=== PATIENT | male | born 1965 | race Caucasian/White ===

== ENCOUNTER 2018-09-07 16:11 | Inpatient (IN) ==
[2018-09-07 17:23] LABS: Basophils # 0.1 K/mm3 (0-0.2); Basophils % 0.7 % (0.1-2.0); Eosinophils # 0.1 K/mm3 (0.0-0.4); Lymphocytes # 2.1 K/mm3 (0.7-4.5); Mean Corpuscular HGB Conc 30.6 g/dL (31.8-35.4); Mean Corpuscular Hemoglobin 27.5 pg (27.0-31.2); Mean Corpuscular Volume 89.9 fl (80-94); Mean Platelet Volume 9.6 fl (7.4-10.4); Monocytes # 0.4 K/mm3 (0.1-1.0); Neutrophils # 4.8 K/mm3 (1.8-7.8); Neutrophils % 65.3 % (37.0-80.0); Platelet Count 380 K/mm3 (142-424); Red Blood Count 2.18 M/mm3 (4.60-6.20); Red Cell Distribution Width 15.3 % (11.5-17.5); White Blood Count 7.4 K/mm3 (4.8-10.8)
--- NOTE | 2018-09-07 17:24 | History & Physical Report ---
*Admission Date: 09/07/18 *Chief complaint: weakness, chest pain, melena, anemia *History of present illness: Mr. Solano is a 52-year-old male with a history of aortic valve replacement who presented to the office of [facility] today to have his INR checked. It was supratherapeutic at 4.5. He states he has been feeling poorly for the past week. He has noticed dark stools for at least a week and has had chest pain, weakness, dizziness, and shortness of breath. A CBC was checked in the office and his hemoglobin was 6.1 and his hematocrit was 17.8. He states he has had dark stools one other time but he cannot remember how long ago it was. He says it seemed to resolve on its own. Of note his father and grandfather both did have a history of colon cancer. His last colonoscopy was done in [address] Begum and the patient states this was normal. He was directly admitted from the office for blood transfusion and a surgical consult. We will also check an EKG, cardiac enzymes, and a chest x-ray. [facility] History Medical History: Reports:: Hyperlipidemia, Hypertension Denies:: Cancer, Diabetes Mellitus Type 1, Diabetes Mellitus Type 2, MRSA *Have you ever received a pneumonia vaccine?: No *Have you received a flu vaccine this season?: No Other Medical History: Reports: Anemia, Arthritis (back) Comment:: Aortic mechanical valve replacement, spinal stenosis of lumbar spine Laterality Cases: Left: Carpal Tunnel Release Other Surgeries: Yes: CABG, Colonoscopy, Other Valve Replacement (aortic valve replacement) - *Social History Educational Level: Attended High School Smoking Status: Current every day smoker # Packs/Day (cigarettes): 0 Alcohol Intake: current Alcohol Intake Frequency:: holidays/special occasions only *Occupational Status:: disabled Housing: house Household Members: spouse *Travel in the last 8 weeks: None - Psychiatric History Expresses thoughts of harming self/others: None Suicide Plan Description: No Plan Family Hx:: Cancer (colon), Diabetes Review of Systems - Constitutional Reports body ache(s), Reports chills, Reports fatigue, Reports weakness - Eyes Denies blurry vision, Denies double vision - ENT Denies nasal congestion, Denies sore throat - *Cardiovascular Reports chest pain, Reports shortness of breath with activity, Reports rapid, pounding, or irregular heartbeat, Denies leg swelling, Denies radiating jaw, neck or arm pain - *Respiratory Reports shortness of breath with activity, Denies cough - *Gastrointestinal Reports black, tarry stools, Denies abdominal pain, Denies nausea, Denies vomiting - *Genitourinary Denies difficulty urinating, Denies painful urination - *Musculoskeletal Reports body aches, Denies joint pain - *Neurologic Reports headache(s), Reports dizziness, Reports weakness Meds Home Medications Medication Instructions Recorded Confirmed Type Duloxetine HCl 60 mg PO BID 09/08/18 09/08/18 History Lisinopril [Lisinopril 10mg Tab] 10 mg PO DAILY 09/08/18 09/08/18 History Simvastatin 20 mg PO HS 09/08/18 09/08/18 History Warfarin Sodium 7.5 mg PO MOWE 09/08/18 09/08/18 History Warfarin Sodium 10 mg PO SUTUTHFRSA 09/08/18 09/08/18 History hydroCHLOROthiazide 12.5 mg PO DAILY 09/08/18 09/08/18 History [Hydrochlorothiazide 12.5mg Tab] Allergies Allergy/AdvReac Type Severity Reaction Status Date / Time No Known Allergies Allergy Unverified 06/08/17 14:45 Exam Vital signs and Labs for Last 24 Hours: Temp Pulse Resp BP Pulse Ox 97.5 F L 115 H 18 129/52 L 99 09/07/18 16:36 09/07/18 16:36 09/07/18 16:36 09/07/18 16:36 09/07/18 16:36 I & O for Last 24 hours: Intake & Output 09/05/18 09/06/18 09/07/18 09/08/18 11:59 11:59 11:59 11:59 Weight 296 lb 6 oz - Constitutional Comments: Does not appear to feel well - *Routine HEENT Exam Head: Present: normocephalic Eye: Present: EOMI, PERRL ENT: Present: mucous membranes dry - *Routine Neck Exam Present: supple. Absent: lymphadenopathy - *Routine Respiratory Exam Present: CTA bilaterally - *Routine Cardiovascular Exam Present: RRR (aortic valve click present) - *Routine Abdominal Exam Present: soft, normoactive bowel sounds. Absent: tenderness - *Routine Extremities Exam Absent: cyanosis, clubbing, edema - *Routine Skin Exam Present: pallor - *Routine Neurological Exam Present: alert, oriented X3 Assessment and Plan (1) Melena Current visit: Yes Status: Acute Category: Medical Code(s): K92.1 - Melena (2) Anemia Current visit: Yes Status: Acute Category: Medical Code(s): D64.9 - Anemia, unspecified (3) Hypertension Current visit: Yes Status: Chronic Category: Medical Code(s): I10 - Essential (primary) hypertension (4) History of aortic valve replacement Current visit: Yes Status: Chronic Category: Surgical Code(s): Z95.2 - Presence of prosthetic heart valve (5) Supratherapeutic INR Current visit: Yes Status: Acute Category: Medical Code(s): R79.1 - Abnormal coagulation profile - Assessment and plan all Dx Assessment and Plan for all problems:: Will transfuse with 2 units of PRBC's and will consult surgery for possible GI bleed.
[2018-09-07 17:25] LABS: Hematocrit 19.6 % (42.0-52.0)
[2018-09-07 17:46] LABS: INR 3.91 (0.9-1.1); Prothrombin Time 38.7 seconds (9.4-11.8)
[2018-09-07 17:51] LABS: Anion Gap 13.9 mEq/L (5-15); Bilirubin,Total 0.2 mg/dL (0.2-1.0); Calcium 8.3 mg/dL (8.5-10.1); Globulin 2.9 gm/dl (1.3-3.2); Potassium 3.9 mmoL/L (3.5-5.1); Total Protein,Serum 5.9 gm/dL (6.4-8.2)
[2018-09-08 04:25] LABS: Basophils # 0.1 K/mm3 (0-0.2); Basophils % 0.6 % (0.1-2.0); Eosinophils # 0.1 K/mm3 (0.0-0.4); Eosinophils % 1.7 % (0.1-12.0); Hematocrit 26.7 % (42.0-52.0); Lymphocytes # 3.4 K/mm3 (0.7-4.5); Lymphocytes % 42.4 % (10-50); Mean Corpuscular Hemoglobin 28.8 pg (27.0-31.2); Mean Corpuscular Volume 89.9 fl (80-94); Mean Platelet Volume 7.3 fl (7.4-10.4); Monocytes # 0.4 K/mm3 (0.1-1.0); Monocytes % 4.6 % (1.7-9.3); Neutrophils # 4.1 K/mm3 (1.8-7.8); Neutrophils % 50.6 % (37.0-80.0); Platelet Count 381 K/mm3 (142-424); Red Blood Count 2.97 M/mm3 (4.60-6.20); Red Cell Distribution Width 15.1 % (11.5-17.5); White Blood Count 8.1 K/mm3 (4.8-10.8)
[2018-09-08 04:29] LABS: INR 3.67 (0.9-1.1); Prothrombin Time 36.4 seconds (9.4-11.8)
[2018-09-08 04:31] LABS: Anion Gap 11.8 mEq/L (5-15); Potassium 3.8 mmoL/L (3.5-5.1)
[2018-09-08 05:08] LABS: Hemoglobin 8.6 g/dL (14.1-18.0)
--- NOTE | 2018-09-08 06:23 | Consult Report ---
*Admission Date: 09/07/18 *Chief complaint: GI bleed *History of present illness: This is a 52-year-old gentleman seen in consultation from his primary service for evaluation regarding possible upper gastrointestinal bleed. He has received 3 units of packed red blood cells since admission. Please see HPI from admission H&P forwarded below: Mr. Solano is a 52-year-old male with a history of aortic valve replacement who presented to the office of [facility] today to have his INR checked. It was supratherapeutic at 4.5. He states he has been feeling poorly for the past week. He has noticed dark stools for at least a week and has had chest pain, weakness, dizziness, and shortness of breath. A CBC was checked in the office and his hemoglobin was 6.1 and his hematocrit was 17.8. He states he has had dark stools one other time but he cannot remember how long ago it was. He says it seemed to resolve on its own. Of note his father and grandfather both did have a history of colon cancer. His last colonoscopy was done in [address] Begum and the patient states this was normal. He was directly admitted from the office for blood transfusion and a surgical consult. We will also check an EKG, cardiac enzymes, and a chest x-ray. Review of Systems - Constitutional Denies chills - Eyes Denies change in vision - ENT Denies change in voice - *Cardiovascular Reports chest pain - *Respiratory Denies cough - *Gastrointestinal Comments: dark stool - *Neurologic Reports headache(s), Reports dizziness, Reports weakness [facility] History Medical History: Reports:: Hyperlipidemia, Hypertension Denies:: Cancer, Diabetes Mellitus Type 1, Diabetes Mellitus Type 2, MRSA *Have you ever received a pneumonia vaccine?: No *Have you received a flu vaccine this season?: No Other Medical History: Reports: Anemia, Arthritis (back) Laterality Cases: Left: Carpal Tunnel Release Other Surgeries: Yes: CABG, Colonoscopy, Other Valve Replacement (aortic valve replacement) - *Social History Educational Level: Attended High School Smoking Status: Current every day smoker # Packs/Day (cigarettes): 0 Alcohol Intake: current Alcohol Intake Frequency:: holidays/special occasions only *Occupational Status:: disabled Housing: house Household Members: spouse *Travel in the last 8 weeks: None - Psychiatric History Expresses thoughts of harming self/others: None Suicide Plan Description: No Plan Family Hx:: Cancer (colon), Diabetes Meds Home Medications Medication Instructions Recorded Confirmed Type Unobtainable 09/08/18 09/08/18 History Allergies Allergy/AdvReac Type Severity Reaction Status Date / Time No Known Allergies Allergy Unverified 06/08/17 14:45 Exam Vital signs and Labs for Last 24 Hours: Temp Pulse Resp BP Pulse Ox 97.8 F 69 18 108/57 L 97 09/08/18 04:00 09/08/18 04:00 09/08/18 04:00 09/08/18 04:00 09/08/18 04:00 Laboratory Results - last 24 hr 09/07/18 17:00: WBC 7.4, RBC 2.18 L, Hgb 6.0 L*, Hct 19.6 L*, MCV 89.9, MCH 27.5, MCHC 30.6 L, RDW 15.3, Plt Count 380, MPV 9.6, Neut % (Auto) 65.3, Lymph % (Auto) 28.0, [place] % (Auto) 5.0, Eos % (Auto) 1.0, Baso % (Auto) 0.7, Neut # (Auto) 4.8, Lymph # (Auto) 2.1, [place] # (Auto) 0.4, Eos # (Auto) 0.1, Baso # (Auto) 0.1 09/07/18 17:00: PT 38.7 H, INR 3.91 H 09/07/18 17:00: Sodium 141, Potassium 3.9, Chloride 107, Carbon Dioxide 24, Anion Gap 13.9, BUN 17, Creatinine 0.99, Estimated Creat Clear 83, Estimated GFR 79, Est GFR ( Amer) 95, Glucose 115 H, Calcium 8.3 L, Total Bilirubin 0.2, AST 22, ALT 40, Alkaline Phosphatase 55, Total Protein 5.9 L, Albumin 3.0 L , Globulin 2.9, Albumin/Globulin Ratio 1.0 L 09/07/18 17:00: Troponin I < 0.02 09/07/18 17:00: Blood Type O Positive, Antibody Screen Negative, Crossmatch ( AHG) See Detail 09/07/18 17:00: Retic Count (auto) 5.7 H 09/07/18 17:00: Ferritin 7 L 09/07/18 17:10: Blood Type Confirm O Positive 09/08/18 04:12: WBC 8.1, RBC 2.97 L D, Hgb 8.6 L D, Hct 26.7 L, MCV 89.9, MCH 28.8, MCHC 32.0, RDW 15.1, Plt Count 381, MPV 7.3 L, Neut % (Auto) 50.6, Lymph % (Auto) 42.4, [place] % (Auto) 4.6, Eos % (Auto) 1.7, Baso % (Auto) 0.6, Neut # (Auto) 4.1, Lymph # (Auto) 3.4, [place] # (Auto) 0.4, Eos # (Auto) 0.1, Baso # (Auto) 0.1 09/08/18 04:12: PT 36.4 H, INR 3.67 H 09/08/18 04:12: Sodium 139, Potassium 3.8, Chloride 107, Carbon Dioxide 24, Anion Gap 11.8, BUN 13, Creatinine 0.94, Estimated Creat Clear 87, Estimated GFR 84, Est GFR ( Amer) 101, Glucose 93, Calcium 8.0 L I & O for Last 24 hours: Intake & Output 09/05/18 09/06/18 09/07/18 09/08/18 11:59 11:59 11:59 11:59 Intake Total 250 / 250 Balance 250 / 250 Weight 296 lb 6 oz Narrative: The patient has received 3 units of packed red blood cells. - Constitutional no acute distress - *Routine Respiratory Exam Absent: respiratory distress - *Routine Abdominal Exam Present: soft Results - Labs 09/08/18 04:12 09/08/18 04:12 Laboratory Results - last 24 hr 09/07/18 17:00: WBC 7.4, RBC 2.18 L, Hgb 6.0 L*, Hct 19.6 L*, MCV 89.9, MCH 27.5, MCHC 30.6 L, RDW 15.3, Plt Count 380, MPV 9.6, Neut % (Auto) 65.3, Lymph % (Auto) 28.0, [place] % (Auto) 5.0, Eos % (Auto) 1.0, Baso % (Auto) 0.7, Neut # (Auto) 4.8, Lymph # (Auto) 2.1, [place] # (Auto) 0.4, Eos # (Auto) 0.1, Baso # (Auto) 0.1 09/07/18 17:00: PT 38.7 H, INR 3.91 H 09/07/18 17:00: Sodium 141, Potassium 3.9, Chloride 107, Carbon Dioxide 24, Anion Gap 13.9, BUN 17, Creatinine 0.99, Estimated Creat Clear 83, Estimated GFR 79, Est GFR ( Amer) 95, Glucose 115 H, Calcium 8.3 L, Total Bilirubin 0.2, AST 22, ALT 40, Alkaline Phosphatase 55, Total Protein 5.9 L, Albumin 3.0 L , Globulin 2.9, Albumin/Globulin Ratio 1.0 L 09/07/18 17:00: Troponin I < 0.02 09/07/18 17:00: Blood Type O Positive, Antibody Screen Negative, Crossmatch (AHG) See Detail 09/07/18 17:00: Retic Count (auto) 5.7 H 09/07/18 17:00: Ferritin 7 L 09/07/18 17:10: Blood Type Confirm O Positive 09/08/18 04:12: WBC 8.1, RBC 2.97 L D, Hgb 8.6 L D, Hct 26.7 L, MCV 89.9, MCH 28.8, MCHC 32.0, RDW 15.1, Plt Count 381, MPV 7.3 L, Neut % (Auto) 50.6, Lymph % (Auto) 42.4, [place] % (Auto) 4.6, Eos % (Auto) 1.7, Baso % (Auto) 0.6, Neut # (Auto) 4.1, Lymph # (Auto) 3.4, [place] # (Auto) 0.4, Eos # (Auto) 0.1, Baso # (Auto) 0.1 09/08/18 04:12: PT 36.4 H, INR 3.67 H 09/08/18 04:12: Sodium 139, Potassium 3.8, Chloride 107, Carbon Dioxide 24, Anion Gap 11.8, BUN 13, Creatinine 0.94, Estimated Creat Clear 87, Estimated GFR 84, Est GFR ( Amer) 101, Glucose 93, Calcium 8.0 L Assessment and Plan (1) Melena Current visit: Yes Status: Acute Category: Medical Code(s): K92.1 - Melena (2) Anemia Current visit: Yes Status: Acute Category: Medical Code(s): D64.9 - Anemia, unspecified Most likely secondary to upper gastrointestinal hemorrhage. Follow-up a.m. labs Continue PPI He is tentatively scheduled for esophagogastroduodenoscopy today (may be postponed if his INR is exceedingly high AND if his vital signs remain stable AND if he has a stable H/H) (3) Hypertension Current visit: Yes Status: Chronic Category: Medical Code(s): I10 - Essential (primary) hypertension (4) History of aortic valve replacement Current visit: Yes Status: Chronic Category: Surgical Code(s): Z95.2 - Pre sence of prosthetic heart valve (5) Supratherapeutic INR Current visit: Yes Status: Acute Category: Medical Code(s): R79.1 - Abnormal coagulation profile
--- NOTE | 2018-09-08 07:46 | Pharmacy Consult Notes ---
[facility] Pharmacy VTE Monitoring - Patient Demographics Admission date: 09/07/18 Report Date: 09/08/18 Time: 07:46 Allergies/Adverse Reactions: Patient Allergies No Known Allergies Allergy (Unverified 06/08/17 14:45) Height: 1.73 m Weight: 134.433 kg Patient Problems: Current Active Problems Melena (Acute) Anemia (Acute) Hypertension (Chronic) History of aortic valve replacement (Chronic) Supratherapeutic INR (Acute) - VTE Risk Labs: VTE Related Lab Results Hgb 8.6 g/dL (14.1-18.0) L D 09/08/18 04:12 Hct 26.7 % (42.0-52.0) L 09/08/18 04:12 Plt Count 381 K/mm3 (142-424) 09/08/18 04:12 PT 36.4 seconds (9.4-11.8) H 09/08/18 04:12 INR 3.67 (0.9-1.1) H 09/08/18 04:12 BUN 13 mg/dL (7-18) 09/08/18 04:12 Creatinine 0.94 mg/dL (0.70-1.30) 09/08/18 04:12 Estimated Creat Clear 87 mL/min (50-200) 09/08/18 04:12 Was VTE Risk Assessment Performed: Yes VTE Score: 5 VTE Risk Level: Low Risk - Prophylaxis VTE Prophylaxis Ordered?: Yes Types of VTE Prophylaxis: TEDS Knee High Location of Applied Device: Bilateral Lower Extremeties - VTE Diagnosis Confirmed Treatment or plan recommended: Continue Current Treatment
--- NOTE | 2018-09-08 08:17 | Progress Note ---
<Lauryn Faulkner - Last Filed: 09/08/18 08:14> Internal Medicine - PN: Subj *Date: 09/08/18 *Time: 08:14 Interval history: Patient states he is feeling a little bit better today. He had less shortness of breath and chest pain when he got up and walked to the bathroom this morning. His HGB has improved from 6-8.6. He states he has had no further stools. He denies any abdominal pain. Exam Vital signs and Labs for Last 24 Hours: Temp Pulse Resp BP Pulse Ox 98.1 F 64 16 123/59 L 97 09/08/18 08:00 09/08/18 08:00 09/08/18 08:00 09/08/18 08:00 09/08/18 08:00 Laboratory Results - last 24 hr 09/07/18 17:00: WBC 7.4, RBC 2.18 L, Hgb 6.0 L*, Hct 19.6 L*, MCV 89.9, MCH 27.5, MCHC 30.6 L, RDW 15.3, Plt Count 380, MPV 9.6, Neut % (Auto) 65.3, Lymph % (Auto) 28.0, [place] % (Auto) 5.0, Eos % (Auto) 1.0, Baso % (Auto) 0.7, Neut # (Auto) 4.8, Lymph # (Auto) 2.1, [place] # (Auto) 0.4, Eos # (Auto) 0.1, Baso # (Auto) 0.1 09/07/18 17:00: PT 38.7 H, INR 3.91 H 09/07/18 17:00: Sodium 141, Potassium 3.9, Chloride 107, Carbon Dioxide 24, Anion Gap 13.9, BUN 17, Creatinine 0.99, Estimated Creat Clear 83, Estimated GFR 79, Est GFR ( Amer) 95, Glucose 115 H, Calcium 8.3 L, Total Bilirubin 0.2, AST 22, ALT 40, Alkaline Phosphatase 55, Total Protein 5.9 L, Albumin 3.0 L , Globulin 2.9, Albumin/Globulin Ratio 1.0 L 09/07/18 17:00: Troponin I < 0.02 09/07/18 17:00: Blood Type O Positive, Antibody Screen Negative, Crossmatch (AHG) See Detail 09/07/18 17:00: Retic Count (auto) 5.7 H 09/07/18 17:00: Ferritin 7 L 09/07/18 17:10: Blood Type Confirm O Positive 09/08/18 04:12: WBC 8.1, RBC 2.97 L D, Hgb 8.6 L D, Hct 26.7 L, MCV 89.9, MCH 28.8, MCHC 32.0, RDW 15.1, Plt Count 381, MPV 7.3 L, Neut % (Auto) 50.6, Lymph % (Auto) 42.4, [place] % (Auto) 4.6, Eos % (Auto) 1.7, Baso % (Auto) 0.6, Neut # (Auto) 4.1, Lymph # (Auto) 3.4, [place] # (Auto) 0.4, Eos # (Auto) 0.1, Baso # (Auto) 0.1 09/08/18 04:12: PT 36.4 H, INR 3.67 H 09/08/18 04:12: Sodium 139, Potassium 3.8, Chloride 107, Carbon Dioxide 24, Anion Gap 11.8, BUN 13, Creatinine 0.94, Estimated Creat Clear 87, Estimated GFR 84, Est GFR ( Amer) 101, Glucose 93, Calcium 8.0 L I & O for Last 24 hours: Intake & Output 09/05/18 09/06/18 09/07/18 09/08/18 11:59 11:59 11:59 11:59 Intake Total 634 / 634 Balance 634 / 634 Weight 296 lb 6 oz - Constitutional no acute distress - *Routine Respiratory Exam Present: CTA bilaterally - *Routine Cardiovascular Exam Present: RRR - *Routine Abdominal Exam Present: soft, normoactive bowel sounds. Absent: tenderness - *Routine Extremities Exam Absent: cyanosis, clubbing, edema - *Routine Skin Exam Present: pallor (but better color today) Assessment and Plan (1) Melena Current visit: Yes Status: Acute Category: Medical Code(s): K92.1 - Melena (2) Anemia Current visit: Yes Status: Acute Category: Medical Code(s): D64.9 - Anemia, unspecified (3) Hypertension Current visit: Yes Status: Chronic Category: Medical Code(s): I10 - Essential (primary) hypertension (4) History of aortic valve replacement Current visit: Yes Status: Chronic Category: Surgical Code(s): Z95.2 - Presence of prosthetic heart valve (5) Supratherapeutic INR Current visit: Yes Status: Acute Category: Medical Code(s): R79.1 - Abnormal coagulation profile - Assessment and plan all Dx Assessment and Plan for all problems:: Surgery note reviewed. Dr. Mckeon has ordered a repeat H&H for this am. If his H&H continues to drop, he will do an EGD today despite his elevated INR. If his H&H is stable, he may delay the EGD until tomorrow. <Modesto Bynum - Last Filed: 09/08/18 08:26> Exam Vital signs and Labs for Last 24 Hours: Temp Pulse Resp BP Pulse Ox 98.1 F 64 16 123/59 L 97 09/08/18 08:00 09/08/18 08:00 09/08/18 08:00 09/08/18 08:00 09/08/18 08:00 Laboratory Results - last 24 hr 09/07/18 17:00: WBC 7.4, RBC 2.18 L, Hgb 6.0 L*, Hct 19.6 L*, MCV 89.9, MCH 27.5, MCHC 30.6 L, RDW 15.3, Plt Count 380, MPV 9.6, Neut % (Auto) 65.3, Lymph % (Auto) 28.0, [place] % (Auto) 5.0, Eos % (Auto) 1.0, Baso % (Auto) 0.7, Neut # (Auto) 4.8, Lymph # (Auto) 2.1, [place] # (Auto) 0.4, Eos # (Auto) 0.1, Baso # (Auto) 0.1 09/07/18 17:00: PT 38.7 H, INR 3.91 H 09/07/18 17:00: Sodium 141, Potassium 3.9, Chloride 107, Carbon Dioxide 24, Anion Gap 13.9, BUN 17, Creatinine 0.99, Estimated Creat Clear 83, Estimated GFR 79, Est GFR ( Amer) 95, Glucose 115 H, Calcium 8.3 L, Total Bilirubin 0.2, AST 22, ALT 40, Alkaline Phosphatase 55, Total Protein 5.9 L, Albumin 3.0 L , Globulin 2.9, Albumin/Globulin Ratio 1.0 L 09/07/18 17:00: Troponin I < 0.02 09/07/18 17:00: Blood Type O Positive, Antibody Screen Negative, Crossmatch (AHG) See Detail 09/07/18 17:00: Retic Count (auto) 5.7 H 09/07/18 17:00: Ferritin 7 L 09/07/18 17:10: Blood Type Confirm O Positive 09/08/18 04:12: WBC 8.1, RBC 2.97 L D, Hgb 8.6 L D, Hct 26.7 L, MCV 89.9, MCH 2 8.8, MCHC 32.0, RDW 15.1, Plt Count 381, MPV 7.3 L, Neut % (Auto) 50.6, Lymph % (Auto) 42.4, [place] % (Auto) 4.6, Eos % (Auto) 1.7, Baso % (Auto) 0.6, Neut # (Auto) 4.1, Lymph # (Auto) 3.4, [place] # (Auto) 0.4, Eos # (Auto) 0.1, Baso # (Auto) 0.1 09/08/18 04:12: PT 36.4 H, INR 3.67 H 09/08/18 04:12: Sodium 139, Potassium 3.8, Chloride 107, Carbon Dioxide 24, Anion Gap 11.8, BUN 13, Creatinine 0.94, Estimated Creat Clear 87, Estimated GFR 84, Est GFR ( Amer) 101, Glucose 93, Calcium 8.0 L I & O for Last 24 hours: Intake & Output 09/05/18 09/06/18 09/07/18 09/08/18 11:59 11:59 11:59 11:59 Intake Total 634 / 634 Balance 634 / 634 Weight 296 lb 6 oz Assessment and Plan (1) Melena Current visit: Yes Status: Acute Category: Medical Code(s): K92.1 - Melena (2) Anemia Current visit: Yes Status: Acute Category: Medical Code(s): D64.9 - Anemia, unspecified (3) Hypertension Current visit: Yes Status: Chronic Category: Medical Code(s): I10 - Essential (primary) hypertension (4) History of aortic valve replacement Current visit: Yes Status: Chronic Category: Surgical Code(s): Z95.2 - Presence of prosthetic heart valve (5) Supratherapeutic INR Current visit: Yes Status: Acute Category: Medical Code(s): R79.1 - Abnormal coagulation profile - Assessment and plan all Dx Assessment and Plan for all problems:: Patient seen and examined. Likely has UGI bleed. He gives remote hx of peptic ulcer. Concur with plan for EGD when Dr. Mckeon deems appropriate.
[2018-09-08 10:41] LABS: Hematocrit 25.8 % (42.0-52.0); Hemoglobin 8.4 g/dL (14.1-18.0)
[2018-09-08 18:35] LABS: Hematocrit 28.1 % (42.0-52.0); Hemoglobin 9.1 g/dL (14.1-18.0)
[2018-09-09 05:01] LABS: Basophils % 0.6 % (0.1-2.0); Eosinophils # 0.2 K/mm3 (0.0-0.4); Eosinophils % 2.1 % (0.1-12.0); Hematocrit 26.5 % (42.0-52.0); Hemoglobin 8.8 g/dL (14.1-18.0); Lymphocytes # 2.8 K/mm3 (0.7-4.5); Lymphocytes % 39.8 % (10-50); Mean Corpuscular HGB Conc 33.1 g/dL (31.8-35.4); Mean Corpuscular Volume 87.6 fl (80-94); Mean Platelet Volume 8.9 fl (7.4-10.4); Monocytes # 0.4 K/mm3 (0.1-1.0); Monocytes % 5.6 % (1.7-9.3); Neutrophils # 3.7 K/mm3 (1.8-7.8); Neutrophils % 51.9 % (37.0-80.0); Platelet Count 328 K/mm3 (142-424); Red Blood Count 3.02 M/mm3 (4.60-6.20); Red Cell Distribution Width 14.8 % (11.5-17.5); White Blood Count 7.1 K/mm3 (4.8-10.8)
[2018-09-09 05:10] LABS: INR 1.91 (0.9-1.1); Prothrombin Time 19.3 seconds (9.4-11.8)
--- NOTE | 2018-09-09 06:11 | Progress Note ---
Subjective Patient reports: no new complaints Exam Vital signs and Labs for Last 24 Hours: Temp Pulse Resp BP Pulse Ox 97.6 F 69 17 125/51 L 96 09/09/18 04:00 09/09/18 04:00 09/09/18 04:00 09/09/18 04:00 09/09/18 04:00 Laboratory Results - last 24 hr 09/07/18 17:00: Blood Type O Positive, Antibody Screen Negative, Crossmatch (AHG) See Detail 09/08/18 10:30: Hgb 8.4 L, Hct 25.8 L 09/08/18 14:56: Stool Occult Blood Positive A 09/08/18 18:30: Hgb 9.1 L, Hct 28.1 L 09/09/18 04:55: WBC 7.1, RBC 3.02 L, Hgb 8.8 L, Hct 26.5 L, MCV 87.6, MCH 29.0, MCHC 33.1, RDW 14.8, Plt Count 328, MPV 8.9, Neut % (Auto) 51.9, Lymph % (Auto) 39.8, [place] % (Auto) 5.6, Eos % (Auto) 2.1, Baso % (Auto) 0.6, Neut # (Auto) 3.7, Lymph # (Auto) 2.8, [place] # (Auto) 0.4, Eos # (Auto) 0.2, Baso # (Auto) 0.0 09/09/18 04:55: PT 19.3 H, INR 1.91 H I & O for Last 24 hours: Intake & Output 09/06/18 09/07/18 09/08/18 09/09/18 11:59 11:59 11:59 11:59 Intake Total 634 / 634 676 / 676 Balance 634 / 634 676 / 676 Weight 296 lb 6 oz 291 lb 8 oz - Constitutional no acute distress - *Routine Respiratory Exam Absent: respiratory distress - *Routine Cardiovascular Exam Present: RRR - *Routine Abdominal Exam Present: soft Progress Note: A&P (1) Melena Status: Acute Current Visit: Yes (2) Anemia Status: Acute Assessment and plan: EGD this AM continue current medical therapy Current Visit: Yes (3) Hypertension Status: Chronic Current Visit: Yes (4) History of aortic valve replacement Status: Chronic Current Visit: Yes (5) Supratherapeutic INR Status: Acute Current Visit: Yes
--- NOTE | 2018-09-09 06:49 | Procedure Note ---
- Procedure: Date: 09/09/18 Procedure Performed:: Esophagogastroduodenoscopy with biopsy Indications:: Anemia Melena Performing Provider:: Pasha Mckeon MD Referring Provider:: Dr. Bynum Sedation:: Monitored anesthesia care Procedure:: After informed consent was obtained the patient was taken to the endoscopy suite. Sedation ensued after the patient was transferred to the left lateral decubitus position. Pulse, blood pressure, and oxygen saturation were monitored throughout the procedure. The endoscope was advanced beyond the duodenal bulb. Retroflexion within the gastric lumen was accomplished. The gastroscope was carefully removed and the patient was transferred to recovery in stable condition. Please see "findings" and "specimens" below for detail. Findings:: Gastroesophageal junction at 45 cm Patchy gastritis 3 shallow ulcerations in distal gastric body/antrum The ulcerations were not actively bleeding and did not have "clot at base". Specimens:: Distal gastric body/antrum (breonna-ulcer tissue) Recommendations:: Continue proton pump inhibition Begin Carafate Repeat EGD in 6-8 weeks Carefully resume Coumadin when deemed appropriate by primary care providers. Complications:: No immediate Estimated blood obtained (mL): 1
--- NOTE | 2018-09-09 07:24 | Progress Note ---
[facility] Anesthesia Checklist - Structural Data Admitted From: Inpatient Planned Operative Procedure/s: egd Consent for Planned Operative Procedure(s) Verified: Yes - Airway Assessment C-Spine Mobility Assessed: Yes TMJ Mobility Assessed: Yes Dentition: Poor Dentition - Neurological Assessment Level of Consciousness: Awake, Alert, Appropriate - Anesthesia Plan Anesthesia Risk discussed: Yes Anesthesia Plan: Verified ASA Class: II Anesthesia Type: [facility] History I have reviewed the patient's past medical history: Yes Medical History: Reports:: Hyperlipidemia, Hypertension Denies:: Cancer, Diabetes Mellitus Type 1, Diabetes Mellitus Type 2, MRSA *Have you ever received a pneumonia vaccine?: No *Have you received a flu vaccine this season?: No Other Medical History: Reports: Anemia, Arthritis (back) Laterality Cases: Left: Carpal Tunnel Release Other Surgeries: Yes: CABG, Colonoscopy, Other Valve Replacement (aortic valve replacement) - *Social History Educational Level: Attended High School Smoking Status: Current every day smoker # Packs/Day (cigarettes): 0 Alcohol Intake: current Alcohol Intake Frequency:: holidays/special occasions only *Occupational Status:: disabled Housing: house Household Members: spouse *Travel in the last 8 weeks: None - Psychiatric History Expresses thoughts of harming self/others: None Suicide Plan Description: No Plan Family Hx:: Cancer (colon), Diabetes
--- NOTE | 2018-09-09 08:30 | Progress Note ---
<Lauryn Faulkner - Last Filed: 09/09/18 08:27> Internal Medicine - PN: Subj *Date: 09/09/18 *Time: 08:28 Interval history: Patient states he is feeling well this morning and wants to go home. He had his EGD and Dr. Mckeon found 3 shallow distal gastric/antral ulcers. There was no active bleeding and no clot at the base. He did take some biopsies. He felt he would need to stay on a PPI and Carafate. The patient tolerated a diet after his EGD. He states his stool is clearing. Exam Vital signs and Labs for Last 24 Hours: Temp Pulse Resp BP Pulse Ox 98.1 F 55 L 18 135/66 99 09/09/18 07:15 09/09/18 07:15 09/09/18 07:15 09/09/18 07:15 09/09/18 07:15 Laboratory Results - last 24 hr 09/07/18 17:00: Blood Type O Positive, Antibody Screen Negative, Crossmatch (AHG) See Detail 09/08/18 10:30: Hgb 8.4 L, Hct 25.8 L 09/08/18 14:56: Stool Occult Blood Positive A 09/08/18 18:30: Hgb 9.1 L, Hct 28.1 L 09/09/18 04:55: WBC 7.1, RBC 3.02 L, Hgb 8.8 L, Hct 26.5 L, MCV 87.6, MCH 29.0, MCHC 33.1, RDW 14.8, Plt Count 328, MPV 8.9, Neut % (Auto) 51.9, Lymph % (Auto) 39.8, [place] % (Auto) 5.6, Eos % (Auto) 2.1, Baso % (Auto) 0.6, Neut # (Auto) 3.7, Lymph # (Auto) 2.8, [place] # (Auto) 0.4, Eos # (Auto) 0.2, Baso # (Auto) 0.0 09/09/18 04:55: PT 19.3 H, INR 1.91 H I & O for Last 24 hours: Intake & Output 09/06/18 09/07/18 09/08/18 09/09/18 11:59 11:59 11:59 11:59 Intake Total 634 / 634 676 / 676 Output Total 600 / 600 Balance 634 / 634 76 / 76 Weight 296 lb 6 oz 291 lb 8 oz - Constitutional no acute distress - *Routine Respiratory Exam Present: CTA bilaterally - *Routine Cardiovascular Exam Present: RRR - *Routine Abdominal Exam Present: soft, normoactive bowel sounds, tenderness (epigastric area) - *Routine Extremities Exam Absent: cyanosis, clubbing, edema - *Routine Skin Exam Present: pallor Assessment and Plan (1) Melena Current visit: Yes Status: Acute Category: Medical Code(s): K92.1 - Melena (2) Anemia Current visit: Yes Status: Acute Category: Medical Code(s): D64.9 - Anemia, unspecified (3) Hypertension Current visit: Yes Status: Chronic Category: Medical Code(s): I10 - Essential (primary) hypertension (4) History of aortic valve replacement Current visit: Yes Status: Chronic Category: Surgical Code(s): Z95.2 - Presence of prosthetic heart valve (5) Supratherapeutic INR Current visit: Yes Status: Acute Category: Medical Code(s): R79.1 - Abnormal coagulation profile - Assessment and plan all Dx Assessment and Plan for all problems:: Will continue PPI and Carafate. Will discuss restarting Coumadin with Dr. Bynum as well as patient's discharge. <Modesto Bynum - Last Filed: 09/09/18 09:14> Exam Vital signs and Labs for Last 24 Hours: Temp Pulse Resp BP Pulse Ox 98.1 F 80 18 135/66 99 09/09/18 07:15 09/09/18 08:00 09/09/18 07:15 09/09/18 07:15 09/09/18 07:15 Laboratory Results - last 24 hr 09/07/18 17:00: Blood Type O Positive, Antibody Screen Negative, Crossmatch (AHG) See Detail 09/07/18 17:50: 25-OH Vitamin D Total 20.4 L 09/07/18 17:50: Iron 10 L, TIBC 335, Iron Saturation 3 L, Unsaturated IBC 325, Folate 13.9 09/08/18 10:30: Hgb 8.4 L, Hct 25.8 L 09/08/18 14:56: Stool Occult Blood Positive A 09/08/18 18:30: Hgb 9.1 L, Hct 28.1 L 09/09/18 04:55: WBC 7.1, RBC 3.02 L, Hgb 8.8 L, Hct 26.5 L, MCV 87.6, MCH 29.0, MCHC 33.1, RDW 14.8, Plt Count 328, MPV 8.9, Neut % (Auto) 51.9, Lymph % (Auto) 39.8, [place] % (Auto) 5.6, Eos % (Auto) 2.1, Baso % (Auto) 0.6, Neut # (Auto) 3.7, Lymph # (Auto) 2.8, [place] # (Auto) 0.4, Eos # (Auto) 0.2, Baso # (Auto) 0.0 09/09/18 04:55: PT 19.3 H, INR 1.91 H I & O for Last 24 hours: Intake & Output 09/06/18 09/07/18 09/08/18 09/09/18 11:59 11:59 11:59 11:59 Intake Total 634 / 634 676 / 676 Output Total 600 / 600 Balance 634 / 634 76 / 76 Weight 296 lb 6 oz 291 lb 8 oz Assessment and Plan (1) Melena Current visit: Yes Status: Acute Category: Medical Code(s): K92.1 - Melena (2) Anemia Current visit: Yes Status: Acute Category: Medical Code(s): D64.9 - Anemia, unspecified (3) Hypertension Current visit: Yes Status: Chronic Category: Medical Code(s): I10 - Essential (primary) hypertension (4) History of aortic valve replacement Current visit: Yes Status: Chronic Category: Surgical Code(s): Z95.2 - Presence of prosthetic heart valve (5) Supratherapeutic INR Current visit: Yes Status: Acute Category: Medical Code(s): R79.1 - Abnormal coagulation profile - Assessment and plan all Dx Assessment and Plan for all problems:: Patient seen and examined. He is stable for discharge on PPI and Carafate. He will remain off the Coumadin until he follows up in a week. Advised to avoid all ASA and NSAID products.
[2018-09-09 08:53] LABS: Folate 13.9 ng/mL (>3.0)
--- NOTE | 2018-09-12 11:05 | Discharge Summary ---
General - General Admission date:: 09/07/18 Discharge date: 09/09/18 HPI HPI: Mr. Solano is a 52-year-old male with a history of aortic valve replacement who presented to the office of [facility] today to have his INR checked. It was supratherapeutic at 4.5. He states he has been feeling poorly for the past week. He has noticed dark stools for at least a week and has had chest pain, weakness, dizziness, and shortness of breath. A CBC was checked in the office and his hemoglobin was 6.1 and his hematocrit was 17.8. He states he has had dark stools one other time but he cannot remember how long ago it was. He says it seemed to resolve on its own. Of note his father and grandfather both did have a history of colon cancer. His last colonoscopy was done in [address] Begum and the patient states this was normal. He was directly admitted from the office for blood transfusion and a surgical consult. We will also check an EKG, cardiac enzymes, and a chest x-ray. Hospital Course Hospital Course: The patient was admitted for blood transfusion and surgical consult. His cardiac enyzmes and CXR were normal. Dr. Mckeon saw the patient and felt that this was most likely secondary to an upper gastrointestinal hemorrhage. He started him on a PPI and felt he would need an EGD once his INR had decreased as it was supratherapeutic on admission. The patient's H&H did improve with tr ansfusion and his INR decreased. Dr. Mckeon performed an EGD on 09/09/18 and it showed 3 shallow ulcerations in the distal gastric body/antrum. The ulcerations were not actively bleeding and did not have a clot at the base. Dr. Mckeon recommended continued proton pump inhibitors as well as Carafate and a repeat EGD in 6-8 weeks. The patient's stool began clearing of the blood. He felt better and was able to tolerate a diet. His chest pain and shortness of breath resolved after blood transfusion. He was stable to be discharged home on a PPI and Carafate and will remain off of Coumadin until he follows up in the office in a week. He was also advised to avoid all aspirin and NSAID products. Of note on anemia studies, his iron was found to be low as was his ferritin. His vitamin D was also low. Objective Vital signs: Temp Pulse Resp BP Pulse Ox 98.0 F 57 L 18 120/55 L 98 09/09/18 11:01 09/09/18 11:01 09/09/18 11:01 09/09/18 11:01 09/09/18 11:01 Narrative: - Constitutional Comments: Does not appear to feel well - *Routine HEENT Exam Head: Present: normocephalic Eye: Present: EOMI, PERRL ENT: Present: mucous membranes dry - *Routine Neck Exam Present: supple. Absent: lymphadenopathy - *Routine Respiratory Exam Present: CTA bilaterally - *Routine Cardiovascular Exam Present: RRR (aortic valve click present) - *Routine Abdominal Exam Present: soft, normoactive bowel sounds. Absent: tenderness - *Routine Extremities Exam Absent: cyanosis, clubbing, edema - *Routine Skin Exam Present: pallor - *Routine Neurological Exam Present: alert, oriented X3 DS: Diagnosis - Discharge Diagnosis (1) Melena Status: Acute (2) Anemia Status: Acute (3) Hypertension Status: Chronic (4) History of aortic valve replacement Status: Chronic (5) Supratherapeutic INR Status: Acute Discharge Plan - Patient Discharge Instructions ACTIVITY: Continue current activity DIET: continue same diet Patient Instructions: Anemia, DI for Peptic Ulcer, Coumadin Vitamin K/ Diet, Coumadin Therapy Booklet - Follow up Plan Follow up with: Modesto Bynum MD [Primary Care Provider] - 1 week Pasha Mckeon MD [Staff Physician] - 1 week Disposition: Home, Self-[facility] Medications: Home Medications Medication Instructions Recorded Confirmed Type Duloxetine HCl 60 mg PO BID 09/08/18 09/08/18 History Lisinopril [Lisinopril 10mg Tab] 10 mg PO DAILY 09/08/18 09/08/18 History Simvastatin 20 mg PO HS 09/08/18 09/08/18 History hydroCHLOROthiazide 12.5 mg PO DAILY 09/08/18 09/08/18 History [Hydrochlorothiazide 12.5mg Tab] Ferrous Sulfate [Ferrous Sulfate 325 mg PO DAILY #30 tab 09/09/18 Rx 325mg Tablet] Pantoprazole Sodium [Protonix 40mg 40 mg PO BID 30 Days #60 tab 09/09/18 Rx tablet] Sucralfate [Carafate 1gm Tab] 1 gm PO ACHS #120 tab 09/09/18 Rx Prescriptions/Medication Reconciliation: New Ferrous Sulfate [Ferrous Sulfate 325mg Tablet] 325 mg PO DAILY #30 tab Pantoprazole Sodium [Protonix 40mg tablet] 40 mg PO BID 30 Days #60 tab Sucralfate [Carafate 1gm Tab] 1 gm PO ACHS #120 tab Continue Lisinopril [Lisinopril 10mg Tab] 10 mg PO DAILY Simvastatin 20 mg PO HS Duloxetine HCl 60 mg PO BID hydroCHLOROthiazide [Hydrochlorothiazide 12.5mg Tab] 12.5 mg PO DAILY Discontinued Warfarin Sodium 10 mg PO SUTUTHFRSA Warfarin Sodium 7.5 mg PO MOWE
== END 2018-09-09 11:03 | disposition home or self-care (01) | DRG 379 ==
LOC: 2ND 16:19
PROVIDERS: ADMIT Family Medicine; ATTEND Family Medicine
CPT/HCPCS: 36415; 71020; 71046; 80048; 80053; 82272; 82607; 82652; 82728; 82746; 83540; 83550; 84484; 85014; 85018; 85025; 85044; 85610; 86850; 93005; G0328; P9016

== ENCOUNTER → 2018-10-06 06:50 | Outpatient (CLI) | payer MEDICARE, SELFPAY ==
--- NOTE | 2018-10-06 06:52 | NM_ITS ---
CARDIOLITE SPECT MYOCARDIAL PERFUSION LEXISCAN, REST AND STRESS: [facility] REVIEW QGS EF AND WALL MOTION EVALUATION: QPS - PERFUSION EVALUATION HISTORY: Chest pain, Palpitations, Fatigue, HTN, CABG, Tobacco use, Family history DOSE: 10.98 mCi technetium 99m mibi intravenously at rest followed by 32.8 mCi technetium 99m mibi following the intravenous ministration of 0.4 mg of Lexiscan. Resting blood pressure is 133/69. Stress blood pressure 126/65. FINDINGS: Ejection fraction is calculated to be 57%. Stress images reveal decreased activity in the inferior wall and apex with slightly improved activity with rest. 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 High risk abnormal stress test
--- NOTE | 2018-10-06 10:03 | HMH.ITSHM ---
Current Home Medications as stated by this patient Kassi Solano or home office representative. [] sucralfate pantoprazole lisinopril duloxetine hci hydrochlorothiazide
== END ==
PROVIDERS: PCP Family Medicine; Visit Provider Urology
DX: F17.200 Nicotine dependence, unspecified, uncomplicated (principal); I10 Essential (primary) hypertension; R06.09 Other forms of dyspnea; R07.89 Other chest pain; R79.1 Abnormal coagulation profile; Z95.2 Presence of prosthetic heart valve
CPT/HCPCS: 78452; 93017; 93306; A9502; J2785

== ENCOUNTER → 2018-11-28 12:05 | Outpatient (CLI) | payer MEDICARE, SELFPAY ==
[2018-11-28 13:58] LABS: INR 1.18 (0.9-1.1); Prothrombin Time 12.2 seconds (9.4-11.8)
== END ==
PROVIDERS: Visit Provider Family Medicine
DX: Z51.81 Encounter for therapeutic drug level monitoring (principal); Z79.01 Long term (current) use of anticoagulants
CPT/HCPCS: 36415; 85610

== ENCOUNTER → 2018-12-05 09:57 | Outpatient (CLI) | payer MEDICARE, SELFPAY ==
[2018-12-05 10:21] LABS: Prothrombin Time 20.1 seconds (9.4-11.8)
== END ==
PROVIDERS: Visit Provider Family Medicine
DX: Z51.81 Encounter for therapeutic drug level monitoring (principal); Z79.01 Long term (current) use of anticoagulants
CPT/HCPCS: 36415; 85610

== ENCOUNTER → 2018-12-13 11:27 | Outpatient (CLI) | payer MEDICARE, SELFPAY ==
[2018-12-13 12:00] LABS: INR 3.72 (0.9-1.1); Prothrombin Time 36.3 seconds (9.4-11.8)
== END ==
PROVIDERS: Visit Provider Family Medicine
DX: Z51.81 Encounter for therapeutic drug level monitoring (principal); Z79.01 Long term (current) use of anticoagulants
CPT/HCPCS: 36415; 85610

== ENCOUNTER → 2018-12-30 12:16 | Outpatient (CLI) | payer MEDICARE, SELFPAY ==
[2018-12-30 13:00] LABS: INR 3.77 (0.9-1.1); Prothrombin Time 36.8 seconds (9.4-11.8)
== END ==
PROVIDERS: Visit Provider Family Medicine
DX: Z51.81 Encounter for therapeutic drug level monitoring (principal); Z79.01 Long term (current) use of anticoagulants
CPT/HCPCS: 36415; 85610

== ENCOUNTER → 2020-01-05 07:05 | Outpatient (CLI) | payer MEDICARE, SELFPAY ==
--- NOTE | 2020-01-05 | CA_ITS ---
APPROVED REPORT Exam: Pharmacologic Technologist: Eleanor Hood, Ht: 5 ft 8 in Wt: 304 lbs BSA: 2.44 m2 HR: 57 bpm BP: 118/63 mmHg Rhythm: SINUS CHRIS Medical History Medical History: HTN, Hyperlipidemia Medications: Lisinopril,,,,, Warfarin,,,,, Simvastatin,,,,, Asa,,,,, HCTZ,,,,, [place],,,,, DulOXETINE,,,,, Allergies: No known drug allergies Stress Test Details Test: LEXISCAN HR Resting HR: 58 bpm Max Heart Rate (APMHR): 164 bpm Max HR Achieved: 96 bpm Target HR (85% APMHR): 139 bpm % of APMHR: 58 Recovery HR: 69 bpm BP Resting BP: 118.0/63.0 mmHg Max BP: 126.0/61.0 mmHg Recovery BP: 115.0/65.0 mmHg ECG Resting ECG: SINUS CHRIS Clinical Exercise duration: 03:59 min Highest Stage Achieved: Stress ECG Conclusion LEXISCAN COMPLETED. PATIENT C/OSHORTNESS OF AIR AT PEAK INFUSION. NO CHEST PAIN. POSITIVE FOR SOA DURING PEAK INFUSION. RESOLVED IN RECOVERY. OCCASIONAL PAC. LESS THAN 1.5MM ST DEPRESSION. IMAGES TO FOLLOW. Electronically signed by : Santosh Snell, 01/05/2020 13:50:14
--- NOTE | 2020-01-05 07:07 | NM_ITS ---
APPROVED REPORT Exam: Nuclear Stress Test Indication: chest pain..short of breath..palpitations..fatigue Patient Location: Outpatient Stress Tech: Silke Sana [place] Tech:MILAGRO Hernadez RT(R)(N) Ht: 5 ft 8 in Wt: 304 lbs HR: 57 bpm BP: 118/63 mmHg BSA: 2.44 m2 BMI: 46.2 History: chest pain..short of breath..palpitations..fatigue Procedure: Patient received a 0.4 mg of intravenous Lexiscan, resting heart rate 57 bpm, resting blood pressure 118/63 mmHg, with Lexiscan maximum heart rate achived was 89 bpm which is Less then 85 % of the maximum predicted heart rate and blood pressure was 97/61 mmHg. With Lexiscan, patient denied any complaint of chest pain. Electrocardiogram Resting electrocardiogram showed sinus rhythm nonspecific ST-T changes, with Lexiscan there is less than 1.[address] segment depression noted from the baseline EKG. The EKG portion of the Lexiscan is nondiagnostic. Cardiac Stress and Resting SPECT Images: Cardiac Stress and Resting SPECT images were obtained using technetium 99m Myoview 27.5 mCi stress and 10.53 mCi at rest. Gated SPECT with analysis of segmental wall motion and calculation of the ejection fraction also done. Cardiac stress and resting SPECT images show decreased tracer activity in the inferior apical and anteroseptal wall consistent with area of mixed ischemia and scar, computer derived ejection fraction is 58% with moderate hypokinesis involving the inferior apical and anteroseptal wall. Right ventricle is normal size and contractility. Conclusion: 1. The EKG portion of the Lexiscan Myoview is nondiagnostic. 2. Scintigraphic evidence of mixed ischemia and scar involving the inferior apical and anteroseptal wall, computer derived ejection fraction 58% with segmental wall motion abnormality described above, right ventricle is normal size and contractility. 3. Abnormal Lexiscan Myoview study. Electronically signed by : Santosh Snell, 01/05/2020 13:54:31
--- NOTE | 2020-01-05 07:07 | CA_ITS ---
APPROVED REPORT EXAM: Comprehensive 2D, Doppler, and color-flow Echocardiogram Medical Parasitologist: Charline Velázquez RT(R) Ht: 5 ft 8 in Wt: 303lbs BSA: 2.44 BP: 137/80 mmHg Indications: HTN, SOB, CARTER, obesity, CP, mechanical AV 2D Dimensions Aortic Root 2.47 cm M: 3.1 - 3.7 Left Atrium 5.03 cm M: 3.0 - 4.0 LVOT 1.88 cm (M/F) 1.5-2.5 M-Mode Dimensions RVDd 2.08 cm (0.9-2.6) LVDd 4.80 cm (3.5-5.7) IVSd 1.30 cm (0.6-1.1) PWd 1.30 cm (0.6-1.1) EF (Teich) 60.00% LV Diastology E/A Ratio 1.08 Aortic Valve LVOT Max 190.00 (70-110 cm/s) LVOT VTI 37.45 cm Mitral Valve MV A Velocity 56.00 (40-130 cm/s) Left Ventricle Left atrium is mildly enlarged, left ventricle is normal size, mild concentric left ventricular hypertrophy, visually estimated ejection fraction 55% with no regional wall motion abnormality, endocardial surfaces are poorly visualized. Grade 1 diastolic dysfunction seen without tissue Doppler evidence of raise left atrial pressure. Right Ventricle Right atrium and right ventricular normal size and contractility. Aortic Valve There is a mechanical prosthetic valve noted in the aortic position, the valve is well-seated. The mean gradient across valve is 10 mmHg, which is within acceptable range, there is no aortic insufficiency. Mitral Valve Mitral valve leaflets are minimally thickened, there is no mitral stenosis, there is mild mitral regurgitation. Tricuspid Valve Tricuspid valve is grossly normal, there is mild tricuspid regurgitation, tricuspid regurgitation jet velocity is inadequate for calculation of the right ventricular systolic pressure. Pulmonic Valve Pulmonic valve is poorly visualized. Great Vessels Aortic root is normal size. Pericardium No significant pericardial effusion noted. Conclusion 1. Technically difficult study because of the patient factors and poor acoustic windows. 2. Mildly enlarged left atrium, normal left ventricular size, mild concentric left ventricular hypertrophy, visually estimated ejection fraction 55% with no regional wall motion abnormality, grade 1 diastolic dysfunction seen without tissue Doppler evidence of raise left atrial pressure. 3. Normal functioning mechanical prosthetic valve in the aortic position. 4. Mild mitral and tricuspid regurgitation. 5. No significant pericardial effusion noted. Electronically signed by : Santosh Snell, 01/05/2020 14:06:54
== END ==
PROVIDERS: PCP Family Medicine; Visit Provider Urology
DX: I10 Essential (primary) hypertension (principal); R06.00 Dyspnea, unspecified; R07.9 Chest pain, unspecified; Z95.2 Presence of prosthetic heart valve; G47.33 Obstructive sleep apnea (adult) (pediatric)
CPT/HCPCS: 78452; 93017; 93306; A9502; G0399; J2785

== ENCOUNTER 2020-01-17 08:04 | Day surgery (SDC) | payer MEDICARE, SELFPAY ==
[2020-01-17] VITALS (12 sets, daily range): BP systolic 94–162; BP diastolic 35–84; PULSE 51–78; RESP 15–20; TEMP 36.6; O2SAT 93–99; BMI 45.9
[2020-01-17 08:53] LABS: Chloride 102 mmol/L (98-107)
[2020-01-17 08:54] LABS: Potassium 4.2 mmoL/L (3.5-5.1); Sodium 136 mmol/L (136-145)
[2020-01-17 08:55] LABS: Basophils # 0.1 K/mm3 (0-0.2); Basophils % 0.6 % (0.1-2.0); Eosinophils # 0.2 K/mm3 (0.0-0.4); Hematocrit 25.5 % (42.0-52.0); Lymphocytes # 2.1 K/mm3 (0.7-4.5); Lymphocytes % 25.7 % (10-50); Mean Corpuscular HGB Conc 31.4 g/dL (31.8-35.4); Mean Corpuscular Hemoglobin 26.3 pg (27.0-31.2); Mean Corpuscular Volume 83.6 fl (80-94); Mean Platelet Volume 7.2 fl (7.4-10.4); Monocytes # 0.5 K/mm3 (0.1-1.0); Monocytes % 5.5 % (1.7-9.3); Neutrophils # 5.5 K/mm3 (1.8-7.8); Neutrophils % 66.1 % (37.0-80.0); Platelet Count 503 K/mm3 (142-424); Red Blood Count 3.05 M/mm3 (4.60-6.20); Red Cell Distribution Width 15.3 % (11.5-17.5); White Blood Count 8.3 K/mm3 (4.8-10.8)
[2020-01-17 08:57] LABS: Anion Gap 14.2 mEq/L (5-15); Blood Urea Nitrogen 18 mg/dl (9-20); Calcium 8.6 mg/dl (8.4-10.2); Carbon Dioxide 24 mmol/L (22.0-30.0); Creatinine Clearance Estimated 80 mL/min (50-200); Estimated Glomerular Filt Rate 77 ml/min (>60); GFR (African American) 94 ML/MIN (>60); Glucose 128 mg/dl (74-100)
[2020-01-17 09:49] LABS: INR 5.42 (0.9-1.1)
--- NOTE | 2020-01-17 10:52 | SUR.PREOP ---
notified physician of critical lab results.
--- NOTE | 2020-01-17 11:30 | IR_ITS ---
APPROVED REPORT Patient Location: Outpatient PROCEDURES Selective coronary angiogram INDICATION Angina pectoris, Abnormal Myoview Informed consent was obtained prior to the procedure. COMPLICATIONS NONE Estimated Blood Loss: LESS THAN 10 ML TECHNIQUE One percent lidocaine used to anesthetize the right anterior aspect of the wrist. The right radial artery was accessed via the Seldinger technique. A 6 Persian sheath was placed in the right radial artery. 2.5 mg of verapamil, 800 mcg of nitroglycerin, 1mg Lidocaine and 5000 U Heparin were given through the arterial sheath. The trap catheter was also used to perform left heart catheterization, left ventriculogram and selective coronary angiogram. At the end of the procedure the sheath was removed good hemostasis was achieved using Traclet band, patient was transferred to the postop holding area in stable condition. ANGIOGRAPHIC RESULTS The left main artery Normal The left anterior descending artery Normal The circumflex artery Normal The right coronary artery Dominant normal The SANTORO ventriculogram reveals Not performed due to mechanical valve The left ventricular end-diastolic pressure Not measured due to mechanical valve IMPRESSION Normal coronary arteries PLAN 1. Noncardiac evaluation of symptomatology Electronically signed by : Adolfo Foster, 01/17/2020 14:46:01
--- NOTE | 2020-01-18 10:20 | PC.NURSE ---
Pt arrived to the floor at this time via w/c
== END 2020-01-17 14:22 | disposition hospice, home (50) ==
LOC: CATHLAB 08:05 → 2ND 01-18 10:31
PROVIDERS: PCP Family Medicine; Visit Provider Internal Medicine
DX: G47.33 Obstructive sleep apnea (adult) (pediatric) (principal); I10 Essential (primary) hypertension; I20.9 Angina pectoris, unspecified; R06.00 Dyspnea, unspecified; R94.39 Abnormal result of other cardiovascular function study; Z95.2 Presence of prosthetic heart valve
CPT/HCPCS: 80048; 85025; 85610; 99152; C1725; C1769; J1644; Q9967

== ENCOUNTER 2020-01-18 10:58 | Inpatient (IN) | payer MEDICARE, SELFPAY ==
[2020-01-18] VITALS (21 sets, daily range): BP systolic 119–155; BP diastolic 47–94; PULSE 53–86; RESP 16–18; TEMP 36.4–37; O2SAT 96–100; BMI 49.3
[2020-01-18 08:05] LABS: Basophils # 0.1 K/mm3 (0-0.2); Basophils % 0.8 % (0.1-2.0); Eosinophils # 0.2 K/mm3 (0.0-0.4); Eosinophils % 1.9 % (0.1-12.0); Hematocrit 25.2 % (42.0-52.0); Lymphocytes # 2.6 K/mm3 (0.7-4.5); Lymphocytes % 32.9 % (10-50); Mean Corpuscular HGB Conc 30.5 g/dL (31.8-35.4); Mean Corpuscular Volume 85.1 fl (80-94); Monocytes # 0.4 K/mm3 (0.1-1.0); Monocytes % 4.8 % (1.7-9.3); Neutrophils # 4.7 K/mm3 (1.8-7.8); Neutrophils % 59.5 % (37.0-80.0); Platelet Count 504 K/mm3 (142-424); Red Blood Count 2.97 M/mm3 (4.60-6.20); Red Cell Distribution Width 15.3 % (11.5-17.5); White Blood Count 7.9 K/mm3 (4.8-10.8)
[2020-01-18 09:37] LABS: Hemoglobin 7.8 g/dL (14.1-18.0)
[2020-01-18 11:42] LABS: Hematocrit 24.5 % (42.0-52.0)
[2020-01-18 11:43] LABS: Chloride 104 mmol/L (98-107); Potassium 3.9 mmoL/L (3.5-5.1); Sodium 137 mmol/L (136-145)
[2020-01-18 11:46] LABS: Alanine Aminotransferase 28 U/L (12-78); Albumin Level 3.6 g/dl (3.5-5.0); Albumin/Globulin Ratio 1.3 (1.1-1.8); Alkaline Phosphatase 62 U/L (38-126); Anion Gap 12.9 mEq/L (5-15); Aspartate Amino Transferase 27 U/L (17-59); Bilirubin,Total 0.3 mg/dl (0.2-1.3); Blood Urea Nitrogen 14 mg/dl (9-20); Carbon Dioxide 24 mmol/L (22.0-30.0); Creatinine Clearance Estimated 62 mL/min (50-200); Estimated Glomerular Filt Rate 63 ml/min (>60); GFR (African American) 76 ML/MIN (>60); Globulin 2.8 g/dL (1.3-3.2); Total Protein,Serum 6.4 g/dl (6.3-8.2)
[2020-01-18 11:47] LABS: Calcium 8.5 mg/dl (8.4-10.2); Glucose 134 mg/dl (74-100)
[2020-01-18 11:49] LABS: Hemoglobin 7.8 g/dL (14.1-18.0)
--- NOTE | 2020-01-18 11:52 | PC.NURSE ---
called and relayed to md office with alesia the critical h/h on patient. await call back for instructions
--- NOTE | 2020-01-18 11:54 | PC.NURSE ---
verified with pharmacy that d5 1/2ns can run with protonix
[2020-01-18 12:26] LABS: Prothrombin Time 40.9 seconds (9.4-11.8)
[2020-01-18 12:27] LABS: INR 4.37 (0.9-1.1)
--- NOTE | 2020-01-18 12:59 | HMH.HP ---
*Admission Date: 01/18/20 *Chief complaint: Anemia *History of present illness: This 54 y.o. WM is admitted with a hgb of 7.5. He underwent cardiac catheterization 01/17/2020 showing normal coronary arteries. He has a prosthetic aortic valve that was placed surgically in 2006 due to severely calcified aortic valve. He takes coumadin. INR is elevated in rnge of 5 at this admission. His anemia was detected yesterday and he was instructed to be follow-up today in [facility], but instead he returned to cardiology. they contacted Dr. Cedeno who admitted the patient. The patient reports that he has not felt well for at least a week. He has had SOB but no chest pain or abdominal pain. He has had dark stools. He has a history of a similar presentation in August of 2018. EGD by Dr. James Mckeon revealed 3 shsllow gastric ulcers with no active bleeding. His usual medications include pantoprazole and Sucralfate. [facility] History Medical History: Reports:: Gastrointestinal Bleed (09/09/2018), Heart Murmur (aortic valve replacement due to sclerosis), Hyperlipidemia, Hypertension, Ulcer, Valvular Heart Disease Denies:: Cancer, Diabetes Mellitus Type 1, Diabetes Mellitus Type 2, Internal Pacemaker, Lung Disease, MRSA, Seizures *Have you ever received a pneumonia vaccine?: No (Adacel 05/2018) *Have you received a flu vaccine this season?: No Other Medical History: Reports: Anemia, Arthritis. Denies: Blood Transfusion Reaction Laterality Cases: Left: Carpal Tunnel Release Other Surgeries: Yes: Cardiac Catheterization, Cardiac Surgery, Colonoscopy (2014), EGD, Open Heart Surgery, Other Valve Replacement (aorta), Other (Fissurectomy/sphincterotomy 2007). No: Pacemaker Amputation: No Fractures: No - *Social History Last grade of school completed: 9th or 10th Smoking Status: Former smoker (quit 2013) Tobacco Type: cigarettes # Packs/Day (cigarettes): 1 Alcohol Intake: current Alcohol Intake Frequency:: a few times a month Substance Use Type: denies use *Occupational Status:: unemployed Housing: house Household Members: spouse *Travel in the last 8 weeks: None Family Hx:: Cancer (colon, Father), Diabetes (Mother) Review of Systems - Constitutional Reports fatigue, Denies anorexia, Denies fever(s), Denies weight loss - Eyes Denies change in vision - ENT Denies bleeding gums, Denies difficulty swallowing - *Cardiovascular Reports shortness of breath with activity, Denies chest pain, Denies irregular heart rhythm - *Respiratory Reports shortness of breath, Denies chest congestion, Denies cough - *Gastrointestinal Reports black, tarry stools, Denies abdominal pain - *Musculoskeletal Reports back pain - *Neurologic Denies seizure-like activity, Denies dizziness, Denies localized weakness - Hematologic/Lymphatic Reports easy bruising Meds Home Medications Medication Instructions Recorded Confirmed Type Duloxetine HCl 60 mg PO BID 09/08/18 01/18/20 History Simvastatin 20 mg PO HS 09/08/18 01/18/20 History hydroCHLOROthiazide 12.5 mg PO DAILY 09/08/18 01/18/20 History [Hydrochlorothiazide 12.5mg Tab] lisinopriL [Lisinopril 10mg Tab] 10 mg PO DAILY 09/08/18 01/18/20 History Warfarin Sodium 10 mg PO Q OTHER DAY 11/10/18 01/18/20 History Warfarin Sodium 15 mg PO Q OTHER DAY 11/10/18 01/18/20 History Aspirin [Aspir 81] 81 mg PO DAILY 11/24/18 01/18/20 History Pantoprazole Sodium [Protonix 40mg 40 mg PO BID 01/17/20 01/18/20 History tablet] Allergies Allergy/AdvReac Type Severity Reaction Status Date / Time No Known Allergies Allergy Verified 01/18/20 09:33 Exam Vital signs and Labs for Last 24 Hours: Temp Pulse Resp BP Pulse Ox 98.3 F 86 18 135/80 99 01/18/20 11:16 01/18/20 11:16 01/18/20 11:16 01/18/20 11:16 01/18/20 11:16 Laboratory Results - last 24 hr 01/18/20 07:45: WBC 7.9, RBC 2.97 L, Hgb 7.8 L*, Hct 25.2 L, MCV 85.1, MCH 26.0 L, MCHC 30.5 L, RDW 15.3, Plt Count 504 H, MPV 8.0, Neut % (Auto) 5
--- NOTE | 2020-01-18 13:05 | HMH.PHAINT ---
HOME MEDICATION RECONCILIATION COMPLETED USING LIST FROM P HOME [facility], [facility]IAN OFFICE AND PT INTERVIEW.
--- NOTE | 2020-01-18 13:06 | HMH.PHAVTE ---
[facility] Pharmacy VTE Monitoring - Patient Demographics Admission date: 01/18/20 Report Date: 01/18/20 Time: 13:06 Allergies/Adverse Reactions: Patient Allergies No Known Allergies Allergy (Verified 01/18/20 09:33) Height: 1.68 m Weight: 138.601 kg - VTE Risk Labs: VTE Related Lab Results Hgb 7.8 g/dL (14.1-18.0) L* 01/18/20 10:35 Hct 24.5 % (42.0-52.0) L 01/18/20 10:35 Plt Count 504 K/mm3 (142-424) H 01/18/20 07:45 PT 40.9 seconds (9.4-11.8) H 01/18/20 10:35 INR 4.37 (0.9-1.1) H 01/18/20 10:35 BUN 14 mg/dl (9-20) 01/18/20 10:35 Creatinine 1.20 mg/dl (0.66-1.25) 01/18/20 10:35 Estimated Creat Clear 62 mL/min (50-200) 01/18/20 10:35 Was VTE Risk Assessment Performed: Yes VTE Score: 2 VTE Risk Level: Low Risk Clinical Trial Participant: No - Prophylaxis VTE Prophylaxis Ordered?: Yes Types of VTE Prophylaxis: TEDS Knee High (PT IS ALSO HAS SUPRATHERAPEUTIC INR) Location of Applied Device: Bilateral Lower Extremeties
--- NOTE | 2020-01-18 13:27 | PC.NURSE ---
lab stated blood would be ready in five minutes so [id number]
--- NOTE | 2020-01-18 13:27 | PC.NURSE ---
spoke with dr. oleary who stated he planned on doing an egd in the morning.
--- NOTE | 2020-01-18 15:15 | HMH.GSCON ---
*Admission Date: 01/18/20 *Reason for consult:: Gastrointestinal hemorrhage *History of present illness: 54-year-old gentleman seen in consultation from Dr. Vera for evaluation regarding likely gastrointestinal hemorrhage. He presented with increasing shortness of air for approximately 1 week. He underwent cardiac catheterization yesterday revealing no significant abnormalities. He was subsequently found to be significantly anemic with a hemoglobin of 7.5. He has noted dark stools . He has a history of small/shallow gastric ulcerations noted just over 1 year ago. He has been on proton pump inhibition. 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 He takes coumadin. INR is elevated in rnge of 5 at this admission. His anemia was detected yesterday and he was instructed to be follow-up today in [facility], but instead he returned to cardiology. Review of Systems - Constitutional Reports weakness - Eyes Denies loss of vision - ENT Denies bleeding gums - *Cardiovascular Denies irregular heart rhythm - *Respiratory Denies cough - *Gastrointestinal Denies abdominal pain - *Genitourinary Denies blood in urine - *Musculoskeletal Denies numbness - Integumentary/Breasts Denies lesions - *Neurologic Denies seizure-like activity, Denies dizziness, Denies localized weakness - Psychiatric Denies anxiety - Endocrine Denies cold intolerance - Hematologic/Lymphatic Reports easy bleeding (on Coumadin) - Allergic/Immunologic Denies hives [facility] History Medical History: Reports:: Coronary Artery Disease, Gastrointestinal Bleed (09/09/2018), Heart Murmur (aortic valve replacement due to sclerosis), Hyperlipidemia, Hypertension, Ulcer, Valvular Heart Disease Denies:: Cancer, Diabetes Mellitus Type 1, Diabetes Mellitus Type 2, Internal Pacemaker, Lung Disease, MRSA, Seizures *Have you ever received a pneumonia vaccine?: No (Adacel 05/2018) *Have you received a flu vaccine this season?: No Other Medical History: Reports: Anemia, Arthritis. Denies: Blood Transfusion Reaction Laterality Cases: Left: Carpal Tunnel Release Other Surgeries: Yes: CABG, Cardiac Catheterization, Cardiac Surgery, Colonoscopy (2014), EGD, Open Heart Surgery, Other Valve Replacement (aorta), Other (Fissurectomy/sphincterotomy 2007). No: Pacemaker Amputation: No Fractures: No - *Social History Last grade of school completed: 9th or 10th Smoking Status: Former smoker (quit 2013) Tobacco Type: cigarettes # Packs/Day (cigarettes): 1 Alcohol Intake: current Alcohol Intake Frequency:: a few times a month Substance Use Type: denies use *Occupational Status:: unemployed Housing: house Household Members: spouse *Travel in the last 8 weeks: None Family Hx:: Cancer (colon, Father), Diabetes (Mother) Meds Home Medications Medication Instructions Recorded Confirmed Type Duloxetine HCl 60 mg PO BID 09/08/18 01/18/20 History Simvastatin 20 mg PO HS 09/08/18 01/18/20 History hydroCHLOROthiazide 12.5 mg PO DAILY 09/08/18 01/18/20 History [Hydrochlorothiazide 12.5mg Tab] lisinopriL [Lisinopril 10mg Tab] 10 mg PO DAILY 09/08/18 01/18/20 History Warfarin Sodium 7.5 mg PO MOWEFR 11/10/18 01/18/20 History Warfarin Sodium 10 mg PO SUTUTHSA 11/10/18 01/18/20 History Aspirin [Aspir 81] 81 mg PO DAILY 11/24/18 01/18/20 History Pantoprazole Sodium [Protonix 40mg 40 mg PO BID 01/17/20 01/18/20 History tablet] Amlodipine Besylate [Norvasc 2.5mg 2.5 mg PO DAILY 01/18/20 01/18/20 History tablet] Allergies Allergy/AdvReac Type Severity Reaction Status Date / Time No Known Allergies Allergy Verified 01/18/20 09:33 Exam Vital signs and Labs for Last 24 Hours: Temp Pulse Resp BP Pulse Ox 98.0 F 64 18 128/70 99 01/18/20 14:55 01/18/20 14:55 01/18/20 14:55 01/18/20 14:55 01/18/20 14:55 Laboratory Results - last 24 hr
--- NOTE | 2020-01-18 15:30 | PC.NURSE ---
since admission patient has done well. earlier in shift has had complaints of a headache but this seems to be improving. has also had some complaints of restless legs that he experiences at home. currently tolerating blood transfusion well with no issues. has been up walking in room. tolerating clear liquid well. dr. oleary spoke with patient this shift. vitals stable. will continue to monitor.
--- NOTE | 2020-01-18 16:06 | PC.NURSE ---
first unit had 298 ml of blood and 22 ml of ns given from bag
--- NOTE | 2020-01-18 20:12 | PC.NURSE ---
second unit of blood had 281ml 20ml ns infused
[2020-01-18 20:15] LABS: Hematocrit 29.5 % (42.0-52.0)
[2020-01-18 20:23] LABS: Hemoglobin 9.2 g/dL (14.1-18.0)
[2020-01-19] VITALS (24 sets, daily range): BP systolic 99–149; BP diastolic 52–94; PULSE 50–83; RESP 14–20; TEMP 36.3–37.1; O2SAT 95–100; BMI 48.2
--- NOTE | 2020-01-19 03:54 | PC.NURSE ---
Pt has slept very well this shift. Denies pain/soa. Reports feeling better since receiving 2 units of blood yesterday.
[2020-01-19 06:28] LABS: Basophils # 0.1 K/mm3 (0-0.2); Basophils % 0.8 % (0.1-2.0); Eosinophils # 0.2 K/mm3 (0.0-0.4); Eosinophils % 3.2 % (0.1-12.0); Hematocrit 27.6 % (42.0-52.0); Hemoglobin 8.5 g/dL (14.1-18.0); Lymphocytes # 2.2 K/mm3 (0.7-4.5); Lymphocytes % 32.2 % (10-50); Mean Corpuscular HGB Conc 30.8 g/dL (31.8-35.4); Mean Corpuscular Hemoglobin 26.5 pg (27.0-31.2); Mean Corpuscular Volume 85.9 fl (80-94); Mean Platelet Volume 7.8 fl (7.4-10.4); Monocytes # 0.4 K/mm3 (0.1-1.0); Monocytes % 5.8 % (1.7-9.3); Neutrophils # 3.9 K/mm3 (1.8-7.8); Platelet Count 421 K/mm3 (142-424); Red Blood Count 3.21 M/mm3 (4.60-6.20); Red Cell Distribution Width 15.3 % (11.5-17.5); White Blood Count 6.7 K/mm3 (4.8-10.8)
[2020-01-19 06:38] LABS: Chloride 105 mmol/L (98-107)
[2020-01-19 06:39] LABS: Potassium 3.9 mmoL/L (3.5-5.1); Sodium 136 mmol/L (136-145)
[2020-01-19 06:42] LABS: Anion Gap 7.9 mEq/L (5-15); Blood Urea Nitrogen 11 mg/dl (9-20); Calcium 8.4 mg/dl (8.4-10.2); Carbon Dioxide 27 mmol/L (22.0-30.0); Creatinine Clearance Estimated 74 mL/min (50-200); Estimated Glomerular Filt Rate 77 ml/min (>60); GFR (African American) 94 ML/MIN (>60); Glucose 112 mg/dl (74-100)
[2020-01-19 06:44] LABS: INR 2.42 (0.9-1.1); Prothrombin Time 23.5 seconds (9.4-11.8)
--- NOTE | 2020-01-19 06:58 | HMH.GSPN ---
Subjective Patient reports: no new complaints Exam Vital signs and Labs for Last 24 Hours: Temp Pulse Resp BP Pulse Ox 97.8 F 62 18 138/69 96 01/19/20 04:00 01/19/20 04:00 01/19/20 04:00 01/19/20 04:00 01/19/20 04:00 Laboratory Results - last 24 hr 01/18/20 07:45: WBC 7.9, RBC 2.97 L, Hgb 7.8 L*, Hct 25.2 L, MCV 85.1, MCH 26.0 L, MCHC 30.5 L, RDW 15.3, Plt Count 504 H, MPV 8.0, Neut % (Auto) 59.5, Lymph % (Auto) 32.9, [place] % (Auto) 4.8, Eos % (Auto) 1.9, Baso % (Auto) 0.8, Neut # (Auto) 4.7, Lymph # (Auto) 2.6, [place] # (Auto) 0.4, Eos # (Auto) 0.2, Baso # (Auto) 0.1 01/18/20 10:35: PT 40.9 H, INR 4.37 H 01/18/20 10:35: Sodium 137, Potassium 3.9, Chloride 104, Carbon Dioxide 24, Anion Gap 12.9, BUN 14, Creatinine 1.20, Estimated Creat Clear 62, Estimated GFR 63, Est GFR ( Amer) 76, Glucose 134 H, Calcium 8.5, Total Bilirubin 0.3, AST 27, ALT 28, Alkaline Phosphatase 62, Total Protein 6.4, Albumin 3.6, Globulin 2.8, Albumin/Globulin Ratio 1.3 01/18/20 10:35: Hgb 7.8 L*, Hct 24.5 L 01/18/20 11:40: Blood Type O Positive, Antibody Screen Negative, Crossmatch (AHG) See Detail 01/18/20 20:09: Hgb 9.2 L D, Hct 29.5 L 01/19/20 06:21: PT 23.5 H, INR 2.42 H 01/19/20 06:21: WBC 6.7, RBC 3.21 L, Hgb 8.5 L, Hct 27.6 L, MCV 85.9, MCH 26.5 L, MCHC 30.8 L, RDW 15.3, Plt Count 421, MPV 7.8, Neut % (Auto) 58.0, Lymph % (Auto) 32.2, [place] % (Auto) 5.8, Eos % (Auto) 3.2, Baso % (Auto) 0.8, Neut # (Auto) 3.9, Lymph # (Auto) 2.2, [place] # (Auto) 0.4, Eos # (Auto) 0.2, Baso # (Auto) 0.1 01/19/20 06:21: Sodium 136, Potassium 3.9, Chloride 105, Carbon Dioxide 27, Anion Gap 7.9, BUN 11, Creatinine 1.00, Estimated Creat Clear 74, Estimated GFR 77, Est GFR ( Amer) 94 D, Glucose 112 H, Calcium 8.4 I & O for Last 24 hours: Intake & Output 01/16/20 01/17/20 01/18/20 01/19/20 11:59 11:59 11:59 11:59 Intake Total 1544 / 1544 Output Total 600 / 600 Balance 944 / 944 Weight 305 lb 9 oz 300 lb 2 oz - Constitutional no acute distress - *Routine Respiratory Exam Absent: respiratory distress - *Routine Cardiovascular Exam Present: RRR Progress Note: A&P (1) Anemia Status: Acute Assessment and plan: Overall, he feels a little better status post 2 units of packed red blood cells. From a laboratory standpoint his response to blood transfusion was less than standard . EGD this a.m. Current Visit: No (2) History of GI bleed Status: Acute Current Visit: Yes (3) Fatigue Status: Acute Current Visit: No (4) Melena Status: Acute Current Visit: No (5) Supratherapeutic INR Status: Chronic Current Visit: No (6) History of mechanical aortic valve replacement Status: Chronic Current Visit: No (7) Hypertension Status: Chronic Current Visit: No (8) Obesity Status: Chronic Current Visit: No (9) History of gastric ulcer Status: Acute Current Visit: Yes
[2020-01-19 07:01] LABS: Coronavirus 19 IgG Antibody Negative (Negative); Coronavirus 19 IgM Antibody Negative (Negative)
--- NOTE | 2020-01-19 07:31 | FL_ITS ---
PROCEDURE: FL UPPER GI SMALL BOWEL CLINICAL INDICATION: Likely UGI hemorrhage with no obvious source per EGD COMPARISON: No exams were available for comparison TECHNIQUE: FLUOROSCOPY TIME : 2 minutes 8 seconds.226 mGy. Multiple digital fluoroscopic and spot images were obtained following oral ingestion of effervescent crystals and thick/thin liquid barium contrast. FINDINGS: Preliminary preschool lead teacher film of the abdomen and pelvis is unremarkable. There is no evidence of mechanical bowel obstruction. Upper GI: There is normal swallowing mechanism and esophageal peristalsis demonstrated. The esophagus appears in normal course and caliber. No narrowing or stricture is evident. The gastroesophageal junction is normally positioned. No gastroesophageal reflux is depicted. The stomach is normal in course with normal mucosal pattern. There is no evidence of ulceration or other deformity noted within the stomach. The duodenal bulb and duodenal loop is unremarkable. Small bowel series: Small intestinal series was performed, demonstrated normal contrast transit time. The outlined jejunal and ileal mucosa are normal in appearance. There is no evidence of displacement or dilatation of the intestinal loops demonstrated. No significant gastric retention and is seen. IMPRESSION: Unremarkable upper GI and small-bowel follow-through study. Dictated by: Gail Gonzalez 01/19/2020 17:33 Electronically signed by Gail Gonzalez in [place] 01/19/2020 17:33
--- NOTE | 2020-01-19 07:32 | HMH.SCOPE ---
- Procedure: Date: 01/19/20 Procedure Performed:: Esophagogastroduodenoscopy with biopsy Indications:: Upper gastrointestinal hemorrhage History of gastric ulcerations Performing Provider:: Pasha Mckeon MD Referring Provider:: Dr. Vera Sedation:: Monitored anesthesia care Procedure:: After informed consent was obtained the patient was taken to the endoscopy suite. Sedation ensued after the patient was transferred to the left lateral decubitus position. Pulse, blood pressure, and oxygen saturation were monitored throughout the procedure. The endoscope was advanced beyond the duodenal bulb. Retroflexion within the gastric lumen was accomplished. The gastroscope was carefully removed and the patient was transferred to recovery in stable condition. Please see findings and specimens below for detail. Findings:: Gastroesophageal junction at 45 cm Possible small tongue of Kline's No obvious ulcerations or sign of recent hemorrhage Apparent tiny diverticulum in mid/distal gastric body Specimens:: Antral biopsy Biopsies at 44 cm (possible small tongue of Kline's) Recommendations:: Follow-up pathology Continue proton pump inhibition UGI/SBFT ordered Likely capsule endoscopy (pending UGI/SBFT) Ongoing discussion with regard to need for colonoscopy Complications:: No immediate Estimated blood obtained (mL): 1
--- NOTE | 2020-01-19 07:49 | P.PN_ITS ---
[facility] Anesthesia Checklist - Patient Identification Patient Identification: Arm Band - Structural Data Admitted From: Inpatient Planned Operative Procedure/s: egd Consent for Planned Operative Procedure(s) Verified: Yes Verified Documents: Surgical Consent, History and Physical - NPO Status Verified Time NPO: 00:00 - Additional verifications Anesthesia Reactions: No Hx Blood Transfusions: No Blood Transfusion Reaction: No - Airway Assessment C-Spine Mobility Assessed: Yes (mp2) TMJ Mobility Assessed: Yes Dentition: Good Dentition - Neurological Assessment Level of Consciousness: Awake, Alert - Anesthesia Plan Anesthesia Risk discussed: Yes Anesthesia Plan: Verified ASA Class: III Anesthesia Type: MAC [facility] History I have reviewed the patient's past medical history: Yes Medical History: Reports:: Coronary Artery Disease, Gastrointestinal Bleed (09/09/2018), Heart Murmur (aortic valve replacement due to sclerosis), Hyperlipidemia, Hypertension, Ulcer, Valvular Heart Disease Denies:: Cancer, Diabetes Mellitus Type 1, Diabetes Mellitus Type 2, Internal Pacemaker, Lung Disease, MRSA, Seizures *Have you ever received a pneumonia vaccine?: No (Adacel 05/2018) *Have you received a flu vaccine this season?: No Other Medical History: Reports: Anemia, Arthritis. Denies: Blood Transfusion Re action Anesthesia experience/problems:: nac Laterality Cases: Left: Carpal Tunnel Release Other Surgeries: Yes: CABG, Cardiac Catheterization, Cardiac Surgery, Colonoscopy (2014), EGD, Open Heart Surgery, Other Valve Replacement (aorta), Other (Fissurectomy/sphincterotomy 2007). No: Pacemaker Amputation: No Fractures: No - *Social History Last grade of school completed: 9th or 10th Smoking Status: Former smoker (quit 2013) Tobacco Type: cigarettes # Packs/Day (cigarettes): 1 Alcohol Intake: current Alcohol Intake Frequency:: a few times a month Substance Use Type: denies use *Occupational Status:: unemployed Housing: house Household Members: spouse *Travel in the last 8 weeks: None Family Hx:: Cancer (colon, Father), Diabetes (Mother)
--- NOTE | 2020-01-19 09:11 | HMH.ACPN2 ---
Internal Medicine - PN: Subj *Date: 01/19/20 *Time: 09:11 Interval history: See the report from Dr. Mckeon. A small bowel follow-through is ordered for today. The patient is starving. Hemoglobin this morning is 8.5. I will give an additional unit of packed red blood cells. Exam Vital signs and Labs for Last 24 Hours: Temp Pulse Resp BP Pulse Ox 97.3 F L 83 20 120/61 95 01/19/20 07:38 01/19/20 07:38 01/19/20 07:38 01/19/20 07:38 01/19/20 07:38 Laboratory Results - last 24 hr 01/18/20 07:45: WBC 7.9, RBC 2.97 L, Hgb 7.8 L*, Hct 25.2 L, MCV 85.1, MCH 26.0 L, MCHC 30.5 L, RDW 15.3, Plt Count 504 H, MPV 8.0, Neut % (Auto) 59.5, Lymph % (Auto) 32.9, [place] % (Auto) 4.8, Eos % (Auto) 1.9, Baso % (Auto) 0.8, Neut # (Auto) 4.7, Lymph # (Auto) 2.6, [place] # (Auto) 0.4, Eos # (Auto) 0.2, Baso # (Auto) 0.1 01/18/20 10:35: PT 40.9 H, INR 4.37 H 01/18/20 10:35: Sodium 137, Potassium 3.9, Chloride 104, Carbon Dioxide 24, Anion Gap 12.9, BUN 14, Creatinine 1.20, Estimated Creat Clear 62, Estimated GFR 63, Est GFR ( Amer) 76, Glucose 134 H, Calcium 8.5, Total Bilirubin 0.3, AST 27, ALT 28, Alkaline Phosphatase 62, Total Protein 6.4, Albumin 3.6, Globulin 2.8, Albumin/Globulin Ratio 1.3 01/18/20 10:35: Hgb 7.8 L*, Hct 24.5 L 01/18/20 11:40: Blood Type O Positive, Antibody Screen Negative, Crossmatch (AHG) See Detail 01/18/20 20:09: Hgb 9.2 L D, Hct 29.5 L 01/19/20 06:21: PT 23.5 H, INR 2.42 H 01/19/20 06:21: WBC 6.7, RBC 3.21 L, Hgb 8.5 L, Hct 27.6 L, MCV 85.9, MCH 26.5 L, MCHC 30.8 L, RDW 15.3, Plt Count 421, MPV 7.8, Neut % (Auto) 58.0, Lymph % (Auto) 32.2, [place] % (Auto) 5.8, Eos % (Auto) 3.2, Baso % (Auto) 0.8, Neut # (Auto) 3.9, Lymph # (Auto) 2.2, [place] # (Auto) 0.4, Eos # (Auto) 0.2, Baso # (Auto) 0.1 01/19/20 06:21: Sodium 136, Potassium 3.9, Chloride 105, Carbon Dioxide 27, Anion Gap 7.9, BUN 11, Creatinine 1.00, Estimated Creat Clear 74, Estimated GFR 77, Est GFR ( Amer) 94 D, Glucose 112 H, Calcium 8.4 01/19/20 06:21: SARS-CoV-2 IgG Ab (Rapid) Negative, SARS-CoV-2 IgM Ab (Rapid) Negative I & O for Last 24 hours: Intake & Output 01/16/20 01/17/20 01/18/20 01/19/20 11:59 11:59 11:59 11:59 Intake Total 1544 / 1544 Output Total 600 / 600 Balance 944 / 944 Weight 305 lb 9 oz 300 lb 2 oz - Constitutional no acute distress (Very hungry) - *Routine HEENT Exam Head: Present: normocephalic Eye: Present: PERRL ENT: Present: mucous membranes moist - *Routine Respiratory Exam Present: CTA bilaterally - *Routine Cardiovascular Exam Present: RRR, click (Prosthetic) - *Routine Abdominal Exam Present: soft. Absent: tenderness - *Routine Extremities Exam Present: edema (Minimal) Assessment and Plan (1) Anemia Current visit: No Status: Acute Qualifiers: Anemia type: other cause Other causes of anemia: acute posthemorrhagic Qualified Code(s): D62 - Acute posthemorrhagic anemia Category: Medical Code(s): D64.9 - Anemia, unspecified (2) History of GI bleed Current visit: Yes Status: Acute Category: Medical Code(s): Z87.19 - Personal history of other diseases of the digestive system (3) Fatigue Current visit: No Status: Acute Qualifiers: Fatigue type: unspecified Qualified Code(s): R53.83 - Other fatigue Category: Medical Code(s): R53.83 - Other fatigue (4) Melena Current visit: No Status: Acute Category: Medical Code(s): K92.1 - Melena (5) Supratherapeutic INR Current visit: No Status: Chronic Category: Medical Code(s): R79.1 - Abnormal coagulation profile (6) History of mechanical aortic valve replacement Current visit: No Status: Chronic Category: Surgical Code(s): Z95.2 - Presence of prosthetic heart valve (7) Hypertension Current visit: No Status: Chronic Qualifiers: Hypertension type: essential hypertension Qualified Code(s): I10 - Essential (primary) hypertension Category: Medical Code(s): I
--- NOTE | 2020-01-19 12:30 | PC.NURSE ---
Per Dr Vera it is OK to wait to start 1 u PRBC until patient has completed his small bowel follow through. Verified with lab that this was ok as well.
--- NOTE | 2020-01-19 18:24 | PC.NURSE ---
Pt has had no complaints today. 1 unit of PRBC's transfused, pt tolerated well. He has ambulated to and from the bathroom independently. Appetite is good. Tolerated dinner. He has a 20 in th RFA infusing d5 1/2ns @ 50 and a protonix gtt @ 10ml/hr. No concerns at this time. Will continue to monitor.
--- NOTE | 2020-01-19 19:11 | PC.NURSE ---
report given to erum
[2020-01-19 19:13] LABS: Hemoglobin 9.5 g/dL (14.1-18.0)
--- NOTE | 2020-01-20 03:30 | PC.NURSE ---
A&OX4. PT TOLERATING RA T/O SHIFT. PT HAS HAD NO C/O PAIN, NA/VO, OR SOA THIS SHIFT. PT UP INDEPENDENTLY IN ROOM. PT HAD SUPPER TONIGHT AND IT SETTLED WELL. PT HAS TOLERATED LIQUIDS TONIGHT WELL. PT STATES THAT HE HAD A BM TONIGHT, AND IT LOOKED MORE NORMAL . PT UP MOST OF THE NIGHT WATCHING TV. NO C/O THUS FAR. THIS NURSE HAS ASKED PT TO LET ME SEE ANY BMs. VSS WILL CONTINUE TO MONITOR.
[2020-01-20 03:34] VITALS: BP 129/65; PULSE 59; RESP 16; TEMP 36.7; O2SAT 98
[2020-01-20 05:00] VITALS: BMI 48.6
[2020-01-20 07:45] VITALS: BP 123/47; PULSE 55; RESP 19; TEMP 36.6; O2SAT 99
[2020-01-20 08:17] LABS: Basophils # 0.1 K/mm3 (0-0.2); Basophils % 0.8 % (0.1-2.0); Eosinophils # 0.2 K/mm3 (0.0-0.4); Eosinophils % 2.6 % (0.1-12.0); Hematocrit 30.9 % (42.0-52.0); Hemoglobin 9.7 g/dL (14.1-18.0); Lymphocytes # 2.2 K/mm3 (0.7-4.5); Lymphocytes % 31.5 % (10-50); Mean Corpuscular HGB Conc 31.3 g/dL (31.8-35.4); Mean Corpuscular Hemoglobin 26.6 pg (27.0-31.2); Mean Corpuscular Volume 84.9 fl (80-94); Mean Platelet Volume 7.5 fl (7.4-10.4); Monocytes # 0.5 K/mm3 (0.1-1.0); Monocytes % 6.9 % (1.7-9.3); Neutrophils # 4.1 K/mm3 (1.8-7.8); Neutrophils % 58.3 % (37.0-80.0); Platelet Count 450 K/mm3 (142-424); Red Blood Count 3.64 M/mm3 (4.60-6.20); Red Cell Distribution Width 15.4 % (11.5-17.5); White Blood Count 7.1 K/mm3 (4.8-10.8)
[2020-01-20 08:26] LABS: Chloride 103 mmol/L (98-107); Potassium 4.1 mmoL/L (3.5-5.1); Sodium 136 mmol/L (136-145)
[2020-01-20 08:29] LABS: Anion Gap 10.1 mEq/L (5-15); Blood Urea Nitrogen 11 mg/dl (9-20); Carbon Dioxide 27 mmol/L (22.0-30.0); Creatinine Clearance Estimated 74 mL/min (50-200); Estimated Glomerular Filt Rate 77 ml/min (>60); GFR (African American) 94 ML/MIN (>60)
[2020-01-20 08:30] LABS: Calcium 8.5 mg/dl (8.4-10.2); Glucose 113 mg/dl (74-100)
--- NOTE | 2020-01-20 08:46 | HMH.ACPN2 ---
Internal Medicine - PN: Subj *Date: 01/20/20 *Time: 08:46 Interval history: He is clinically stable. His report on small bowel follow-through is not available yet. Hemoglobin this morning is 9.7. Recent Coumadin dosing as an outpatient has involved 7.5 mg and 10 mg. His INR yesterday was 2.45. We will discharge on 7.5 mg Coumadin daily. Follow-up will be soon in the office of [facility] this week. Exam Vital signs and Labs for Last 24 Hours: Temp Pulse Resp BP Pulse Ox 97.9 F 55 L 19 123/47 L 99 01/20/20 07:45 01/20/20 07:45 01/20/20 07:45 01/20/20 07:45 01/20/20 07:45 Laboratory Results - last 24 hr 01/18/20 11:40: Blood Type O Positive, Antibody Screen Negative, Crossmatch (AHG) See Detail 01/19/20 18:42: Hgb 9.5 L D, Hct 30.0 L 01/20/20 07:41: WBC 7.1, RBC 3.64 L, Hgb 9.7 L, Hct 30.9 L, MCV 84.9, MCH 26.6 L, MCHC 31.3 L, RDW 15.4, Plt Count 450 H, MPV 7.5, Neut % (Auto) 58.3, Lymph % (Auto) 31.5, [place] % (Auto) 6.9, Eos % (Auto) 2.6, Baso % (Auto) 0.8, Neut # (Auto) 4.1, Lymph # (Auto) 2.2, [place] # (Auto) 0.5, Eos # (Auto) 0.2, Baso # (Auto) 0.1 01/20/20 07:41: Sodium 136, Potassium 4.1, Chloride 103, Carbon Dioxide 27, Anion Gap 10.1, BUN 11, Creatinine 1.00, Estimated Creat Clear 74, Estimated GFR 77, Est GFR ( Amer) 94, Glucose 113 H, Calcium 8.5 Laboratory Tests 01/18/20 01/19/20 01/20/20 10:35 06:21 07:41 Hgb 9.7 L Hct 30.9 L INR 4.37 H 2.42 H I & O for Last 24 hours: Intake & Output 07/29/20 07/30/20 07/31/20 08/01/20 11:59 11:59 11:59 11:59 Intake Total 1544 / 1544 1467 / 1467 Output Total 600 / 600 350 / 350 Balance 944 / 944 1117 / 1117 Weight 305 lb 9 oz 300 lb 2 oz 303 lb 2 oz - Constitutional no acute distress - *Routine Respiratory Exam Present: CTA bilaterally. Absent: respiratory distress - *Routine Cardiovascular Exam Present: RRR, click - *Routine Abdominal Exam Present: soft. Absent: tenderness - *Routine Extremities Exam Present: edema (1+ to 2+) - *Routine Neurological Exam Present: alert, oriented X3 Assessment and Plan (1) Anemia Current visit: No Status: Acute Qualifiers: Anemia type: other cause Other causes of anemia: acute posthemorrhagic Qualified Code(s): D62 - Acute posthemorrhagic anemia Category: Medical Code(s): D64.9 - Anemia, unspecified (2) History of GI bleed Current visit: Yes Status: Acute Category: Medical Code(s): Z87.19 - Personal history of other diseases of the digestive system (3) Fatigue Current visit: No Status: Acute Qualifiers: Fatigue type: unspecified Qualified Code(s): R53.83 - Other fatigue Category: Medical Code(s): R53.83 - Other fatigue (4) Melena Current visit: No Status: Acute Category: Medical Code(s): K92.1 - Melena (5) Supratherapeutic INR Current visit: No Status: Chronic Category: Medical Code(s): R79.1 - Abnormal coagulation profile (6) History of mechanical aortic valve replacement Current visit: No Status: Chronic Category: Surgical Code(s): Z95.2 - Presence of prosthetic heart valve (7) Hypertension Current visit: No Status: Chronic Qualifiers: Hypertension type: essential hypertension Qualified Code(s): I10 - Essential (primary) hypertension Category: Medical Code(s): I10 - Essential (primary) hypertension (8) Obesity Current visit: No Status: Chronic Qualifiers: Obesity type: unspecified obesity type Obesity classification: adult class 3 (BMI >= 40) Serious obesity comorbidity presence: without serious comorbidity Body mass index: BMI 45.0-49.9 Qualified Code(s): E66.01 - Morbid (severe) obesity due to excess calories; Z68.42 - Body mass index (BMI) 45.0-49.9, adult Category: Medical Code(s): E66.9 - Obesity, unspecified (9) History of gastric ulcer Current visit: Yes Status: Acute Category: Medical Code(s): Z87.19 - Personal histor
--- NOTE | 2020-01-20 09:20 | HMH.PHAINT ---
DISCHARGE COUNSELING COMPLETED ON PATIENT NEW PRESCRIPTIONS INCLUDE FERROUS GLUCONATE AND CARAFATE. BOTH PRESCRIPTIONS WERE SENT TO [facility] IN [place]. WARFARIN DOSE CHANGED TO 7.5MG DAILY. WARFARIN EDUCATION COMPLETED. PATIENT IS TO CONTINUE ALL OTHER HOME MEDICATIONS WITH THE EXCEPTION OF ASPIRIN. PATIENT VERBALIZED UNDERSTANDING AND HAD NO QUESTIONS AT THIS TIME. -VIJI DAVIS, DEBBYD
--- NOTE | 2020-01-22 08:46 | HMH.DCSUM ---
General - General Admission date:: 01/18/20 Discharge date: 01/20/20 HPI HPI: This 54 y.o. WM is admitted with a hgb of 7.5. He underwent cardiac catheterization 01/17/2020 showing normal coronary arteries. 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 He takes coumadin. INR was elevated at 4.37 this admission. His anemia was detected yesterday and he was instructed to follow-up today in [facility], but instead he returned to cardiology. They contacted Dr. Cedeno who admitted the patient. The patient reported that he has not felt well for at least a week. He has had SOB but no chest pain or abdominal pain. He has had dark stools. He noted a history of a similar presentation in August of 2018. EGD by Dr. James Mckeon revealed 3 shsllow gastric ulcers with no active bleeding. His usual medications included pantoprazole and Sucralfate. Hospital Course Hospital Course: Patient received a total of 3 units of packed red blood cells with hemoglobin going from 7.8 on admission to 9.7 on day of discharge. He was seen by Dr. Mckeon who on 01/19/2020 performed an EGD. A few biopsies were obtained. See report. After this he did have an upper GI with a small bowel follow-through which was negative. Patient was clinically stable. He was started back on his Coumadin. He was able to eat without difficulty. He had no further dark stools. On 01/20/2020 patient was stable for discharge. Disposition: Patient discharged home in stable and satisfactory condition. He was instructed to limit his activity and advance his diet to his usual diet. Follow-up with Dr. Vera on 01/23/2020. Objective Vital signs: Temp Pulse Resp BP Pulse Ox 97.9 F 55 L 19 123/47 L 99 01/20/20 07:45 01/20/20 07:45 01/20/20 07:45 01/20/20 07:45 01/20/20 07:45 Narrative: Exam Vital signs and Labs for Last 24 Hours: Temp Pulse Resp BP Pulse Ox 97.9 F 55 L 19 123/47 L 99 01/20/20 07:45 01/20/20 07:45 01/20/20 07:45 01/20/20 07:45 01/20/20 07:45 Laboratory Results - last 24 hr 01/18/20 11:40: Blood Type O Positive, Antibody Screen Negative, Crossmatch (AHG) See Detail 01/19/20 18:42: Hgb 9.5 L D, Hct 30.0 L 01/20/20 07:41: WBC 7.1, RBC 3.64 L, Hgb 9.7 L, Hct 30.9 L, MCV 84.9, MCH 26.6 L, MCHC 31.3 L, RDW 15.4, Plt Count 450 H, MPV 7.5, Neut % (Auto) 58.3, Lymph % (Auto) 31.5, [place] % (Auto) 6.9, Eos % (Auto) 2.6, Baso % (Auto) 0.8, Neut # (Auto) 4.1, Lymph # (Auto) 2.2, [place] # (Auto) 0.5, Eos # (Auto) 0.2, Baso # (Auto) 0.1 01/20/20 07:41: Sodium 136, Potassium 4.1, Chloride 103, Carbon Dioxide 27, Anion Gap 10.1, BUN 11, Creatinine 1.00, Estimated Creat Clear 74, Estimated GFR 77, Est GFR ( Amer) 94, Glucose 113 H, Calcium 8.5 Laboratory Tests 01/18/20 01/19/20 01/20/20 10:35 06:21 07:41 Hgb 9.7 L Hct 30.9 L INR 4.37 H 2.42 H I & O for Last 24 hours: Intake & Output 01/17/20 01/18/20 01/19/20 01/20/20 11:59 11:59 11:59 11:59 Intake Total 1544 / 1544 1467 / 1467 Output Total 600 / 600 350 / 350 Balance 944 / 944 1117 / 1117 Weight 305 lb 9 oz 300 lb 2 oz 303 lb 2 oz - Constitutional no acute distress - *Routine Respiratory Exam Present: CTA bilaterally. Absent: respiratory distress - *Routine Cardiovascular Exam Present: RRR, click - *Routine Abdominal Exam Present: soft. Absent: tenderness - *Routine Extremities Exam Present: edema (1+ to 2+) - *Routine Neurological Exam Present: alert, oriented X3 Results Completed studies during hospitalization [Text1]: 01/19/2020 UGI with small bowel follow throughIMPRESSION: Unremarkable upper GI and small-bowel follow-through study. 01/19/2020 EGD/Dr. Mckeon Findings:: Gastroesophageal junction at 45 cm Possible small tongue of Kline's No obvious ulcerations or sign of recent hemorrhage Apparent tiny diverticulum in mid/distal gastric
== END 2020-01-20 10:00 | disposition home or self-care (01) | DRG 812 ==
LOC: 2ND 10:58
PROVIDERS: Internal Medicine; Surgery; Admitting Provider Family Medicine; PCP Family Medicine; Visit Provider Family Medicine
PROC: 0DJ08ZZ Inspection of Upper Intestinal Tract, Via Natural or Artificial Opening Endoscopic (ICD-10-PCS; CPT 43235; principal; 2020-01-19 07:00)
DX: D62 Acute posthemorrhagic anemia (principal); K92.1 Melena; Z68.42 Body mass index [BMI] 45.0-49.9, adult; Z79.891 Long term (current) use of opiate analgesic; Z95.2 Presence of prosthetic heart valve; I10 Essential (primary) hypertension; Z79.01 Long term (current) use of anticoagulants; E66.01 Morbid (severe) obesity due to excess calories; R79.1 Abnormal coagulation profile; E78.5 Hyperlipidemia, unspecified
CPT/HCPCS: 43239; 36415; 74246; 74248; 80048; 80053; 85014; 85018; 85025; 85610; 86328; 86850; 88305; 99152; C1725; C1769; J1644; J2704; P9016; Q9967

== ENCOUNTER 2020-02-22 06:18 | Day surgery (SDC) | payer MEDICARE, SELFPAY ==
[2020-02-20 14:14] VITALS: BMI 44.3
[2020-02-22 06:38] VITALS: BP 107/59; PULSE 72; RESP 18; TEMP 36.3; O2SAT 93
--- NOTE | 2020-02-22 07:15 | HMH.ANESCL ---
[facility] Anesthesia Checklist - Patient Identification Patient Identification: Arm Band, Verbal (Name & ) - Structural Data Admitted From: Home Planned Operative Procedure/s: colonoscopy Consent for Planned Operative Procedure(s) Verified: Yes Verified Documents: History and Physical - NPO Status Verified Time NPO: 00:00 - Additional verifications Patient : No Anesthesia Reactions: No Hx Blood Transfusions: No Blood Transfusion Reaction: No Cephalosporin Allergy: No Previous Colonoscopy: No - Cardiovascular Assessment Heart Sounds: S1 & S2 Pulse Strength: Baseline Pulse Rhythm: Regular Peripheral Edema: No - Airway Assessment C-Spine Mobility Assessed: Yes TMJ Mobility Assessed: Yes Dentition: Poor Dentition - Neurological Assessment Level of Consciousness: Awake, Alert, Appropriate Hx Seizures: No Numbness or tingling in extremities: No - Anesthesia Plan Anesthesia Risk discussed: Yes Anesthesia Plan: Verified ASA Class: III Anesthesia Type: MAC [facility] History I have reviewed the patient's past medical history: Yes Medical History: Reports:: Coronary Artery Disease, Gastrointestinal Bleed, Heart Murmur, Hyperlipidemia, Hypertension, Ulcer, Valvular Heart Disease Denies:: Cancer, Diabetes Mellitus Type 1, Diabetes Mellitus Type 2, Internal Pacemaker, Lung Disease, MRSA, Seizures *Have you ever received a pneumonia vaccine?: No *Have you received a flu vaccine this season?: No Other Medical History: Reports: Anemia, Arthritis. Denies: Blood Transfusion Reaction Anesthesia experience/problems:: none Laterality Cases: Left: Carpal Tunnel Release Other Surgeries: Yes: CABG, Cardiac Catheterization, Cardiac Surgery, Colonoscopy (2014), EGD, Open Heart Surgery, Other Valve Replacement (aorta), Other (Fissurectomy/sphincterotomy 2007). No: Pacemaker Amputation: No Fractures: No - *Social History Smoking Status: Current every day smoker Tobacco Type: cigarettes # Packs/Day (cigarettes): 1 Alcohol Intake: never Alcohol Intake Frequency:: a few times a month Substance Use Type: denies use *Occupational Status:: disabled Housing: house Household Members: spouse *Travel in the last 8 weeks: None Family Hx:: Cancer, Diabetes
[2020-02-22 07:22] VITALS: O2SAT 94
--- NOTE | 2020-02-22 07:56 | P.PCN_ITS ---
- Procedure: Date: 02/22/20 Patient Date of :: 1965 Procedure Performed:: Colonoscopy with biopsy Indications:: Screening Anemia Gastrointestinal hemorrhage Performing Provider:: Pasha Mckeon MD Referring Provider:: . Sedation:: Monitored anesthesia care Procedure:: After informed consent was obtained the patient was taken to the endoscopy watt ite. Sedation ensued after the patient was transferred to the left lateral decubitus position. Pulse, blood pressure, and oxygen saturation were monitored throughout the procedure. Digital rectal exam revealed no significant abnormality. The colonoscope was placed in position. The entire colon was evaluated. The colonoscope was carefully removed and the patient was transferred to recovery in stable condition. Please see findings and specimens below for detail. Findings:: Bowel preparation moderate to poor Significant lack of relaxation Cluster of polyps (hyperplastic-appearing) around 15 cm Specimens:: Multiple biopsies of hyperplastic-appearing polyps from 15 cm Recommendations:: Ongoing evaluation with regard to anemia/gastrointestinal hemorrhage. Likely repeat colonoscopy in around 1 year secondary to limitations in visualization. Complications:: No immediate Estimated blood obtained (mL): 1
[2020-02-22 08:01] VITALS: BP 128/56; PULSE 73; RESP 18; TEMP 36.9; O2SAT 97
[2020-02-22 08:11] VITALS: BP 126/72; PULSE 76; RESP 20; O2SAT 97
[2020-02-22 08:21] VITALS: BP 162/87; PULSE 81; RESP 20; O2SAT 97
[2020-02-22 08:31] VITALS: BP 157/77; PULSE 80; RESP 18; O2SAT 96
== END 2020-02-22 08:35 | disposition home or self-care (01) ==
LOC: OUTP 06:20
PROVIDERS: PCP Family Medicine; Visit Provider Surgery
PROC: 0DJD8ZZ Inspection of Lower Intestinal Tract, Via Natural or Artificial Opening Endoscopic (ICD-10-PCS; CPT 45380; principal; 2020-02-22 07:30)
DX: Z12.11 Encounter for screening for malignant neoplasm of colon (principal); K63.5 Polyp of colon; K63.89 Other specified diseases of intestine; D62 Acute posthemorrhagic anemia; Z87.19 Personal history of other diseases of the digestive system; Z95.2 Presence of prosthetic heart valve; I25.10 Atherosclerotic heart disease of native coronary artery without angina pectoris; E78.5 Hyperlipidemia, unspecified; I10 Essential (primary) hypertension; M19.90 Unspecified osteoarthritis, unspecified site; Z72.0 Tobacco use; Z79.01 Long term (current) use of anticoagulants
CPT/HCPCS: 45380; 88305; J2704

== ENCOUNTER 2020-06-13 10:45 | Emergency (ER) | payer MEDICARE, SELFPAY ==
[2020-06-13 11:00] VITALS: BP 148/91; PULSE 98; RESP 18; TEMP 36.6; O2SAT 97; BMI 45.7
--- NOTE | 2020-06-13 11:15 | HMH.EDUTC ---
[facility] [place] Clinical Impression: Bronchitis, Exposure to COVID-19 virus Disposition: Home, Self-Care Condition on Discharge: Good Instructions: Preventing the Spread of Coronavirus Discharge Instructions Additional Instructions: Drink plenty of fluids. Take tylenol for pain or fever. Return if you begin to have difficulty breathing. Follow up with your regular doctor. GO TO THE ER FOR ANY WORSENING SYMPTOMS Prescriptions: Benzonatate [Tessalon Perle 100mg Cap] 100 mg PO TIDP PRN #30 cap PRN Reason: Cough Transmission Status: Received by [id number] Azithromycin [Z-Jeremiah 250mg Tab*] 250 mg PO UD DOSE PK #6 tab Transmission Status[id number] Referrals: Jeni Vera MD [Primary Care Provider] - Time of Disposition: 11:27 Medical Decision Making - Medical Records Medical records reviewed: No: I reviewed the patient's medical records. - John Inquiry Pt receiving controlled substance: No Vital Signs: 06/13/20 11:00 06/13/20 11:28 Temperature 97.9 F 97.9 F Temperature Source Oral Pulse Rate 98 H Pulse Rate [Right Brachial] 98 H Respiratory Rate 18 18 Blood Pressure 148/91 H Blood Pressure [Right Arm] 148/91 H Blood Pressure Mean [Right Arm] 110 Blood Pressure Source [Right Arm] Automatic Cuff Blood Pressure Position [Right Arm] Sitting 02 Sat by Pulse Oximetry 97 Oxygen Delivery Method Room Air Orders (Tests/Meds): ORDERS Category Date Time Status Covid-19 Nasal PCR Sendout [facility] Stat Lab 06/13/20 10:56 Received [facility] [place] - General Stated complaint: covid test Time Seen by Provider: 06/13/20 11:18 Mode of Arrival: Ambulatory Source of Information: Patient Description of Symptoms (Recalled from Triage Doc. by RN): PT C/O BODY ACHES, CHILLS, FEVER, AND COUGH X'S 2 DAYS HEENT Symptoms (Recalled from RN notes): Yes Resp Symptoms (Recalled from RN notes): Yes Skin Symptoms (Recalled from RN notes): No MS Symptoms (Recalled from RN notes): No Functional Status (Recalled from RN notes): WNL - History of Present Illness Provider Complaint: He states that he has had low grade fever, cough, body aches for the past 1 day. - Related Data Home Medications Medication Instructions Recorded Confirmed Duloxetine HCl 60 mg PO BID 09/08/18 03/06/20 Simvastatin 20 mg PO HS 09/08/18 03/06/20 hydroCHLOROthiazide 12.5 mg PO DAILY 09/08/18 03/06/20 [Hydrochlorothiazide 12.5mg Tab] lisinopriL [Lisinopril 10mg Tab] 10 mg PO DAILY 09/08/18 03/06/20 Amlodipine Besylate [Norvasc 2.5mg 2.5 mg PO DAILY 01/18/20 03/06/20 tablet] Ferrous Gluconate [Ferrous 324 mg PO BID 02/20/20 03/06/20 Gluconate 324mg Tab] Sucralfate [Carafate 1gm Tab] 1 gm PO ACHS 02/20/20 03/06/20 polyethylene glycoL 3350 17 g PO DAILY 02/20/20 03/06/20 [Polyethylene Glycol 3350] Enoxaparin Sodium [Lovenox 30 mg SQ BID 02/22/20 03/06/20 30mg/0.3mL syringe] Previous Rx's Medication Instructions Recorded Warfarin Sodium 7.5 mg PO DAILY #0 01/20/20 pantoprazole 40 mg tablet,delayed 40 mg PO BID #60 tab 06/04/20 release Azithromycin [Z-Jeremiah 250mg Tab*] 250 mg PO UD DOSE PK #6 tab 06/13/20 Benzonatate [Tessalon Perle 100mg 100 mg PO TIDP PRN #30 cap 06/13/20 Cap] Allergies Allergy/AdvReac Type Severity Reaction Status Date / Time No Known Allergies Allergy Verified 03/06/20 09:33 - Worker's Comp Is this a Worker's Comp case?: No [facility] History - Hepatitis A Screen Drug use history?: No High risk sexual behaviors?: No History of sexually transmitted infection?: No Currently employed?: No Childcare worker?: No Do you have indoor plumbing?: Yes Do you have electricity?: Yes Attestation statement:: This patient has been screened for Hepatitis A risk factors. I have reviewed the patient's past medical history: Yes Medical History: Reports:: Coronary Artery Disease, Gastrointestinal Bleed, Heart Murmur, Hyperlipidemia, Hyperte
[2020-06-13 11:28] VITALS: BP 148/91; PULSE 98; RESP 18; TEMP 36.6; O2SAT 97
[2020-06-13 19:11] LABS: UTC Influenza A Antigen Negative (Negative); UTC Influenza B Antigen Negative (Negative)
[2020-06-14 08:06] LABS: Covid-19 Nasal PCR Sendout P&C POSITIVE
--- NOTE | 2020-06-14 13:21 | PC.NURSE ---
attempted to call pt to advise of covid test results , no answer
== END 2020-06-13 11:30 | disposition home or self-care (01) ==
PROVIDERS: Emergency Provider Nurse Practitioner Family; PCP Family Medicine
DX: U07.1 COVID-19 (principal); I10 Essential (primary) hypertension; E78.5 Hyperlipidemia, unspecified; I25.10 Atherosclerotic heart disease of native coronary artery without angina pectoris; Z95.2 Presence of prosthetic heart valve; Z79.899 Other long term (current) drug therapy; M79.10 Myalgia, unspecified site
CPT/HCPCS: G0463; 87804; 99201; U0004

== ENCOUNTER 2020-09-29 12:48 | Emergency (ER) | payer MEDICARE, SELFPAY ==
[2020-09-29 13:49] VITALS: RESP 18; TEMP 37.3; O2SAT 97; BMI 45.1
--- NOTE | 2020-09-29 13:57 | HMH.EDUTC ---
[facility] [place] Clinical Impression: Viral syndrome Sinusitis Qualifiers: Sinusitis location: unspecified location Chronicity: acute Recurrence: non-recurrent Qualified Code(s): J01.90 - Acute sinusitis, unspecified Disposition: Home, Self-Care Condition on Discharge: Good Instructions: DI for Viral Syndrome Referrals: Jeni Vera MD [Primary Care Provider] - Medical Decision Making - Medical Records Medical records reviewed: No: I reviewed the patient's medical records. - John Inquiry Pt receiving controlled substance: No Vital Signs: 09/29/20 13:49 09/29/20 14:39 Temperature 99.1 F 99.7 F H Temperature Source Oral Oral Pulse Rate 90 Respiratory Rate 18 14 Blood Pressure 157/91 H 02 Sat by Pulse Oximetry 97 Oxygen Delivery Method Room Air Room Air - Lab Data Lab Results 09/29/20 14:33: Influenza Type A Ag Negative, Influenza Type B Ag Negative [facility] [place] - General Stated complaint: heache, vomiting, diarrhea Time Seen by Provider: 09/29/20 13:57 Mode of Arrival: Ambulatory Source of Information: Patient Limitations: No Limitations Description of Symptoms (Recalled from Triage Doc. by RN): PRASAD, Diarrhea, Vomiting, Bodyaches. Covid positive in Dec. HEENT Symptoms (Recalled from RN notes): No Resp Symptoms (Recalled from RN notes): No Skin Symptoms (Recalled from RN notes): No MS Symptoms (Recalled from RN notes): Yes Functional Status (Recalled from RN notes): na - History of Present Illness Provider Complaint: He states that he has had a cough, chest tightness, chilling and body aches for the past 2 days. - Related Data Home Medications Medication Instructions Recorded Confirmed Duloxetine HCl 60 mg PO BID 09/08/18 03/06/20 Simvastatin 20 mg PO HS 09/08/18 03/06/20 hydroCHLOROthiazide 12.5 mg PO DAILY 09/08/18 03/06/20 [Hydrochlorothiazide 12.5mg Tab] lisinopriL [Lisinopril 10mg Tab] 10 mg PO DAILY 09/08/18 03/06/20 Amlodipine Besylate [Norvasc 2.5mg 2.5 mg PO DAILY 01/18/20 03/06/20 tablet] Ferrous Gluconate [Ferrous 324 mg PO BID 02/20/20 03/06/20 Gluconate 324mg Tab] Sucralfate [Carafate 1gm Tab] 1 gm PO ACHS 02/20/20 03/06/20 polyethylene glycoL 3350 17 g PO DAILY 02/20/20 03/06/20 [Polyethylene Glycol 3350] Enoxaparin Sodium [Lovenox 30 mg SQ BID 02/22/20 03/06/20 30mg/0.3mL syringe] Previous Rx's Medication Instructions Recorded Warfarin Sodium 7.5 mg PO DAILY #0 01/20/20 pantoprazole 40 mg tablet,delayed 40 mg PO BID #60 tab 06/04/20 release Azithromycin [Z-Jeremiah 250mg Tab*] 250 mg PO UD DOSE PK #6 tab 06/13/20 Benzonatate [Tessalon Perle 100mg 100 mg PO TIDP PRN #30 cap 06/13/20 Cap] Allergies Allergy/AdvReac Type Severity Reaction Status Date / Time No Known Allergies Allergy Verified 03/06/20 09:33 - Worker's Comp Is this a Worker's Comp case?: No [facility] History - Hepatitis A Screen Drug use history?: No High risk sexual behaviors?: No History of sexually transmitted infection?: No Currently employed?: No Childcare worker?: No Do you have indoor plumbing?: Yes Do you have electricity?: Yes Attestation statement:: This patient has been screened for Hepatitis A risk factors. I have reviewed the patient's past medical history: Yes Medical History: Reports:: Coronary Artery Disease, Gastrointestinal Bleed, Heart Murmur, Hyperlipidemia, Hypertension, Ulcer, Valvular Heart Disease Denies:: Cancer, Diabetes Mellitus Type 1, Diabetes Mellitus Type 2, Internal Pacemaker, Lung Disease, MRSA, Seizures Other Medical History: Reports: Anemia, Arthritis. Denies: Blood Transfusion Reaction Comment: Aortic mechanical valve replacement, spinal stenosis of lumbar spine Laterality Cases: Left: Carpal Tunnel Release Other Surgeries: Yes: CABG, Cardiac Catheterization, Cardiac Surgery, Colonoscopy, EGD, Open Heart Surgery, Other Valve Replacement (aorta), Other (Fissurectomy/sphincterotomy 2007). No: Pacemaker Amputation: N
--- NOTE | 2020-09-29 14:36 | PC.NURSE ---
Pt refused to wait any longer, and refused to sign AMA paperwork.
[2020-09-29 14:39] VITALS: BP 157/91; PULSE 90; RESP 14; TEMP 37.6; O2SAT 97
[2020-09-29 14:41] LABS: UTC Influenza A Antigen Negative (Negative)
[2020-09-29 14:42] LABS: UTC Influenza B Antigen Negative (Negative)
== END 2020-09-29 14:41 | disposition home or self-care (01) ==
PROVIDERS: Emergency Provider Nurse Practitioner Family; PCP Family Medicine
DX: J01.90 Acute sinusitis, unspecified (principal); B34.9 Viral infection, unspecified; Z95.2 Presence of prosthetic heart valve; I10 Essential (primary) hypertension; I25.10 Atherosclerotic heart disease of native coronary artery without angina pectoris; E78.5 Hyperlipidemia, unspecified; Z79.899 Other long term (current) drug therapy
CPT/HCPCS: G0463; 87804; 99202

== ENCOUNTER 2020-10-11 | Emergency (ER) | payer MEDICARE, SELFPAY ==
[2020-10-11 00:02] VITALS: BP 151/80; PULSE 72; RESP 16; TEMP 36.6; O2SAT 96; BMI 44.3
[2020-10-11 00:14] VITALS: BMI 44.3
--- NOTE | 2020-10-11 01:01 | HMH.EDWNDL ---
ED Disposition Clinical Impression: Laceration of finger Qualifiers: Encounter type: initial encounter Finger: little finger Damage to nail status: without damage Foreign body presence: without foreign body Laterality: right Qualified Code(s): S61.216A - Laceration without foreign body of right little finger without damage to nail, initial encounter Disposition: Home, Self-Care Condition on Discharge: Good Instructions: DI for Laceration Repair Additional Instructions: sutures out 10 days and recheck if needed Referrals: Jeni Vera MD [Primary Care Provider] - - Critical Care Critical Care Time: No Attestation: On 10/11/20, the high probability of a clinically significant, sudden or life threatening deterioration of the following system(s) required my full and direct attention, intervention and personal management. The time I documented below is in addition to time spent performing reported procedures but includes the following listed in this critical care notation. Medical Decision Making - Medical Records Medical records reviewed: Yes: I reviewed the patient's medical records. - John Inquiry Pt receiving controlled substance: No Vital Signs: 10/11/20 00:02 Temperature 97.9 F Temperature Source Oral Pulse Rate [Left Radial] 72 Respiratory Rate 16 Blood Pressure [Left Arm] 151/80 H Blood Pressure Mean [Left Arm] 103 Blood Pressure Source [Left Arm] Automatic Cuff Blood Pressure Position [Left Arm] Sitting 02 Sat by Pulse Oximetry 96 Oxygen Delivery Method Room Air - Lab Data Lab results reviewed: Yes: I reviewed the patient's lab results. Orders (Tests/Meds): ED MEDICATIONS Discontinued Medications Generic Name Dose Route Start Last Admin Trade Name Freq PRN Reason Stop Dose Admin Lidocaine HCl 15 ml 10/11/20 00:15 Lidocaine 1% 20ml Mdv IM 10/11/20 00:16 ONCE ONE Tetanus/Reduced Diphtheria/Acell Pertussis 0.5 ml 10/11/20 00:15 Tet/Diphth/Pert-Adult 0.5ml Syringe IM 10/11/20 00:16 .ONCE ONE Wound/Laceration HPI - General Chief Complaint: Wound/Laceration Stated Complaint: AO04/22@2200 cut on right hand Time Seen by Provider: 10/11/20 00:10 Mode of Arrival: Ambulatory Source of Information: Patient, Medical Record Limitations: No Limitations Description of Symptoms (Recalled from ER Triage Doc. by RN): Pt cut his finger on a piece of glass at 9pm. He says he has been unable to stop the bleeding and is on warfarin. LAC is to right 5th digit. Finger tourniquet applied to right pinky and bleeding is now stopped. - History of Present Illness HPI narrative: rt fifth finger lac tonight - on coumadin Onset (ago): hour(s) Extremity Location: Right: hand Place: home Patient tetanus UTD: Yes Context: accidental Associated symptoms: none - Related Data Home Medications Medication Instructions Recorded Confirmed Duloxetine HCl 60 mg PO BID 09/08/18 10/11/20 Simvastatin 20 mg PO HS 09/08/18 10/11/20 hydroCHLOROthiazide 12.5 mg PO DAILY 09/08/18 10/11/20 [Hydrochlorothiazide 12.5mg Tab] lisinopriL [Lisinopril 10mg Tab] 10 mg PO DAILY 09/08/18 10/11/20 Amlodipine Besylate [Norvasc 2.5mg 2.5 mg PO DAILY 01/18/20 10/11/20 tablet] Ferrous Gluconate [Ferrous 324 mg PO BID 02/20/20 10/11/20 Gluconate 324mg Tab] Sucralfate [Carafate 1gm Tab] 1 gm PO ACHS 02/20/20 10/11/20 polyethylene glycoL 3350 17 g PO DAILY 02/20/20 10/11/20 [Polyethylene Glycol 3350] Enoxaparin Sodium [Lovenox 30 mg SQ BID 02/22/20 10/11/20 30mg/0.3mL syringe] Previous Rx's Medication Instructions Recorded Warfarin Sodium 7.5 mg PO DAILY #0 01/20/20 pantoprazole 40 mg tablet,delayed 40 mg PO BID #60 tab 06/04/20 release Allergies Allergy/AdvReac Type Severity Reaction Status Date / Time No Known Allergies Allergy Verified 03/06/20 09:33 [facility] History - Hepatitis A Screen Drug use history?: No High risk sexual behaviors?: No Hi
[2020-10-11 01:17] VITALS: BP 149/74; PULSE 80; RESP 17; TEMP 36.8; O2SAT 98
--- NOTE | 2020-10-11 01:17 | PC.NURSE ---
Pt in UTD on TDAP
== END 2020-10-11 01:19 | disposition home or self-care (01) ==
PROVIDERS: Emergency Provider Emergency Medicine; PCP Family Medicine
DX: S61.216A Laceration without foreign body of right little finger without damage to nail, initial encounter (principal); W25.XXXA Contact with sharp glass, initial encounter; Y92.019 Unspecified place in single-family (private) house as the place of occurrence of the external cause; I25.10 Atherosclerotic heart disease of native coronary artery without angina pectoris; I10 Essential (primary) hypertension; Z95.2 Presence of prosthetic heart valve; E78.5 Hyperlipidemia, unspecified; R01.1 Cardiac murmur, unspecified
CPT/HCPCS: 12001; 99282

== ENCOUNTER → 2020-11-26 15:49 | Outpatient (CLI) | payer MEDICARE, SELFPAY ==
--- NOTE | 2020-11-26 15:55 | XR_ITS ---
PROCEDURE: XR HIP RT 2-3V W/PELVIS CLINICAL INDICATION: HIP PAIN,RT COMPARISON: No exams were available for comparison FINDINGS: No fracture or dislocation is evident. No significant degenerative change. No lytic or blastic change. Unremarkable soft tissues. IMPRESSION: No acute findings. Dictated by: Keshav Flannery MD 11/26/2020 16:13 Keshav Flannery MD in [place] 11/26/2020 16:13
== END ==
PROVIDERS: PCP Family Medicine; Visit Provider Nurse Practitioner Family
DX: M25.551 Pain in right hip (principal)
CPT/HCPCS: 73502

== ENCOUNTER → 2021-05-20 14:34 | Outpatient (CLI) | payer MEDICARE, SELFPAY | PROVIDERS: Visit Provider Surgery | DX: Z01.812 Encounter for preprocedural laboratory examination (principal); Z20.822 Contact with and (suspected) exposure to COVID-19; Z12.11 Encounter for screening for malignant neoplasm of colon | CPT/HCPCS: C9803; U0003; U0005 ==

== ENCOUNTER 2021-05-22 09:01 | Day surgery (SDC) | payer MEDICARE, SELFPAY ==
[2021-05-19 14:50] VITALS: BMI 45.6
--- NOTE | 2021-05-22 09:19 | P.PN_ITS ---
[facility] Anesthesia Checklist - Patient Identification Patient Identification: Arm Band - Structural Data Admitted From: Home Planned Operative Procedure/s: Colonoscopy Consent for Planned Operative Procedure(s) Verified: Yes - NPO Status Verified Time NPO: 00:00 - Additional verifications Anesthesia Reactions: No Hx Blood Transfusions: No Blood Transfusion Reaction: No - Airway Assessment C-Spine Mobility Assessed: Yes TMJ Mobility Assessed: Yes Dentition: Good Dentition - Neurological Assessment Level of Consciousness: Awake Hx Seizures: No Numbness or tingling in extremities: No - Anesthesia Plan Anesthesia Risk discussed: Yes Anesthesia Plan: Verified ASA Class: III Anesthesia Type: MAC [facility] History I have reviewed the patient's past medical history: Yes Medical History: Reports:: Coronary Artery Disease, Gastrointestinal Bleed, Heart Murmur, Hyperlipidemia, Hypertension, Ulcer, Valvular Heart Disease Denies:: Cancer, Diabetes Mellitus Type 1, Diabetes Mellitus Type 2, Internal Pacemaker, Lung Disease, MRSA, Seizures *Have you ever received a pneumonia vaccine?: No *Have you received a flu vaccine this season?: No Other Medical History: Reports: Anemia, Arthritis. Denies: Blood Transfusion Reaction Anesthesia experience/problems:: None Laterality Cases: Left: Carpal Tunnel Release Other Surgeries: Yes: CABG, Cardiac Catheterization, Cardiac Surgery, Colonoscopy, EGD, Open Heart Surgery, Other Valve Replacement (aorta), Other (Fissurectomy/sphincterotomy 2007). No: Pacemaker Amputation: No Fractures: No - *Social History Last grade of school completed: High school graduate Smoking Status: Never smoker Tobacco Type: cigarettes # Packs/Day (cigarettes): 1 Alcohol Intake: never Alcohol Intake Frequency:: a few times a month Substance Use Type: denies use *Occupational Status:: employed Housing: house Household Members: spouse *Travel in the last 8 weeks: None Family Hx:: Cancer, Diabetes
[2021-05-22 09:20] VITALS: BP 151/76; PULSE 87; RESP 18; TEMP 37; O2SAT 96
[2021-05-22 09:58] LABS: INR 2.79 (0.9-1.1); Prothrombin Time 29.2 seconds (10.1-12.5)
[2021-05-22 10:08] LABS: Hematocrit 41.1 % (42.0-52.0); Hemoglobin 14.7 g/dL (14.1-18.0)
[2021-05-22 10:18] VITALS: O2SAT 96
[2021-05-22 10:50] VITALS: BP 105/65; PULSE 90; RESP 18; TEMP 36.2; O2SAT 90
--- NOTE | 2021-05-22 10:50 | HMH.SCOPE ---
- Procedure: Date: 05/22/21 Patient Date of :: 1965 Procedure Performed:: Colonoscopy with biopsy Indications:: History of colon polyps Performing Provider:: Pasha Mckeon MD Referring Provider:: . Sedation:: Monitored anesthesia care Procedure:: After informed consent was obtained the patient was taken to the endoscopy suite. Sedation ensued after the patient was transferred to the left lateral decubitus position. Pulse, blood pressure, and oxygen saturation were monitored throughout the procedure. Digital rectal exam revealed no significant abnormality. The colonoscope was placed in position. The entire colon was evaluated. The colonoscope was carefully removed and the patient was transferred to recovery in stable condition. Please see findings and specimens below for detail. Findings:: Bowel preparation moderate to poor Significant lack of relaxation Clusters of hyperplastic-appearing polyps throughout rectosigmoid junction/sigmoid colon Specimens:: Biopsy of hyperplastic-appearing polyp at 25 cm Recommendations:: Follow-up pathology Likely repeat colonoscopy around 2 years secondary to persistent limited bowel preparation and lack of relaxation. Complications:: No immediate Estimated blood obtained (mL): 1
[2021-05-22 11:00] VITALS: BP 125/83; PULSE 81; RESP 18; O2SAT 91
[2021-05-22 11:10] VITALS: BP 127/86; PULSE 84; RESP 18; O2SAT 97
[2021-05-22 11:24] VITALS: BP 111/59; PULSE 71; RESP 18; O2SAT 97
[2022-03-19 10:54] LABS: POC Glucose,Bedside 123 (70-110)
== END 2021-05-22 11:25 | disposition home or self-care (01) ==
LOC: OUTP 09:02
PROVIDERS: PCP Family Medicine; Visit Provider Surgery
PROC: 0DJD8ZZ Inspection of Lower Intestinal Tract, Via Natural or Artificial Opening Endoscopic (ICD-10-PCS; principal; 2021-05-22 10:30)
DX: Z12.11 Encounter for screening for malignant neoplasm of colon (principal); K58.9 Irritable bowel syndrome, unspecified; K63.5 Polyp of colon; Z86.010 Personal history of colon polyps; I25.10 Atherosclerotic heart disease of native coronary artery without angina pectoris; Z87.19 Personal history of other diseases of the digestive system; R01.1 Cardiac murmur, unspecified; E78.5 Hyperlipidemia, unspecified; I10 Essential (primary) hypertension; D64.9 Anemia, unspecified; M19.90 Unspecified osteoarthritis, unspecified site; Z95.1 Presence of aortocoronary bypass graft; Z83.3 Family history of diabetes mellitus; Z80.9 Family history of malignant neoplasm, unspecified
CPT/HCPCS: 45380; 82962; 85014; 85018; 85610; J2704

== ENCOUNTER 2021-09-22 09:05 | Emergency (ER) | payer MEDICARE, SELFPAY ==
[2021-09-22 09:05] VITALS: BP 145/84; PULSE 73; RESP 18; TEMP 36.7; O2SAT 97; BMI 45.6
--- NOTE | 2021-09-22 09:21 | XR_ITS ---
FINAL REPORT CLINICAL HISTORY: pain/ chronic pain FINDINGS: LEFT SHOULDER Three views demonstrate no acute fracture or dislocation. There are mild degenerative changes of the acromioclavicular and glenohumeral joint. The visualized bony structures are well aligned. No soft tissue abnormality is seen. IMPRESSION: Mild degenerative change of the acromioclavicular and glenohumeral joints. Reviewed, Interpreted and Dictated by Vito Ortega III, MD Transcribed by Brianne Vaughn Authenticated by Vito Ortega III, MD on 09/22/2021 11:45:41 AM [facility]
--- NOTE | 2021-09-22 09:21 | XR_ITS ---
FINAL REPORT CLINICAL HISTORY: pain/ chronic FINDINGS: RIGHT SHOULDER Three views demonstrate no acute fracture or dislocation. There are mild degenerative changes of the acromioclavicular and glenohumeral joint. The visualized bony structures are well aligned. No soft tissue abnormality is seen. IMPRESSION: Mild degenerative change of the acromioclavicular and glenohumeral joints. Reviewed, Interpreted and Dictated by Vito Ortega III, MD Transcribed by Brianne Vaughn Authenticated by Vito Ortega III, MD on 09/22/2021 11:45:[address] [facility]
--- NOTE | 2021-09-22 09:30 | HMH.EDUTC ---
[facility] [place] Clinical Impression: Bilateral shoulder tendinopathy Bilateral shoulder pain Qualifiers: Chronicity: unspecified Qualified Code(s): M25.511 - Pain in right shoulder; M25.512 - Pain in left shoulder Disposition: Home, Self-Care Condition on Discharge: Good Instructions: Shoulder Tendinopathy, DI for Shoulder Pain Additional Instructions: Rest the extremities Take the medrol dose pack (steroids) as directed. Don't start it until tomorrow since we gave you a steroid shot here Follow up with Dr. Martin (orthopedics). I put in a referral but you need to call his office and schedule an appointment. Follow up with your regular doctor. GO TO THE ER FOR ANY WORSENING SYMPTOMS Prescriptions: methylPREDNISolone [Medrol] 4 mg PO DIRECTED 6 Days #21 packet Transmission Status: Pending to [facility] Referrals: Provider,MD Radha [Primary Care Provider] - Alexis Martin MD [Staff Physician] - Time of Disposition: 10:41 Medical Decision Making - Medical Records Medical records reviewed: No: I reviewed the patient's medical records. - John Inquiry Pt receiving controlled substance: No Vital Signs: 09/22/21 09:05 Temperature 98.0 F Temperature Source Oral Pulse Rate [Right Radial] 73 Respiratory Rate 18 Blood Pressure [Right Arm] 145/84 H Blood Pressure Mean [Right Arm] 104 Blood Pressure Source [Right Arm] Automatic Cuff Blood Pressure Position [Right Arm] Sitting 02 Sat by Pulse Oximetry 97 Oxygen Delivery Method Room Air - Lab Data Lab Results 09/22/21 10:04: PT 28.6 H, INR 2.73 H Orders (Tests/Meds): ED MEDICATIONS Discontinued Medications Generic Name Dose Route Start Last Admin Trade Name Freq PRN Reason Stop Dose Admin Methylprednisolone Sodium Succinate 125 mg 09/22/21 10:16 09/22/21 10:17 Methylprednisolone Sod Succ 125mg Vial IM 09/22/21 10:17 125 mg ONCE ONE Administration ORDERS Category Date Time Status Shoulder XR right miminum 2 views [XR shoulder RT min Exams 09/22/21 09:21 Taken 2V] Stat XR shoulder LT min 2V Stat Exams 09/22/21 09:21 Taken [facility] [place] - General Stated complaint: left shoulder pain Time Seen by Provider: 09/22/21 09:30 - History of Present Illness Provider Complaint: He is here with bilateral shoulder pain. He denies any injury but describes a history of worsening chronic shoulder pain and decreased ROM. He left shoulder is worse than his right. He is unable to raise it over his head. He denies any chest pain or shortness of breath. - Related Data Home Medications Medication Instructions Recorded Confirmed Duloxetine HCl 60 mg PO BID 09/08/18 05/28/21 Simvastatin 20 mg PO HS 09/08/18 05/28/21 hydroCHLOROthiazide 12.5 mg PO DAILY 09/08/18 05/28/21 [Hydrochlorothiazide 12.5mg Tab] lisinopriL [Lisinopril 10mg Tab] 10 mg PO DAILY 09/08/18 05/28/21 Amlodipine Besylate 2.5 mg PO DAILY 01/18/20 05/28/21 Ferrous Gluconate [Ferrous 324 mg PO DAILY 02/20/20 05/28/21 Gluconate 324mg Tab] meloxicam 15 mg tablet 15 mg PO DAILY tab 04/30/21 05/28/21 metformin 500 mg tablet,extended 500 mg PO DAILY tab 04/30/21 05/28/21 release 24 hr Previous Rx's Medication Instructions Recorded Warfarin Sodium 7.5 mg PO DAILY #0 01/20/20 methylPREDNISolone [Medrol] 4 mg PO DIRECTED 6 Days #21 09/22/21 packet Allergies Allergy/AdvReac Type Severity Reaction Status Date / Time No Known Allergies Allergy Verified 09/22/21 09:26 [facility] History - Hepatitis A Screen Attestation statement:: This patient has been screened for Hepatitis A risk factors. I have reviewed the patient's past medical history: Yes Medical History: Reports:: Coronary Artery Disease, Gastrointestinal Bleed, Heart Murmur, Hyperlipidemia, Hypertension, Ulcer, Valvular Heart Disease Denies:: Cancer, Diabetes Mellitus Type 1, Diabetes Mellitus Type 2, Internal Pacemaker, Lung Disease, MRSA, Seiz
[2021-09-22 10:27] LABS: INR 2.73 (0.9-1.1); Prothrombin Time 28.6 seconds (10.1-12.5)
[2021-09-22 10:52] VITALS: BP 145/84; PULSE 73; RESP 18; TEMP 36.7; O2SAT 97
== END 2021-09-22 10:52 | disposition home or self-care (01) ==
PROVIDERS: Emergency Provider Nurse Practitioner Family
DX: M67.911 Unspecified disorder of synovium and tendon, right shoulder (principal); M67.912 Unspecified disorder of synovium and tendon, left shoulder; E11.9 Type 2 diabetes mellitus without complications; E78.5 Hyperlipidemia, unspecified; I10 Essential (primary) hypertension; Z95.4 Presence of other heart-valve replacement; I25.10 Atherosclerotic heart disease of native coronary artery without angina pectoris; Z79.899 Other long term (current) drug therapy
CPT/HCPCS: 73030; 85610; 96372; 99213; G0463

== ENCOUNTER 2021-10-23 11:13 | Outpatient (CLI) | payer MEDICARE, SELFPAY ==
[2021-10-23 13:15] LABS: PHA INR Fingerstick 1.9 (0.9-1.1)
== END 2021-10-23 13:22 | disposition home or self-care (01) ==
LOC: ACC 11:17
PROVIDERS: PCP Internal Medicine Adolescent Medicine; Visit Provider Nurse Practitioner Family
DX: Z51.81 Encounter for therapeutic drug level monitoring (principal); Z79.01 Long term (current) use of anticoagulants; Z95.2 Presence of prosthetic heart valve
CPT/HCPCS: 85610; 99211; G0463

== ENCOUNTER 2021-10-28 09:18 | Emergency (ER) | payer MEDICARE, SELFPAY ==
[2021-10-28 10:23] VITALS: BP 187/93; PULSE 59; RESP 20; TEMP 37.1; O2SAT 96; BMI 45.6
--- NOTE | 2021-10-28 10:31 | HMH.EDUTC ---
[facility] [place] Dis[place] Clinical Impression: Acute bronchitis Qualifiers: Bronchitis organism: unspecified organism Qualified Code(s): J20.9 - Acute bronchitis, unspecified Sinusitis Qualifiers: Sinusitis location: unspecified location Chronicity: acute Recurrence: non-recurrent Qualified Code(s): J01.90 - Acute sinusitis, unspecified Disposition: Home, Self-Care Condition on Discharge: Good Instructions: DI for Sinusitis, DI for Acute Bronchitis Additional Instructions: Drink plenty of fluids. Take tylenol or ibuprofen for pain or fever. Take the medications as directed. Follow up with your regular doctor. GO TO THE ER FOR ANY WORSENING SYMPTOMS Quarantine until you know the results of your covid-19 test. Notify your school or workplace of your results and follow their instructions regarding return to work/school. Prescriptions: Promethazine/Dextromethorphan [Promethazine-Dm Syrup] 5 ml PO Q6HP PRN #240 ml PRN Reason: Cough Transmission Status: [facility] methylPREDNISolone [Medrol] 4 mg PO DIRECTED 6 Days #21 packet Transmission Status: [facility] guaiFENesin [Mucinex 600mg tablet] 1 - 2 tab PO BIDP PRN #30 tab PRN Reason: Congestion Transmission Status: Received by [facility] Azithromycin [Z-Jeremiah 250mg Tab*] 250 mg PO UD DOSE PK #6 tab Transmission Status: [facility] Referrals: Antelmo Santa MD [Primary Care Provider] - Forms: Work/School Release Time of Disposition: 10:59 Medical Decision Making - Medical Records Medical records reviewed: No: I reviewed the patient's medical records. - John Inquiry Pt receiving controlled substance: No Vital Signs: 10/28/21 10:23 10/28/21 11:24 Temperature 98.7 F 98.7 F Temperature Source Oral Pulse Rate 60 Pulse Rate [Radial] 59 L Respiratory Rate 20 20 Blood Pressure 187/93 H Blood Pressure [Right Arm] 187/93 H Blood Pressure Mean [Right Arm] 124 02 Sat by Pulse Oximetry 96 - Lab Data Lab Results 10/28/21 10:18: Group A Strep Rapid Negative 10/28/21 10:31: Influenza Type A Ag Negative, Influenza Type B Ag Negative Orders (Tests/Meds): ORDERS Category Date Time Status Strep Screen Confirmation Stat Micro 10/28/21 10:18 Received [facility] [place] HPI - General Stated complaint: congestion Time Seen by Provider: 10/28/21 10:31 Mode of Arrival: Ambulatory Source of Information: Patient Limitations: No Limitations Description of Symptoms (Recalled from Triage Doc. by RN): pt just states that he is sick all over. cough, body aches, cant sleep HEENT Symptoms (Recalled from RN notes): No Resp Symptoms (Recalled from RN notes): Yes Skin Symptoms (Recalled from RN notes): No MS Symptoms (Recalled from RN notes): No Functional Status (Recalled from RN notes): wnl - History of Present Illness Provider Complaint: He states that for the past 4 days he has had cough, chest congestion, low grade fever, and malaise. - Related Data Home Medications Medication Instructions Recorded Confirmed Duloxetine HCl 60 mg PO BID 09/08/18 05/28/21 Simvastatin 20 mg PO HS 09/08/18 05/28/21 hydroCHLOROthiazide 12.5 mg PO DAILY 09/08/18 05/28/21 [Hydrochlorothiazide 12.5mg Tab] lisinopriL [Lisinopril 10mg Tab] 10 mg PO DAILY 09/08/18 05/28/21 Amlodipine Besylate 2.5 mg PO DAILY 01/18/20 05/28/21 Ferrous Gluconate [Ferrous 324 mg PO DAILY 02/20/20 05/28/21 Gluconate 324mg Tab] meloxicam 15 mg tablet 15 mg PO DAILY tab 04/30/21 05/28/21 metformin 500 mg tablet,extended 500 mg PO DAILY tab 04/30/21 05/28/21 release 24 hr Previous Rx's Medication Instructions Recorded Warfarin Sodium 7.5 mg PO DAILY #0 01/20/20 methylPREDNISolone [Medrol] 4 mg PO DIRECTED 6 Days #21 09/22/21 packet Azithromycin [Z-Jeremiah 250mg Tab*] 250 mg PO UD DOSE PK #6 tab 10/28/21 Promethazine/Dextromethorphan 5 ml PO Q6HP PRN #240 ml 10/28/21 [Promethazine-Dm Syru
[2021-10-28 10:33] LABS: UTC Influenza A Antigen Negative (Negative); UTC Influenza B Antigen Negative (Negative)
[2021-10-28 10:47] LABS: Strep Scrn Group A (Rapid) Negative (Negative)
[2021-10-28 11:24] VITALS: BP 187/93; PULSE 60; RESP 20; TEMP 37.1
== END 2021-10-28 11:25 | disposition home or self-care (01) ==
PROVIDERS: Emergency Provider Nurse Practitioner Family; PCP Internal Medicine Adolescent Medicine
DX: J02.9 Acute pharyngitis, unspecified (principal); J01.90 Acute sinusitis, unspecified; R50.9 Fever, unspecified; I10 Essential (primary) hypertension; I38 Endocarditis, valve unspecified; R01.1 Cardiac murmur, unspecified; M19.90 Unspecified osteoarthritis, unspecified site; D64.9 Anemia, unspecified; F17.210 Nicotine dependence, cigarettes, uncomplicated; K21.9 Gastro-esophageal reflux disease without esophagitis; E78.5 Hyperlipidemia, unspecified; M48.061 Spinal stenosis, lumbar region without neurogenic claudication; L98.499 Non-pressure chronic ulcer of skin of other sites with unspecified severity; I25.119 Atherosclerotic heart disease of native coronary artery with unspecified angina pectoris; Z79.1 Long term (current) use of non-steroidal anti-inflammatories (NSAID); Z79.52 Long term (current) use of systemic steroids; Z79.84 Long term (current) use of oral hypoglycemic drugs; Z79.899 Other long term (current) drug therapy; Z95.2 Presence of prosthetic heart valve; Z95.1 Presence of aortocoronary bypass graft; Z82.49 Family history of ischemic heart disease and other diseases of the circulatory system; Z80.9 Family history of malignant neoplasm, unspecified; Z83.3 Family history of diabetes mellitus
CPT/HCPCS: 87430; 87804; 99213; G0463

== ENCOUNTER 2021-11-20 10:56 | Outpatient (CLI) | payer MEDICARE, SELFPAY ==
[2021-11-20 15:43] LABS: PHA INR Fingerstick 2.1 (0.9-1.1)
== END 2021-11-20 16:00 | disposition home or self-care (01) ==
PROVIDERS: Visit Provider Nurse Practitioner Family
DX: Z51.81 Encounter for therapeutic drug level monitoring (principal); Z79.01 Long term (current) use of anticoagulants
CPT/HCPCS: 85610; 99211; G0463

== ENCOUNTER 2022-01-15 15:46 | Emergency (ER) | payer MEDICARE, SELFPAY ==
[2022-01-15 15:47] VITALS: BP 131/89; PULSE 79; RESP 16; TEMP 36.9; O2SAT 98; BMI 41.8
--- NOTE | 2022-01-15 16:47 | HMH.EDUTC ---
[facility] [place] Clinical Impression: Laceration Disposition: Home, Self-Care Condition on Discharge: Good Instructions: How to Care for a Laceration After Repair, Laceration Repair, DI for Laceration Repair -- Simple Additional Instructions: Suture instructions: You have required stitches today. Please read the following instructions so you know how to care for them: 1. Keep wound area dry for the first 24 hours. 2 May clean gently with mild soap and water, after 48 hours to prevent crusting over suture knots. 3. You may shower if your provider gives permission but do not take a bath until the skin is healed.. 4. Never leave a wet dressing or Band-Aid on your stitches as this allows bacteria to reach the area and may cause infection. Band-aids can cause the wound to sweat and not recommended to wear for long periods of time Watch for signs of infection: Increasing redness, tenderness or warmth around the suture site Unusual swelling around the site Appearance of pus around each suture or any red streaks Fever If you develop any of the above signs or symptoms of infection, Follow up with Family Physician immediately 5. Suture removal in _7-10___days 6. Return to [facility] or follow up with family doctor for removal. This can be done by any medical provider during regular hours on Wednesday through Wednesday, by appointment. Make sure to notify the [facility] know tomorrow that you are on antibiotics Prescriptions: Amoxicillin/Potassium Clav [Amox-Clav 875-125 mg Tablet] 1 tab PO BID #14 tab Transmission Status: Pending to [facility] Referrals: Provider,Referral, MD [Primary Care Provider] - As needed Time of Disposition: 17:22 Medical Decision Making - John Inquiry Pt receiving controlled substance: No John was queried for this patient: No Vital Signs: 01/15/22 15:47 Temperature 98.5 F Temperature Source Oral Pulse Rate [Left Radial] 79 Respiratory Rate 16 Blood Pressure [Left Arm] 131/89 Blood Pressure Mean [Left Arm] 103 02 Sat by Pulse Oximetry 98 Oxygen Delivery Method Room Air [facility] [place] HPI - General Stated complaint: AO 01/15@1500 lac to R wrist Time Seen by Provider: 01/15/22 16:47 Mode of Arrival: Ambulatory Source of Information: Patient Limitations: No Limitations Description of Symptoms (Recalled from Triage Doc. by RN): Pt presents with lac to rt wrist. States that he accidentally cut it while working on metal - History of Present Illness Provider Complaint: Patient state that he was working on metal earlier and accidently cut his right wrist area States that he is on blood thinners so he immediatly applied pressure and when he looked at it realized he may need sutures so he came in - Related Data Home Medications Medication Instructions Recorded Confirmed Duloxetine HCl 60 mg PO BID 09/08/18 05/28/21 Simvastatin 20 mg PO HS 09/08/18 05/28/21 hydroCHLOROthiazide 12.5 mg PO DAILY 09/08/18 05/28/21 [Hydrochlorothiazide 12.5mg Tab] lisinopriL [Lisinopril 10mg Tab] 10 mg PO DAILY 09/08/18 05/28/21 Amlodipine Besylate 2.5 mg PO DAILY 01/18/20 05/28/21 Ferrous Gluconate [Ferrous 324 mg PO DAILY 02/20/20 05/28/21 Gluconate 324mg Tab] meloxicam 15 mg tablet 15 mg PO DAILY tab 04/30/21 05/28/21 metformin 500 mg tablet,extended 500 mg PO DAILY tab 04/30/21 05/28/21 release 24 hr Previous Rx's Medication Instructions Recorded Warfarin Sodium 7.5 mg PO DAILY #0 01/20/20 methylPREDNISolone [Medrol] 4 mg PO DIRECTED 6 Days #09/22/21 packet Azithromycin [Z-Jeremiah 250mg Tab*] 250 mg PO UD DOSE PK #6 tab 10/28/21 Promethazine/Dextromethorphan 5 ml PO Q6HP PRN #240 ml 10/28/21 [Promethazine-Dm Syrup] guaiFENesin [Mucinex 600mg tablet] 1 - 2 tab PO BIDP PRN #30 tab 10/28/21 methylPREDNISolone [Medrol] 4 mg PO DIRECTED 6 Days #21 10/28/21 packet Amoxicillin/Potassium Clav 1 tab PO BID #14 tab 01/15/22 [Amox-Clav 875-125 mg Tablet] Allergies Allerg
[2022-01-15 17:03] VITALS: BP 140/75; PULSE 68; RESP 19; TEMP 36.6; O2SAT 98; BMI 45.9
[2022-01-15 17:31] VITALS: BP 140/75; PULSE 68; RESP 18; TEMP 36.6; O2SAT 100
== END 2022-01-15 17:34 | disposition home or self-care (01) ==
PROVIDERS: Emergency Provider Nurse Practitioner
DX: S61.511A Laceration without foreign body of right wrist, initial encounter (principal); Z23 Encounter for immunization; Z79.899 Other long term (current) drug therapy; I25.10 Atherosclerotic heart disease of native coronary artery without angina pectoris; E78.5 Hyperlipidemia, unspecified; I10 Essential (primary) hypertension; Z87.19 Personal history of other diseases of the digestive system; R01.1 Cardiac murmur, unspecified; Z95.2 Presence of prosthetic heart valve
CPT/HCPCS: 12001; 90471; 90715; 99213; G0463

== ENCOUNTER 2022-01-27 10:57 | Emergency (ER) | payer MEDICARE, SELFPAY ==
[2022-01-27 11:11] VITALS: BP 122/80; PULSE 95; RESP 16; TEMP 36.7; O2SAT 96; BMI 45.6
[2022-01-27 11:12] VITALS: BP 122/80; PULSE 95; RESP 16; TEMP 36.7
== END 2022-01-27 11:12 | disposition home or self-care (01) ==
PROVIDERS: Emergency Provider Nurse Practitioner Family; PCP Family Medicine
DX: Z48.02 Encounter for removal of sutures (principal)
CPT/HCPCS: 99211; G0463

== ENCOUNTER 2022-02-05 09:02 | Outpatient (CLI) | payer MEDICARE, SELFPAY ==
[2022-02-05 15:21] LABS: PHA INR Fingerstick 2.2 (0.9-1.1)
== END 2022-02-05 15:31 | disposition home or self-care (01) ==
LOC: ACC 09:03
PROVIDERS: Visit Provider Nurse Practitioner Family
DX: Z51.81 Encounter for therapeutic drug level monitoring (principal); Z79.01 Long term (current) use of anticoagulants
CPT/HCPCS: 85610; 99211; G0463

== ENCOUNTER 2022-02-13 11:51 | Outpatient (CLI) | payer MEDICARE, SELFPAY ==
[2022-02-13 15:14] LABS: PHA INR Fingerstick 2.4 (0.9-1.1)
== END 2022-02-13 15:28 ==
LOC: ACC 11:55
PROVIDERS: PCP Internal Medicine Adolescent Medicine; Visit Provider Internal Medicine Adolescent Medicine
DX: Z51.81 Encounter for therapeutic drug level monitoring (principal); Z79.01 Long term (current) use of anticoagulants
CPT/HCPCS: 85610; 99211; G0463

== ENCOUNTER 2022-03-13 13:18 | Outpatient (CLI) | payer MEDICARE, SELFPAY ==
[2022-03-13 13:48] LABS: PHA INR Fingerstick 1.7 (0.9-1.1)
== END 2022-03-13 13:53 ==
LOC: ACC 13:20
PROVIDERS: PCP Internal Medicine Adolescent Medicine; Visit Provider Internal Medicine Adolescent Medicine
DX: Z51.81 Encounter for therapeutic drug level monitoring (principal); Z79.01 Long term (current) use of anticoagulants
CPT/HCPCS: 85610; 99211; G0463

== ENCOUNTER 2022-04-13 13:01 | Outpatient (CLI) | payer MEDICARE, SELFPAY ==
[2022-04-13 13:25] LABS: PHA INR Fingerstick 3.1 (0.9-1.1)
== END 2022-04-13 13:27 ==
LOC: ACC 13:03
PROVIDERS: Visit Provider Nurse Practitioner Family
DX: Z51.81 Encounter for therapeutic drug level monitoring (principal); Z79.01 Long term (current) use of anticoagulants
CPT/HCPCS: 85610; 99211; G0463

== ENCOUNTER → 2022-04-17 17:08 | Outpatient (CLI) | payer MEDICARE, SELFPAY ==
[2022-04-17 15:06] LABS: Basophils # 0.1 K/mm3 (0-0.2); Basophils % 1.1 % (0.1-2.0); Eosinophils # 0.1 K/mm3 (0.0-0.4); Eosinophils % 2.3 % (0.1-12.0); Hematocrit 42.5 % (42.0-52.0); Hemoglobin 13.7 g/dL (14.1-18.0); Lymphocytes # 1.9 K/mm3 (0.7-4.5); Lymphocytes % 30.3 % (10-50); Mean Corpuscular HGB Conc 32.3 g/dL (31.8-35.4); Mean Corpuscular Volume 89.7 fl (80-94); Monocytes # 0.3 K/mm3 (0.1-1.0); Monocytes % 5.4 % (1.7-9.3); Neutrophils # 3.7 K/mm3 (1.8-7.8); Neutrophils % 60.8 % (37.0-80.0); Platelet Count 430 K/mm3 (142-424); Red Blood Count 4.74 M/mm3 (4.60-6.20); Red Cell Distribution Width 14.1 % (11.5-17.5); White Blood Count 6.1 K/mm3 (4.8-10.8)
[2022-04-17 15:12] LABS: Alanine Aminotransferase 35 U/L (12-78); Albumin Level 3.7 g/dl (3.5-5.0); Albumin/Globulin Ratio 1.5 (1.1-1.8); Alkaline Phosphatase 96 U/L (38-126); Aspartate Amino Transferase 35 U/L (17-59); Bilirubin,Total 0.3 mg/dl (0.2-1.3); Blood Urea Nitrogen 16 mg/dl (9-20); Calcium 8.4 mg/dl (8.4-10.2); Carbon Dioxide 25 mmol/L (22.0-30.0); Chloride 103 mmol/L (98-107); Chol/HDL Ratio 4.4 (1-3.5); Cholesterol 161 mg/dl (140-200); Estimated Glomerular Filt Rate 87 ml/min (>60); GFR (African American) 105 ML/MIN (>60); Globulin 2.5 g/dL (1.3-3.2); Glucose 180 mg/dl (74-100); HDL Cholesterol 37 mg/dl (40-60); Sodium 136 mmol/L (136-145); Total Protein,Serum 6.2 g/dl (6.3-8.2); Triglycerides 196 mg/dl (30-150); VLDL Cholesterol 39 mg/dL (0-40)
[2022-04-17 15:46] LABS: Prostate Specific Ag Screen 1.8 ng/ml (0.0-4.0); Thyroid Stimulating Hormone 3.19 uIU/mL (0.465-4.68)
[2022-04-17 15:50] LABS: Hemoglobin A1C 6.6 % (4.0-6.0)
== END ==
PROVIDERS: PCP Emergency Medicine; Visit Provider Emergency Medicine
DX: E55.9 Vitamin D deficiency, unspecified (principal); R53.83 Other fatigue; I10 Essential (primary) hypertension; R06.83 Snoring; E66.01 Morbid (severe) obesity due to excess calories; Z68.42 Body mass index [BMI] 45.0-49.9, adult; K92.1 Melena; Z12.5 Encounter for screening for malignant neoplasm of prostate; R73.09 Other abnormal glucose
CPT/HCPCS: 80053; 80061; 82306; 83036; 84436; 84443; 85025; G0103

== ENCOUNTER 2022-06-08 10:52 | Outpatient (CLI) | payer MEDICARE, SELFPAY ==
--- NOTE | 2022-06-08 10:56 | CT_ITS ---
FINAL REPORT CLINICAL HISTORY: abd pain, poss hernia COMPARISON: 04/18/2019 FINDINGS: Axial CT images of the abdomen and pelvis were obtained without intravenous contrast. Coronal reformatted images were also obtained.This study was performed with techniques to keep radiation doses as low as reasonably achievable (ALARA). Individualized dose reduction techniques using automated exposure control or adjustment of mA and/or kV according to the patient''s size were employed. Abdomen: A calcified granuloma is seen in the right lung base. The gallbladder is present. The liver and pancreas have an unremarkable, unenhanced appearance. There is a stable mass in the posterior spleen measuring 46 mm. This is nonspecific and could represent a cyst or hemangioma. There is a less than 3 mm nonobstructing stone in the right kidney. The left kidney is unremarkable. Pelvis: The appendix is normal. The urinary bladder is unremarkable. There is a moderate amount of retained stool in the colon. There are small, bilateral inguinal hernias containing fat. There is an umbilical hernia containing fat. IMPRESSION: Stable 46 mm mass in the posterior spleen could represent a cyst or hemangioma. Nonobstructing right renal stone. Fat containing umbilical hernia and small bilateral inguinal hernias. Reviewed, Interpreted and Dictated by Vito Ortega III, MD Transcribed by Laisha Fernandez Authenticated and . [facility]
[2022-06-08 16:02] LABS: PHA INR Fingerstick 3.3 (0.9-1.1)
== END 2022-06-08 16:11 ==
PROVIDERS: PCP Internal Medicine Adolescent Medicine; Visit Provider Family Medicine
DX: R10.31 Right lower quadrant pain (principal); Z51.81 Encounter for therapeutic drug level monitoring; Z79.01 Long term (current) use of anticoagulants
CPT/HCPCS: 74176; 85610; 99211; G0463

== ENCOUNTER → 2022-07-03 13:10 | Outpatient (CLI) | payer MEDICARE, SELFPAY ==
[2022-07-03 13:25] LABS: Microscopic, Urine URINE MICROSCOPIC (MICROSCOPIC)
[2022-07-03 14:21] LABS: Appearance,Urine CLEAR (Clear); Bilirubin,Urine Negative (Negative); Blood, Urine Negative (Negative); Color,Urine YELLOW (Yellow); Glucose,Urine (UA) Negative (Negative); Ketones,Urine Negative (Negative); Leukocyte Esterase,Urine Negative (Negative); Nitrate,Urine Negative (Negative); Protein,Urine Negative (Negative); Specific Gravity, Urine >= 1.030 (1.005-1.030); Urobilinogen,Urine 0.2 EU/dl (0.2)
[2022-07-03 14:29] LABS: Basophils # 0.1 K/mm3 (0-0.2); Basophils % 0.9 % (0.1-2.0); Eosinophils # 0.2 K/mm3 (0.0-0.4); Eosinophils % 2.2 % (0.1-12.0); Hematocrit 41.8 % (42.0-52.0); Hemoglobin 13.7 g/dL (14.1-18.0); Lymphocytes # 2.4 K/mm3 (0.7-4.5); Lymphocytes % 31.3 % (10-50); Mean Corpuscular HGB Conc 32.7 g/dL (31.8-35.4); Mean Corpuscular Hemoglobin 28.2 pg (27.0-31.2); Mean Corpuscular Volume 86.1 fl (80-94); Mean Platelet Volume 8.1 fl (7.4-10.4); Monocytes # 0.4 K/mm3 (0.1-1.0); Monocytes % 5.7 % (1.7-9.3); Neutrophils # 4.6 K/mm3 (1.8-7.8); Platelet Count 452 K/mm3 (142-424); Red Blood Count 4.85 M/mm3 (4.60-6.20); Red Cell Distribution Width 13.5 % (11.5-17.5); White Blood Count 7.7 K/mm3 (4.8-10.8)
[2022-07-03 14:30] LABS: Squamous Epithelial Cell,Urine Occasional #/hpf (0-5); WBC,Urine Occasional #/hpf (0-3)
[2022-07-03 15:09] LABS: Blood Urea Nitrogen 15 mg/dl (9-20); Calcium 8.7 mg/dl (8.4-10.2); Carbon Dioxide 21 mmol/L (22.0-30.0); Chloride 106 mmol/L (98-107); Estimated Glomerular Filt Rate 77 ml/min (>60); GFR (African American) 93 ML/MIN (>60); Glucose 104 mg/dl (74-100); Sodium 137 mmol/L (136-145)
== END ==
PROVIDERS: PCP Emergency Medicine; Visit Provider Surgery
DX: K42.9 Umbilical hernia without obstruction or gangrene (principal); K92.1 Melena
CPT/HCPCS: 36415; 80048; 81001; 85025

== ENCOUNTER 2022-07-16 06:53 | Day surgery (SDC) | payer MEDICARE, SELFPAY ==
[2022-07-16] VITALS (14 sets, daily range): BP systolic 106–152; BP diastolic 50–83; PULSE 72–95; RESP 14–19; TEMP 36.3–43; O2SAT 91–99; BMI 44.6
[2022-07-16 07:46] LABS: POC Glucose,Bedside 116 (70-110)
--- NOTE | 2022-07-16 08:00 | EXP.ANES.CKL ---
[facility] Disclaimer: The information contained in this section may have been updated after the patient was seen, as this information can be updated by other users. Medical History Abnormal cardiovascular stress test Angina, class IV HLD (hyperlipidemia) Tobacco dependence syndrome Surgical History History of colonoscopy History of heart valve replacement History of mechanical aortic valve replacement Family History Other Family history of cancer Family history of diabetes mellitus type II History of mechanical aortic valve replacement Social History Smoking Status: Current every day smoker tobacco type: cigarettes packs per day: 1 alcohol intake: current substance use type: denies use and marijuana current occupational status: employed Travel in the last 8 weeks: None household members: spouse housing: house current occupational exposures/hazards: No caffeine: Yes [facility] Anesthesia Checklist Patient Identification Patient Identification: Arm Band and Verbal (Name & ) Structural Data Admitted From: Home Planned Operative Procedure/s: Inguinal hernia repair Consent for Planned Operative Procedure(s) Verified: Yes NPO Status Verified Time NPO: 00:00 Chart Verification Results Verified: CBC and BMP Additional verifications Anesthesia Reactions: No Hx Blood Transfusions: No Blood Transfusion Reaction: No Airway Assessment C-Spine Mobility Assessed: Yes TMJ Mobility Assessed: Yes Dentition: Good Dentition Neurological Assessment Level of Consciousness: Awake Hx Seizures: No Numbness or tingling in extremities: No Anesthesia Plan Anesthesia Risk discussed: Yes Anesthesia Plan: Verified ASA Class: III Anesthesia Type: General
--- NOTE | 2022-07-16 13:23 | EXP.ANES.I ---
[facility] Anesthesia Record Part I Anesthesia Record I Intake, IV Amount: 2,000 Estimated blood loss (mL): 25 Urine output (mL): 300 Blood Products used (#): none Blood Pressure: 116/74 SaO2: 92 Pulse Rate: 90 Respiratory Rate: 14 Temperature: 98.5 F Patient is:: Drowsy and Stable Stable to PACU at:: 13:15
[2022-07-16 13:26] LABS: POC Glucose,Bedside 146 (70-110)
--- NOTE | 2022-07-16 13:38 | EXP.OP.NOTE ---
Date of procedure: 07/16/22 Pre-op Diagnosis:: Bilateral inguinal hernias Umbilical hernia Post-op Diagnosis:: Same Procedure performed:: Laparoscopic bilateral inguinal hernia Open umbilical hernia Surgeon:: Pasha Mckeon MD Anesthesia: GETZi Estimated blood loss (mL): 15 Operative findings:: Severe soft tissue stranding throughout the bilateral groin regions Large bilateral cord lipomas Dense adhesions of hernia sac and cord lipoma to left testicle Dense posterior adhesions of complex hernia sac to femoral vessels on the right Operative note:: After informed consent was obtained the patient was taken to the operating room and placed in supine position. General anesthesia was induced and his abdomen and groin/scrotum were prepped and draped in a sterile fashion. After infiltration with local anesthetic an infraumbilical incision was made. The deep subcutaneous tissue was dissected. A transverse fascial incision overlying the rectus was made just to the right of midline. The underlying rectus was very thin in this region and the abdominal cavity was entered. The decision was made to proceed with a similar incision just to the left of midline. The dissecting balloon was placed in position just below the retracted rectus through the small transverse incision. The dissecting balloon was insufflated slowly. After desufflation was completed the working port was secured in position. The preperitoneal space was carefully evaluated. Dissection initially along the left lateral margin and then along the right lateral margin was completed to create a space for the mesh. Severe adhesions were noted bilaterally. Dissection was exceptionally difficult secondary to these adhesions. The peritoneal margin was carefully dissected free from the indirect defects bilaterally. Large bilateral cord lipomas were also dissected free. The cord lipoma on the left, as well as, hernia sac were adhered to the margin of the testicle. No obvious injury to the testicle or vasculature/vas deferens was noted. The cord lipoma and hernia sac on the right were densely adhered posteriorly to the overlying femoral vasculature. Dissection was somewhat limited/hampered by these adhesions secondary to increased risk for vascular and testicular injury. Bard 3D mesh was placed in position on the left and secured with a medial and lateral tack. A third tack was placed medial to the epigastric vessels. The right-sided mesh was then placed in position and secured with a single medial tack and a single lateral tack. A 5 mm Optiview trocar was placed in the right upper quadrant to evacuate pneumoperitoneum and facilitate mesh placement. The preperitoneal space and peritoneal space were then evacuated of air. Attention was then turned to closure of the umbilical hernia in conjunction with closure of the right and left fascial incisions just below the umbilicus. All 3 defects were reapproximated with interrupted 0 Ethibond. The umbilical stump was secured to the underlying fascia with interrupted non-dyed Vicryl suture. All wounds were irrigated. Skin was closed with interrupted 4-0 Monocryl in a mattress fashion to facilitate hemostasis. Dressings were applied and patient was transferred to recovery in stable condition. Condition: stable Disposition: PACU Complications:: No immediate
--- NOTE | 2022-07-17 11:09 | EXP.ANES.II ---
[facility] Anesthesia Record Part II Anesthesia Record Part II Discharge Time: 14:05 Destination: Surgical Day Care (OP Surgery) PACU nurse assessment reviewed?: Yes Patient Condition:: Good Anesthesia Complications:: None Swallowing reflex intact?: Yes Cyanosis?: No Blood Pressure: 142/60 Pulse Rate: 76 Temperature: 97.4 F Mental Status: Alert & Oriented Pain level:: 4 Nausea and/or vomitting:: None Intake, IV Amount: 0
[2022-07-17 11:10] VITALS: BP 142/60; PULSE 76; TEMP 36.3
[2022-07-17 15:13] LABS: Microscopic,Cath URINE MICROSCOPIC (MICROSCOPIC)
[2022-07-17 15:51] LABS: Appearance,Urine/Cath CLEAR (Clear); Bilirubin,Cath Negative (Negative); Blood, Urine/Cath Negative (Negative); Color,Urine/Cath YELLOW (Yellow); Glucose,Urine/Cath (UA) Negative (Negative); Ketones,Urine/Cath Negative (Negative); Leukocyte Esterase,Cath Negative (Negative); Nitrate,Cath Negative (Negative); PH,Urine/Cath 5.5 (5.0-8.5); Protein,Urine/Cath Negative (Negative); Specific Gravity, Urine/Cath >= 1.030 (1.005-1.030); Urobilinogen,Cath 0.2 EU/dl (0.2)
== END 2022-07-16 15:40 | disposition home or self-care (01) ==
PROVIDERS: PCP Emergency Medicine; Visit Provider Surgery
PROC: (CPT 49650; principal; 2022-07-16 09:15)
DX: K40.20 Bilateral inguinal hernia, without obstruction or gangrene, not specified as recurrent (principal); K42.9 Umbilical hernia without obstruction or gangrene; F17.210 Nicotine dependence, cigarettes, uncomplicated; Z79.899 Other long term (current) drug therapy
CPT/HCPCS: 49591; 49650; 81001; 82962; 96374; C1781; J2405

== ENCOUNTER 2022-07-20 09:29 | Outpatient (CLI) | payer MEDICARE, SELFPAY ==
[2022-07-20 14:29] LABS: PHA INR Fingerstick 1.4 (0.9-1.1)
== END 2022-07-20 14:30 ==
LOC: ACC 09:31
PROVIDERS: PCP Internal Medicine Adolescent Medicine; Visit Provider Internal Medicine Adolescent Medicine
DX: Z51.81 Encounter for therapeutic drug level monitoring (principal); Z79.01 Long term (current) use of anticoagulants
CPT/HCPCS: 85610; 99211; G0463

== ENCOUNTER 2022-07-22 10:51 | Outpatient (CLI) | payer MEDICARE, SELFPAY ==
[2022-07-22 12:22] LABS: PHA INR Fingerstick 1.7 (0.9-1.1)
== END 2022-07-22 12:37 ==
LOC: ACC 10:52
PROVIDERS: PCP Emergency Medicine; Visit Provider Internal Medicine Adolescent Medicine
DX: Z51.81 Encounter for therapeutic drug level monitoring (principal); Z79.01 Long term (current) use of anticoagulants
CPT/HCPCS: 85610; 99211; G0463

== ENCOUNTER 2022-09-01 11:24 | Outpatient (CLI) | payer MEDICARE, SELFPAY ==
[2022-09-01 14:33] LABS: PHA INR Fingerstick 1.7 (0.9-1.1)
== END 2022-09-01 14:42 ==
PROVIDERS: PCP Family Medicine; Visit Provider Internal Medicine Adolescent Medicine
DX: Z51.81 Encounter for therapeutic drug level monitoring (principal); Z79.01 Long term (current) use of anticoagulants
CPT/HCPCS: 85610; 99211; G0463

== ENCOUNTER 2022-09-28 18:32 | Emergency (ER) | payer OTHER, MEDICARE, SELFPAY ==
[2022-09-28 18:33] VITALS: BP 154/81; PULSE 75; RESP 18; TEMP 36.8; O2SAT 99; BMI 42.5
--- NOTE | 2022-09-28 18:39 | HMH.EDGENADL ---
Discharge Plan Disposition Chief Complaint: PAIN Prescriptions Prescriptions: No Action aspirin [Adult Aspirin Regimen] 81 mg tablet,delayed release (DR/EC) 81 mg PO DAILY hydrochlorothiazide 12.5 mg capsule 12.5 mg PO DAILY Label Comments: TAKE 1 CAPSULE BY MOUTH ONCE DAILY metformin 500 mg tablet extended release 24 hr 500 mg PO DAILY warfarin 5 mg tablet 5 mg PO BID Label Comments: TAKE 1 TABLET BY MOUTH TWICE DAILY primidone [Mysoline] 50 mg tablet 50 mg PO HS MDD 100 MG Qty: 60 4RF Rx Instructions: 50 MG PO BID cholecalciferol (vitamin D3) 1,250 mcg (50,000 unit) capsule 1,250 mcg PO WEEKLY Qty: 14 3RF Ozempic 0.25 mg or 0.5 mg(2 mg/1.5 mL) pen injector 0.5 mg SQ WEEKLY Qty: 1.5 2RF Rx Instructions: 0.5mg weekly simvastatin 20 MG tablet 20 mg PO HS lisinopril 10 MG tablet 10 mg PO DAILY duloxetine 60 MG capsule,delayed release(DR/EC) 60 mg PO BID amlodipine 2.5 mg tablet 2.5 mg PO DAILY Label Comments: TAKE 1 TABLET BY MOUTH ONCE DAILY FOR 30 DAYS warfarin 7.5 MG tablet 7.5 mg PO DAILY Qty: 0 0RF Rx Instructions: WEDNESDAY, WEDNESDAY AND WEDNESDAY Referrals Follow up/Referrals: Jeni Vera MD [Primary Care Provider] - See instructions Discharge ED Provider: Lisa Boss General Adult HPI General Chief complaint: PAIN Stated complaint: WC 4 Possible hernia Time Seen by Provider: 09/28/22 18:39 History of Present Illness HPI narrative: Patient is a 56-year-old male who is recently status post bilateral inguinal hernia repair with Dr. Wallis presents today with right inguinal pain and fullness. States that he was working and lifted up a box and felt a significant sudden onset of pain and swelling in the right testicular area. He went to an urgent treatment clinic where they told him to subsequently come to the emergency department today. He has some right inguinal tenderness from history. No nausea and vomiting able to pass bowel movements and have flatus. Related Data Home Medications Medication Instructions Recorded Confirmed duloxetine 60 mg capsule,delayed 60 mg PO BID MOOD 09/08/18 09/07/22 release lisinopril 10 mg tablet 10 mg PO DAILY Hypertension 09/08/18 09/07/22 simvastatin 20 mg tablet 20 mg PO HS Cholesterol 09/08/18 09/07/22 amlodipine 2.5 mg tablet 2.5 mg PO DAILY Hypertension 01/18/20 09/07/22 aspirin 81 mg tablet,delayed 81 mg PO DAILY Blood thinner 04/17/22 09/07/22 release (Adult Aspirin Regimen) hydrochlorothiazide 12.5 mg capsule 12.5 mg PO DAILY 08/21/22 09/07/22 metformin 500 mg tablet,extended 500 mg PO DAILY 08/21/22 09/07/22 release 24 hr warfarin 5 mg tablet 5 mg PO BID 09/07/22 09/07/22 Previous Rx's Medication Instructions Recorded warfarin 7.5 mg tablet 7.5 mg PO DAILY Blood thinner ##0 01/20/20 cholecalciferol (vitamin D3) 1,250 1,250 mcg PO WEEKLY vitamin d 04/22/22 mcg (50,000 unit) capsule deficeincy #14 caps semaglutide 0.25 mg or 0.5 mg (2 0.5 mg (0.4 mL) SQ WEEKLY Diabetes 08/24/22 mg/1.5 mL) subcutaneous pen #1.5 mL injector (Ozempic) primidone 50 mg tablet (Mysoline) 50 mg PO HS TREMOR #60 tabs 09/07/22 Allergies Allergy/AdvReac Type Severity Reaction Status Date / Time No Known Allergies Allergy Verified 09/07/22 09:09 [facility] Disclaimer: The information contained in this section may have been updated after the patient was seen, as this information can be updated by other users. Medical History (Updated 09/07/22 @ 11:00 by Leonarda Leahy MD) Abnormal cardiovascular stress test Angina, class IV HLD (hyperlipidemia) Hypertension Tobacco dependence syndrome Tremor Surgical History History of colonoscopy History of heart valve replacement History of hernia repair History of mechanical aortic valve replacement Family History (Reviewed 09/07/22 @ 08:36 by Deysi
--- NOTE | 2022-09-28 18:46 | CT_ITS ---
PROCEDURE INFORMATION: Exam: CT Abdomen And Pelvis With Contrast Exam date and time: 09/28/2022 7:23 PM Age: 56 years old Clinical indication: Abdominal pain; Localized; Right lower quadrant (rlq); Prior surgery; Surgery date: 1-6 months; Surgery type: Inguinal hernia surgery 4 months ago. Patient HX: Er doctor manipulated hernia prior to cat scan performed. ; Additional info: Rlq/right groin pain TECHNIQUE: Imaging protocol: Computed tomography of the abdomen and pelvis with contrast. Radiation optimization: All CT scans at this facility use at least one of these dose optimization techniques: automated exposure control; mA and/or kV adjustment per patient size (includes targeted exams where dose is matched to clinical indication); or iterative reconstruction. Contrast material: ISOVUE; Contrast volume: 75 ml; Contrast route: IV; REPORTING DATA: Count of CT and Cardiac NM exams in prior 12 months: This patient has received [address] and 0 known cardiac nuclear medicine studies in the 12 months prior to the current study. COMPARISON: CT ABDOMEN PELVIS WO CON 06/08/2022 11:02 AM and 04/18/2019 FINDINGS: Lungs: Lung bases are clear. Liver: Mild fatty liver changes. Liver otherwise unremarkable. Gallbladder and bile ducts: Normal. No calcified stones. No ductal dilation. Pancreas: Normal. No ductal dilation. Spleen: 4.5 cm simple appearing cyst in the posterior spleen redemonstrated. Adrenal glands: Normal. No mass. Kidneys and ureters: A 3 mm nonobstructing superior right kidney stone. Kidneys and ureters otherwise unremarkable with no obstructing stones or uropathy. Stomach and bowel: Unremarkable. No obstruction. No mucosal thickening. Appendix: Appendix is normal. No evidence of appendicitis. Intraperitoneal space: Unremarkable. No free air. No significant fluid collection. Vasculature: Atherosclerotic changes of the aorta and iliacs noted. No evidence of aneurysm. Lymph nodes: Unremarkable. No enlarged lymph nodes. Urinary bladder: Unremarkable as visualized. Reproductive: Unremarkable as visualized. Bones/joints: Unremarkable. No acute fracture. Soft tissues: A focal 2.9 cm fluid density lesion with surrounding fat stranding noted in the umbilicus region Other findings: Moderate amounts of mixed density fluid noted in the anterior aspect of the pelvis anterior to the bladder and posterior to the rectus muscles more pronounced on the left and inferior to the sigmoid colon. This abnormal fluid ranges in density from fluid density to greater than fluid density and measures approximally 17.4 cm in maximum transverse dimension by 3.4 cm in maximum AP dimension by 3.9 cm in superior inferior dimension. IMPRESSION: 1. Interval development of a sizable 17.4 x 3.4 x 3.9 cm mixed density collection with fat stranding in the anterior pelvis in the region of the space of Retzius and posterior to the inguinal regions [id number]-right that may reflect a residual hematoma or seroma from the prior surgery. Other more acute spontaneous hemorrhage or inflammatory process not totally excluded given the relatively long time interval since the prior surgery.. No evidence of recurrent hernia. 2. A 2.9 cm fluid density lesion in the umbilicus region may also be residual from the prior surgery. 3. Additional nonemergent findings as above.
[2022-09-28 19:05] LABS: Chloride 103 mmol/L (98-107)
[2022-09-28 19:06] LABS: Potassium 3.6 mmoL/L (3.5-5.1); Sodium 136 mmol/L (136-145)
[2022-09-28 19:07] LABS: Basophils # 0.1 K/mm3 (0-0.2); Basophils % 0.7 % (0.1-2.0); Eosinophils # 0.2 K/mm3 (0.0-0.4); Eosinophils % 2.2 % (0.1-12.0); Hematocrit 43.7 % (42.0-52.0); Hemoglobin 13.7 g/dL (14.1-18.0); Lymphocytes # 2.6 K/mm3 (0.7-4.5); Lymphocytes % 34.1 % (10-50); Mean Corpuscular HGB Conc 31.3 g/dL (31.8-35.4); Mean Corpuscular Hemoglobin 26.6 pg (27.0-31.2); Mean Corpuscular Volume 84.8 fl (80-94); Mean Platelet Volume 7.6 fl (7.4-10.4); Monocytes # 0.4 K/mm3 (0.1-1.0); Monocytes % 5.6 % (1.7-9.3); Neutrophils # 4.5 K/mm3 (1.8-7.8); Neutrophils % 57.4 % (37.0-80.0); Platelet Count 420 K/mm3 (142-424); Red Blood Count 5.15 M/mm3 (4.60-6.20); Red Cell Distribution Width 14.9 % (11.5-17.5); White Blood Count 7.7 K/mm3 (4.8-10.8)
[2022-09-28 19:09] LABS: Anion Gap 9.6 mEq/L (5-15); Blood Urea Nitrogen 15 mg/dl (9-20); Calcium 8.8 mg/dl (8.4-10.2); Carbon Dioxide 27 mmol/L (22.0-30.0); Creatinine Clearance Estimated 71 mL/min (50-200); Estimated Glomerular Filt Rate 69 ml/min (>60); GFR (African American) 83 ML/MIN (>60); Glucose 97 mg/dl (74-100)
--- NOTE | 2022-09-28 20:50 | PC.NURSE ---
patient in room, no needs voiced at this time.
--- NOTE | 2022-09-28 20:55 | PC.NURSE ---
Dr. Bailey ordered PT/INR. lab notified
--- NOTE | 2022-09-28 20:56 | PC.NURSE ---
Dr. Bailey with pt. He asked to s/w Dr. Lopez, paged in surgery
--- NOTE | 2022-09-28 20:56 | PC.NURSE ---
Dr. Bailey s/w Dr. Lopez
[2022-09-28 21:01] VITALS: BP 151/79; PULSE 64; RESP 20; O2SAT 98
[2022-09-28 21:05] LABS: Prothrombin Time 31.4 seconds (10.1-12.5)
[2022-09-28 21:30] VITALS: BP 133/78; PULSE 84; RESP 20; O2SAT 99
[2022-09-28 21:38] VITALS: BP 133/78; PULSE 85; RESP 20; TEMP 36.9; O2SAT 98
== END 2022-09-28 21:52 | disposition home or self-care (01) ==
PROVIDERS: Emergency Medicine; Emergency Provider Student in an Organized Health Care Education/Training Program; PCP Family Medicine
DX: G89.18 Other acute postprocedural pain (principal); R10.31 Right lower quadrant pain; F17.210 Nicotine dependence, cigarettes, uncomplicated
CPT/HCPCS: 74177; 80048; 85025; 85610; 96360; 96374; 96375; 99285; J2405; Q9967

== ENCOUNTER 2022-10-07 15:48 | Emergency (ER) | payer OTHER, MEDICARE, SELFPAY ==
[2022-10-07 15:49] VITALS: BP 164/98; PULSE 88; RESP 17; TEMP 36.6; O2SAT 98; BMI 45.6
--- NOTE | 2022-10-07 17:29 | HMH.EDGENADL ---
Discharge Plan Disposition Patient Disposition: Home, Self-Care Condition: Fair Chief Complaint: Abdominal Pain Prescriptions Prescriptions: No Action aspirin [Adult Aspirin Regimen] 81 mg tablet,delayed release (DR/EC) 81 mg PO DAILY hydrochlorothiazide 12.5 mg capsule 12.5 mg PO DAILY Label Comments: TAKE 1 CAPSULE BY MOUTH ONCE DAILY metformin 500 mg tablet extended release 24 hr 500 mg PO DAILY warfarin 5 mg tablet 5 mg PO BID Label Comments: TAKE 1 TABLET BY MOUTH TWICE DAILY primidone [Mysoline] 50 mg tablet 50 mg PO HS MDD 100 MG Qty: 60 4RF Rx Instructions: 50 MG PO BID cholecalciferol (vitamin D3) 1,250 mcg (50,000 unit) capsule 1,250 mcg PO WEEKLY Qty: 14 3RF Ozempic 0.25 mg or 0.5 mg(2 mg/1.5 mL) pen injector 0.5 mg SQ WEEKLY Qty: 1.5 2RF Rx Instructions: 0.5mg weekly simvastatin 20 MG tablet 20 mg PO HS lisinopril 10 MG tablet 10 mg PO DAILY duloxetine 60 MG capsule,delayed release(DR/EC) 60 mg PO BID amlodipine 2.5 mg tablet 2.5 mg PO DAILY Label Comments: TAKE 1 TABLET BY MOUTH ONCE DAILY FOR 30 DAYS warfarin 7.5 MG tablet 7.5 mg PO DAILY Qty: 0 0RF Rx Instructions: WEDNESDAY, WEDNESDAY AND WEDNESDAY Referrals Follow up/Referrals: Jeni Vera MD [Primary Care Provider] - See instructions Clinical Impressions Clinical Impression: Hernia, inguinal, right Instructions Patient Instructions: DI for Acute Abdominal Pain Discharge ED Provider: Killian Taylro General Adult HPI General Chief complaint: Abdominal Pain Stated complaint: Hernia pushed out Time Seen by Provider: 10/07/22 16:00 Mode of Arrival: Ambulatory Source of Information: Patient Limitations: No Limitations Description of Symptoms (Recalled from ER Triage Doc. by RN): pt to ED with a buldging hernia at his right groin. pt reports it popped out a few hours ago and rates his pain a 5 at this time History of Present Illness HPI narrative: Is a 56-year-old male with history of right inguinal hernia presenting with hernia pain. Patient states that he was lifting something when he felt a pop in his right groin. Feels his hernia has popped out. He has not been nauseous, vomiting, last bowel movement was 1 day prior to arrival, patient does not think he has been passing gas. Pain is mild in intensity, does not radiate. No other concerns at this time. Related Data Home Medications Medication Instructions Recorded Confirmed duloxetine 60 mg capsule,delayed 60 mg PO BID MOOD 09/08/18 09/07/22 release lisinopril 10 mg tablet 10 mg PO DAILY Hypertension 09/08/18 09/07/22 simvastatin 20 mg tablet 20 mg PO HS Cholesterol 09/08/18 09/07/22 amlodipine 2.5 mg tablet 2.5 mg PO DAILY Hypertension 01/18/20 09/07/22 aspirin 81 mg tablet,delayed 81 mg PO DAILY Blood thinner 04/17/22 09/07/22 release (Adult Aspirin Regimen) hydrochlorothiazide 12.5 mg capsule 12.5 mg PO DAILY 08/21/22 09/07/22 metformin 500 mg tablet,extended 500 mg PO DAILY 08/21/22 09/07/22 release 24 hr warfarin 5 mg tablet 5 mg PO BID 09/07/22 09/07/22 Previous Rx's Medication Instructions Recorded warfarin 7.5 mg tablet 7.5 mg PO DAILY Blood thinner ##0 01/20/20 cholecalciferol (vitamin D3) 1,250 1,250 mcg PO WEEKLY vitamin d 04/22/22 mcg (50,000 unit) capsule deficeincy #14 caps semaglutide 0.25 mg or 0.5 mg (2 0.5 mg (0.4 mL) SQ WEEKLY Diabetes 08/24/22 mg/1.5 mL) subcutaneous pen #1.5 mL injector (Ozempic) primidone 50 mg tablet (Mysoline) 50 mg PO HS TREMOR #60 tabs 09/07/22 Allergies Allergy/AdvReac Type Severity Reaction Status Date / Time No Known Allergies Allergy Verified 09/07/22 09:[address] [facility] Disclaimer: The information contained in this section may have been updated after the patient was seen, as this information can be updated by other users. Medical History (Updated 10/07/22 @ 18:27 by Killian Taylor MD)
[2022-10-07 18:45] VITALS: BP 155/87; PULSE 80; RESP 20; TEMP 36.6; O2SAT 97
== END 2022-10-07 18:51 | disposition home or self-care (01) ==
PROVIDERS: Emergency Provider Emergency Medicine; PCP Family Medicine
DX: K40.90 Unilateral inguinal hernia, without obstruction or gangrene, not specified as recurrent (principal)
CPT/HCPCS: 76705; 99283; 99284

== ENCOUNTER → 2022-10-14 10:11 | Outpatient (CLI) | payer OTHER, MEDICARE, SELFPAY ==
[2022-10-14 10:38] LABS: Basophils % 0.7 % (0.1-2.0); Eosinophils # 0.1 K/mm3 (0.0-0.4); Eosinophils % 2.2 % (0.1-12.0); Hematocrit 42.2 % (42.0-52.0); Hemoglobin 13.8 g/dL (14.1-18.0); Lymphocytes # 2.2 K/mm3 (0.7-4.5); Lymphocytes % 33.5 % (10-50); Mean Corpuscular HGB Conc 32.7 g/dL (31.8-35.4); Mean Corpuscular Hemoglobin 27.2 pg (27.0-31.2); Mean Corpuscular Volume 83.3 fl (80-94); Mean Platelet Volume 8.1 fl (7.4-10.4); Monocytes # 0.4 K/mm3 (0.1-1.0); Monocytes % 6.2 % (1.7-9.3); Neutrophils # 3.8 K/mm3 (1.8-7.8); Neutrophils % 57.4 % (37.0-80.0); Platelet Count 403 K/mm3 (142-424); Red Blood Count 5.07 M/mm3 (4.60-6.20); White Blood Count 6.7 K/mm3 (4.8-10.8)
--- NOTE | 2022-10-14 10:39 | ECG_ITS ---
APPROVED REPORT Exam: Resting ECG HR:60 bpm ECG Measurements Heart Rate 60 AXES ID 203 P 31 QRSd 118 QRS -8 QT 400 T 17 QTc 400 Conclusion SINUS RHYTHM SEPTAL MYOCARDIAL INFARCTION , PROBABLY OLD [40+ ms Q WAVE IN V1/V2] ABNORMAL ECG UNCONFIRMED REPORT Electronically signed by : Antelmo Santa MD 10/14/2022 20:27:03
[2022-10-14 11:31] LABS: Chloride 104 mmol/L (98-107)
[2022-10-14 11:32] LABS: Potassium 4.3 mmoL/L (3.5-5.1); Sodium 137 mmol/L (136-145)
[2022-10-14 11:35] LABS: Anion Gap 12.3 mEq/L (5-15); Blood Urea Nitrogen 15 mg/dl (9-20); Calcium 9.1 mg/dl (8.4-10.2); Carbon Dioxide 25 mmol/L (22.0-30.0); Estimated Glomerular Filt Rate 77 ml/min (>60); GFR (African American) 93 ML/MIN (>60); Glucose 103 mg/dl (74-100)
[2022-10-14 11:46] LABS: INR 3.37 (0.9-1.1)
[2022-10-14 14:10] LABS: Vitamin B12 380 pg/mL (239-931)
[2022-10-14 14:11] LABS: Folate 8.99 ng/mL
[2022-10-15 11:52] LABS: Ceruloplasmin 21.5 mg/dL (16.0-31.0)
== END ==
PROVIDERS: Specialist; PCP Family Medicine; Visit Provider Surgery
DX: K40.90 Unilateral inguinal hernia, without obstruction or gangrene, not specified as recurrent; K92.1 Melena; R25.1 Tremor, unspecified; Z01.818 Encounter for other preprocedural examination
CPT/HCPCS: 36415; 80048; 82390; 82607; 82746; 85025; 85610; 93005

== ENCOUNTER 2022-10-20 18:30 | Emergency (ER) | payer OTHER, MEDICARE, SELFPAY ==
[2022-10-20 18:31] VITALS: BP 115/64; PULSE 89; RESP 16; TEMP 36.9; O2SAT 97; BMI 35.9
[2022-10-20 18:45] VITALS: BP 115/64; PULSE 77; RESP 16; O2SAT 97
--- NOTE | 2022-10-20 18:57 | HMH.EDGENADL ---
Discharge Plan Disposition Patient Disposition: Home, Self-Care Prescriptions Prescriptions: No Action aspirin [Adult Aspirin Regimen] 81 mg tablet,delayed release (DR/EC) 81 mg PO DAILY hydrochlorothiazide 12.5 mg capsule 12.5 mg PO DAILY Label Comments: TAKE 1 CAPSULE BY MOUTH ONCE DAILY metformin 500 mg tablet extended release 24 hr 500 mg PO DAILY warfarin 5 mg tablet 5 mg PO BID Label Comments: TAKE 1 TABLET BY MOUTH TWICE DAILY primidone [Mysoline] 50 mg tablet 50 mg PO HS MDD 100 MG Qty: 60 4RF Rx Instructions: 50 MG PO BID cholecalciferol (vitamin D3) 1,250 mcg (50,000 unit) capsule 1,250 mcg PO WEEKLY Qty: 14 3RF Ozempic 0.25 mg or 0.5 mg(2 mg/1.5 mL) pen injector 0.5 mg SQ WEEKLY Qty: 1.5 2RF Rx Instructions: 0.5mg weekly simvastatin 20 MG tablet 20 mg PO HS lisinopril 10 MG tablet 10 mg PO DAILY duloxetine 60 MG capsule,delayed release(DR/EC) 60 mg PO BID amlodipine 2.5 mg tablet 2.5 mg PO DAILY Label Comments: TAKE 1 TABLET BY MOUTH ONCE DAILY FOR 30 DAYS warfarin 7.5 MG tablet 7.5 mg PO DAILY Qty: 0 0RF Rx Instructions: WEDNESDAY, WEDNESDAY AND WEDNESDAY Referrals Follow up/Referrals: Jeni Vera MD [Primary Care Provider] - See instructions Activity Restrictions/Add. Instructions Additional Instructions/Restrictions: Your right inguinal hernia spontaneously reduced before my exam please return with any evidence of incarceration or strangulation which will present with a hernia that is not able to be reduced with significant abdominal pain. Otherwise please follow-up with Dr. Wallis next week to keep your scheduled appointment to have this electively repaired. Clinical Impressions Clinical Impression: Reducible inguinal hernia Discharge ED Provider: Lisa Boss General Adult HPI General Chief complaint: PAIN Stated complaint: lower abd pain Time Seen by Provider: 10/20/22 18:57 Mode of Arrival: Ambulatory Source of Information: Patient Limitations: No Limitations Description of Symptoms (Recalled from ER Triage Doc. by RN): pt c/o R groin pain, reports pain started 2:30pm today when hernia popped out . Pt reports known hernia to R groin, states to have surgery next week with dr. oleary to have hernia repaired. History of Present Illness HPI narrative: Patient is a 56-year-old male with a history of known inguinal hernias status post hernia repair earlier this year in June with Dr. Wallis presents with recurrent bulge in his right groin. States that he is unable to reach himself and is unable to attempt reduction at home. This is his third ED visit he states for the same thing each time has been able to be reduced. No significant pain at the moment. Normal bowel movements and flatus. Related Data Home Medications Medication Instructions Recorded Confirmed duloxetine 60 mg capsule,delayed 60 mg PO BID MOOD 09/08/18 10/14/22 release lisinopril 10 mg tablet 10 mg PO DAILY Hypertension 09/08/18 10/14/22 simvastatin 20 mg tablet 20 mg PO HS Cholesterol 09/08/18 10/14/22 amlodipine 2.5 mg tablet 2.5 mg PO DAILY Hypertension 01/18/20 10/14/22 aspirin 81 mg tablet,delayed 81 mg PO DAILY Blood thinner 04/17/22 10/14/22 release (Adult Aspirin Regimen) hydrochlorothiazide 12.5 mg capsule 12.5 mg PO DAILY 08/21/22 10/14/22 metformin 500 mg tablet,extended 500 mg PO DAILY 08/21/22 10/14/22 release 24 hr warfarin 5 mg tablet 5 mg PO BID 09/07/22 10/14/22 Previous Rx's Medication Instructions Recorded warfarin 7.5 mg tablet 7.5 mg PO DAILY Blood thinner ##0 01/20/20 cholecalciferol (vitamin D3) 1,250 1,250 mcg PO WEEKLY vitamin d 04/22/22 mcg (50,000 unit) capsule deficeincy #14 caps semaglutide 0.25 mg or 0.5 mg (2 0.5 mg (0.4 mL) SQ WEEKLY Diabetes 08/24/22 mg/1.5 mL) subcutaneous pen #1.5 mL injector (Ozempic) primidone 50 mg tablet (Mysoline) 50 mg PO HS TREMOR #60 ta
[2022-10-20 19:20] VITALS: BP 133/69; PULSE 81; RESP 17; TEMP 36.5; O2SAT 98
== END 2022-10-20 19:20 | disposition home or self-care (01) ==
PROVIDERS: Emergency Provider Student in an Organized Health Care Education/Training Program; PCP Family Medicine
DX: K40.90 Unilateral inguinal hernia, without obstruction or gangrene, not specified as recurrent (principal)
CPT/HCPCS: 99283

== ENCOUNTER → 2022-10-21 14:24 | Outpatient (CLI) | payer OTHER, MEDICARE, SELFPAY ==
--- NOTE | 2022-10-21 14:32 | MR_ITS ---
FINAL REPORT CLINICAL HISTORY: Abnormal movement disorder FINDINGS: Multi planar MR imaging was obtained through the brain without contrast. The midline structures appear intact. There is no evidence of Chiari malformation. On T2 and flair axial images the brain parenchyma is homogeneous. On diffusion-weighted images there is no evidence of restricted diffusion. The visualized paranasal sinuses demonstrate normal signal voids. The seventh and eighth nerve root complexes are intact. IMPRESSION: Essentially unremarkable nonenhanced brain MRI. Reviewed, Interpreted and Dictated by Gilberto Herron MD Transcribed by Ptay Velasquez Authenticated and [facility]
== END ==
PROVIDERS: PCP Family Medicine; Visit Provider Specialist
DX: R25.1 Tremor, unspecified (principal)
CPT/HCPCS: 70551

== ENCOUNTER → 2022-10-27 10:14 | Outpatient (CLI) | payer MEDICARE, OTHER, SELFPAY ==
[2022-10-27 10:23] LABS: Microscopic, Urine URINE MICROSCOPIC (MICROSCOPIC)
[2022-10-27 11:56] LABS: Appearance,Urine CLEAR (Clear); Bilirubin,Urine Negative (Negative); Blood, Urine Negative (Negative); Color,Urine YELLOW (Yellow); Glucose,Urine (UA) Negative (Negative); Ketones,Urine Negative (Negative); Leukocyte Esterase,Urine Negative (Negative); Nitrate,Urine Negative (Negative); PH,Urine 5.5 (5.0-8.5); Protein,Urine Negative (Negative); Specific Gravity, Urine >= 1.030 (1.005-1.030); Urobilinogen,Urine 0.2 EU/dl (0.2)
[2022-10-27 11:57] LABS: INR 1.13 (0.9-1.1); Prothrombin Time 12.1 seconds (10.1-12.5)
[2022-10-27 12:18] LABS: Bacteria,Urine Trace /lpf
== END ==
PROVIDERS: PCP Family Medicine; Visit Provider Surgery
DX: K40.90 Unilateral inguinal hernia, without obstruction or gangrene, not specified as recurrent (principal); K92.1 Melena
CPT/HCPCS: 36415; 81001; 85610

== ENCOUNTER 2022-10-29 08:26 | Day surgery (SDC) | payer OTHER, SELFPAY ==
[2022-10-28 13:19] VITALS: BMI 45.6
[2022-10-29] VITALS (10 sets, daily range): BP systolic 100–126; BP diastolic 52–71; PULSE 54–72; RESP 14–18; TEMP 36.2–43; O2SAT 93–98
[2022-10-29 09:02] LABS: POC Glucose,Bedside 124 (70-110)
--- NOTE | 2022-10-29 10:05 | EXP.ANES.CKL ---
[facility] Disclaimer: The information contained in this section may have been updated after the patient was seen, as this information can be updated by other users. Medical History Abnormal cardiovascular stress test Angina, class IV HLD (hyperlipidemia) Hypertension Tobacco dependence syndrome Tremor Surgical History History of colonoscopy History of heart valve replacement History of hernia repair History of mechanical aortic valve replacement History of surgery on arm Family History Other Family history of cancer Family history of diabetes mellitus type II History of mechanical aortic valve replacement Social History Smoking Status: Current some day smoker tobacco type: cigarettes packs per day: 1 alcohol intake: current substance use type: denies use and marijuana current occupational status: employed Travel in the last 8 weeks: None household members: spouse housing: house marital status: education level: middle school service: No current occupational exposures/hazards: No caffeine: Yes special mauro needs: No agree to transfusion: No do you feel safe at home: Yes victim of physical abuse: No victim of emotional abuse: No victim of sexual abuse: No would you like helpful sources: No [facility] Anesthesia Checklist Patient Identification Patient Identification: Arm Band and Verbal (Name & ) Structural Data Admitted From: Home Planned Operative Procedure/s: Right Inguinal Hernia Repair Verified Documents: Surgical Consent NPO Status Verified Time NPO: 00:00 Additional verifications Anesthesia Reactions: No Hx Blood Transfusions: No Blood Transfusion Reaction: No Airway Assessment C-Spine Mobility Assessed: Yes TMJ Mobility Assessed: Yes Dentition: Poor Dentition Neurological Assessment Level of Consciousness: Awake, Alert and Appropriate Anesthesia Plan Anesthesia Risk discussed: Yes ASA Class: III Anesthesia Type: General
--- NOTE | 2022-10-29 12:08 | P.OP_ITS ---
Date of procedure: 10/29/22 Pre-op Diagnosis:: Right inguinal hernia Post-op Diagnosis:: History of right inguinal hernia with possible small shallow recurrence Soft tissue lipoma Procedure performed:: Open right inguinal hernia repair Surgeon:: Pasha Mckeon MD Anesthesia: GETA Estimated blood loss (mL): 15 Operative findings:: Right inguinal hernia status post prior laparoscopic repair No incarcerated preperitoneal fat Severe soft tissue stranding throughout inguinal canal Shallow defect (likely secured by prior repair) along posterior and anterior margin of internal ring Overlying lipoma excised (3 cm) Operative note:: After informed consent was obtained the patient was taken to the operating room and placed in the supine position. General anesthesia was induced and his abdomen and groin/scrotum were prepped and draped in a sterile fashion. After infiltration local anesthetic an oblique right groin incision was made. Electrocautery was utilized to transect through Bob's fascia to the level of the external aponeurosis. A 3cm lipoma overlying this region was excised with electrocautery. The external aponeurosis was then sharply opened to the level of the external ring. The contents of the canal were evaluated. Severe soft tissue stranding throughout the canal was confirmed. Tissue maneuvering/elevation was extremely difficult secondary to these findings. A combination of blunt dissection, sharp dissection, and electrocautery was utilized to carefully transect the tissue to allow elevation. The vas deferens was palpable. The remaining tissue was severely thickened. The cremasteric fibers were carefully transected free from surrounding tissue with blunt dissection and electrocautery. No incarcerated preperitoneal fat noted. The hernia sac was not easily identifiable and further dissection was deemed unsafe secondary to increased risk of damage to the vas deferens and vasculature. Palpation did reveal a shallow defect likely controlled by prior laparoscopic repair along the posterior and anterior margins of the internal ring. PerFix plug (x2) was secured at these sites with interrupted Ethibond. The PerFix overlay was then secured with interrupted Ethibond to the shelving edge inferi jayshree and fascial margin superiorly. The external aponeurosis was reapproximated with running Vicryl suture. Bob's fascia was closed in the same manner. Skin was then closed with 3-0 Monocryl STRATAFIX. Dressings were applied and the patient was transferred to recovery in stable condition. Condition: stable Disposition: PACU Specimens:: None Complications:: No immediate
--- NOTE | 2022-10-29 12:16 | P.PNANES_ITS ---
[facility] Anesthesia Record Part I Anesthesia Record I Intake, IV Amount: 1,000 Estimated blood loss (mL): 10 Urine output (mL): 200 Blood Pressure: 100/52 SaO2: 93 Pulse Rate: 69 Respiratory Rate: 14 Temperature: 98.5 F Patient is:: Drowsy, Nasal O2, Oral/Nasal airway and Stable Stable to PACU at:: 12:15
[2022-10-29 12:29] LABS: POC Glucose,Bedside 147 (70-110)
[2022-10-29 15:49] LABS: Microscopic,Cath URINE MICROSCOPIC (MICROSCOPIC)
[2022-10-29 15:57] LABS: Appearance,Urine/Cath CLEAR (Clear); Bilirubin,Cath Negative (Negative); Blood, Urine/Cath Negative (Negative); Color,Urine/Cath YELLOW (Yellow); Glucose,Urine/Cath (UA) Negative (Negative); Ketones,Urine/Cath Negative (Negative); Leukocyte Esterase,Cath Negative (Negative); Nitrate,Cath Negative (Negative); PH,Urine/Cath 5.5 (5.0-8.5); Protein,Urine/Cath Negative (Negative); Specific Gravity, Urine/Cath >= 1.030 (1.005-1.030); Urobilinogen,Cath 0.2 EU/dl (0.2)
[2022-10-29 16:34] LABS: WBC,Urine/Cath Occasional #/hpf (0-3)
--- NOTE | 2022-10-30 07:20 | P.PNANES_ITS ---
[facility] Anesthesia Record Part II Anesthesia Record Part II Discharge Time: 12:45 Destination: Surgical Day Care (OP Surgery) PACU nurse assessment reviewed?: Yes Patient Condition:: Good Anesthesia Complications:: None Swallowing reflex intact?: Yes Cyanosis?: No Blood Pressure: 126/56 Pulse Rate: 68 Temperature: 97.2 F Mental Status: Alert & Oriented Pain level:: 0 Nausea and/or vomitting:: None Intake, IV Amount: 0
[2022-10-30 07:21] VITALS: BP 126/56; PULSE 68; TEMP 36.2
== END 2022-10-29 13:16 | disposition home or self-care (01) ==
PROVIDERS: PCP Family Medicine; Visit Provider Surgery
DX: K40.91 Unilateral inguinal hernia, without obstruction or gangrene, recurrent (principal); D17.79 Benign lipomatous neoplasm of other sites; F17.210 Nicotine dependence, cigarettes, uncomplicated; Z79.899 Other long term (current) drug therapy; E11.9 Type 2 diabetes mellitus without complications
CPT/HCPCS: 49520; 81001; 82962; 96374; J2405

== ENCOUNTER 2022-11-18 09:35 | Outpatient (CLI) | payer MEDICARE, SELFPAY ==
[2022-11-18 09:50] VITALS: BP 121/69; PULSE 69; RESP 18; O2SAT 97
== END 2022-11-18 10:10 | disposition home or self-care (01) ==
LOC: INF 09:36
PROVIDERS: PCP Surgery; Visit Provider Family Medicine
DX: K40.90 Unilateral inguinal hernia, without obstruction or gangrene, not specified as recurrent (principal)
CPT/HCPCS: 96372

== ENCOUNTER 2022-11-25 13:23 | Outpatient (CLI) | payer MEDICARE, SELFPAY ==
[2022-11-25 14:09] LABS: PHA INR Fingerstick 4.3 (0.9-1.1)
== END 2022-11-25 14:11 ==
LOC: ACC 13:24
PROVIDERS: PCP Internal Medicine Adolescent Medicine; Visit Provider Internal Medicine Adolescent Medicine
DX: Z51.81 Encounter for therapeutic drug level monitoring (principal); Z79.01 Long term (current) use of anticoagulants
CPT/HCPCS: 85610; 99211; G0463

== ENCOUNTER 2022-12-03 11:05 | Outpatient (CLI) | payer MEDICARE, SELFPAY ==
[2022-12-03 12:35] LABS: PHA INR Fingerstick 1.9 (0.9-1.1)
== END 2022-12-03 12:37 ==
LOC: ACC 11:06
PROVIDERS: PCP Internal Medicine Adolescent Medicine; Visit Provider Internal Medicine Adolescent Medicine
DX: Z51.81 Encounter for therapeutic drug level monitoring (principal); Z79.01 Long term (current) use of anticoagulants
CPT/HCPCS: 85610; 99211; G0463

== ENCOUNTER 2022-12-29 10:56 | Outpatient (CLI) | payer MEDICARE, SELFPAY ==
[2022-12-29 13:17] LABS: PHA INR Fingerstick 2.3 (0.9-1.1)
== END 2022-12-29 13:29 ==
LOC: ACC 10:57
PROVIDERS: PCP Family Medicine; Visit Provider Physician Assistant
DX: Z79.01 Long term (current) use of anticoagulants (principal); Z51.81 Encounter for therapeutic drug level monitoring
CPT/HCPCS: 85610; 99211; G0463

== ENCOUNTER → 2022-12-30 09:47 | Outpatient (CLI) | payer OTHER, MEDICARE, SELFPAY ==
--- NOTE | 2022-12-30 10:01 | US_ITS ---
FINAL REPORT TECHNIQUE: Limited sonographic images of the scrotum were obtained. CLINICAL HISTORY: testicular pain and swelling FINDINGS: The right testicle measures 4.6 cm. The left testicle measures 4.6 cm. Normal blood flow is seen to both testicles. There is no evidence of mass. Small hydroceles are present bilaterally. There is a 4 mm possible complex cyst in the right epididymal head. IMPRESSION: Normal testicles. Possible complex cyst in the right epididymal head. Reviewed, Interpreted and Dictated by Vito Ortega III, MD Transcribed by Paty Velasquez Authenticated and [facility]
== END ==
PROVIDERS: PCP Family Medicine; Visit Provider Surgery
DX: R10.30 Lower abdominal pain, unspecified (principal); N50.811 Right testicular pain
CPT/HCPCS: 76870

== ENCOUNTER → 2023-01-28 12:52 | Outpatient (POV) | payer OTHER, SELFPAY ==
--- NOTE | 2023-01-28 14:01 | EXP.PAIN.OV ---
HPI Data of Consult Patient: new to practice Consult date: 01/28/23 Requesting Physician: Luana Best APRN Primary Care Provider: Jeni Vera MD Consult Narrative Reason for consult: Right groin pain, testicle pain, lower left abdomen pain History of present illness: Mr. Solano is a 57 year old male who presents today as a new patient. He is a referral from Dr. Villa office. Patient rates his pain today a 10 out of 10. Patient states his pain is all around his left lower abdomen and right groin as well as his testicles that is related from previous hernia surgeries that he had this summer. Patient does state that he did his left lower abdomen first and that did pretty well with this however did have some residual pain. He does state that he has a lot of right inguinal pain following that hernia surgery as well as his pain into his testicles. He does describe it as a toothache like sensation. Patient has tried [id number] medications such as Tylenol and ibuprofen along with heat and ice and muscle relaxers with minimal relief. He does state that the ice seems to help better however it is still very temporary. He states previously the Flexeril he was given caused him to be very drowsy and he discontinued use. Patient's John is [id number]. Its been reviewed and appropriate. CC: Luana Best APRN [facility] Disclaimer: The information contained in this section may have been updated after the patient was seen, as this information can be updated by other users. Medical History Abnormal cardiovascular stress test Angina, class IV HLD (hyperlipidemia) Hypertension Tobacco dependence syndrome Tremor Surgical History History of colonoscopy History of heart valve replacement History of hernia repair History of mechanical aortic valve replacement History of surgery on arm left Family History Other Family history of cancer Family history of diabetes mellitus type II History of mechanical aortic valve replacement Social History Smoking Status: Current some day smoker tobacco type: cigarettes packs per day: 1 alcohol intake: current substance use type: denies use and marijuana current occupational status: employed Travel in the last 8 weeks: None household members: spouse housing: house marital status: education level: middle school service: No current occupational exposures/hazards: No caffeine: Yes special mauro needs: No agree to transfusion: No do you feel safe at home: Yes victim of physical abuse: No victim of emotional abuse: No victim of sexual abuse: No would you like helpful sources: No Review of Systems Review of Systems Review of systems:: pertinent systems reviewed and negative unless documented below Review of systems (narrative): Review of Systems: General: No recent weight changes, no fever, no sleep disturbances Respiratory: No cough, no shortness of air, no recurring pulmonary infections Cardiovascular/peripheral vascular: No chest pain, no palpitations, no edema, no shortness of breath Gastrointestinal: No new onset incontinence, normal bowel movements reported Genitourinary: No new onset incontinence Musculoskeletal: Right inguinal pain, bilateral testicle pain, left abdominal pain Psychiatric: [Normal mood/affect] Neurological: [Denies weakness in extremities], [denies balance issues] Meds Home Medications and Allergies Home Medications Medication Instructions Recorded Confirmed Type duloxetine 60 mg capsule,delayed 60 mg PO BID MOOD 09/08/18 01/06/23 History release lisinopril 10 mg tablet 10 mg PO DAILY Hypertension 09/08/18 01/06/23 History simvastatin 20 mg tablet 20 mg
[2023-01-28 14:40] VITALS: BP 132/91; PULSE 88; RESP 20; O2SAT 96; BMI 45.6
== END | disposition home or self-care (01) ==
PROVIDERS: PCP Family Medicine; Visit Provider Nurse Practitioner Family
DX: R10.9 Unspecified abdominal pain (principal); R10.31 Right lower quadrant pain; N50.811 Right testicular pain; N50.812 Left testicular pain
CPT/HCPCS: 99202; G0463

== ENCOUNTER → 2023-03-01 13:31 | Outpatient (POV) | payer OTHER, SELFPAY ==
--- NOTE | 2023-03-01 13:57 | EXP.PAIN.SOA ---
[facility] Pain Management SOAP Note Subjective:: Patient is a pleasant 57-year-old male who presents today for 1 month follow-up. We are currently treating the patient for abdominal pain, inguinal pain and pain in bilateral testicles. Today he rates his pain a 4 out of 10. From our last visit he states that he did not notice any additional improvement with the compounding cream. He does state that the Robaxin 500 mg 3 times a day did provide some improvement. Patient denies any new injury or trauma. He states he continues to have pain at his bilateral groin area as well as his testicles. Patient describes this as an aching, throbbing sensation that is worse with increased activity. Patient does have a previous surgery history with hernia repair using mesh. He states the pain does interfere with his ability to perform activities of daily living such as cooking and cleaning his John is [id number]. Its been reviewed and appropriate. Review of Systems: General: No recent weight changes, no fever, no sleep disturbances Respiratory: No cough, no shortness of air, no recurring pulmonary infections Cardiovascular/peripheral vascular: No chest pain, no palpitations, no edema, no shortness of breath Gastrointestinal: No new onset incontinence, normal bowel movements reported Genitourinary: No new onset incontinence Musculoskeletal: Bilateral groin pain, bilateral testicular pain Psychiatric: [Normal mood/affect] Neurological: [Denies weakness in extremities], [denies balance issues] Objective:: Physical Exam: General: Alert and oriented x3, no acute distress, pleasant and cooperative Lungs: Respirations even and unlabored, symmetrical chest expansion Eyes: PERRL Musculoskeletal: Flexion and extension of lumbar [spine] somewhat guarded secondary to pain, [antalgic gait noted] Neurological: Speech clear, no gross sensory deficit Assessment:: Abdominal pain, bilateral inguinal pain, bilateral testicular pain Plan:: Patient continues to experience significant pain in his bilateral groins with radiating symptoms into his testicles. I have discussed with the patient that he may benefit from inguinal nerve blocks. Risk and benefits were explained to the patient and he would like to proceed forward with this plan of care. I will also send in a refill of his methocarbamol 500 mg 3 times a day and provide a 1 month supply of this medication. Patient will be scheduled for bilateral inguinal nerve blocks. Patient has been instructed to contact the clinic with any concerns before the next appointment. Dr. Luna has reviewed this note and agrees with this plan of care. This note was dictated using voice recognition software and make contain errors or omissions. [facility] Disclaimer: The information contained in this section may have been updated after the patient was seen, as this information can be updated by other users. Medical History Abnormal cardiovascular stress test Angina, class IV HLD (hyperlipidemia) Hypertension Tobacco dependence syndrome Tremor Surgical History History of colonoscopy History of heart valve replacement History of hernia repair History of mechanical aortic valve replacement History of surgery on arm left Family History Other Family history of cancer Family history of diabetes mellitus type II History of mechanical aortic valve replacement Social History Smoking Status: Current some day smoker tobacco type: cigarettes packs per day: 1 alcohol intake: current substance use type: denies use and marijuana current occupational status: employed Travel in the last 8 weeks: None household members: spouse housing: house marital status: education level: middle school
[2023-03-01 14:36] VITALS: BP 136/70; PULSE 84; RESP 18; O2SAT 97; BMI 45.6
== END | disposition home or self-care (01) ==
PROVIDERS: PCP Family Medicine; Visit Provider Nurse Practitioner Family
DX: R10.9 Unspecified abdominal pain (principal); R10.30 Lower abdominal pain, unspecified; N50.811 Right testicular pain; N50.812 Left testicular pain
CPT/HCPCS: 99212; G0463

== ENCOUNTER 2023-04-06 13:33 | Day surgery (SDC) | payer OTHER, SELFPAY ==
[2023-04-06 13:37] VITALS: BP 122/71; BP 126/77; PULSE 59; PULSE 60; RESP 20; TEMP 36.2; O2SAT 92; BMI 44.3
--- NOTE | 2023-04-06 14:12 | EXP.PAIN.PRO ---
Procedure Date: 04/06/23 Time: 14:10 Anesthesiologist:: Camden Gunderson CRNA Complications:: None Pre-procedure Diagnosis:: Chronic inguinal pain. Chronic testicular pain bilaterally. Status post bilateral inguinal hernia repair. Post-procedure Diagnosis:: Same. Indications for Procedure:: Patient is a very pleasant 57-year-old male that comes our clinic today for bilateral inguinal block. Patient complains of bilateral inguinal pain as well as bilateral testicular pain. Patient is status post 2 right inguinal hernia repairs and one left inguinal hernia repair within the last 6 months. Patient describes the pain as constant, dull, aching. He rates the pain 8/10. Procedure Details:: Details of the procedure explained to the patient. The patient taken to procedure room placed in the supine position on the fluoroscopy table. The area over the bilateral groins was cleaned using chlorhexidine as a cleansing solution. Using fluoroscopy guidance a 22-gauge 3 and half inch spinal needle was used access the right anterior iliac crest. 10 cc of a solution containing 40 mg of Depo-Medrol +0.25% Marcaine and 1% lidocaine was injected after negative aspiration in a fanning fashion over the superior aspect of the right anterior iliac crest. The same procedure was carried out over the left anterior iliac crest. Patient tolerated procedure without difficulty. There were no complications. Plan and Disposition:: Patient was discharged without incident.
[2023-04-06 15:33] VITALS: BP 145/72; PULSE 60; RESP 18; O2SAT 97
[2023-04-06 15:34] VITALS: BP 145/72; PULSE 60; RESP 18; O2SAT 97
== END 2023-04-06 14:25 | disposition home or self-care (01) ==
PROVIDERS: PCP Family Medicine; Visit Provider Nurse Anesthetist, Certified Registered
DX: N50.811 Right testicular pain (principal); N50.812 Left testicular pain; R10.30 Lower abdominal pain, unspecified
CPT/HCPCS: 64425; 77002; J1040

== ENCOUNTER → 2023-04-23 13:45 | Outpatient (POV) | payer OTHER, SELFPAY ==
[2023-04-23 14:20] VITALS: BP 138/85; PULSE 82; RESP 18; O2SAT 97; BMI 45.6
--- NOTE | 2023-04-23 14:23 | EXP.PAIN.SOA ---
[facility] Pain Management SOAP Note Subjective:: Patient is a pleasant 57-year-old male who presents today for follow-up of bilateral inguinal nerve blocks on 04/06/2023. We are currently treating the patient for abdominal pain, bilateral inguinal pain, bilateral testicular pain. Today he rates his pain a 3 out of 10. Patient states that he has had at least 90% on the left inguinal side and 70% relief on the right side following this injection and it still provides continuing improvement. Patient states he has not had to use his methocarbamol 500 mg 3 times a day since the improvement. He states he has been able to increase his activity with decreased pain symptoms. Patient does state that the right side will occasionally cause flareups however he is noticing more pain along his low back and right hip. Patient does describe this as an aching, throbbing sensation with numbness and tingling. Patient does state the pain interferes with his ability perform activities of daily living such as cooking and cleaning. Patient is prescribed compounding cream. Patient does state that he has had SI issues in the past. Patient does think since he has had improvement with his inguinal pain is when the other pain became more noticeable. His John has been reviewed and is appropriate. Review of Systems: General: No recent weight changes, no fever, no sleep disturbances Respiratory: No cough, no shortness of air, no recurring pulmonary infections Cardiovascular/peripheral vascular: No chest pain, no palpitations, no edema, no shortness of breath Gastrointestinal: No new onset incontinence, normal bowel movements reported Genitourinary: No new onset incontinence Musculoskeletal: Low back pain, right hip pain Psychiatric: [Normal mood/affect] Neurological: [Denies weakness in extremities], [denies balance issues] Objective:: Physical Exam: General: Alert and oriented x3, no acute distress, pleasant and cooperative Lungs: Respirations even and unlabored, symmetrical chest expansion Eyes: PERRL Musculoskeletal: Flexion and extension of lumbar [spine] somewhat guarded secondary to pain, [antalgic gait noted] point tenderness along right SI with positive right Real's, Mae's, Gaenslen's, compression and distraction exam Neurological: Speech clear, no gross sensory deficit Assessment:: Abdominal pain, bilateral inguinal pain, bilateral testicular pain, low back pain, right hip pain, sacroiliitis right-sided Plan:: Patient is experiencing worsening pain in his low back along the right hip. Patient did have limited range of motion of his lumbar spine along with extreme point tenderness at his right SI and a positive right Real's, Mae's, Gaenslen's, compression and distraction exam. I have discussed with the patient that he may benefit from a right SI injection. Risk and benefits were discussed with the patient and he would like to proceed forward with this plan of care. Patient will be scheduled for a right SI injection. Patient has been instructed to contact the clinic with any concerns before the next appointment. Dr. Luna has reviewed this note and agrees with this plan of care. This note was dictated using voice recognition software and make contain errors or omissions. [facility] Disclaimer: The information contained in this section may have been updated after the patient was seen, as this information can be updated by other users. Medical History Abnormal cardiovascular stress test Angina, class IV HLD (hyperlipidemia) Hypertension Tobacco dependence syndrome Tremor Surgical History History of colonoscopy History of heart valve replacement History of hernia repair History of mechanical aortic valve replacement History of surgery on arm left Family History Other Family his
== END ==
PROVIDERS: PCP Family Medicine; Visit Provider Nurse Practitioner Family
DX: R10.30 Lower abdominal pain, unspecified (principal); N50.819 Testicular pain, unspecified; M54.50 Low back pain, unspecified; M25.551 Pain in right hip; M46.1 Sacroiliitis, not elsewhere classified
CPT/HCPCS: 99212; G0463

== ENCOUNTER → 2023-05-19 14:15 | Outpatient (POV) | payer OTHER, SELFPAY ==
--- NOTE | 2023-05-19 15:26 | EXP.PAIN.SOA ---
[facility] Pain Management SOAP Note Subjective:: Patient is a pleasant 57-year-old male who presents today for follow-up. We are currently treating the patient for bilateral inguinal pain, bilateral testicular pain, abdominal pain. Today he rates his pain a 7 out of 10. Patient denies any new trauma or injury. He does state that he is starting to experience worsening pain into his inguinal areas. Patient does describe this as a constant aching sensation that is worse with increased ambulation or activity. He does state if he touches certain area it does cause sharp shooting pains. He does state the pain interferes with his ability perform activities of daily living such as cooking and cleaning. Patient has had significant improvement in the past from bilateral inguinal nerve blocks. He did have these done in March that provided approximately 90% improvement on the left and 70% on the right lasting up until the last week or so. Patient is interested in repeating this injection. He does state that he has also been experiencing more muscle spasms at certain times when he is up ambulating. He is currently managed with methocarbamol 500 mg 3 times daily however he states he has not noticed significant relief with this and compounding cream. His John has been reviewed and is appropriate. Review of Systems: General: No recent weight changes, no fever, no sleep disturbances Respiratory: No cough, no shortness of air, no recurring pulmonary infections Cardiovascular/peripheral vascular: No chest pain, no palpitations, no edema, no shortness of breath Gastrointestinal: No new onset incontinence, normal bowel movements reported Genitourinary: No new onset incontinence Musculoskeletal: Inguinal pain, muscle spasms Psychiatric: [Normal mood/affect] Neurological: [Denies weakness in extremities], [denies balance issues] Objective:: Physical Exam: General: Alert and oriented x3, no acute distress, pleasant and cooperative Lungs: Respirations even and unlabored, symmetrical chest expansion Eyes: PERRL Musculoskeletal: Flexion and extension of lumbar [spine] somewhat guarded secondary to pain, [antalgic gait noted] Neurological: Speech clear, no gross sensory deficit Assessment:: Abdominal pain, bilateral inguinal pain, bilateral testicular pain Plan:: Patient is starting to experiencing worsening pain in his bilateral inguinal region related to previous injury. Patient had limited range of motion of his lumbar spine during today's visit. I have discussed with the patient that it may be beneficial to repeat bilateral inguinal nerve blocks. Risk and benefits were discussed with the patient and he would like to proceed forward with this plan of care. I will also send in a new muscle relaxer of baclofen 10 mg 3 times daily and provide a 2-week supply of this medication. Patient will be scheduled for bilateral inguinal nerve blocks under fluoroscopy. Patient has been instructed to contact the clinic with any concerns before the next appointment. Dr. Luna has reviewed this note and agrees with this plan of care. This note was dictated using voice recognition software and make contain errors or omissions. [facility] Disclaimer: The information contained in this section may have been updated after the patient was seen, as this information can be updated by other users. Medical History Abnormal cardiovascular stress test Angina, class IV HLD (hyperlipidemia) Hypertension Tobacco dependence syndrome Tremor Surgical History History of colonoscopy History of heart valve replacement History of hernia repair History of mechanical aortic valve replacement History of surgery on arm left Family History Other Family history of cancer Family history of diabetes mellitus type II Hist
[2023-05-19 15:40] VITALS: BP 107/58; PULSE 85; RESP 18; O2SAT 96; BMI 43.0
== END | disposition home or self-care (01) ==
PROVIDERS: PCP Family Medicine; Visit Provider Nurse Practitioner Family
DX: R10.9 Unspecified abdominal pain (principal); R10.30 Lower abdominal pain, unspecified; N50.811 Right testicular pain; N50.812 Left testicular pain
CPT/HCPCS: 99212; G0463

== ENCOUNTER 2023-06-04 13:42 | Day surgery (SDC) | payer OTHER, SELFPAY ==
--- NOTE | 2023-06-04 13:44 | EXP.PAIN.PRO ---
Procedure Date: 06/04/23 Time: 13:40 Anesthesiologist:: Camden Gunderson CRNA Complications:: None Pre-procedure Diagnosis:: Chronic bilateral testicular pain. Chronic bilateral inguinal pain. Post-procedure Diagnosis:: Same Indications for Procedure:: Patient is a very pleasant 57-year-old male that comes our clinic today for bilateral inguinal block. Patient complains of bilateral inguinal pain as well as bilateral testicular pain. Patient is status post 2 right inguinal hernia repairs and one left inguinal hernia repair within the last 6 months. Patient describes the pain as constant, dull, aching. He rates the pain 8/10. Procedure Details:: Procedure Details:: Details of the procedure explained to the patient. The patient taken to procedure room placed in the supine position on the fluoroscopy table. The area over the bilateral groins was cleaned using chlorhexidine as a cleansing solution. Using fluoroscopy guidance a 22-gauge 3 and half inch spinal needle was used access the right anterior iliac crest. 10 cc of a solution containing 40 mg of Depo-Medrol +0.25% Marcaine and 1% lidocaine was injected after negative aspiration in a fanning fashion over the superior aspect of the right anterior iliac crest. The same procedure was carried out over the left anterior iliac crest. Patient tolerated procedure without difficulty. There were no complications. Plan and Disposition:: Patient was discharged without incident.
[2023-06-04 13:46] VITALS: BP 144/71; PULSE 60; O2SAT 98
[2023-06-04 13:48] VITALS: BP 133/67; PULSE 75; RESP 18; TEMP 36.4; O2SAT 97; BMI 45.6
[2023-06-04 13:52] VITALS: BP 144/71; PULSE 71; O2SAT 97
[2023-06-04 14:04] VITALS: BP 117/71; PULSE 68; RESP 18; O2SAT 100
== END 2023-06-04 14:04 | disposition home or self-care (01) ==
PROVIDERS: PCP Family Medicine; Visit Provider Nurse Anesthetist, Certified Registered
DX: N50.811 Right testicular pain (principal); N50.812 Left testicular pain; R10.30 Lower abdominal pain, unspecified; G89.29 Other chronic pain
CPT/HCPCS: 20552; 77002; J1040

== ENCOUNTER → 2023-06-22 14:18 | Outpatient (POV) | payer OTHER, SELFPAY ==
[2023-06-22 14:29] VITALS: BP 148/85; PULSE 66; RESP 18; O2SAT 95; BMI 44.3
--- NOTE | 2023-06-22 14:38 | A.OFFVIS_ITS ---
[facility] Pain Management SOAP Note Subjective:: Patient is a pleasant 57-year-old male returns our clinic today for follow-up visit after bilateral inguinal hernia block. Patient has been having bilateral inguinal pain as well as bilateral testicular pain following double inguinal surgery on the right and 1 inguinal surgery on the left. Patient describes the pain as constant, dull, aching. Patient takes methocarbamol 500 mg 1 p.o. twice daily. Patient reports this medication does not make a difference in how he feels. Patient's John #[id number] has been reviewed and appropriate. Patient returning to see the general surgeon this week for referral to urology. Objective:: Patient is awake alert Roggen x 3. No acute distress. Flexion-extension lumbar spine normal. Deep tendon reflexes upper lower extremities normal. Motor strength upper and lower extremities normal. There is no gross sensory deficit. Gait is normal. Assessment:: Bilateral inguinal pain. Bilateral testicular pain. Plan:: I informed the patient there was not much more we can do. To rounds of inguinal blocks have not been effective. He continues with bilateral inguinal pain and bilateral testicular pain. I encouraged the patient to follow through with urology consultation. He agrees. [facility] Disclaimer: The information contained in this section may have been updated after the patient was seen, as this information can be updated by other users. Medical History Abnormal cardiovascular stress test Angina, class IV HLD (hyperlipidemia) Hypertension Tobacco dependence syndrome Tremor Surgical History History of colonoscopy History of heart valve replacement History of hernia repair History of mechanical aortic valve replacement History of surgery on arm left Family History Other Family history of cancer Family history of diabetes mellitus type II History of mechanical aortic valve replacement Social History Smoking Status: Current some day smoker tobacco type: cigarettes packs per day: 1 alcohol intake: current substance use type: denies use and marijuana current occupational status: employed Travel in the last 8 weeks: None household members: spouse housing: house marital status: education level: middle school service: No current occupational exposures/hazards: No caffeine: Yes special mauro needs: No agree to transfusion: No do you feel safe at home: Yes victim of physical abuse: No victim of emotional abuse: No victim of sexual abuse: No would you like helpful sources: No
== END ==
LOC: SC.PAIN 14:19
PROVIDERS: PCP Family Medicine; Visit Provider Nurse Anesthetist, Certified Registered
DX: R10.30 Lower abdominal pain, unspecified (principal); N50.811 Right testicular pain; N50.812 Left testicular pain
CPT/HCPCS: 99212; G0463

== ENCOUNTER 2023-07-13 10:08 | Outpatient (CLI) | payer OTHER, MEDICARE, SELFPAY ==
--- NOTE | 2023-07-13 10:08 | CT_ITS ---
FINAL REPORT TECHNIQUE: After the administration of oral and intravenous contrast, axial images were obtained through the abdomen and pelvis by computed tomography. The study was performed with techniques to keep radiation dose as low as reasonably achievable, (ALARA). Individual dose reduction techniques using automated exposure control or adjustment of mA and/or kV according to the patient's size were employed. CLINICAL HISTORY: persistant pain, inguinal hernia, COMPARISON: 09/28/2022 FINDINGS: Abdomen: The lung bases are clear. The liver parenchyma is remarkable for mild fatty infiltration. There is an exophytic cyst in the posterior aspect of the spleen, which is stable when compared to the prior exam of September 2022. The gallbladder is present. The spleen, pancreas, and adrenals appear unremarkable. There is a nonobstructing right renal stone, stable since the prior exam. The aorta is normal in caliber. There is no free fluid or adenopathy. Pelvis: The appendix is not identified. The fluid collection at the level of the umbilicus has resolved since the prior CT examination. The pelvic anterior wall inflammatory change has decreased in size and is markedly improved, with much less inflammatory stranding than noted on the prior exam. The urinary bladder is unremarkable. There is no free fluid or adenopathy. IMPRESSION: Fluid collection at the level of the umbilicus has resolved. Pelvic anterior wall fluid and inflammatory change has markedly improved since the prior CT examination, consistent with resolving inflammatory change. Posterior splenic exophytic cyst remained stable. Reviewed, Interpreted and Dictated by Gilberto Herron MD Transcribed by Samantha Collins Authenticated and [facility]
[2023-07-13 10:24] LABS: Basophils # 0.1 K/mm3 (0-0.2); Basophils % 1.2 % (0.1-2.0); Eosinophils # 0.2 K/mm3 (0.0-0.4); Eosinophils % 2.6 % (0.1-12.0); Hematocrit 43.3 % (42.0-52.0); Hemoglobin 14.3 g/dL (14.1-18.0); Lymphocytes # 2.3 K/mm3 (0.7-4.5); Lymphocytes % 33.9 % (10-50); Mean Corpuscular Hemoglobin 27.3 pg (27.0-31.2); Mean Corpuscular Volume 82.8 fl (80-94); Mean Platelet Volume 7.4 fl (7.4-10.4); Monocytes # 0.4 K/mm3 (0.1-1.0); Monocytes % 6.6 % (1.7-9.3); Neutrophils # 3.7 K/mm3 (1.8-7.8); Neutrophils % 55.7 % (37.0-80.0); Platelet Count 393 K/mm3 (142-424); Red Blood Count 5.24 M/mm3 (4.60-6.20); Red Cell Distribution Width 17.1 % (11.5-17.5); White Blood Count 6.7 K/mm3 (4.8-10.8)
[2023-07-13 10:27] LABS: Microscopic, Urine URINE MICROSCOPIC (MICROSCOPIC)
[2023-07-13 10:29] LABS: Chloride 103 mmol/L (98-107); Potassium 4.2 mmoL/L (3.5-5.1); Sodium 134 mmol/L (136-145)
[2023-07-13 10:32] LABS: Anion Gap 12.2 mEq/L (5-15); Blood Urea Nitrogen 17 mg/dl (9-20); Carbon Dioxide 23 mmol/L (22.0-30.0); Estimated Glomerular Filt Rate 76 ml/min (>60); GFR (African American) 93 ML/MIN (>60)
[2023-07-13 10:33] LABS: Calcium 8.8 mg/dl (8.4-10.2); Glucose 135 mg/dl (74-100)
[2023-07-13 10:52] LABS: Appearance,Urine CLEAR (Clear); Bilirubin,Urine Negative (Negative); Blood, Urine Negative (Negative); Color,Urine YELLOW (Yellow); Glucose,Urine (UA) Negative (Negative); Ketones,Urine Negative (Negative); Leukocyte Esterase,Urine Negative (Negative); Nitrate,Urine Negative (Negative); PH,Urine 5.5 (5.0-8.5); Protein,Urine Negative (Negative); Specific Gravity, Urine >= 1.030 (1.005-1.030); Urobilinogen,Urine 0.2 EU/dl (0.2)
[2023-07-13] MEDS: BARIUM SULFATE(READI-CAT2);450ML BOTTLE 450 ML PO (10:57)
[2023-07-13] MEDS: IOPAMIDOL-370 (76%);100ML BOTTLE 75 ML IV (10:57)
[2023-07-13 11:29] LABS: Bacteria,Urine Trace /lpf; Squamous Epithelial Cell,Urine Occasional #/hpf (0-5)
[2023-07-13 11:30] LABS: Mucus,Urine Trace /lpf
== END 2023-07-13 23:59 ==
LOC: RAD 10:08
PROVIDERS: PCP Family Medicine; Visit Provider Surgery
DX: R10.31 Right lower quadrant pain (principal); N50.811 Right testicular pain; N50.812 Left testicular pain; K92.1 Melena
CPT/HCPCS: 36415; 74177; 80048; 81001; 85025; Q9967

== ENCOUNTER 2023-08-13 17:56 | Emergency (ER) | payer MEDICARE, SELFPAY ==
[2023-08-13 18:28] VITALS: BP 103/66; PULSE 72; RESP 16; TEMP 36.6; O2SAT 98; BMI 45.6
[2023-08-13 18:32] VITALS: BMI 45.6
[2023-08-13 18:39] LABS: Microscopic, Urine URINE MICROSCOPIC (MICROSCOPIC)
[2023-08-13] MEDS: MORPHINE 4MG/ML SYRINGE 4 MG IV (18:40)
[2023-08-13 18:45] LABS: Basophils # 0.1 K/mm3 (0-0.2); Basophils % 0.6 % (0.1-2.0); Eosinophils # 0.2 K/mm3 (0.0-0.4); Eosinophils % 2.3 % (0.1-12.0); Hematocrit 44.1 % (42.0-52.0); Hemoglobin 14.1 g/dL (14.1-18.0); Lymphocytes # 2.3 K/mm3 (0.7-4.5); Lymphocytes % 25.4 % (10-50); Mean Corpuscular Hemoglobin 27.8 pg (27.0-31.2); Mean Corpuscular Volume 86.8 fl (80-94); Mean Platelet Volume 7.3 fl (7.4-10.4); Monocytes # 0.5 K/mm3 (0.1-1.0); Monocytes % 5.2 % (1.7-9.3); Neutrophils # 5.9 K/mm3 (1.8-7.8); Neutrophils % 66.5 % (37.0-80.0); Platelet Count 385 K/mm3 (142-424); Red Blood Count 5.08 M/mm3 (4.60-6.20); Red Cell Distribution Width 16.1 % (11.5-17.5); White Blood Count 8.9 K/mm3 (4.8-10.8)
[2023-08-13 18:54] LABS: Appearance,Urine CLEAR (Clear); Bilirubin,Urine Negative (Negative); Blood, Urine 2+ (Negative); Color,Urine YELLOW (Yellow); Glucose,Urine (UA) Negative (Negative); Ketones,Urine Negative (Negative); Leukocyte Esterase,Urine Negative (Negative); Nitrate,Urine Negative (Negative); Protein,Urine Negative (Negative); Urobilinogen,Urine 0.2 EU/dl (0.2)
[2023-08-13 19:00] LABS: Alanine Aminotransferase 35 U/L (12-78); Albumin/Globulin Ratio 1.4 (1.1-1.8); Alkaline Phosphatase 81 U/L (38-126); Amylase 84 U/L (30-110); Anion Gap 8.2 mEq/L (5-15); Aspartate Amino Transferase 41 U/L (17-59); Bilirubin,Total 0.3 mg/dl (0.2-1.3); Blood Urea Nitrogen 19 mg/dl (9-20); Carbon Dioxide 25 mmol/L (22.0-30.0); Chloride 108 mmol/L (98-107); Creatinine Clearance Estimated 59 mL/min (50-200); Estimated Glomerular Filt Rate 57 ml/min (>60); GFR (African American) 68 ML/MIN (>60); Globulin 2.8 g/dL (1.3-3.2); Glucose 145 mg/dl (74-100); Lipase 132 U/L (23-300); Potassium 4.2 mmoL/L (3.5-5.1); Sodium 137 mmol/L (136-145); Total Protein,Serum 6.8 g/dl (6.3-8.2)
[2023-08-13 19:05] LABS: Squamous Epithelial Cell,Urine Occasional #/hpf (0-5); WBC,Urine Occasional #/hpf (0-3)
--- NOTE | 2023-08-13 19:24 | CT_ITS ---
PROCEDURE INFORMATION: Exam: CT Abdomen And Pelvis Without Contrast Exam date and time: 08/13/2023 7:37 PM Age: 57 years old Clinical indication: Abdominal pain; Flank; Right; Additional info: Right flank pain TECHNIQUE: Imaging protocol: Computed tomography of the abdomen and pelvis without contrast. Total images: 364 Radiation optimization: All CT scans at this facility use at least one of these dose optimization techniques: automated exposure control; mA and/or kV adjustment per patient size (includes targeted exams where dose is matched to clinical indication); or iterative reconstruction. COMPARISON: CT ABDOMEN PELVIS W CON 09/28/2022 7:23 PM FINDINGS: Lungs: Calcified right lower lobe granuloma. No acute infiltrate. Heart: Status post aortic valve replacement. Normal heart size. Liver: Normal. No mass. Gallbladder and bile ducts: Normal. No calcified stones. No ductal dilation. Pancreas: 2.5 x 1.7 cm indeterminate nearly isodense oval nodule in the distal pancreatic tail, axial image 45 series 3, corresponding coronal image 50. No acute pancreatitis. Spleen: 4.8 cm exophytic posterior splenic cyst. No splenomegaly. Adrenal glands: Normal. No mass. Kidneys and ureters: Moderate asymmetric right perinephric edema. Mild right hydronephrosis and right hydroureter secondary to a 5 mm obstructing calculus in the distal ureter, axial image 98 series 3. Calculus is located several cm from the UVJ. No additional intrarenal calculi. Unremarkable left kidney and left ureter with mild chronic perinephric fat stranding. Stomach and bowel: Unremarkable stomach and duodenum. No ileus or bowel obstruction. Small bowel is within normal limits. Unremarkable colon and rectum. Appendix: Normal appendix. Intraperitoneal space: Unremarkable. No free air. No significant fluid collection. Vasculature: Atherosclerotic abdominal aorta without aneurysm. Lymph nodes: Calcified right hilar lymph nodes compatible with remote granulomatous disease. Urinary bladder: Mostly collapsed bladder. Reproductive: Nonenlarged prostate. Bones/joints: Status post median sternotomy. Moderate degenerative disc disease L5-S1. Moderate degenerate facet joint spondylosis L4-L5. Mild degenerative changes remainder of the thoracolumbar spine. Mild degenerative changes bilateral hips. No concerning bone lesions. Soft tissues: Stable chronic soft tissue edema versus scarring or granulation tissue in the anterior aspect of the pelvis, extending to the origins of the inguinal canals. Resolving fluid collection or granulation response at the umbilicus, improved in the interval. IMPRESSION: 1. Mild right hydronephrosis and hydroureter secondary to a 5 mm obstructing distal ureteral stone. 2. Moderate asymmetric right perinephric edema from obstructive uropathy versus superimposed infection/pyelonephritis. 3. Indeterminate 2.5 x 1.7 cm oval solid nodule in the distal pancreatic tail. Recommend follow-up nonemergent pancreatic MRI. 4. 4.8 cm exophytic splenic cyst. 5. Similar appearing soft tissue edema, chronic inflammatory change, or granulation tissue within the anterior pelvis. 6. Resolving collection at the umbilicus. 7. Additional chronic and incidental findings.
[2023-08-13 20:01] VITALS: BP 123/73; PULSE 62; O2SAT 95
[2023-08-13] MEDS: LACTATED RINGERS 1000ML 500 ML 999 ML IV (20:13)
[2023-08-13] MEDS: KETOROLAC 30MG/ML VIAL 15 MG IV (20:13)
[2023-08-13] MEDS: TAMSULOSIN 0.4MG CAPSULE 0.400000000000000022 MG PO (21:04)
[2023-08-13] MEDS: OXYCODONE 5MG IMMEDIATE RELEASE TABLET 10 MG PO (21:04)
[2023-08-13 21:12] VITALS: BP 146/98; PULSE 78; RESP 18; TEMP 36.9; O2SAT 97
--- NOTE | 2023-08-14 00:59 | HMH.EDGENADL ---
Discharge Plan Disposition Patient Disposition: Home, Self-Care Condition: Fair Prescriptions Prescriptions: New tamsulosin [Flomax] 0.4 mg capsule 0.4 mg PO DAILY Qty: 10 0RF oxycodone 5 mg tablet 5 mg PO Q6H PRN (Reason: pain) Qty: 14 0RF No Action aspirin [Adult Aspirin Regimen] 81 mg tablet,delayed release (DR/EC) 81 mg PO DAILY hydrochlorothiazide 12.5 mg capsule 12.5 mg PO DAILY Patient Comments: TAKE 1 CAPSULE BY MOUTH ONCE DAILY metformin 500 mg tablet extended release 24 hr 500 mg PO DAILY warfarin 5 mg tablet 5 mg PO BID Patient Comments: TAKE 1 TABLET BY MOUTH TWICE DAILY primidone [Mysoline] 50 mg tablet 50 mg PO HS MDD 100 MG Qty: 60 4RF Rx Instructions: 50 MG PO BID cholecalciferol (vitamin D3) 1,250 mcg (50,000 unit) capsule 1,250 mcg PO WEEKLY Qty: 14 3RF Ozempic 0.25 mg or 0.5 mg(2 mg/1.5 mL) pen injector 0.5 mg SQ WEEKLY Qty: 1.5 2RF Rx Instructions: 0.5mg weekly Sutab 1.479-0.188- 0.225 gram tablet See Rx Instructions PO PER PKG DIR Qty: 24 0RF Rx Instructions: PO PER PKG DIR simvastatin 20 MG tablet 20 mg PO HS lisinopril 10 MG tablet 10 mg PO DAILY duloxetine 60 MG capsule,delayed release(DR/EC) 60 mg PO BID amlodipine 2.5 mg tablet 2.5 mg PO DAILY Patient Comments: TAKE 1 TABLET BY MOUTH ONCE DAILY FOR 30 DAYS warfarin 7.5 MG tablet 7.5 mg PO DAILY Qty: 0 0RF Rx Instructions: WEDNESDAY, WEDNESDAY AND WEDNESDAY methocarbamol 500 mg tablet 500 mg PO TID Qty: 90 0RF baclofen 10 mg tablet 10 mg PO TID PRN (Reason: muscle spasm) Qty: 42 0RF Referrals Follow up/Referrals: Lev Baird MD [Physician] - See instructions (Follow up with gastroenterology to discuss your pancreas nodule.) Jeni Vera MD [Primary Care Provider] - See instructions Mitchell Nguyen MD [Physician] - See instructions (Follow up with gastroenterology to discuss your pancreas nodule.) Activity Restrictions/Add. Instructions Additional Instructions/Restrictions: Follow-up with a urologist to discuss your 5 mm obstructing kidney stone on your right ureter. Follow up With a GI doctor to discuss your pancreas nodule to determine if there is anything serious. Clinical Impressions Clinical Impression: Right nephrolithiasis Instructions Patient Instructions: DI for Kidney Stones Discharge ED Provider: Julisa Gutiérrez General Adult HPI General Chief complaint: Abdominal Pain Stated complaint: back pain Time Seen by Provider: 08/13/23 18:36 Mode of Arrival: Ambulatory Source of Information: Patient Limitations: No Limitations Description of Symptoms (Recalled from ER Triage Doc. by RN): pt c/o R flank pain that started around 1630. pt states the pain is sharp in nature and 10/10. pt has had a kidney stone in the past but states this is worse. pt denies n/v/d. History of Present Illness HPI narrative: 57-year-old male with previous medical history of nephrolithiasis presents with sudden onset right flank pain that began shortly prior to arrival. Patient states this feels like his prior episode of a kidney stone. The pain is severe and associated with nausea but no vomiting, no stool changes, no fevers or other concerns. Related Data Home Medications Medication Instructions Recorded Confirmed duloxetine 60 mg capsule,delayed 60 mg PO BID MOOD 09/08/18 07/14/23 release lisinopril 10 mg tablet 10 mg PO DAILY Hypertension 09/08/18 07/14/23 simvastatin 20 mg tablet 20 mg PO HS Cholesterol 09/08/18 07/14/23 amlodipine 2.5 mg tablet 2.5 mg PO DAILY Hypertension 01/18/20 07/14/23 aspirin 81 mg tablet,delayed 81 mg PO DAILY Blood thinner 04/17/22 07/14/23 release (Adult Aspirin Regimen) hydrochlorothiazide 12.5 mg capsule 12.5 mg PO DAILY Fluid 08/21/22 07/14/23 metformin 500 mg tablet,extended 500 mg PO DAILY Diabetes 08/21/22 07/14/23 release 24 hr warfarin 5 mg tablet 5 mg PO BID thinner 09/07/22 07/14/23 Previous Rx's Medication Instructions Recorded warfarin 7.5 mg tablet 7.5 mg PO DAILY Blood thinner ##0 01/20/20 cholecalciferol (vitamin D3) 1,250 1,250 mcg PO WEEKLY vitamin d 04/22/22 mcg (50,000 unit) capsule deficeincy #14 caps semaglutide 0.25 mg or 0.5 mg (2 0.5 mg (0.374 mL) SQ WEEKLY 08/24/22 mg/1.5 mL) subcutaneous pen Diabetes #1.5 mL injector (Ozempic) primidone 50 mg tablet (Mysoline) 50 mg PO HS TREMOR #60 tabs 09/07/22 methocarbamol 500 mg tablet 500 mg PO TID #90 tabs 03/01/23 baclofen 10 mg tablet 10 mg PO TID PRN muscle spasm #42 05/19/23 tabs sodium sul 1.479 gram-potas ch See Rx Instructions PO PER PKG DIR 07/06/23 0.188 gram-magnes sul 0.225 gram #24 tabs tablet (Sutab) oxycodone 5 mg tablet 5 mg PO Q6H PRN pain #14 tabs 08/13/23 tamsulosin 0.4 mg capsule (Flomax) 0.4 mg PO DAILY #10 caps 08/13/23 Allergies Allergy/AdvReac Type Severity Reaction Status Date / Time No Known Allergies Allergy Verified 07/14/23 12:59 [facility] Disclaimer: The information contained in this section may have been updated after the patient was seen, as this information can be updated by other users. Medical History Abnormal cardiovascular stress test Angina, class IV HLD (hyperlipidemia) Hypertension Tobacco dependence syndrome Tremor Surgical History History of colonoscopy History of heart valve replacement History of hernia repair History of mechanical aortic valve replacement History of surgery on arm Family History Other Family history of cancer Family history of diabetes mellitus type II History of mechanical aortic valve replacement Social History Smoking Status: Never smoker alcohol intake: current substance use type: denies use and marijuana current occupational status: employed Travel in the last 8 weeks: None household members: spouse housing: house marital status: education level: middle school service: No current occupational exposures/hazards: No caffeine: Yes special mauro needs: No agree to transfusion: No do you feel safe at home: Yes victim of physical abuse: No victim of emotional abuse: No victim of sexual abuse: No would you like helpful sources: No ROS Obtained: Yes All systems reviewed & no additional complaints except as documented Physical Exam General General appearance: alert, in no apparent distress and obese Head Head exam: atraumatic, normocephalic and normal inspection Eye Eye exam: Present normal appearance, PERRL and EOMI ENT ENT exam: Present normal exam, normal oropharynx, mucous membranes moist, TM's normal bilaterally and normal external ear exam Neck Neck exam: Present normal inspection, full ROM and trachea midline; Absent meningismus or lymphadenopathy Chest Chest inspection: Present normal inspection and symmetric chest wall rise; Absent tenderness Respiratory Respiratory exam: Present normal lung sounds bilaterally; Absent respiratory distress Cardiovascular Cardiovascular exam: Present regular rate and normal rhythm; Absent JVD Abdominal Exam Abdominal exam: Present soft and normal bowel sounds; Absent distention, tenderness or guarding Extremities Exam Extremities exam: Present normal inspection, full ROM and normal capillary refill; Absent calf tenderness Back Exam Back exam: Present normal inspection and CVA tenderness (R); Absent tenderness Neurological Exam Neurological exam: Present alert and oriented X3 Psychiatric Psychiatric exam: Present normal affect and normal mood Skin Skin exam: Present warm, dry, intact and normal color Lymphatic Lymphatic Findings: no adenopathy Medical Decision Making John Inquiry Pt receiving controlled substance: Yes John was queried for this patient: Yes Risks and benefits of using a controlled substance: were discussed with pt by me Vital Signs: 08/13/23 18:28 08/13/23 20:01 08/13/23 21:12 Temperature 97.9 F 98.5 F Temperature Source Oral Oral Pulse Rate 62 78 Pulse Rate [Left] 72 Respiratory Rate 16 18 Blood Pressure 123/73 146/98 H Blood Pressure [Right Arm] 103/66 L Blood Pressure Mean [Right Arm] 78 Blood Pressure Source Automatic Cuff Blood Pressure Source [Right Arm] Automatic Cuff Blood Pressure Position Sitting Blood Pressure Position [Right Arm] Sitting 02 Sat by Pulse Oximetry 98 95 Oxygen Delivery Method Room Air Room Air Lab Data Lab Results 08/13/23 18:14: Urine Color Yellow, Urine Appearance Clear, Urine pH 7.0, Ur Specific [place] 1.020, Urine Protein Negative, Urine Glucose (UA) Negative, Urine Ketones Negative, Urine Blood 2+, Urine Nitrate Negative, Urine Bilirubin Negative, Urine Urobilinogen 0.2, Ur Leukocyte Esterase Negative, Urine RBC 10-20, Urine WBC Occasional, Ur Squamous Epith Cells Occasional, Urine Bacteria None 08/13/23 18:35: WBC 8.9, RBC 5.08, Hgb 14.1, Hct 44.1, MCV 86.8, MCH 27.8, MCHC 32.0, RDW 16.1, Plt Count 385, MPV 7.3 L, Neut % (Auto) 66.5, Lymph % (Auto) 25.4, [place] % (Auto) 5.2, Eos % (Auto) 2.3, Baso % (Auto) 0.6, Neut # (Auto) 5.9, Lymph # (Auto) 2.3, [place] # (Auto) 0.5, Eos # (Auto) 0.2, Baso # (Auto) 0.1, Sodium 137, Potassium 4.2, Chloride 108 H, Carbon Dioxide 25, Anion Gap 8.2, BUN 19, Creatinine 1.30 H, Estimated Creat Clear 59, Estimated GFR 57 L, Est GFR ( Amer) 68, Glucose 145 H, Calcium 9.0, Total Bilirubin 0.3, AST 41, ALT 35, Alkaline Phosphatase 81, Total Protein 6.8, Albumin 4.0, Globulin 2.8, Albumin/Globulin Ratio 1.4, Amylase 84, Lipase 132 08/13/23 18:35 08/13/23 18:35 Orders (Tests/Meds): ED MEDICATIONS Discontinued Medications Generic Name Dose Route Start Last Admin Trade Name Freq PRN Reason Stop Dose Admin Lactated Ringer's 500 mls @ 999 mls/hr 08/13/23 19:24 08/13/23 20:13 Lactated Ringer's 1000 Ml Bag IV 08/13/23 19:54 999 mls/hr .Q31M ONE Administration Ketorolac Tromethamine 15 mg 08/13/23 19:24 08/13/23 20:13 Ketorolac 30mg/Ml Vial IV 08/13/23 19:25 15 mg ONCE ONE Administration Morphine Sulfate 4 mg 08/13/23 18:34 08/13/23 18:40 Morphine 4mg/Ml Syringe IV 08/13/23 18:35 4 mg ONCE ONE Administration Oxycodone HCl 10 mg 08/13/23 20:56 08/13/23 21:04 Oxycodone 5mg Immediate Release Tablet PO 08/13/23 20:57 10 mg ONCE ONE Administration Sodium Chloride 10 ml 08/13/23 18:33 Sodium Chloride 0.9% 10ml Flush Syringe IV 09/12/23 18:32 NEEDED PRN Maintain IV Site Tamsulosin HCl 0.4 mg 08/13/23 20:56 08/13/23 21:04 Tamsulosin 0.4mg Capsule PO 08/13/23 20:57 0.4 mg ONCE ONE Administration ORDERS Category Date Time Status CT abdomen pelvis wo con Stat Cat Scan 08/13/23 19:24 Completed Amylase Stat Lab 08/13/23 18:35 Completed Complete Blood Count Auto Diff Stat Lab 08/13/23 18:35 Completed Comprehensive Metabolic Panel Stat Lab 08/13/23 18:35 Completed Lipase Stat Lab 08/13/23 18:35 Completed UA [Urinalysis and Microscopic] Stat Lab 08/13/23 18:14 Completed Medical Decision Narrative: Consider multiple causes of patient's right flank pain including nephrolithiasis, pyelonephritis, appendicitis, colitis, hepatitis, cholecystitis, among others. For this reason obtained labs which I independently reviewed and interpreted and showed no UTI, no significant abnormalities of CBC or CMP aside from mild JACINTO. CT I independently reviewed and interpreted showed obstructing right nephrolithiasis with 5 mm stone. Discussed this at length with patient and he understands and agrees to follow-up with urology at home and take Flomax. Also discussed with him that there was a likely incidental finding of a pancreatic lesion and he understands that there is a possibility that this could be inside sales account representative of malignancy or some other cause so provided referral to GI. Discharged stable with symptoms at a tolerable level. Critical Care Critical Care Time Critical Care Time: No
== END 2023-08-13 21:13 | disposition home or self-care (01) ==
PROVIDERS: Emergency Provider Emergency Medicine; PCP Family Medicine
DX: N20.0 Calculus of kidney (principal); R10.9 Unspecified abdominal pain; R11.0 Nausea; I10 Essential (primary) hypertension; E78.5 Hyperlipidemia, unspecified; I20.9 Angina pectoris, unspecified; Z87.891 Personal history of nicotine dependence
CPT/HCPCS: 74176; 80053; 81001; 82150; 83690; 85025; 96374; 96375; 99285

== ENCOUNTER 2023-08-20 14:08 | Outpatient (CLI) | payer MEDICARE, SELFPAY ==
--- NOTE | 2023-08-20 14:23 | ECG_ITS ---
APPROVED REPORT Exam: Resting ECG HR:87 bpm ECG Measurements Heart Rate 87 AXES AZ 191 P 59 QRSd 110 QRS -7 QT 357 T 77 QTc 402 Conclusion SINUS RHYTHM Late R wave progression - old finding ABNORMAL ECG UNCONFIRMED REPORT Electronically signed by : Antelmo Santa MD 08/20/2023 19:27:26
--- NOTE | 2023-08-20 14:36 | XR_ITS ---
FINAL REPORT CLINICAL HISTORY: HTN COMPARISON: 09/07/2018 FINDINGS: PA and lateral views of the chest were obtained. The cardiac silhouette is normal. The patient is status post median sternotomy. The lungs are clear. There is no pleural effusion or pneumothorax. No acute osseous abnormality is identified. IMPRESSION: No radiographic evidence of acute cardiac or pulmonary disease. Reviewed, Interpreted and Dictated by Constanza Garcia MD Transcribed by Paty Velasquez Authenticated and [facility]
[2023-08-20 15:08] LABS: Basophils # 0.1 K/mm3 (0-0.2); Basophils % 0.6 % (0.1-2.0); Eosinophils # 0.1 K/mm3 (0.0-0.4); Eosinophils % 1.6 % (0.1-12.0); Hematocrit 39.1 % (42.0-52.0); Hemoglobin 12.7 g/dL (14.1-18.0); Lymphocytes # 1.8 K/mm3 (0.7-4.5); Lymphocytes % 19.4 % (10-50); Mean Corpuscular HGB Conc 32.4 g/dL (31.8-35.4); Mean Corpuscular Hemoglobin 28.3 pg (27.0-31.2); Mean Corpuscular Volume 87.3 fl (80-94); Mean Platelet Volume 7.5 fl (7.4-10.4); Monocytes # 0.7 K/mm3 (0.1-1.0); Monocytes % 7.3 % (1.7-9.3); Neutrophils # 6.4 K/mm3 (1.8-7.8); Neutrophils % 71.1 % (37.0-80.0); Platelet Count 394 K/mm3 (142-424); Red Blood Count 4.48 M/mm3 (4.60-6.20); Red Cell Distribution Width 15.8 % (11.5-17.5)
[2023-08-20 15:19] LABS: Prothrombin Time 35.8 seconds (10.1-12.5)
[2023-08-20 17:39] LABS: Alanine Aminotransferase 28 U/L (12-78); Albumin Level 3.8 g/dl (3.5-5.0); Albumin/Globulin Ratio 1.6 (1.1-1.8); Alkaline Phosphatase 74 U/L (38-126); Anion Gap 10.5 mEq/L (5-15); Aspartate Amino Transferase 27 U/L (17-59); Bilirubin,Total 0.4 mg/dl (0.2-1.3); Blood Urea Nitrogen 24 mg/dl (9-20); Calcium 9.1 mg/dl (8.4-10.2); Carbon Dioxide 24 mmol/L (22.0-30.0); Chloride 105 mmol/L (98-107); Estimated Glomerular Filt Rate 36 ml/min (>60); GFR (African American) 44 ML/MIN (>60); Globulin 2.4 g/dL (1.3-3.2); Glucose 79 mg/dl (74-100); Potassium 4.5 mmoL/L (3.5-5.1); Sodium 135 mmol/L (136-145); Total Protein,Serum 6.2 g/dl (6.3-8.2)
== END 2023-08-20 23:59 ==
LOC: LAB 14:10
PROVIDERS: PCP Family Medicine; Visit Provider Physician Assistant
DX: Z01.818 Encounter for other preprocedural examination (principal); R94.31 Abnormal electrocardiogram [ECG] [EKG]; N28.9 Disorder of kidney and ureter, unspecified; Z79.01 Long term (current) use of anticoagulants; Z51.81 Encounter for therapeutic drug level monitoring
CPT/HCPCS: 36415; 71046; 80053; 85025; 85610; 93005

== ENCOUNTER 2023-10-11 16:14 | Outpatient (CLI) | payer MEDICARE, SELFPAY ==
[2023-10-11 17:17] LABS: Amylase 48 U/L (30-110); Lipase 98 U/L (23-300)
[2023-10-13 08:18] LABS: CA 19-9 7 U/mL (0-35)
== END 2023-10-11 23:59 | disposition home or self-care (01) ==
LOC: LAB 16:15
PROVIDERS: PCP Family Medicine; Visit Provider Nurse Practitioner
DX: K86.89 Other specified diseases of pancreas (principal); Z80.0 Family history of malignant neoplasm of digestive organs
CPT/HCPCS: 36415; 82150; 83690; 86301

== ENCOUNTER 2024-01-11 08:56 | Day surgery (SDC) | payer MEDICARE, SELFPAY ==
[2024-01-10 10:45] VITALS: BMI 44.4
[2024-01-11] VITALS (7 sets, daily range): BP systolic 120–150; BP diastolic 65–86; PULSE 76–86; RESP 16–18; TEMP 36.4–36.6; O2SAT 93–98
[2024-01-11 10:25] LABS: POC Glucose,Bedside 120 (70-110)
--- NOTE | 2024-01-11 10:30 | P.PNANES_ITS ---
[facility] Disclaimer: The information contained in this section may have been updated after the patient was seen, as this information can be updated by other users. Medical History History of COVID-19 History of anemia Tremor HLD (hyperlipidemia) Tobacco dependence syndrome Abnormal cardiovascular stress test Angina, class IV Hypertension Surgical History History of surgery on arm History of hernia repair History of heart valve replacement History of colonoscopy History of mechanical aortic valve replacement Family History Father Cancer colon cancer at age 58 Family/Other Cancer paternal grandpa-unsure of type Other Family history of cancer Family history of diabetes mellitus type II History of mechanical aortic valve replacement Social History Smoking Status: Current every day smoker tobacco type: cigarettes packs per day: 1 alcohol intake: current alcohol intake frequency: a few times a week substance use type: former substance user and marijuana current occupational status: disabled Travel in the last 8 weeks: None household members: spouse housing: house marital status: education level: middle school service: No current occupational exposures/hazards: No caffeine: Yes special mauro needs: No agree to transfusion: No do you feel safe at home: Yes victim of physical abuse: No victim of emotional abuse: No victim of sexual abuse: No would you like helpful sources: No [facility] Anesthesia Checklist Patient Identification Patient Identification: Arm Band Structural Data Admitted From: Home Planned Operative Procedure/s: Colonoscopy Consent for Planned Operative Procedure(s) Verified: Yes Verified Documents: Surgical Consent and History and Physical NPO Status Verified Time NPO: 00:00 Additional verifications Anesthesia Reactions: No Hx Blood Transfusions: No Blood Transfusion Reaction: No Airway Assessment Mallampati Score:: Class II C-Spine Mobility Assessed: Yes TMJ Mobility Assessed: Yes Dentition: Dentures-good fit Neurological Assessment Level of Consciousness: Awake, Alert and Appropriate Anesthesia Plan Anesthesia Risk discussed: Yes Anesthesia Plan: Verified ASA Class: III Anesthesia Type: MAC
--- NOTE | 2024-01-11 11:17 | HMH.SCOPE ---
Procedure: Date: 01/11/24 Patient Date of :: 1965 Procedure Performed:: Colonoscopy with polypectomy Indications:: History of colon polyps Note: Most recent colonoscopy was in May 2021 at which time fairly severe lack of relaxation noted. Visualization was also limited by [id number] bowel preparation. Hyperplastic polyps at 25 cm were excised. A recommendation for 2-year follow-up was made. Performing Provider:: Pasha Mckeon MD Referring Provider:: . Sedation:: Monitored anesthesia care Procedure:: After informed consent was obtained the patient was taken to the endoscopy suite. Sedation ensued after the patient was transferred to the left lateral decubitus position. Pulse, blood pressure, and oxygen saturation were monitored throughout the procedure. Digital rectal exam revealed no significant abnormality. The colonoscope was placed in position. The entire colon was evaluated. The colonoscope was carefully removed and the patient was transferred to recovery in stable condition. Please see findings and specimens below for detail. Findings:: Bowel preparation relatively poor Focal inflammatory changes of the cecum Polyps (see specimens) Specimens:: Biopsy of inflamed cecal mucosa Polyp at 75 cm (cold snare) Polyp at 20 cm (cold snare) Recommendations:: Timing of repeat colonoscopy is pending pathology but will likely be in 1-2 years with extended bowel preparation. Consider gastroenterology consultation secondary to multiple limited bowel preparations. Likely defer next colonoscopy to the gastroenterology service. Complications:: No immediate with the exception of relatively poor bowel preparation Estimated blood obtained (mL): 1 Colonoscopy Component Colonoscopy Component Was a colonoscopy performed during today's procedure?: Yes Recommended follow up colonoscopy of at least 10 years?: No If no, follow up colonoscopy recommended in ___ years?: (See above) Reason for not recommending >/= 10 yr follow-up interval?: (See above)
== END 2024-01-11 11:47 | disposition home or self-care (01) ==
PROVIDERS: PCP Family Medicine; Visit Provider Surgery
PROC: 0DJD8ZZ Inspection of Lower Intestinal Tract, Via Natural or Artificial Opening Endoscopic (ICD-10-PCS; CPT 45385; principal; 2024-01-11 10:30)
DX: Z86.010 Personal history of colon polyps (principal); K63.5 Polyp of colon
CPT/HCPCS: 45385; 82962; 88305; J2704

== ENCOUNTER 2024-01-19 14:26 | Outpatient (CLI) | payer MEDICARE, SELFPAY ==
[2024-01-19 15:38] LABS: Blood Urea Nitrogen 20 mg/dl (9-20); Estimated Glomerular Filt Rate 62 ml/min (>60); GFR (African American) 75 ML/MIN (>60)
== END 2024-01-19 23:59 | disposition home or self-care (01) ==
LOC: LAB 14:28
PROVIDERS: PCP Family Medicine; Visit Provider Surgery
DX: K55.9 Vascular disorder of intestine, unspecified (principal)
CPT/HCPCS: 36415; 82565; 84520

== ENCOUNTER 2024-02-14 07:45 | Outpatient (CLI) | payer MEDICARE, SELFPAY ==
--- NOTE | 2024-02-14 07:47 | CT_ITS ---
FINAL REPORT TECHNIQUE: After the administration of intravenous contrast, axial images were obtained through the abdomen and pelvis by computed tomography. This study was performed with technique to keep radiation doses as low as reasonably achievable, (ALARA). Individualized dose reduction techniques using automated exposure control or adjustment of the MA and/or KV according to the patient's size were employed. CLINICAL HISTORY: mesenteric CT COMPARISON: 08/14/2023 FINDINGS: Abdomen: The lung bases are clear. The liver is mildly fatty infiltrated. Gallbladder is present. There is a cyst arising from the posterior spleen measuring 4.9 x 3.9 cm on image 43. The adrenals are normal. A cystic lesion is seen at the anterior aspect of the tail of the pancreas measuring 2.1 x 1.3 cm, slightly smaller than on prior exam. The kidneys enhance appropriately. Previously seen right hydroureteronephrosis has resolved. No renal stones are identified. The aorta is normal in caliber. There is no free fluid or adenopathy. Pelvis: The appendix is not identified. The urinary bladder is unremarkable. Stranding in the anterior inferior pelvis is stable. There is no free fluid or adenopathy. IMPRESSION: No renal or ureteral stones. Interval slight decrease in the pancreatic lesion. Recommend 6-month follow-up. Stranding in the anterior portion of the inferior pelvis, stable, likely postoperative or postinflammatory. Reviewed, Interpreted and Dictated by Gilberto Herron MD Transcribed by Martina Ann Authenticated and [facility]
[2024-02-14] MEDS: IOPAMIDOL-370 (76%);100ML BOTTLE 75 ML IV (08:34)
[2024-02-14] MEDS: SODIUM CHLORIDE 0.9% 10ML SYR (RAD ONLY) 10 ML IV (08:34)
== END 2024-02-14 23:59 | disposition home or self-care (01) ==
LOC: RAD 07:47
PROVIDERS: PCP Family Medicine; Visit Provider Surgery
DX: K55.9 Vascular disorder of intestine, unspecified (principal)
CPT/HCPCS: 74177; Q9967

== ENCOUNTER 2024-04-17 14:22 | Outpatient (CLI) | payer MEDICARE, SELFPAY ==
--- NOTE | 2024-04-17 14:27 | MR_ITS ---
PROCEDURE INFORMATION: Exam: MR Lumbar Spine Without Contrast Exam date and time: 04/17/2024 2:43 PM Age: 58 years old Clinical indication: Low back pain; Additional info: Back pain. Low back pain worse on right side. Right leg pain, numbness and tingling TECHNIQUE: Imaging protocol: Magnetic resonance imaging of the lumbar spine without contrast. COMPARISON: CT ABDOMEN PELVIS W CON 02/14/2024 8:19 AM FINDINGS: Bones/joints: The lumbar vertebral bodies are normal in height. Slight anterolisthesis of L4 on L5. Within the L3 vertebral body, there is an 8-9 mm T1 hyperintense hemangioma or focal deposition of fatty marrow. There is mild convexity of the lumbar spine to the left. Spinal cord: The distal end of the conus medullaris ends at L1, normal in position. Multilevel findings: Degenerative changes are noted at L2-L3, L4-L5, and L5-S1, with a decrease in the T2 signal intensity of the discs, as well as disc bulge/osteophyte complexes. L1-L2: There is no significant spinal canal stenosis or neural foraminal narrowing. L2-L3: Mild bilateral facet arthropathy. There is hypertrophy of the ligamentum flavum on the left side. Minimal disc bulging is visualized, without significant spinal canal stenosis. Mild narrowing of the inferior aspect of the left neural foramen is identified. There is no significant narrowing of the right neural foramen. L3-L4: Bilateral facet arthropathy. There is no significant spinal canal stenosis or neural foraminal narrowing. L4-L5: Bilateral facet arthropathy with hypertrophy of the ligamentum flavum. Minimal in STIR hyperintense edema is seen within the bone marrow of the anteroinferior aspect of the L4 vertebral body, which is likely reactive. A broad-based disc bulge with central disc bulge/osteophyte complex causes moderate spinal canal stenosis. There is narrowing of both lateral recesses. Moderate right and mild left neural foraminal narrowing identified. L5-S1: Bilateral facet arthropathy. A broad-based disc bulge/osteophyte complex is identified. The thecal sac tapers at this level. Moderate left and mild right neural foraminal narrowing identified. There is heterogeneous signal intensity of the bone marrow adjacent to the endplates, with a component of marrow edema. This is likely degenerative. Soft tissues: Edema is visualized involving the subcutaneous tissues posteriorly. Pancreas: The pancreas is obscured on this study, and therefore not evaluated. IMPRESSION: 1. Degenerative changes are visualized involving the lumbar spine, as described above. 2. Moderate spinal canal stenosis at L4-L5. 3. Neural foraminal narrowing at L2-L3, L4-L5, and L5-S1. 4. Slight anterolisthesis of L4 on L5. 5. Additional findings described above.
== END 2024-04-17 23:59 | disposition home or self-care (01) ==
LOC: RAD 14:22
PROVIDERS: PCP Physician Assistant; Visit Provider Physician Assistant
DX: M54.16 Radiculopathy, lumbar region (principal); R29.898 Other symptoms and signs involving the musculoskeletal system
CPT/HCPCS: 72148

== ENCOUNTER 2024-06-27 14:31 | Outpatient (CLI) | payer MEDICARE, SELFPAY ==
--- NOTE | 2024-06-27 14:39 | XR_ITS ---
FINAL REPORT CLINICAL HISTORY: RT ANKLE PAIN COMPARISON: None FINDINGS: RIGHT ANKLE 3 views of the right ankle were obtained. There is no acute fracture or dislocation. The mortise is intact. Visualized joint spaces are normally aligned. Moderate soft tissue swelling is present. There is a small plantar calcaneal spur noted. IMPRESSION: No acute bony abnormality. Reviewed, Interpreted and Dictated by Gilberto Herron MD Transcribed by Samantha Collins Authenticated and [facility]
== END 2024-06-27 23:59 | disposition home or self-care (01) ==
LOC: RAD 14:35
PROVIDERS: PCP Family Medicine; Visit Provider Physician Assistant
DX: M25.571 Pain in right ankle and joints of right foot (principal)
CPT/HCPCS: 73610

== ENCOUNTER 2024-07-20 13:58 | Outpatient (CLI) | payer MEDICARE, SELFPAY ==
--- NOTE | 2024-07-20 14:08 | CT_ITS ---
FINAL REPORT TECHNIQUE: Axial CT images of the chest were obtained without contrast. Low-dose protocol was utilized. This study was performed with techniques to keep radiation doses as low as reasonably achievable (ALARA). Individualized dose reduction techniques using automated exposure control or adjustment of mA and/or kV according to the patient's size were employed. CLINICAL HISTORY: SCREENING CURRENT SMOKER, 3 CIGS PER DAY , X 30 YEARS COMPARISON: None FINDINGS: CT CHEST WITHOUT, LOW DOSE SCREENING CTDl vol(mGy): 2.9 DLP (mGy-cm): 108.9 There is no axillary adenopathy. There is no hilar or mediastinal adenopathy. There is artifact from multiple median sternotomy wires. The heart size is normal. There is no pericardial or pleural effusion. Lung window images demonstrate no suspicious infiltrate or nodule. There is a calcified granuloma at the right base. Limited images of the upper abdomen are unremarkable. IMPRESSION: Lung RADS category 1. Recommend 12 month follow-up low-dose chest CT per Fleischner criteria. Reviewed, Interpreted and Dictated by Gilberto Herron MD Transcribed by Silvia Umana Authenticated and [facility]
== END 2024-07-20 23:59 | disposition home or self-care (01) ==
LOC: RAD 14:00
PROVIDERS: PCP Physician Assistant; Visit Provider Physician Assistant
DX: F17.210 Nicotine dependence, cigarettes, uncomplicated (principal)
CPT/HCPCS: 71271

== ENCOUNTER 2024-08-09 14:45 | Outpatient (CLI) | payer MEDICARE, SELFPAY ==
--- NOTE | 2024-08-09 14:45 | MR_ITS ---
FINAL REPORT CLINICAL HISTORY: right ankle pain, no known injury, no specified area feels like his ankle is pulling apart COMPARISON: None FINDINGS: Multiplanar and multisequence imaging of the right ankle was obtained without intravenous contrast. BONES/JOINT: There is bone marrow edema in the lateral and distal aspect of the tibia, and in the lateral talus, favor degenerative joint disease. There is cartilage loss in the distal tibia and the talar dome. There is an osteochondral lesion in the lateral distal tibia. LIGAMENTS: The anterior talofibular ligament, posterior talofibular ligament and calcaneofibular ligament are intact. The tibiofibular ligaments are intact. The deltoid and spring ligaments are within normal limits. TENDONS: The Achilles tendon is normal in size and signal intensity. The medial tendons are within normal limits. There is fluid surrounding the peroneal tendons consistent with tenosynovitis. The extensor tendons are within normal limits. OTHER SOFT TISSUES: There is abnormal signal in the sinus Tarsi, with the ligaments appearing intact. There is a small effusion in the tibiotalar joint. IMPRESSION: Degenerative joint disease is present in the lateral tibiotalar joint with an osteochondral lesion of the distal tibia. Peroneal tenosynovitis as described. 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 Reviewed, Interpreted and Dictated by Constanza Garcia MD Transcribed by Samantha Collins Authenticated and [facility]
== END 2024-08-09 23:59 | disposition home or self-care (01) ==
LOC: RAD 14:45
PROVIDERS: PCP Family Medicine; Visit Provider Physician Assistant
DX: M25.371 Other instability, right ankle (principal)
CPT/HCPCS: 73721

== ENCOUNTER 2024-08-28 07:35 | Outpatient (CLI) | payer MEDICARE, SELFPAY ==
--- NOTE | 2024-08-28 07:37 | CT_ITS ---
FINAL REPORT CLINICAL HISTORY: Pancreatic lesion COMPARISON: 02/14/2024 FINDINGS: CT ABDOMEN AND PELVIS WITH AND WITHOUT CONTRAST: The lung bases are clear. Fatty infiltration of the liver is present. There is a well-circumscribed cystic lesion in the posterior spleen, partially exophytic, measuring 5 x 4 cm in size, stable when compared to the prior exam of 02/14/2024. There is a smoothly marginated density present in the anterior aspect of the tail of the pancreas. Precontrast enhancement the density measures 9 Hounsfield units, which does not change after contrast administration. The appendix is unremarkable in appearance. The bladder is incompletely distended. The adrenals are normal. The pancreas is otherwise unremarkable. The kidneys enhance appropriately. Precontrast images demonstrate no nephrolithiasis. IMPRESSION: Smoothly marginated anterior density in the tail of the pancreas, which does not enhance after contrast administration. This lesion is stable when compared to the prior exam of 02/14/2024. Well-circumscribed cystic lesion in the posterior spleen, stable. Reviewed, Interpreted and Dictated by Gilberto Herron MD Transcribed by Samantha Collins Authenticated and [facility]
[2024-08-28 07:49] LABS: Basophils # 0.1 K/mm3 (0-0.2); Basophils % 0.7 % (0.1-2.0); Eosinophils # 0.2 K/mm3 (0.0-0.4); Eosinophils % 2.8 % (0.1-12.0); Hemoglobin 13.6 g/dL (14.1-18.0); Lymphocytes % 40.5 % (10-50); Mean Corpuscular HGB Conc 33.2 g/dL (31.8-35.4); Mean Corpuscular Volume 84.5 fl (80-94); Mean Platelet Volume 9.2 fl (7.4-10.4); Monocytes # 0.5 K/mm3 (0.1-1.0); Monocytes % 7.3 % (1.7-9.3); Neutrophils # 3.6 K/mm3 (1.8-7.8); Platelet Count 371 K/mm3 (142-424); Red Blood Count 4.85 M/mm3 (4.60-6.20); Red Cell Distribution Width 14.5 % (11.5-17.5); White Blood Count 7.4 K/mm3 (4.8-10.8)
[2024-08-28 08:00] LABS: Alanine Aminotransferase 38 U/L (12-78); Albumin Level 4.1 g/dl (3.5-5.0); Albumin/Globulin Ratio 1.6 (1.1-1.8); Alkaline Phosphatase 71 U/L (38-126); Amylase 102 U/L (30-110); Anion Gap 9.4 mEq/L (5-15); Aspartate Amino Transferase 33 U/L (17-59); Bilirubin,Total 0.3 mg/dl (0.2-1.3); Blood Urea Nitrogen 16 mg/dl (9-20); Calcium 9.1 mg/dl (8.4-10.2); Carbon Dioxide 22 mmol/L (22.0-30.0); Chloride 111 mmol/L (98-107); Estimated Glomerular Filt Rate 68 ml/min (>60); GFR (African American) 83 ML/MIN (>60); Globulin 2.6 g/dL (1.3-3.2); Glucose 151 mg/dl (74-100); Lipase 316 U/L (23-300); Potassium 4.4 mmoL/L (3.5-5.1); Sodium 138 mmol/L (136-145); Total Protein,Serum 6.7 g/dl (6.3-8.2)
[2024-08-28] MEDS: SODIUM CHLORIDE 0.9% 10ML SYR (RAD ONLY) 10 ML IV (08:34)
[2024-08-28] MEDS: IOPAMIDOL-370 (76%);100ML BOTTLE 75 ML IV (08:34)
== END 2024-08-28 23:59 | disposition home or self-care (01) ==
LOC: RAD 07:37
PROVIDERS: PCP Family Medicine; Visit Provider Surgery
DX: K86.9 Disease of pancreas, unspecified (principal)
CPT/HCPCS: 36415; 74178; 80053; 82150; 83690; 85025; Q9967

== ENCOUNTER 2025-02-21 13:58 | Outpatient (CLI) | payer MEDICARE, SELFPAY ==
--- OUTSIDE RECORDS SUMMARY | 2025-02-21 14:02 | XMS_ITS | Encounter Summary ---
Author Organization [facility] Address [address] [place] [address] Care Team Providers Care Dope House Operator Helper Name Role Phone Modesto Bynum MD Primary Care Provider [phone] Encounter Details Date Type Department Care Team ([facility] st Contact Info) Description 08/13/2023 Orders Only External Location [address] [place] [address] Julisa Gutiérrez MD [address] [place] [address] Social History Tobacco Use Types Packs/Day Years Used Date Smoking Tobacco: Never Assessed Sex and Gender Information Value Date Recorded Sex Assigned at Not on file Legal Sex Male 7:53 PM EDT Gender Identity Not on file Sexual Orientation Not on file documented as of this encounter Plan of Treatment Not on file documented as of this encounter Procedures Procedure Name Priority Date/Time Associated Diagnosis Comments CT OUTSIDE IMAGES 08/13/2023 7:37 PM EST documented in this encounter Results * CT OUTSIDE IMAGES (08/13/2023 7:37 PM EST) Anatomical Region Laterality Modality Computed Tomogra phy 08/13/2023 7:37 PM EST us Julisa Gutiérrez MD IMG CT PROCEDURES Final Resu lt documented in this encounter Visit Diagnoses Not on filedocumented in this encounter Care Teams Dope House Operator Helper Relationship Specialty Start Date End Date Modesto Bynum MD [address] [place] [address] PCP - General 11/01/20 documented as of this encounter
--- OUTSIDE RECORDS SUMMARY | 2025-02-21 14:04 | XMS_ITS ---
Author Organization Unknown Results OrderDate OrderTestName ResultName ResultDate Value Units Range AbnormalFlag ResultStatus ObservationNotes TestCode ResultCode DateRecorded AccessionNumber DiagnosticSectionCode DiagnosticSectionName Sequence Interpretation Cust om 08/16/2024 00:00:00 PT/INR (in house) ideal INR 8818-18-15A04:00:00 2.5-3.5 Reviewed Chantale Ramírez 08/16/2024 4:32:52 PM > , Provider reviewed results while patient in office.Lauryn Faulkner 08/16/2024 4:42:49 PM > PT/INR (in house) 08/16/2024 00:00: 00:00:00PT/INR (in house)Warfarin indication 3306-16-61U34:00:00Chantale Sommers 08/16/2024 4:32:52 PM > , Provider reviewed results while patient in office.Lauryn Faulkner 08/16/2024 4:42:49 PM > Coding PT/INR (in house) 08/16/2024 00:00: 00:00:00PT/INR (in house)next check 5763-13-81U82:00:004 weeksRevieweChantale Baca 08/16/2024 4:32:52 PM > , Provider reviewed results while patient in office.Lauryn Faulkner 08/16/2024 4:42:49 PM > Coding PT/INR (in house) 08/16/2024 00:00: 00:00:00PT/INR (in house)new dose 0151-82-81H49:00:00Chantale Navarrete 08/16/2024 4:32:52 PM > , Provider reviewed results while patient in office.Lauryn Faulkner 08/16/2024 4:42:49 PM > Coding PT/INR (in house) 08/16/2024 00:00: 00:00:00PT/INR (in house)current dose 2661-98-83E20:00:007.5mg T,TH,10 mg Chantale Pelaez 08/16/2024 4:32:52 PM > , Provider reviewed results while patient in office.Lauryn Faulkner 08/16/2024 4:42:49 PM > Coding PT/INR (in house) 08/16/2024 00:00: 00:00:00PT/INR (in house)LGW9436-55-55U25:00:003.1 Chantale Motta 08/16/2024 4:32:52 PM > , Provider reviewed results while patient in office.Lauryn Faulkner 08/16/2024 4:42:49 PM > Coding PT/INR (in house) 08/16/2024 00:00: 00:00:00PT/INR (in house)[id number]:00:0037.0 Chantale Motta 08/16/2024 4:32:52 PM > , Provider reviewed results while patient in office.Lauryn Faulkner 08/16/2024 4:42:49 PM > Coding PT/INR (in house) 08/16/2024 00:00: 00:00:00PT/INR (in house)ideal INR 0411-01-41Y71:00:002.5-3.5ReChantale Dyer 09/13/2024 1:09:10 PM > Provider reviewed results while patient in office.Lauryn Faulkner 09/13/2024 1:39:32 PM > Coding PT/INR (in house) 09/13/2024 00:00: 00:00:00PT/INR (in house)Warfarin indication 5799-70-95P65:00:00AVRRChantale Harding 09/13/2024 1:09:10 PM > Provider reviewed results while patient in office.LucieLauryn Perez 09/13/2024 1:39:32 PM > Coding PT/INR (in house) 09/13/2024 00:00: 00:00:00PT/INR (in house)next check 3601-46-47Q93:00:004 weeksChantale Motta 09/13/2024 1:09:10 PM > Provider reviewed results while patient in office.Lauryn Faulkner 09/13/2024 1:39:32 PM > Coding PT/INR (in house) 09/13/2024 00:00: 00:00:00PT/INR (in house)new dose 4895-77-34V91:00:00Chantale Navarrete 09/13/2024 1:09:10 PM > Provider reviewed results while patient in office.Lauryn Faulkner 09/13/2024 1:39:32 PM > Coding PT/INR (in house) 09/13/2024 00:00: 00:00:00PT/INR (in house)current dose 3963-37-28B62:00:007.5mgT,Th-10mg Chantale Pelaez 09/13/2024 1:09:10 PM > Provider reviewed results while patient in office.Lauryn Faulkner 09/13/2024 1:39:32 PM > Coding PT/INR (in house) 09/13/2024 00:00: 00:00:00PT/INR (in house)STD7523-58-71V94:00:002.5 Chantale Motta 09/13/2024 1:09:10 PM > Provider reviewed results while patient in office.Lauryn Faulkner 09/13/2024 1:39:32 PM > Coding PT/INR (in house) 09/13/2024 00:00: 00:00:00PT/INR (in house)MO0080-15-84D71:00:0030.2 ReviewedChantale Ramírez 09/13/2024 1:09:10 PM > Provider reviewed results while patient in office.Lauryn Faulkner 09/13/2024 1:39:32 PM > Coding PT/INR (in house) 09/13/2024 00:00: 00:00:00PT/INR (in house)ideal INR 4462-90-37H14:00:002.5-3.5Kristie Smith 11/03/2024 02:41:48 PM > Provider reviewed results while patient in office.Lauryn Faulkner 11/05/2024 11:08:06 PM > Coding PT/INR (in house) 11/03/2024 00:00: 00:00:00PT/INR (in house)Warfarin indication 6594-89-43N15:00:00Kristie Alonso 11/03/2024 02:41:48 PM > Provider reviewed results while patient in office.Lauryn Faulkner 11/05/2024 11:08:06 PM > Coding PT/INR (in house) 11/03/2024 00:00: 00:00:00PT/INR (in house)next check 7804-86-69D92:00:006 Kristie Posey 11/03/2024 02:41:48 PM > Provider reviewed results while patient in office.Lauryn Faulkner 11/05/2024 11:08:06 PM > Coding PT/INR (in house) 11/03/2024 00:00: 00:00:00PT/INR (in house)new dose 3336-10-03R52:00:00Kristie Mistry 11/03/2024 02:41:48 PM > Provider reviewed results while patient in office.Lauryn Faulkner 11/05/2024 11:08:06 PM > Coding PT/INR (in house) 11/03/2024 00:00: 00:00:00PT/INR (in house)current dose 1269-05-05M56:00:007.5mg T,TH and 5mg Kristie Hackett 11/03/2024 02:41:48 PM > Provider reviewed results while patient in office.Lauryn Faulkner 11/05/2024 11:08:06 PM > Coding PT/INR (in house) 11/03/2024 00:00: 00:00:00PT/INR (in house)RJF4345-08-14A21:00:003.0 Kristie Smith 11/03/2024 02:41:48 PM > Provider reviewed results while patient in office.Lauryn Faulkner 11/05/2024 11:08:06 PM > Coding PT/INR (in house) 11/03/2024 00:00: 00:00:00PT/INR (in house)VO9831-95-08E28:00:0035.4 Kristie Smith 11/03/2024 02:41:48 PM > Provider reviewed results while patient in office.Lauryn Faulkner 11/05/2024 11:08:06 PM > Coding PT/INR (in house) 11/03/2024 00:00: 00:00:00Glycohemoglobin A1c (in house) zgroyjggfrngcte2568-28-20X40:00:006.9%%5 - 6.5 %Guerda Hung 07/06/2024 2:18:58 PM > Lauryn Faulkner 07/07/2024 1:03:57 PM > see TE Coding Glycohemoglobin A1c (in hous e) 07/06/2024 00:00: 00:00:00CBC Venipuncture (in house)[place] 1219-81-71S66:00:62889649 - 400ReKristie Garrett 07/06/2024 2:16:24 PM > Lauryn Faulkner 07/07/2024 1:03:57 PM > see TE Coding CBC Venipuncture (in house) 07/06/2024 00:00: 00:00:00CBC Venipuncture (in house)[facility] 3903-99-83G72:00:0033.431 - 38[facility] 07/06/2024 2:16:24 PM > Gabe Faulknera S 07/07/2024 1:03:57 PM > see TE Coding CBC Venipuncture (in house) 07/06/2024 00:00: 00:00:00CBC Venipuncture (in house)[facility] 7847-88-45X44:00:0027.725 - 35RevieweRoberOhiohealth [facility] 07/06/2024 2:16:24 PM > Lauryn Faulkner S 07/07/2024 1:03:57 PM > see TE Coding CBC Venipuncture (in house) 07/06/2024 00:00: 00:00:00CBC Venipuncture (in house)[facility] [place] 4942-17-18F03:00:0082.975 - 100ReGerryOhio[facility] 07/06/2024 2:16:24 PM > Lauryn Faulkner S 07/07/2024 1:03:57 PM > see TE Coding CBC Venipuncture (in house) 07/06/2024 00:00: 00:00:00CBC Venipuncture (in house)[facility] 5392-62-19D96:00:0041.335 - 55ReGerryOhio[facility] 07/06/2024 2:16:24 PM > Lauryn Faulkner S 07/07/2024 1:03:57 PM > see TE Coding CBC Venipuncture (in house) 07/06/2024 00:00: 00:00:00CBC Venipuncture (in house)hgb 6191-60-60J70:00:0013.811.5 - 16.5RevieweRoberOhio[facility] 07/06/2024 2:16:24 PM > Gabe Faulknera S 07/07/2024 1:03:57 PM > see TE Coding CBC Venipuncture (in house) 07/06/2024 00:00: 00:00:00CBC Venipuncture (in house)rbc 9908-77-02G62:00:004.993.5 - 5.5RevieweRoberOhio[facility] 07/06/2024 2:16:24 PM > Gabe Faulknera S 07/07/2024 1:03:57 PM > see TE Coding CBC Venipuncture (in house) 07/06/2024 00:00: 00:00:00CBC Venipuncture (in house)gran 4969-20-62V28:00:0068.035 - 80RevieweRoberOhio[facility] 07/06/2024 2:16:24 PM > Lauryn Faulkner S 07/07/2024 1:03:57 PM > see TE Coding CBC Venipuncture (in house) 07/06/2024 00:00: 00:00:00CBC Venipuncture (in house)mid 8699-11-04I59:00:006.92 - 15RevieweRoberOhio[facility] 07/06/2024 2:16:24 PM > Lauryn Faulkner S 07/07/2024 1:03:57 PM > see TE Coding CBC Venipuncture (in house) 07/06/2024 00:00: 00:00:00CBC Venipuncture (in house)lymph 0550-55-79E93:00:0025.115 - 50RevieweRoberOhio[facility] 07/06/2024 2:16:24 PM > Gabe Faulknera S 07/07/2024 1:03:57 PM > see TE Coding CBC Venipuncture (in house) 07/06/2024 00:00: 00:00:00CBC Venipuncture (in house)wbc 0242-96-23K59:00:008.93.5 - 10RevieweRoberOhio[facility] 07/06/2024 2:16:24 PM > Gabe Faulknera S 07/07/2024 1:03:57 PM > see TE Coding CBC Venipuncture (in house) 07/06/2024 00:00: 00:00:00PT/INR (in house)ideal INR 0290-90-44W56:00:002.5-3.5ReKristie Garrett 07/06/2024 1:26:34 PM > , Provider reviewed results while patient in office. Lauryn Faulkner 07/06/2024 1:47:19 PM > Coding PT/INR (in house) 07/06/2024 00:00: 00:00:00PT/INR (in house)Warfarin indication 5511-44-72R29:00:00AVRRKristie Camarena 07/06/2024 1:26:34 PM > , Provider reviewed results while patient in office. Lauryn Faulkner 07/06/2024 1:47:19 PM > Coding PT/INR (in house) 07/06/2024 00:00: 00:00:00PT/INR (in house)next check 9590-44-79B39:00:002 weeksKristie Smith 07/06/2024 1:26:34 PM > , Provider reviewed results while patient in office. Lauryn Faulkner 07/06/2024 1:47:19 PM > Coding PT/INR (in house) 07/06/2024 00:00: 00:00:00PT/INR (in house)new dose 4008-44-91H47:00:00saKristie Conklin 07/06/2024 1:26:34 PM > , Provider reviewed results while patient in office. Lauryn Faulkner 07/06/2024 1:47:19 PM > Coding PT/INR (in house) 07/06/2024 00:00: 00:00:00PT/INR (in house)current dose 9567-79-21D46:00:007.5 mg T,TH,Kristie Vazquez 07/06/2024 1:26:34 PM > , Provider reviewed results while patient in office. Lauryn Faulkner 07/06/2024 1:47:19 PM > Coding PT/INR (in house) 07/06/2024 00:00: 00:00:00PT/INR (in house)TGH2579-87-75Z74:00:003.5 Kristie Smith 07/06/2024 1:26:34 PM > , Provider reviewed results while patient in office. Lauryn Faulkner 07/06/2024 1:47:19 PM > Coding PT/INR (in house) 07/06/2024 00:00: 00:00:00PT/INR (in house)RZ8541-03-10I72:00:0042.3 Kristie Smith 07/06/2024 1:26:34 PM > , Provider reviewed results while patient in office. Lauryn Faulkner 07/06/2024 1:47:19 PM > Coding PT/INR (in house) 07/06/2024 00:00: 00:00:00PT/INR (in house)ideal INR 1358-79-41I28:00:002.5-3.5Kristie Smith 07/20/2024 1:43:15 PM > , Provider reviewed results while patient in office.Lauryn Faulkner 07/21/2024 10:03:02 AM > Coding PT/INR (in house) 07/20/2024 00:00: 00:00:00PT/INR (in house)Warfarin indication 6975-03-28H88:00:00Kristie Alonso 07/20/2024 1:43:15 PM > , Provider reviewed results while patient in office.Lauryn Faulkner 07/21/2024 10:03:02 AM > Coding PT/INR (in house) 07/20/2024 00:00: 00:00:00PT/INR (in house)next check 6521-74-84F14:00:002 weeksKristie Smith 07/20/2024 1:43:15 PM > , Provider reviewed results while patient in office.Lauryn Faulkner 07/21/2024 10:03:02 AM > Coding PT/INR (in house) 07/20/2024 00:00: 00:00:00PT/INR (in house)new dose 1609-88-59G60:00:007.5mg T,TH and 10mg AODReviewedHougKristie 07/20/2024 1:43:15 PM > , Provider reviewed results while patient in office.Lauryn Faulkner 07/21/2024 10:03:02 AM > Coding PT/INR (in house) 07/20/2024 00:00: 00:00:00PT/INR (in house)current dose 4767-92-11K70:00:007.5mg T,TH, and Sat and 10mg AODReviewedHougKristie 07/20/2024 1:43:15 PM > , Provider reviewed results while patient in office.Lauryn Faulkner 07/21/2024 10:03:02 AM > Coding PT/INR (in house) 07/20/2024 00:00: 00:00:00PT/INR (in house)QVU2760-49-80T81:00:002.2 Kristie Smith 07/20/2024 1:43:15 PM > , Provider reviewed results while patient in office.Lauryn Faulkner 07/21/2024 10:03:02 AM > Coding PT/INR (in house) 07/20/2024 00:00: 00:00:00PT/INR (in house)XN0153-16-76L65:00:0026.5 Kristie Smith 07/20/2024 1:43:15 PM > , Provider reviewed results while patient in office.Lauryn Faulkner 07/21/2024 10:03:02 AM > Coding PT/INR (in house) 07/20/2024 00:00:00107/04/2023 00:00:00PT/INR (in house)ideal INR 4845-06-14Z90:00:002.5-3.5ReKristie Garrett 05/04/2024 1:28:10 PM > , Provider reviewed results while patient in office.Lauryn Faulkner 05/04/2024 1:55:35 PM > Coding PT/INR (in house) 05/04/2024 00:00:00107/04/2023 00:00:00PT/INR (in house)Warfarin indication 4006-59-26X67:00:00AVSamiHanska 05/04/2024 1:28:10 PM > , Provider reviewed results while patient in office.Lauryn Faulkner 05/04/2024 1:55:35 PM > Coding PT/INR (in house) 05/04/2024 00:00:00107/04/2023 00:00:00PT/INR (in house)next check 6116-05-55C77:00:001 weekLuisHanska 05/04/2024 1:28:10 PM > , Provider reviewed results while patient in office.Lauryn Faulkner 05/04/2024 1:55:35 PM > Coding PT/INR (in house) 05/04/2024 00:00:00107/04/2023 00:00:00PT/INR (in house)new dose 1386-41-68L26:00:00alt 10 and 7.5mgReviewedHoug,Hanska 05/04/2024 1:28:10 PM > , Provider reviewed results while patient in office.Lauryn Faulkner 05/04/2024 1:55:35 PM > Coding PT/INR (in house) 05/04/2024 00:00:00107/04/2023 00:00:00PT/INR (in house)current dose 5654-56-50T31:00:00hold x 2 days then alternate 10 and 7.5mgReviewedHougHanska 05/04/2024 1:28:10 PM > , Provider reviewed results while patient in office.Lauryn Faulkner 05/04/2024 1:55:35 PM > Coding PT/INR (in house) 05/04/2024 00:00:00107/04/2023 00:00:00PT/INR (in house)ELQ6549-99-00H03:00:002.0 ReviewedHougHanska 05/04/2024 1:28:10 PM > , Provider reviewed results while patient in office.Lauryn Faulkner 05/04/2024 1:55:35 PM > Coding PT/INR (in house) 05/04/2024 00:00:00107/04/2023 00:00:00PT/INR (in house)PJ0878-41-12T01:00:0024.3 Kristie Smith 05/04/2024 1:28:10 PM > , Provider reviewed results while patient in office.Lauryn Faulkner 05/04/2024 1:55:35 PM > Coding PT/INR (in house) 05/04/2024 00:00:00107/11/2023 00:00:00PT/INR (in house)ideal INR 8483-75-42V98:00:002.5-3.5Kristie Smith 05/11/2024 1:41:20 PM > , Provider reviewed results while patient in office.Lauryn Faulkner 05/11/2024 3:01:02 PM > Coding PT/INR (in house) 05/11/2024 00:00:00107/11/2023 00:00:00PT/INR (in house)Warfarin indication 9841-12-70G97:00:00Kristie Alonso 05/11/2024 1:41:20 PM > , Provider reviewed results while patient in office.Lauryn Faulkner 05/11/2024 3:01:02 PM > Coding PT/INR (in house) 05/11/2024 00:00:00107/11/2023 00:00:00PT/INR (in house)next check 3004-80-71R00:00:002 weeksKristie Smith 05/11/2024 1:41:20 PM > , Provider reviewed results while patient in office.Lauryn Faulkner 05/11/2024 3:01:02 PM > Coding PT/INR (in house) 05/11/2024 00:00:00107/11/2023 00:00:00PT/INR (in house)new dose 7148-84-44A90:00:00Kristie Mistry 05/11/2024 1:41:20 PM > , Provider reviewed results while patient in office.Lauryn Faulkner 05/11/2024 3:01:02 PM > Coding PT/INR (in house) 05/11/2024 00:00:00107/11/2023 00:00:00PT/INR (in house)current dose 9422-09-67L37:00:00alt 7.5 and 10mgReKristie Garrett 05/11/2024 1:41:20 PM > , Provider reviewed results while patient in office.Lauryn Faulkner 05/11/2024 3:01:02 PM > Coding PT/INR (in house) 05/11/2024 00:00:00107/11/2023 00:00:00PT/INR (in house)FEN2817-25-88I08:00:002.6 Kristie Smith 05/11/2024 1:41:20 PM > , Provider reviewed results while patient in office.Lauryn Faulkner 05/11/2024 3:01:02 PM > Coding PT/INR (in house) 05/11/2024 00:00:00107/11/2023 00:00:00PT/INR (in house)RM8472-70-13U75:00:0030.7 Kristie Smith 05/11/2024 1:41:20 PM > , Provider reviewed results while patient in office.Lauryn Faulkner 05/11/2024 3:01:02 PM > Coding PT/INR (in house) 05/11/2024 00:00:00107/26/2023 00:00:00PT/INR (in house)ideal INR 1833-35-76H75:00:002.5-3.5ReKristie Garrett 05/25/2024 1:29:33 PM > Provider reviewed results while patient in office. Coding PT/INR (in house) 05/25/2024 00:00:00107/26/2023 00:00:00PT/INR (in house)Warfarin indication 6090-81-60P40:00:00AVRRKristie Camarena 05/25/2024 1:29:33 PM > Provider reviewed results while patient in office. Coding PT/INR (in house) 05/25/2024 00:00:00107/26/2023 00:00:00PT/INR (in house)next check 8066-88-55C21:00:004 weeksReKristie Garrett 05/25/2024 1:29:33 PM > Provider reviewed results while patient in office. Coding PT/INR (in house) 05/25/2024 00:00:00107/26/2023 00:00:00PT/INR (in house)new dose 2685-57-80W34:00:00sameRevKristie Mcleod 05/25/2024 1:29:33 PM > Provider reviewed results while patient in office. Coding PT/INR (in house) 05/25/2024 00:00:00107/26/2023 00:00:00PT/INR (in house)current dose 1890-01-02D21:00:00alt 7.5 and 5mgReGerryKristie 05/25/2024 1:29:33 PM > Provider reviewed results while patient in office. Coding PT/INR (in house) 05/25/2024 00:00:00107/26/2023 00:00:00PT/INR (in house)USO9760-26-71I72:00:002.6 LuisKristie 05/25/2024 1:29:33 PM > Provider reviewed results while patient in office. Coding PT/INR (in house) 05/25/2024 00:00:00107/26/2023 00:00:00PT/INR (in house)RX4976-77-77L97:00:0031.5 LuisKristie 05/25/2024 1:29:33 PM > Provider reviewed results while patient in office. Coding PT/INR (in house) 05/25/2024 00:00: 00:00:00PT/INR (in house)ideal INR 9512-08-18F78:00:002.5-3.5ReKristie Garrett 06/22/2024 1:58:50 PM > Provider reviewed results while patient in office.Lauryn Faulkner 06/22/2024 2:16:53 PM > Coding PT/INR (in house) 06/22/2024 00:00: 00:00:00PT/INR (in house)Warfarin indication 8391-51-91X81:00:00AVRRevKristie Mcleod 06/22/2024 1:58:50 PM > Provider reviewed results while patient in office.Lauryn Faulkner 06/22/2024 2:16:53 PM > Coding PT/INR (in house) 06/22/2024 00:00: 00:00:00PT/INR (in house)next check 8821-40-32J39:00:002 weeksReKristie Garrett 06/22/2024 1:58:50 PM > Provider reviewed results while patient in office.Lauryn Faulkner 06/22/2024 2:16:53 PM > Coding PT/INR (in house) 06/22/2024 00:00: 00:00:00PT/INR (in house)new dose 7421-06-10H83:00:007.5mg T,TH, and Sat and 10mg AODRevieChrisougKristie 06/22/2024 1:58:50 PM > Provider reviewed results while patient in office.Lauryn Faulkenr 06/22/2024 2:16:53 PM > Coding PT/INR (in house) 06/22/2024 00:00: 00:00:00PT/INR (in house)current dose 5108-26-34M85:00:00alt 7.5 and 10mgReviewePiterougKristie 06/22/2024 1:58:50 PM > Provider reviewed results while patient in office.Lauryn Faulkner 06/22/2024 2:16:53 PM > Coding PT/INR (in house) 06/22/2024 00:00: 00:00:00PT/INR (in house)ZGC0014-47-58B50:00:002.0 ReviewedHougKristie 06/22/2024 1:58:50 PM > Provider reviewed results while patient in office.Lauryn Faulkner 06/22/2024 2:16:53 PM > Coding PT/INR (in house) 06/22/2024 00:00: 00:00:00PT/INR (in house)ZT3951-70-44K58:00:0024.5 Kristie Smith 06/22/2024 1:58:50 PM > Provider reviewed results while patient in office.DarwinmaiLauryn Ana 06/22/2024 2:16:53 PM > Coding PT/INR (in house) 06/22/2024 00:00: 00:00:00P-Microalbumin/Creatinine, Random Urine SampleMicroalbumin, Urine, Hddfmj4506-89-91K95:00:007.1mg/dL- mg/dLReviewed Lauryn Faulkner Ana 07/07/2024 1:03:57 PM > see TE Coding P-Microalbumin/Creatinine, R andom Urine Sample 07/06/2024 00:00: 00:00:00P-Microalbumin/Creatinine, Random Urine SampleCreatinine, Chpnj4949-47-68N34:00:40544.0mg/dL- mg/dLRevieweBradlymary annmaiLauryn 07/07/2024 1:03:57 PM > see TE Coding P-Microalbumin/Creatinine, R andom Urine Sample 07/06/2024 00:00: 00:00:00P-Microalbumin/Creatinine, Random Urine SampleAlbumin/Creatinine Ratio, Xfyfc4219-48-54I64:00:0046ug/mg0-30 - ug/mgH ReviewedCrmalissaLauryn oneill 07/07/2024 1:03:57 PM > see TE Coding P-Microalbumin/Creatinine, R andom Urine Sample 07/06/2024 00:00: 00:00:96F-HHFQDK9289-03XVQHVE8231-21-67X36:00:001.96ng/mL<4.00 - ng/mLReviewedCoscarLauryn 07/07/2024 1:03:57 PM > see TE Coding P-PSA 07/06/2024 00:00: 00:00:00P-Lipid PanelTriglycerides 9706-40-72A90:00:76093ad/dL<150 - mg/dLGriselmary annmaiLauryn 07/07/2024 1:03:57 PM > see TE Coding P-Lipid Panel 07/06/2024 00:00: 00:00:00P-Lipid PanelNon-HDL Cholesterol 5337-92-50S50:00:25488xp/dL<130 - mg/dLKadyLauryn 07/07/2024 1:03:57 PM > see TE Coding P-Lipid Panel 07/06/2024 00:00: 00:00:00P-Lipid PanelLDL/HDL Ratio 7167-01-29N26:00:001.9Ratio<3.3 - RatioRobbieGabestephen Perez 07/07/2024 1:03:57 PM > see TE Coding P-Lipid Panel 07/06/2024 00:00: 00:00:00P-Lipid PanelLDL Cholesterol (Calculation) 2567-00-66F99:00:0079mg/dL<130 - mg/dLRobbieLauryn Ana 07/07/2024 1:03:57 PM > see TE Coding P-Lipid Panel 07/06/2024 00:00: 00:00:00P-Lipid PanelHDL Cholesterol 6419-11-03W88:00:0041mg/dL>39 - mg/dLRobbieLauryn S 07/07/2024 1:03:57 PM > see TE Coding P-Lipid Panel 07/06/2024 00:00: 00:00:00P-Lipid PanelCholesterol 0328-38-98Q04:00:90424om/dL<200 - mg/dLRobbieLauryn S 07/07/2024 1:03:57 PM > see TE Coding P-Lipid Panel 07/06/2024 00:00: 00:00:00P-Lipid PanelCholesterol / HDL Ratio 2426-33-13S45:00:004.51Bvrkf0.00-4.99 - RatioReLauryn Huggins 07/07/2024 1:03:57 PM > see TE Coding P-Lipid Panel 07/06/2024 00:00: 00:00:00P-Comprehensive Metabolic Panel (CMP)eGFR by Pmoqhtkqak7531-78-22V31:00:0071mL/min/1.73m2>59 - mL/min/1.20z9QftkkiksLauryn Chavez 07/07/2024 1:03:57 PM > see TE Coding P-Comprehensive Metabolic Pa tanesha (CMP) 07/06/2024 00:00: 00:00:00P-Comprehensive Metabolic Panel (CMP) Nvkntvp2387-76-63J55:00:006.9g/dL6.0-8.3 - g/dLReLauryn Huggins 07/07/2024 1:03:57 PM > see TE Coding P-Comprehensive Metabolic Pa tanesha (CMP) 07/06/2024 00:00: 00:00:00P-Comprehensive Metabolic Panel (CMP) Tfxrtt4048-48-61Y44:00:13991pupa/R824-381 - mmol/LRLauryn Sol 07/07/2024 1:03:57 PM > see TE Coding P-Comprehensive Metabolic Pa tanesha (CMP) 07/06/2024 00:00: 00:00:00P-Comprehensive Metabolic Panel (CMP) Oelutirha2282-33-62T70:00:004.6mmol/L3.5-5.3 - mmol/LRevLauryn Lemons 07/07/2024 1:03:57 PM > see TE Coding P-Comprehensive Metabolic Pa tanesha (CMP) 07/06/2024 00:00: 00:00:00P-Comprehensive Metabolic Panel (CMP) Xdmmqhj8782-39-55B50:00:40985jk/dL65-99 - mg/dLHRLauryn Sol 07/07/2024 1:03:57 PM > see TE Coding P-Comprehensive Metabolic Pa tanesha (CMP) 07/06/2024 00:00: 00:00:00P-Comprehensive Metabolic Panel (CMP) Odldvaxioj6824-22-62S04:00:001.17mg/dL0.70-1.30 - mg/dLLauryn Avalos 07/07/2024 1:03:57 PM > see TE Coding P-Comprehensive Metabolic Pa tanesha (CMP) 07/06/2024 00:00: 00:00:00P-Comprehensive Metabolic Panel (CMP)CO2 7808-51-84A22:00:0028mmol/L22-32 - mmol/LRevieLauryn Lang 07/07/2024 1:03:57 PM > see TE Coding P-Comprehensive Metabolic Pa tanesha (CMP) 07/06/2024 00:00: 00:00:00P-Comprehensive Metabolic Panel (CMP) Xumklvdi3373-89-64C31:00:14258ravb/L97-108 - mmol/LRevLauryn Lemons 07/07/2024 1:03:57 PM > see TE Coding P-Comprehensive Metabolic Pa tanesha (CMP) 07/06/2024 00:00: 00:00:00P-Comprehensive Metabolic Panel (CMP) Nhhcxcw6840-96-91V48:00:009.9mg/dL8.6-10.4 - mg/dLLauryn Avalos 07/07/2024 1:03:57 PM > see TE Coding P-Comprehensive Metabolic Pa tanesha (CMP) 07/06/2024 00:00: 00:00:00P-Comprehensive Metabolic Panel (CMP)BUN 9002-36-57S08:00:0018mg/dL8-23 - mg/dLLauryn Avalos 07/07/2024 1:03:57 PM > see TE Coding P-Comprehensive Metabolic Pa tanesha (CMP) 07/06/2024 00:00: 00:00:00P-Comprehensive Metabolic Panel (CMP) Bilirubin, Uxlll8272-46-88L15:00:00<0.2mg/dL<0.2-1.2 - mg/dLRealisiad Lauryn Faulkner 07/07/2024 1:03:57 PM > see TE Coding P-Comprehensive Metabolic Pa tanesha (CMP) 07/06/2024 00:00: 00:00:00P-Comprehensive Metabolic Panel (CMP)AST (SGOT)4376-02-40V92:00:0018IU/L<5-46 - IU/LRevieRickeyLauryn Perez 07/07/2024 1:03:57 PM > see TE Coding P-Comprehensive Metabolic Pa tanesha (CMP) 07/06/2024 00:00: 00:00:00P-Comprehensive Metabolic Panel (CMP)ALT (SGPT)7568-79-37P46:00:0027IU/L<5-55 - IU/LRevLauryn Lemons 07/07/2024 1:03:57 PM > see TE Coding P-Comprehensive Metabolic Pa tanesha (CMP) 07/06/2024 00:00: 00:00:00P-Comprehensive Metabolic Panel (CMP) Alkaline Rvxcqvkyapg5483-00-24K25:00:23752GM/L40-129 - IU/MarkLauryn S 07/07/2024 1:03:57 PM > see TE Coding P-Comprehensive Metabolic Pa tanesha (CMP) 07/06/2024 00:00: 00:00:00P-Comprehensive Metabolic Panel (CMP) Vvqlsvx0052-86-06W56:00:004.2g/dL3.5-5.3 - g/dLLauryn Avalos 07/07/2024 1:03:57 PM > see TE Coding P-Comprehensive Metabolic Pa tanesha (CMP) 07/06/2024 00:00: 00:00:00P-Comprehensive Metabolic Panel (CMP)A/G Nxofo0106-16-03N96:00:001.61.1-2.5 -ReviewedCrLauryn yin 07/07/2024 1:03:57 PM > see TE Coding P-Comprehensive Metabolic Pa tanesha (CMP) 07/06/2024 00:00:00001/20/2024 00:00:00PT/INR (in house)ideal INR 1735-48-27W30:00:002.5-3.5Julisa Srinivasan 01/20/2024 10:10:16 AM > Provider reviewed results while patient in office.Maritza Benson 01/20/2024 10:25:17 AM > had colonoscopy with bridging with LOvenox Coding PT/INR (in house) 01/20/2024 00:00:00001/20/2024 00:00:00PT/INR (in house)Warfarin indication 7559-38-44S64:00:00AVJulisa Gill 01/20/2024 10:10:16 AM > Provider reviewed results while patient in office.Maritza Benson 01/20/2024 10:25:17 AM > had colonoscopy with bridging with LOvenox Coding PT/INR (in house) 01/20/2024 00:00:00001/20/2024 00:00:00PT/INR (in house)next check 6393-88-20G34:00:002 weeksJulisa Srinivasan 01/20/2024 10:10:16 AM > Provider reviewed results while patient in office.Maritza Benson 01/20/2024 10:25:17 AM > had colonoscopy with bridging with LOvenox Coding PT/INR (in house) 01/20/2024 00:00:00001/20/2024 00:00:00PT/INR (in house)new dose 9461-47-13F14:00:0010mg tomorrow and otherwise the sameJulisa Srinivasan 01/20/2024 10:10:16 AM > Provider reviewed results while patient in office.Maritza Benson 01/20/2024 10:25:17 AM > had colonoscopy with bridging with LOvenox Coding PT/INR (in house) 01/20/2024 00:00: 00:00:00PT/INR (in house)current dose 5039-01-81W34:00:007.5mg MF;10mg Julisa Dasilva 01/20/2024 10:10:16 AM > Provider reviewed results while patient in office.Maritza Benson 01/20/2024 10:25:17 AM > had colonoscopy with bridging with LOvenox Coding PT/INR (in house) 01/20/2024 00:00:00001/20/2024 00:00:00PT/INR (in house)CTT2177-86-40F85:00:002.2 Julisa Srinivasan 01/20/2024 10:10:16 AM > Provider reviewed results while patient in office.Maritza Benson 01/20/2024 10:25:17 AM > had colonoscopy with bridging with LOvenox Coding PT/INR (in house) 01/20/2024 00:00: 00:00:00PT/INR (in house)MR6056-82-54O32:00:0026.1 Julisa Srinivasan 01/20/2024 10:10:16 AM > Provider reviewed results while patient in office.Maritza Benson 01/20/2024 10:25:17 AM > had colonoscopy with bridging with LOvenox Coding PT/INR (in house) 01/20/2024 00:00: 00:00:00P-Comprehensive Metabolic Panel (CMP)eGFR by Nqfrfcagcq7550-36-86Z37:00:0057mL/min/1.73m2>59 - mL/min/1.55e0IUedayiapLauryn Brown 02/10/2024 12:57:02 PM > see TE Coding P-Comprehensive Metabolic Pa tanesha (CMP) 02/03/2024 00:00: 00:00:00P-Comprehensive Metabolic Panel (CMP) Ixesuge4509-40-26V53:00:007.1g/dL6.0-8.3 - g/dLRevieweLauryn Marquis 02/10/2024 12:57:02 PM > see TE Coding P-Comprehensive Metabolic Pa tanesha (CMP) 02/03/2024 00:00: 00:00:00P-Comprehensive Metabolic Panel (CMP) Bpnold2362-26-97L35:00:29624cvzi/R564-248 - mmol/LRevCristoLauryn S 02/10/2024 12:57:02 PM > see TE Coding P-Comprehensive Metabolic Pa tanesha (CMP) 02/03/2024 00:00: 00:00:00P-Comprehensive Metabolic Panel (CMP) Tryfmnrgv2389-44-39D67:00:004.0mmol/L3.5-5.3 - mmol/LREbenezerGabea S 02/10/2024 12:57:02 PM > see TE Coding P-Comprehensive Metabolic Pa tanesha (CMP) 02/03/2024 00:00: 00:00:00P-Comprehensive Metabolic Panel (CMP) Keewcfp7814-97-05X94:00:32573rr/dL65-99 - mg/dLKadyLauryn S 02/10/2024 12:57:02 PM > see TE Coding P-Comprehensive Metabolic Pa tanesha (CMP) 02/03/2024 00:00: 00:00:00P-Comprehensive Metabolic Panel (CMP) Qweqtcatrn1005-69-44C43:00:001.40mg/dL0.70-1.30 - mg/dLKadyLauryn S 02/10/2024 12:57:02 PM > see TE Coding P-Comprehensive Metabolic Pa tanesha (CMP) 02/03/2024 00:00: 00:00:00P-Comprehensive Metabolic Panel (CMP)CO2 7147-04-86Z64:00:0022mmol/L22-32 - mmol/LREbenezerLauryn S 02/10/2024 12:57:02 PM > see TE Coding P-Comprehensive Metabolic Pa tanesha (CMP) 02/03/2024 00:00: 00:00:00P-Comprehensive Metabolic Panel (CMP) Xonkomer0130-55-57Q01:00:83893vlym/L97-108 - mmol/Lauryn Flores 02/10/2024 12:57:02 PM > see TE Coding P-Comprehensive Metabolic Pa tanesha (CMP) 02/03/2024 00:00: 00:00:00P-Comprehensive Metabolic Panel (CMP) Fhcqeii9114-18-45Z38:00:009.7mg/dL8.6-10.4 - mg/dLReLauryn Huggins 02/10/2024 12:57:02 PM > see TE Coding P-Comprehensive Metabolic Pa tanesha (CMP) 02/03/2024 00:00: 00:00:00P-Comprehensive Metabolic Panel (CMP)BUN 8452-88-06M08:00:0023mg/dL8-23 - mg/dLLauryn Avalos 02/10/2024 12:57:02 PM > see TE Coding P-Comprehensive Metabolic Pa tanesha (CMP) 02/03/2024 00:00: 00:00:00P-Comprehensive Metabolic Panel (CMP) Bilirubin, Zpfvg6120-95-42W18:00:00<0.2mg/dL<0.2-1.2 - mg/dLReLauryn Wilson 02/10/2024 12:57:02 PM > see TE Coding P-Comprehensive Metabolic Pa tanesha (CMP) 02/03/2024 00:00: 00:00:00P-Comprehensive Metabolic Panel (CMP)AST (SGOT)7638-46-72Q24:00:0019IU/L<5-46 - IU/Lauryn Flores 02/10/2024 12:57:02 PM > see TE Coding P-Comprehensive Metabolic Pa tanesha (CMP) 02/03/2024 00:00: 00:00:00P-Comprehensive Metabolic Panel (CMP)ALT (SGPT)7931-96-71E42:00:0022IU/L<5-55 - IU/MarkLauryn Perez 02/10/2024 12:57:02 PM > see TE Coding P-Comprehensive Metabolic Pa tanesha (CMP) 02/03/2024 00:00: 00:00:00P-Comprehensive Metabolic Panel (CMP) Alkaline Kjrxcymekjq1780-23-70A19:00:0082IU/L40-129 - IU/Lauryn Flores 02/10/2024 12:57:02 PM > see TE Coding P-Comprehensive Metabolic Pa tanesha (CMP) 02/03/2024 00:00: 00:00:00P-Comprehensive Metabolic Panel (CMP) Zbjzkwa2008-84-29X34:00:004.3g/dL3.5-5.3 - g/dLRevieweLauryn Marquis 02/10/2024 12:57:02 PM > see TE Coding P-Comprehensive Metabolic Pa tanesha (CMP) 02/03/2024 00:00: 00:00:00P-Comprehensive Metabolic Panel (CMP)A/G Qudwi0521-80-47I17:00:001.51.1-2.5 -ReviewedCrLauryn yin 02/10/2024 12:57:02 PM > see TE Coding P-Comprehensive Metabolic Pa tanesha (CMP) 02/03/2024 00:00: 00:00:00Glycohemoglobin A1c (in house) exdklkitzrxwylj0800-14-34Q89:00:006.4%%5 - 6.5 %Rosalinda Singh 02/03/2024 2:15:47 PM > Lauryn Faulkner 02/10/2024 12:57:02 PM > see TE Coding Glycohemoglobin A1c (in hous e) 02/03/2024 00:00: 00:00:00PT/INR (in house)ideal INR 8417-34-49J51:00:002.5-3.5Rosalinda Singh 02/03/2024 1:31:50 PM > , Provider reviewed results while patient in office.Lauryn Faulkner 02/03/2024 1:44:14 PM > Coding PT/INR (in house) 02/03/2024 00:00: 00:00:00PT/INR (in house)Warfarin indication 0552-78-93L07:00:00AVRRJeramie,Rosalinda 02/03/2024 1:31:50 PM > , Provider reviewed results while patient in office.Lauryn Faulkner 02/03/2024 1:44:14 PM > Coding PT/INR (in house) 02/03/2024 00:00: 00:00:00PT/INR (in house)next check 6597-21-27T05:00:004 weeksRevieweLuis,Rosalinda 02/03/2024 1:31:50 PM > , Provider reviewed results while patient in office.Lauryn Faulkner 02/03/2024 1:44:14 PM > Coding PT/INR (in house) 02/03/2024 00:00: 00:00:00PT/INR (in house)new dose 8245-25-27L14:00:00sameRRosalinda Bobo 02/03/2024 1:31:50 PM > , Provider reviewed results while patient in office.Lauryn Faulkner 02/03/2024 1:44:14 PM > Coding PT/INR (in house) 02/03/2024 00:00: 00:00:00PT/INR (in house)current dose 5817-63-50F09:00:007.5mg MF, 10mg AODRJeramie,Rosalinda 02/03/2024 1:31:50 PM > , Provider reviewed results while patient in office.Lauryn Faulkner 02/03/2024 1:44:14 PM > Coding PT/INR (in house) 02/03/2024 00:00:00002/03/2024 00:00:00PT/INR (in house)MTH6562-93-82G22:00:002.8 ReviewedRosalinda Contreras 02/03/2024 1:31:50 PM > , Provider reviewed results while patient in office.Lauryn Faulkner 02/03/2024 1:44:14 PM > Coding PT/INR (in house) 02/03/2024 00:00:00002/03/2024 00:00:00PT/INR (in house)YB8469-04-38J12:00:0033.3 Rosalinda Singh 02/03/2024 1:31:50 PM > , Provider reviewed results while patient in office.Lauryn Faulkner 02/03/2024 1:44:14 PM > Coding PT/INR (in house) 02/03/2024 00:00:00003/02/2024 00:00:00PT/INR (in house)ideal INR 4929-77-23O95:00:002.5-3.5ReRosalinda Barron 03/02/2024 1:42:09 PM > Lauryn Faulkner 03/02/2024 11:36:10 PM > Coding PT/INR (in house) 03/02/2024 00:00:00003/02/2024 00:00:00PT/INR (in house)Warfarin indication 4610-92-22H11:00:00AVRosalinda Luis 03/02/2024 1:42:09 PM > Lauryn Faulkner 03/02/2024 11:36:10 PM > Coding PT/INR (in house) 03/02/2024 00:00: 00:00:00PT/INR (in house)next check 7059-66-95S25:00:001 weekRosalinda Singh 03/02/2024 1:42:09 PM > Lauryn Faulkner 03/02/2024 11:36:10 PM > Coding PT/INR (in house) 03/02/2024 00:00:00003/02/2024 00:00:00PT/INR (in house)new dose 8064-72-06R91:00:007.5mg M and 10mg Rosalinda Parra 03/02/2024 1:42:09 PM > Lauryn Faulkner 03/02/2024 11:36:10 PM > Coding PT/INR (in house) 03/02/2024 00:00:00003/02/2024 00:00:00PT/INR (in house)current dose 5076-15-27H07:00:007.5mg MF and 10mg AODReviewedKing,Rosalinda 03/02/2024 1:42:09 PM > Lauryn Faulkner 03/02/2024 11:36:10 PM > Coding PT/INR (in house) 03/02/2024 00:00:00003/02/2024 00:00:00PT/INR (in house)UYO2083-83-64D02:00:001.5 ReviewedKing,Rosalinda 03/02/2024 1:42:09 PM > Lauryn Faulkner 03/02/2024 11:36:10 PM > Coding PT/INR (in house) 03/02/2024 00:00:00003/09/2024 00:00:00PT/INR (in house)ideal INR 5028-29-28T50:00:002.5-3.5ReKristie Garrett 03/09/2024 1:22:00 PM > , Provider reviewed results while patient in office.Lauryn Faulkner 03/09/2024 2:00:49 PM > Coding PT/INR (in house) 03/09/2024 00:00: 00:00:00PT/INR (in house)Warfarin indication 6165-87-58B68:00:00Kristie Alonso 03/09/2024 1:22:00 PM > , Provider reviewed results while patient in office.Lauryn Faulkner 03/09/2024 2:00:49 PM > Coding PT/INR (in house) 03/09/2024 00:00:00003/09/2024 00:00:00PT/INR (in house)next check 5512-89-02D88:00:002 Kristie Posey 03/09/2024 1:22:00 PM > , Provider reviewed results while patient in office.Lauryn Faulkner 03/09/2024 2:00:49 PM > Coding PT/INR (in house) 03/09/2024 00:00:00003/09/2024 00:00:00PT/INR (in house)new dose 2180-15-98D14:00:00sameRKristie Camarena 03/09/2024 1:22:00 PM > , Provider reviewed results while patient in office.Lauryn Faulkner 03/09/2024 2:00:49 PM > Coding PT/INR (in house) 03/09/2024 00:00:00003/09/2024 00:00:00PT/INR (in house)current dose 5007-48-62U30:00:007.5mg M and 10mg AODRKristie Camarena 03/09/2024 1:22:00 PM > , Provider reviewed results while patient in office.Lauryn Faulkner 03/09/2024 2:00:49 PM > Coding PT/INR (in house) 03/09/2024 00:00:00003/09/2024 00:00:00PT/INR (in house)GIX5171-53-12Y52:00:002.6 ReviewedHougKristie 03/09/2024 1:22:00 PM > , Provider reviewed results while patient in office.Lauryn Faulkner 03/09/2024 2:00:49 PM > Coding PT/INR (in house) 03/09/2024 00:00:001 00:00:00PT/INR (in house)ideal INR 3760-49-76H61:00:002.5-3.5ReGuerda Alas 03/23/2024 1:49:05 PM > Coding PT/INR (in house) 03/23/2024 00:00:001 00:00:00PT/INR (in house)Warfarin indication 3713-46-29O67:00:00Guerda Cox 03/23/2024 1:49:05 PM > Coding PT/INR (in house) 03/23/2024 00:00:001 00:00:00PT/INR (in house)next check 5831-23-47J44:00:002 weeksReGuerda Alas 03/23/2024 1:49:05 PM > Coding PT/INR (in house) 03/23/2024 00:00:001 00:00:00PT/INR (in house)new dose 8356-05-37E75:00:0010 mg DailyGuerda Hung 03/23/2024 1:49:05 PM > Coding PT/INR (in house) 03/23/2024 00:00:001 00:00:00PT/INR (in house)current dose 1504-03-13I23:00:007.5 mg M & 10 mg AOGuerda Thomas 03/23/2024 1:49:05 PM > Coding PT/INR (in house) 03/23/2024 00:00:001 00:00:00PT/INR (in house)DXJ2655-19-39W45:00:002.0 Guerda Hung 03/23/2024 1:49:05 PM > Coding PT/INR (in house) 03/23/2024 00:00:001 00:00:00PT/INR (in house)LP2457-56-91D70:00:0023.5 Guerda Hung 03/23/2024 1:49:05 PM > Coding PT/INR (in house) 03/23/2024 00:00:001 00:00:00PT/INR (in house)ideal INR 2326-31-63F65:00:002.5-3.5Kristie Smith 04/06/2024 1:38:07 PM > Lauryn Faulkner 04/06/2024 1:44:55 PM > Coding PT/INR (in house) 04/06/2024 00:00:001 00:00:00PT/INR (in house)Warfarin indication 2431-74-58H68:00:00Kristie Alonso 04/06/2024 1:38:07 PM > Lauryn Faulkner 04/06/2024 1:44:55 PM > Coding PT/INR (in house) 04/06/2024 00:00:001 00:00:00PT/INR (in house)next check 6675-55-32N29:00:001 weekReKristie Garrett 04/06/2024 1:38:07 PM > Lauryn Faulkner 04/06/2024 1:44:55 PM > Coding PT/INR (in house) 04/06/2024 00:00:001 00:00:00PT/INR (in house)new dose 8070-07-60X71:00:00Hold today then 7.5mg MF and 10mg AODRevCamgKristie 04/06/2024 1:38:07 PM > Lauryn Faulkner 04/06/2024 1:44:55 PM > Coding PT/INR (in house) 04/06/2024 00:00:001 00:00:00PT/INR (in house)current dose 0339-78-71I13:00:007.5 mg Wednesday, 10 mg Kristie Hackett 04/06/2024 1:38:07 PM > Lauryn Faulkner 04/06/2024 1:44:55 PM > Coding PT/INR (in house) 04/06/2024 00:00:001 00:00:00PT/INR (in house)RRP3270-36-77L95:00:004.5 Kristie Smith 04/06/2024 1:38:07 PM > Lauryn Faulkner 04/06/2024 1:44:55 PM > Coding PT/INR (in house) 04/06/2024 00:00:001 00:00:00PT/INR (in house)IS8481-36-61P52:00:0054.4 Kristie Smith 04/06/2024 1:38:07 PM > Lauryn Faulkner 04/06/2024 1:44:55 PM > Coding PT/INR (in house) 04/06/2024 00:00:001 00:00:00PT/INR (in house)ideal INR 2945-00-01R59:00:002.5-3.5ReKristie Garrett 04/13/2024 12:01:53 PM > Provider reviewed results while patient in office.Lauryn Faulkner 04/13/2024 1:04:05 PM > Coding PT/INR (in house) 04/13/2024 00:00:001 00:00:00PT/INR (in house)Warfarin indication 4550-43-34N43:00:00AVRRKristie Camarena 04/13/2024 12:01:53 PM > Provider reviewed results while patient in office.Lauryn Faulkner 04/13/2024 1:04:05 PM > Coding PT/INR (in house) 04/13/2024 00:00:001 00:00:00PT/INR (in house)next check 3833-21-45D19:00:002 weeksKristie Smith 04/13/2024 12:01:53 PM > Provider reviewed results while patient in office.Lauryn Faulkner 04/13/2024 1:04:05 PM > Coding PT/INR (in house) 04/13/2024 00:00:001 00:00:00PT/INR (in house)new dose 3600-78-03Q36:00:00meRKristie Camarena 04/13/2024 12:01:53 PM > Provider reviewed results while patient in office.Lauryn Faulkner 04/13/2024 1:04:05 PM > Coding PT/INR (in house) 04/13/2024 00:00:001 00:00:00PT/INR (in house)current dose 5907-77-79Q87:00:007.5mg MF and 10mg AODRevKristie Mcleod 04/13/2024 12:01:53 PM > Provider reviewed results while patient in office.Lauryn Faulkner 04/13/2024 1:04:05 PM > Coding PT/INR (in house) 04/13/2024 00:00:001 00:00:00PT/INR (in house)GSF6781-67-03U97:00:002.6 Kristie Smith 04/13/2024 12:01:53 PM > Provider reviewed results while patient in office.Lauryn Faulkner 04/13/2024 1:04:05 PM > Coding PT/INR (in house) 04/13/2024 00:00:00106/27/2023 00:00:00PT/INR (in house)ideal INR 2208-81-44V55:00:002.5-3.5Kristie Smith 04/27/2024 11:51:12 AM > , Provider reviewed results while patient in office.Lauryn Faulkner 04/27/2024 1:04:42 PM > Coding PT/INR (in house) 04/27/2024 00:00:00106/27/2023 00:00:00PT/INR (in house)Warfarin indication 4261-52-27R06:00:00Kristie Alonso 04/27/2024 11:51:12 AM > , Provider reviewed results while patient in office.Lauryn Faulkner 04/27/2024 1:04:42 PM > Coding PT/INR (in house) 04/27/2024 00:00:00106/27/2023 00:00:00PT/INR (in house)next check 3112-79-57G49:00:001 weekKristie Smith 04/27/2024 11:51:12 AM > , Provider reviewed results while patient in office.Lauryn Faulkner 04/27/2024 1:04:42 PM > Coding PT/INR (in house) 04/27/2024 00:00:00106/27/2023 00:00:00PT/INR (in house)new dose 8272-81-33J42:00:00hold today and tomorrow then alternate 7.5 and 10mgReviewed Kristie Rizvi 04/27/2024 11:51:12 AM > , Provider reviewed results while patient in office.Lauryn Faulkner 04/27/2024 1:04:42 PM > Coding PT/INR (in house) 04/27/2024 00:00:00106/27/2023 00:00:00PT/INR (in house)current dose 3106-17-58R56:00:007.5mg MF and 10mg AODRevieKristie Villegas 04/27/2024 11:51:12 AM > , Provider reviewed results while patient in office.Lauryn Faulkner 04/27/2024 1:04:42 PM > Coding PT/INR (in house) 04/27/2024 00:00:00106/27/2023 00:00:00PT/INR (in house)RIF1752-91-51D29:00:005.2 Kristie Smith 04/27/2024 11:51:12 AM > , Provider reviewed results while patient in office.Lauryn Faulkner 04/27/2024 1:04:42 PM > Coding PT/INR (in house) 04/27/2024 00:00:00106/27/2023 00:00:00PT/INR (in house)GW4732-81-10J68:00:0062.[address] LouisjaidenKristie 04/27/2024 11:51:12 AM > , Provider reviewed results while patient in office.Lauryn Faulkner 04/27/2024 1:04:42 PM > Coding PT/INR (in house) 04/27/2024 00:00:00
--- OUTSIDE RECORDS SUMMARY | 2025-02-21 14:05 | XMS_ITS | Encounter Summary ---
Author Organization Healthcare Address [address] [place] [address] Care Team Providers Care Import And Export Clerk Name Role Phone Modesto Bynum MD Primary Care Provider +1- [phone] Encounter Details Date Type Department Care Team ([facility] st Contact Info) Description 07/13/2023 Orders Only External Location [address] [place] [address] Provider, External Social History Tobacco Use Types Packs/Day Years [...] Date/Time Associated Diagnosis Comments CT OUTSIDE IMAGES 07/13/2023 10:43 AM EST documented in this encounter Results * CT OUTSIDE IMAGES (07/13/2023 10:43 AM EST) Anatomical Region Laterality Modality Computed Tomogra phy 07/13/2023 10:4 3 AM EST us External Provider IMG CT PROCEDURES Final Result documented in this encounter Visit Diagnoses Not on filedocumented in this encounter Care Teams Import And Export Clerk Relationship Specialty Start Date End Date Modesto Bynum MD [address] [place] [id number] PCP - General 11/01/20 documented as of this encounter
--- OUTSIDE RECORDS SUMMARY | 2025-02-21 14:05 | XMS_ITS | Encounter Summary ---
Author Organization Healthcare Address [address] [place] [address] Care Team Providers Care Storage Battery Tester Name Role Phone Modesto Bynum MD Primary Care Provider +1- [phone] Encounter Details Date Type Department Care Team (Late st Contact Info) Description 09/28/2022 Orders Only External Location [address] [place] [address] Ambrose Boss MD [address] [facility] [address] [place] [address] Social History Tobacco Use Types Packs/Day Years [...] Date/Time Associated Diagnosis Comments CT OUTSIDE IMAGES 09/28/2022 7:23 PM EDT documented in this encounter Results * CT OUTSIDE IMAGES (09/28/2022 7:23 PM EDT) Anatomical Region Laterality Modality Computed Tomogra phy 09/28/2022 7:23 PM EDT Ambrose Boss MD IMG CT PROCEDURES Final Result documented in this encounter Visit Diagnoses Not on filedocumented in this encounter Care Teams Storage Battery Tester Relationship Specialty Start Date End Date Modesto Bynum MD [address] [place] [id number] PCP - General 5/14/21 documented as of this encounter
--- OUTSIDE RECORDS SUMMARY | 2025-02-21 14:05 | XMS_ITS | Clinical Summary ---
Author Organization [facility] Address [address] [place] [address] Care Team Providers Care Diesel Truck Crane Operator Name Role Phone Modesto Bynum MD Primary Care Provider +1- [phone] Allergies No known active allergies Medications simvastatin (Zocor) 20 MG tablet Take 1 tablet (20 mg) by mouth every night. 09/12/2023 Active warfarin (Coumadin) 5 MG tablet TAKE 1 TO 2 TABLETS BY MOUTH TWICE DAILY DIRECTED 10/08/2023 Active lisinopril 10 MG tablet Take 1 tablet (10 mg) by mouth. 09/16/2023 Active metFORMIN XR (Glucophage-XR) 500 MG 24 hr tablet Take 1 tablet (500 mg) by mouth 1 (one) time each day. 08/17/2023 Active hydroCHLOROthia zide (Microzide) 12.5 MG capsule Take 1 capsule (12.5 mg) by mouth 1 (one) time each day. 09/11/2023 Active DULoxetine (Cymbalta) [address] capsule Take 2 capsules (120 mg) by mouth 1 (one) time each day. 08/03/2023 Active amLODIPine (Norvasc) 2.5 MG tablet Take 1 tablet (2.5 mg) by mouth 1 (one) time each day. 09/12/2023 Active aspirin 81 MG EC tablet Take 1 tablet (81 mg) by mouth 1 (one) time each day. Active warfarin (Coumadin) 7.5 MG tablet TAKE 1 TO 2 TABLETS BY MOUTH TWICE DAILY DIRECTED 12/03/2023 Active methocarbamol (Robaxin) 500 MG tablet Take 1 tablet (500 mg) by mouth 3 (three) times a day if needed. 02/17/2024 Active gabapentin (Neurontin) 300 MG capsule Take 1 capsule (300 mg) by mouth 2 (two) times a day. Active Active Problems Problem Noted Date Diagnosed Date Class III obesity with body mass index (BMI) of 40.0 or higher 10/29/2023 Family History Medical History Relation Name Comments Cancer Father Diabetes Other Relation Name Status Comments Father Other Social History Tobacco Use Types Packs/Day Years Used Date Smoking Tobacco: Every Day Cigarettes 1 17.7 Started: 2007 Smokeless Tobacco: Current Chew Alcohol Use Standard Drinks/Week Comments Never 0 (1 standard drink = 0.6 oz pur e alcohol) Sex and Gender Information Value Date Recorded Sex Assigned at Not on file Legal Sex Male 7:53 PM EDT Gender Identity Not on file Sexual Orientation Not on file Last Filed Vital Signs Vital Sign Reading Time Taken Comments Blood Pressure 121/61 02/28/2024 1:27 PM EDT Pulse 60 02/28/2024 1:27 PM EDT Temperature 36.8 C (98.3 F) 02/28/2024 1:27 PM EDT Respiratory Rate - - Oxygen Saturation 96% 02/28/2024 1:27 PM EDT Inhaled Oxygen Concentration - - Weight 140 kg (308 lb 10.3 oz) 03/06/2024 9:21 A M EDT Height 175 cm (5' 8.9 ) 03/06/2024 9:21 AM EDT Body Mass Index 45.71 03/06/2024 9:21 AM EDT Plan of Treatment Health Maintenance Due Date Last Done Comments [facility]-Depression Screening 1965 [facility]-HIV Screening 1965 [facility]-Hepatitis C Screening 1965 [facility]-Medicare Annual Wellness (AWV) 1965 [facility]-Infant/Child/Adol SDOH Screenings 1965 [facility]- SDOH Screenings 11/11/1981 [facility]-Adult SDOH Screenings 11/11/1981 [facility]-Hepatitis A Vaccines (1 of 2 - Risk 2-dose series) 11/11/1982 [facility]-Pneumococcal Vaccine: 50 + Years (1 of 2 - PCV) 11/11/1982 CT Colonography 11/11/2008 Colonoscopy 11/11/2008 FIT-DNA 11/11/2008 FIT 11/11/2008 FOBT 11/11/2008 Sigmoidoscopy 11/11/2008 [facility]-Colorectal Cancer Screening 11/11/2008 [facility]-Zoster Vaccines (1 of 2) 11/11/2013 [facility]-RSV Vaccine: 60+ Years o r (1 - Risk 60-74 years 1-dose series) 2023 [id number] Vaccine (2 - season) 2024 09/21/2020 [facility]-Influenza Vaccine (#1) 2025 [facility]-DTaP,Tdap,and Td Vaccine s (3 - Td or Tdap) 01/16/2032 01/15/2022, 05/27/2018 [facility]-Obesity Intervention Completed 024, 10/28/2023 HPV Vaccines Aged Out No longer eligi ble based on patient's age to complete this topic [facility]-HIB Vaccines Aged Out No longer e ligible based on patient's age to complete this topic [facility]-IPV Vaccines Aged Out No longer e ligible based on patient's age to complete this topic [facility]-Rotavirus Vaccines Aged Out No lo nger eligible based on patient's age to complete this topic Insurance [employer] MEDICARE Care Teams [employer] Relationship Specialty Start Date End Date Modesto Bynum MD [address] [place] [id number] PCP - General 11/01/20
[2025-02-21 14:29] LABS: INR 1.90 (0.9-1.1); Prothrombin Time 20.1 seconds (10.1-12.5)
== END 2025-02-21 23:59 | disposition home or self-care (01) ==
LOC: LAB 13:59
PROVIDERS: PCP Family Medicine; Visit Provider Physician Assistant
DX: Z79.01 Long term (current) use of anticoagulants (principal)
CPT/HCPCS: 36415; 85610

== ENCOUNTER 2025-02-28 11:54 | Outpatient (CLI) | payer MEDICARE, SELFPAY ==
--- OUTSIDE RECORDS SUMMARY | 2024-11-03 10:30 | XMS_ITS ---
Author Organization [facility] Address [address] [facility] [address] [place] [id number] Care Team Providers Care Director Geothermal Operations Name Role Phone Geetha Bynum Primary Care Provider Maritza Benson Unavailable [phone] Lauryn Faulkner Unavailable [phone] Allergies No Known Allergies Results Component Value [...] W/U Status Risk Notes Problem Morbid obesity (504136685) Obesity, morbid, BMI 40.0-49.9 (E66.01) Active confirmed Vital Signs Blood pressure systolic 120 mm Hg 11/04/19 25 Blood pressure diastolic 76 mm Hg 025 Heart Rate 102 /min 11/03/2024 Height 69 in 11/03/2024 Weight 314 lbs 11/03/2024 BMI 46.36 kg/m2 11/03/2024 Encounters Encounter Location Date Provider Diagnosis [facility] [address] [id number] 11/03/2024 Lauryn Faulkner custodial current us e of anticoagulants with INR goal of 2.5-3.5 Z79.01 ; Mechanical heart valve present Z95.2 ; Type 2 diabetes mellitus without complication, without long-term current use of insulin E11.9 ; BMI 45.0-49.9, adult Z68.42 and Obesity, morbid, BMI 40.0-49.9 E66.01 Assessments Encounter Date Diagnosis (ICD Code) Assessment Notes Treatment Notes Treatment Clinical Notes Section Notes 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 [...] G 2211 Complex e/[place], [address] PROTHROMBIN TIME, Modifiers: QW , 68188 CAPILLARY BLOOD DRAW, G8752 MOST RECENT SYSTOLIC BP < 140MM HG, G8754 MOST RECENT DIASTOLIC BP < 90MM HG * Follow Up: 6 Weeks * Images: Billing Information: * Visit Code: 65038 Office Visit, Est Pt., Level 2. * Procedure Codes: G2211 Complex e/[place]. [address] PROTHROMBIN TIME. Modifiers: QW 78782 CAPILLARY BLOOD DRAW. G8752 MOST RECENT SYSTOLIC BP < 140MM HG. G8754 MOST RECENT DIASTOLIC BP < 90MM HG. * Electronic signature of SUSAN Allan on 02/28/2025 at 11:57 AM EDT Sign off status: Pending * Provider: SUSAN Arroyo Date: 11/03/2024 Generated for Printi ng/Faxing/eTransmitting on: 0 02/28/2025 11:57 AM EDT History and Physical Notes * HPI (History of Present Illness) Category Sub-Category Detail Notes Category Not es Hematology PT/INR due for PT/INR Examination Category Sub-Category Detail Notes Category Not es General Examination General Appearance: NAD, anoop ears healthy, Color good
--- OUTSIDE RECORDS SUMMARY | 2024-12-15 09:15 | XMS_ITS ---
Author Organization [facility] Address [address] [facility] 36 [facility] [address] [place] [phone] Care Team Providers Care Doughnut Maker Name Role Phone Geetha Bynum Primary Care Provider Maritza Benson Unavailable [phone] Lauryn Faulkner Unavailable [phone] Allergies No Known Allergies REASON FOR VISIT PT/INR Encounters Encounter Location Date Provider Diagnosis [place] [address] [facility] 36 [facility] [address] [place] [id number] 12/15/2024 Lauryn Faulkner Plan Of Treatment Next Appt Details Provider Name:Lauryn Chu y, 02/28/2025 01:30:00 PM, [address] [facility] 36 [facility], [address], [place], [phone], Progress Notes * TIFFANI NUNNADOB:1965 (59 yo M)Acc No.[id number]:12/15/2024 Patient: Von SABINOTIFFANIA Provider: SUSAN Arroyo :1965 A ge:59 Y S ex:Male Date:12/15/2024 Address:[address] [id number] Pcp:Geetha Bynum Subjective: * Chief Complaints: * [...] signature of SUSAN Allan on 02/28/2025 at 11:56 AM EDT Sign off status: Pending * Provider: SUSAN Arroyo Date: 0 12/15/2024 Generated for Thao zambrano/Caryl/eThaseebsmitting on: 0 02/28/2025 11:56 AM EDT History and Physical Notes * HPI (History of Present Illness) Category Sub-Category Detail Notes Category Not es Hematology PT/INR due for PT/INR
--- OUTSIDE RECORDS SUMMARY | 2025-01-10 07:30 | XMS_ITS ---
Author [facility] Address [address] [place] [phone] Care Team Providers Care Sewing Machine Mechanic Name Role Phone Geetha Bynum Primary Care Provider Maritza Benson Unavailable [phone] Lauryn Faulkner Unavailable [phone] Allergies No Known Allergies Results Component Value [...] 01/10/2025 Encounters Encounter Location Date Provider Diagnosis [facility] [address] [facility] [address] [place] [phone] 01/10/2025 Lauryn Faulkner retirement current us e of anticoagulants with INR goal of 2.5-3.5 Z79.01 Assessments Encounter Date Diagnosis (ICD Code) Assessment Notes Treatment Notes Treatment Clinical Notes Section Notes 01/10/2025 retirement current use of anticoagulants with INR goal of 2.5-3.5 (ICD-10 - Z79.01) Plan Of Treatment Next Appt Details Follow Up: 6 Weeks, Reason: Provider Name:Lauryn Chu y, 02/28/2025 01:30:00 PM, [address], [address], [place], [place], [phone], Progress Notes * JOSE NUNNB:1965 (59 yo M)Acc No.[id number]:01/10/2025 Progress Notes Patient: BRIANNA RUST Provider: SUSAN Arroyo :1965 A ge:59 Y S ex:Male Date:01/10/2025 Address:[address] [place] [address] [place], [id number] Pcp:Geetha Bynum Subjective: * Chief Complaints: * [...] Diagno stic Procedure: H -Melena, Anemia 09/07/18, [facility] 01[place]18[place]2020, [facility] [place]. * Family [...] G 2211 Complex e/[place], [address] PROTHROMBIN TIME, Modifiers: QW , 00670 CAPILLARY BLOOD DRAW * Follow Up: 6 Weeks * Images: Billing Information: * Visit Code: 93746 Office Visit, Est Pt., Level 2. * Procedure Codes: G2211 Complex e/[place]. [address] PROTHROMBIN TIME. Modifiers: QW 61239 CAPILLARY BLOOD DRAW. * Electronic signature of SUSAN Allan on 02/28/2025 at 11:56 AM EDT Sign off status: Pending * Provider: SUSAN Arroyo Date: 0 01/10/2025 Generated for Thao ng/Faxing/eTransmitting on: 0 02/28/2025 11:56 AM EDT History and Physical Notes * HPI (History of Present Illness) Category Sub-Category Detail Notes Category Not es Hematology PT/INR due for PT/INR Examination Category Sub-Category Detail Notes Category Not es General Examination General Appearance: NAD, anoop ears healthy, Color good
--- OUTSIDE RECORDS SUMMARY | 2025-02-21 09:15 | XMS_ITS ---
[facility] Address [address] [facility] [address] [place] [id number] Care Team Providers Care Funeral Home Associate Name Role Phone Geetha Bynum Primary Care Provider [phone] Maritza Benson Unavailable [phone] Lauryn Faulkner Unavailable [phone] Allergies No Known Allergies REASON FOR VISIT [...] 02/21/2025 Encounters Encounter Location Date Provider Diagnosis [facility] [address] [facility] [address] [place], [place] [id number] 02/21/2025 Lauryn Faulkner [facility] current us e of anticoagulants with INR goal of 2.5-3.5 Z79.01 ; Type 2 diabetes mellitus without complication, without long-term current use of insulin E11.9 and Pain in right ankle and joints of right foot M25.571 Assessments Encounter Date Diagnosis (ICD Code) Assessment Notes Treatment Notes Treatment Clinical Notes Section Notes 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 Patient will call about appt. * Follow Up: v ia phone to report test results * Images: Billing Information: * Visit Code: 20157 Office Visit, Est Pt., Level 4. * Procedure Codes: * Electronic signature of SUSAN Allan on 02/28/2025 at 11:57 AM EDT Sign off status: Pending * Provider: SUSAN Arroyo Date: 0 02/21/2025 Generated for Thao ng/Fayuriyg/eTransmitting on: 0 02/28/2025 11:57 AM EDT History [...]
--- OUTSIDE RECORDS SUMMARY | 2025-02-28 11:56 | XMS_ITS | Encounter Summary ---
Author Organization Healthcare Address [address] [place] [address] Care Team Providers Care Cutter Operator Brick Name Role Phone Modesto Bynum MD Primary Care Provider +1- [phone] Encounter Details Date Type Department Care Team ([facility] st Contact Info) Description 08/13/2023 Orders Only External Location [address] [place] [address] Julisa Gutiérrez MD [address] [place] [address] Social History Tobacco Use Types [...] on filedocumented in this encounter Care Teams Cutter Operator Brick Relationship Specialty Start Date End Date Modesto Bynum MD [address] [place] [id number] PCP - General 11/01/20 documented as of this encounter
--- OUTSIDE RECORDS SUMMARY | 2025-02-28 11:57 | XMS_ITS | Encounter Summary ---
Author Organization Healthcare Address [address] [place] [address] Care Team Providers Care Bus Driver/Monitor Name Role Phone Modesto Bynum MD Primary Care Provider +1- [phone] Encounter Details Date Type Department Care Team (Late st Contact Info) Description 09/28/2022 Orders Only External Location [address] [place] [address] Ambrose Boss MD [address] [facility] [address] [place] [address] Social History Tobacco Use Types [...] on filedocumented in this encounter Care Teams Bus Driver/Monitor Relationship Specialty Start Date End Date Modesto Bynum MD [address] [place] [address] PCP - General 5/14/21 documented as of this encounter
--- OUTSIDE RECORDS SUMMARY | 2025-02-28 11:57 | XMS_ITS | Clinical Summary ---
Author Organization [facility] Address [address] [place] [address] Care Team Providers Care Brand Planner Name Role Phone Modesto Bynum MD Primary Care Provider +1- [phone] Allergies No known active allergies Medications simvastatin [...] Screening 1965 [facility]-Medic[facility] Annual Wellness (AWV) 1965 [facility]-/Child/Adol SDOH Screenings 1965 [facility]- SDOH Screenings 11/11/1981 [...] - Risk 60-74 years 1-dose series) 2023 [id number] Vaccine (2 - season) 2025 09/21/2020 [facility]-Influenza Vaccine (#1) 2025 [facility]-DTaP,Tdap,and Td [...] this topic Insurance [employer] MEDICARE Care Teams Brand Planner Relationship Specialty Start Date End Date Modesto Bynum MD [address] [place] [id number] PCP - General 11/01/20
--- OUTSIDE RECORDS SUMMARY | 2025-02-28 11:57 | XMS_ITS | Patient Health Record ---
Author Organization [facility] Address [address] [facility] [address] [place] [id number] Care Team Providers Care Pan Dumper Name Role Phone Geetha Bynum Primary Care Provider Maritza Benson Unavailable [phone] DarwinLauryn oneill Unavailable [phone] Allergies No Known Allergies Results Component Value Reference Range Notes PT/INR (in house) Reviewed date:01/10/2025 04:29:29 PM Interpretation: Performing Lab: Notes/Report: PT 41.8 INR 3.5 current dose 7.5 T,TH and 10mg all other days new dose same next check [address] Scan : Chest, low dose Reviewed date:07/26/2024 02:58:57 PM Interpretation: Performing Lab: Notes/Report: P-Microalbumin/Creatinine, R andom Urine Sample Reviewed date:07/07/2024 01:04:28 PM Interpretation:alb/creat 46 Performing Lab: Notes/Report: Test performed by [facility] [address] [place] [address] , [address], [place] [address] Renny Phillips MD, Multiple Knife Edge Trimmer Operator CLIA: [id number] Albumin/Creatinine Ratio, Urine 46 0-30 ug/mg Microalbumin, Urine, Random 7.1 Creatinine, Urine 153.0 P-PSA Reviewed date:07/07/2024 01:04:28 PM Interpretation:Normal Performing Lab: Notes/Report: Test performed by [facility] [address] [place] [address] , [address], [place] [address] Renny Phillips MD, Multiple Knife Edge Trimmer Operator CLIA: [id number] PSA 1.96 <4.00 ng/mL Please note this is an ultrasensitive PSA assay with a lower limit of detection of 0.014 ng/mL. This test is performed by the Sam ECLIA methodology. Values obtained with different assay methods or kits cannot be directly compared. P-Lipid Panel Reviewed date:07/07/2024 01:04:28 PM Interpretation:trig 331, non-hdl 145 Performing Lab: Notes/Report: Test performed by [facility], [address] , [place] [address] Renny Phillips MD, Multiple Knife Edge Trimmer Operator CLIA: [id number] Cholesterol 186 <200 mg/dL Triglycerides 331 <150 mg/dL HDL Cholesterol 41 >39 mg/dL Cholesterol / HDL Ratio 4.54 0.00-4.99 Ratio Non-HDL Cholesterol 145 <130 mg/dL LDL Cholesterol (Calculation) 79 <130 mg/dL LDL Cholesterol Levels* Less than 100 mg/dL Optimal 100 to 129 mg/dL Near Optimal/ Above Optimal 130 to 159 mg/dL Borderline High 160 to 189 mg/dL High 190 mg/dL and above Very High * Categories as recommended by the 2004 ATPIII guidelines LDL/HDL Ratio 1.9 <3.3 Ratio ____ LDL Cholesterol Patient History ____ Test Date: 10/02/2021 LDL Results: 124 Units: mg/dL % Change: - ---- Test Date: 07/06/2024 LDL Results: 79 Units: mg/dL % Change: -36% ____ P-Comprehensive Metabolic Pa tanesha (CMP) Reviewed date:07/07/2024 01:04:28 PM Interpretation:gluc 177 Performing Lab: Notes/Report: Test performed by [facility], [address] , [address], [place] [address] Renny Phillips MD, Multiple Knife Edge Trimmer Operator CLIA: [id number] Sodium 142 135-145 mmol/L Potassium 4.6 3.5-5.3 mmol/L Chloride 106 97-108 mmol/L CO2 28 22-32 mmol/L Glucose 177 65-99 mg/dL BUN 18 8-23 mg/dL Creatinine 1.17 0.70-1.30 mg/dL Calcium 9.9 8.6-10.4 mg/dL eGFR by Creatinine 71 >59 mL/min/1.73m2 Protein 6.9 6.0-8.3 g/dL Albumin 4.2 3.5-5.3 g/dL Alkaline Phosphatase 105 40-129 IU/L ALT (SGPT) 27 <5-55 IU/L AST (SGOT) 18 <5-46 IU/L Bilirubin, Total <0.2 <0.2-1.2 mg/dL A/G Ratio 1.6 1.1-2.5 Glycohemoglobin A1c (in hous e) Reviewed date:07/07/2024 01:04:28 PM Interpretation:6.9% Performing Lab: Notes/Report: 6.9% glycohemoglobin 6.9% 5 - 6.5 % CBC Venipuncture (in house) Reviewed date:07/07/2024 01:04:28 PM Interpretation: Performing Lab: Notes/Report: wbc 8.9 3.5 - 10 lymph 25.1 15 - 50 mid 6.9 2 - 15 gran 68.0 35 - 80 rbc 4.99 3.5 - 5.5 hgb 13.8 11.5 - 16.5 hct 41.3 35 - 55 mcv 82.9 75 - 100 mch 27.7 25 - 35 mchc 33.4 31 - 38 platlet 393 100 - 400 PT/INR (in house) Reviewed date:07/07/2024 10:55:15 AM Interpretation:3.5 Performing Lab: Notes/Report: 3.5 PT 42.3 INR 3.5 current dose 7.5 mg T,TH,Sat new dose same next check 2 weeks Warfarin indication AVR ideal INR 2.5-3.5 PT/INR (in house) Reviewed date:03/09/2024 02:00:57 PM Interpretation:2.6 Performing Lab: Notes/Report: 2.6 INR 2.6 current dose 7.5mg M and 10mg AOD new dose same next check 2 weeks Warfarin indication AVR ideal INR 2.5-3.5 PT/INR (in house) Reviewed date:05/04/2024 01:55:38 PM Interpretation:2.0 Performing Lab: Notes/Report: 2.0 PT 24.3 INR 2.0 current dose hold x 2 days then alternate 10 and 7.5mg new dose alt 10 and 7.5mg next check 1 week Warfarin indication AVR ideal INR 2.5-3.5 PT/INR (in house) Reviewed date:11/05/2024 11:08:09 PM Interpretation:3.0 Performing Lab: Notes/Report: 3.0 PT 35.4 INR 3.0 current dose 7.5mg T,TH and 5mg AOD new dose same next check 6 weeks Warfarin indication AVR ideal INR 2.5-3.5 PT/INR (in house) Reviewed date:03/02/2024 11:36:16 PM Interpretation:1.5 Performing Lab: Notes/Report: 1.5 INR 1.5 current dose 7.5mg MF and 10mg AOD new dose 7.5mg M and 10mg AOD next check 1 week Warfarin indication AVR ideal INR 2.5-3.5 PT/INR (in house) Reviewed date:03/23/2024 01:50:56 PM Interpretation: Performing Lab: Notes/Report: PT 23.5 INR 2.0 current dose 7.5 mg M & 10 mg AOD new dose 10 mg Daily next check 2 weeks Warfarin indication AVR ideal INR 2.5-3.5 PT/INR (in house) Reviewed date:04/07/2024 08:54:56 AM Interpretation:4.5 Performing Lab: Notes/Report: 4.5 PT 54.4 INR 4.5 current dose 7.5 mg Wednesday, 10 mg AOD new dose Hold today then 7.5mg MF and 10mg AOD next check 1 week Warfarin indication AVR ideal INR 2.5-3.5 MRI : Spine, Lumbosacral, wi thout contrast Reviewed date:04/24/2024 09:09:33 PM Interpretation:Abnormal Performing Lab: Notes/Report: Abnormal PT/INR (in house) Reviewed date:04/13/2024 01:04:08 PM Interpretation: Performing Lab: Notes/Report: INR 2.6 current dose 7.5mg MF and 10mg AOD new dose same next check 2 weeks Warfarin indication AVR ideal INR 2.5-3.5 PT/INR (in house) Reviewed date:04/27/2024 01:04:45 PM Interpretation:5.2 Performing Lab: Notes/Report: 5.2 PT 62.5 INR 5.2 current dose 7.5mg MF and 10mg AOD new dose hold today and tomorrow then alternate 7.5 and 10mg next check 1 week Warfarin indication AVR ideal INR 2.5-3.5 PT/INR (in house) Reviewed date:05/11/2024 03:01:05 PM Interpretation: Performing Lab: Notes/Report: PT 30.7 INR 2.6 current dose alt 7.5 and 10mg new dose same next check 2 weeks Warfarin indication AVR ideal INR 2.5-3.5 X ray : Ankle, right Reviewed date:06/28/2024 11:13:05 AM Interpretation:Negative Performing Lab: Notes/Report: Negative PT/INR (in house) Reviewed date:05/25/2024 01:38:13 PM Interpretation:2.6 Performing Lab: Notes/Report: 2.6 PT 31.5 INR 2.6 current dose alt 7.5 and 5mg new dose same next check 4 weeks Warfarin indication AVR ideal INR 2.5-3.5 PT/INR (in house) Reviewed date:06/22/2024 02:17:19 PM Interpretation:2.0 Performing Lab: Notes/Report: 2.0 PT 24.5 INR 2.0 current dose alt 7.5 and 10mg new dose 7.5mg T,TH, and Sat and 10mg AOD next check 2 weeks Warfarin indication AVR ideal INR 2.5-3.5 PT/INR (in house) Reviewed date:07/21/2024 10:03:05 AM Interpretation:2.2 Performing Lab: Notes/Report: 2.2 PT 26.5 INR 2.2 current dose 7.5mg T,TH, and Sat and 10mg AOD new dose 7.5mg T,TH and 10mg AOD next check 2 weeks Warfarin indication AVR ideal INR 2.5-3.5 PT/INR (in house) Reviewed date:08/16/2024 05:15:59 PM Interpretation:3.1 Performing Lab: Notes/Report: 3.1 PT 37.0 INR 3.1 current dose 7.5mg T,TH,10 mg aod new dose same next check 4 weeks Warfarin indication AVR ideal INR 2.5-3.5 PT/INR (in house) Reviewed date:09/13/2024 01:39:36 PM Interpretation:2.5 Performing Lab: Notes/Report: 2.5 PT 30.2 INR 2.5 current dose 7.5mgT,Th-10mg AOD new dose same next check 4 weeks Warfarin indication AVR ideal INR 2.5-3.5 H-PT/INR Reviewed date:02/22/2025 02:24:02 PM Interpretation:1.9 Performing Lab: Notes/Report: PT 20.1 10.1-12.5 seconds INR 1.90 0.9-1.1 INDICATION INR RANGE Therapy for DVT, PE, Atrial Fib, 2.0-3.0 Prophylaxis for VTE. Therapy for Mechanical Heart Valve, 2.5-3.5 Prevention of Sytemic Emolism secondary to AMI. Medications Medication SIG (Take, Route, Frequency, Duration) Notes Start Date End Date Status Flonase Allergy Relief 50 MCG/ACT 1 spray in each nostril Nasally once daily 05/04/2024 Active Warfarin Sodium 7.5 MG take 1 or 2 table t by mouth twice daily Orally as directed Active Sildenafil Citrate 20 MG 2-5 tabs orally 30 mins prior to intercourse; Duration: 30 days 05/28/2021 Active DULoxetine HCl 60 MG Take 2 capsules by mouth once daily; Duration: 90 Active EQ All Day Allergy Relief 10 MG Take 1 tablet by mouth once daily; Duration: 30 Active Mounjaro 2.5 MG/0.5ML 2.5 mg Subcutaneou s once a week 02/21/2025 Active Ozempic (0.25 or 0.5 MG/DOSE ) 2 MG/3ML 0.25 mg Subcutaneous once a week 09/18/2024 Active metFORMIN HCl ER 500 MG take 1 tablet Or ally Once a day; Duration: 90 days Active Warfarin Sodium 10 MG 1 tablet Orally On ce a day; Duration: 90 days 03/23/2024 Active hydroCHLOROthiazide 12.5 MG Take 1 capsu le by mouth once daily for 90 days; Duration: 90 Active Gabapentin 300 MG 1 capsule Orally Two times a day; Duration: 30 day(s) 02/03/2024 Active Rosuvastatin Calcium 10 MG 1 tablet Oral ly Once a day; Duration: 90 days Active Lovenox 150 MG/ML 150 mg Injection cornelia ry 12 hrs; Duration: 8 days 08/19/2023 Active amLODIPine Besylate 2.5 MG 1 tablet Oral ly Once a day; Duration: 90 days Active Pramipexole Dihydrochloride 0.125 MG 1 tab(s) orally 3 times a day; Duration: 30 day(s) Active Lisinopril 10 MG Take 1 tablet by jon th once daily for 90 days; Duration: 90 days Active Methocarbamol 500 MG 1 tab Orally three times a day as needed 02/03/2024 Active Immunizations Vaccine Route Administration Date Status Comme nts COVID 19 Janett Unknown 09/21/2020 Administered Tetanus Tdap-Adacel (over 7yrs) IM Intramuscular 05/27/2018 Administered Tetanus Tdap-Adacel (over 7yrs) Unknown 05/27/2018 Administered Tetanus Tdap-Adacel (over 7yrs) Unknown 01/15/2022 Administered xFlu shot-36 months and older IM Intramuscular 03/05/2009 Administered Problems Problem Type SNOMED Code ICD Code Onset Dates Problem Status W/U Status Risk Notes Problem Spinal stenosis of lumbar region (23220386) Spinal stenosis of lumbar region (724.02) Active confirmed Problem Heart valve replacement (06555601) HEART VALVE REPLAC NEC (V43.3) Active confirmed Problem Essential hypertension (54224409) Essential hypertension (I10) Active confirmed Problem Sciatic nerve lesion (292159335) Piriformis syndrome of right side (G57.01) Active confirmed Problem Mixed anxiety and depressive disorder (417968656) Depression with anxiety (F41.8) Active confirmed Problem Restless legs syndrome (07601681) Restless leg syndrome (G25.81) Active confirmed Problem Restless legs (94353824) Restless legs (G25.81) Active confirmed Problem Body mass index 40+ - severely obese (203532945) BMI 45.0-49.9, adult (Z68.42) Active confirmed Problem Impaired fasting glucose (373636292) Impaired fasting glucose (R73.01) Active confirmed Problem Sciatica (52555784) Lumbago with sciatica, right side (M54.41) Active confirmed Problem Headache disorder (906834140) Other headache syndrome (G44.89) Active confirmed Problem Chronic pain (75587816) Other chronic pain (G89.29) Active confirmed Problem Long-term current use of anticoagulant (188172633) skilled nursing (current) use of anticoagulants (Z79.01) Active confirmed Problem Long-term current use of anticoagulant (420014228) skilled nursing current use of anticoagulants with INR goal of 2.5-3.5 (Z79.01) Active confirmed Problem Depression (848878149) Depression (F32.9) Active confirmed Problem Iron deficiency anemia due to chronic blood loss (715905477) Iron deficiency anemia due to chronic blood loss (D50.0) Active confirmed Problem Anemia (252955454) Anemia, unspecified type (D64.9) Active confirmed Problem Kidney stone (62219015) Kidney stone on right side (N20.0) Active confirmed Problem Difficulty sleeping (919092477) Sleep difficulties (G47.9) Active confirmed Problem Sciatica (43320982) Right sided sciatica (M54.31) Active confirmed Problem Morbid obesity (288234411) Obesity, morbid, BMI 40.0-49.9 (E66.01) Active confirmed Problem Mechanical heart valve prosthesis (883577173) Mechanical heart valve present (Z95.2) Active confirmed Problem Dyslipidemia (254524398) Dyslipidemia (E78.5) Active confirmed Problem Type II diabetes mellitus without complication (778371806) Type 2 diabetes mellitus without complication, without long-term current use of insulin (E11.9) Active confirmed Problem Sciatic nerve lesion (061040896) Piriformis syndrome, right (G57.01) Active confirmed Problem Tobacco use (908460164) Tobacco use disorder (F17.200) Active confirmed Problem Sciatica (69550222) Right sciati c nerve pain (M54.31) Active confirmed Problem History of mechanical aortic valve replacement (515403424355808) History of mechanical aortic valve replacement (Z95.2) Active confirmed Problem Spinal stenosis of lumbar region (41600393) Spinal stenosis of lumbar region, unspecified whether neurogenic claudication present (M48.061) Active confirmed Problem Degenerative lumbar spinal stenosis (097054215) Degenerative lumbar spinal stenosis (M48.061) Active confirmed Problem Lumbar radiculopathy (171730478) Lumbar back pain with radiculopathy affecting right lower extremity (M54.16) Active confirmed Problem COVID-19 (676424930) COVID-19 (U07.1) Active co nfirmed Problem Acquired spondylolisthesis (450771196) Anterolisthesis of lumbar spine (M43.16) Active confirmed Vital Signs Heart Rate 82 /min 02/21/2025 Blood pressure diastolic 70 mm Hg 02/21/2025 Height 69 in 02/21/2025 Blood pressure systolic 122 mm Hg 02/21/2025 Weight 314.4 lbs 02/21/2025 BMI 46.42 kg/m2 02/21/2025 Encounters Encounter Location Date Provider Diagnosis [facility] [address] [place] [id number] 03/02/2024 Lauryn Faulkner skilled nursing current us e of anticoagulants with INR goal of 2.5-3.5 Z79.01 [facility] [address] [place], [place] [id number] 03/09/2024 Laurynstephen Faulkner skilled nursing current us e of anticoagulants with INR goal of 2.5-3.5 Z79.01 [facility] [address] [place] [id number] 03/23/2024 Lauryn Faulkner skilled nursing current us e of anticoagulants with INR goal of 2.5-3.5 Z79.01 [facility] [address] [place] [id number] 04/06/2024 Lauryn Crowmai remote computer terminal operator current us e of anticoagulants with INR goal of 2.5-3.5 Z79.01 ; Lumbar back pain with radiculopathy affecting right lower extremity M54.16 and Right leg weakness R29.898 [facility] [address] [place] [id number] 04/13/2024 Lauryn Crowmai skilled nursing current us e of anticoagulants with INR goal of 2.5-3.5 Z79.01 [facility] [address] [place] [id number] 04/27/2024 Lauryn Crowdy skilled nursing current us e of anticoagulants with INR goal of 2.5-3.5 Z79.01 ; Anterolisthesis of lumbar spine M43.16 ; Degeneration of intervertebral disc of lumbar region with discogenic back pain and lower extremity pain M51.362 and Spinal stenosis of lumbar region, unspecified whether neurogenic claudication present M48.061 [facility] [address] [place] [id number] 05/04/2024 Lauryn Lucie Non-recurrent acute serous otitis media of right ear H65.01 and skilled nursing current use of anticoagulants with INR goal of 2.5-3.5 Z79.01 [facility] [address] [place] [id number] 05/11/2024 Lauryn Crowmai remote computer terminal operator current us e of anticoagulants with INR goal of 2.5-3.5 Z79.01 ; Acute right ankle pain M25.571 and Tendinitis of right knee M76.891 [facility] [address] [place], [place] [id number] 05/25/2024 Lauryn Crowmai skilled nursing current us e of anticoagulants with INR goal of 2.5-3.5 Z79.01 [facility] [address] [place], [place] [id number] 06/22/2024 Lauryn Crowmai skilled nursing current us e of anticoagulants with INR goal of 2.5-3.5 Z79.01 [facility] [address] [place] [id number] 07/06/2024 Lauryn Faulkner Adult general medica l examination Z00.00 ; Acute right ankle pain M25.571 ; skilled nursing current use of anticoagulants with INR goal of 2.5-3.5 Z79.01 ; Essential hypertension I10 ; Type 2 diabetes mellitus without complication, without long-term current use of insulin E11.9 ; Mechanical heart valve present Z95.2 ; Anemia, unspecified type D64.9 ; Dyslipidemia E78.5 ; Right sided sciatica M54.31 ; Screening PSA (prostate specific antigen) Z12.5 ; Status post heart valve replacement with mechanical valve Z95.2 ; Tobacco use disorder F17.200 and BMI 45.0-49.9, adult Z68.42 [facility] [address] [place] [id number] 07/20/2024 Laurny Faulkner skilled nursing current us e of anticoagulants with INR goal of 2.5-3.5 Z79.01 [facility] [address] [place] [address] [place] [id number] 08/16/2024 Lauryn Faulkner skilled nursing current us e of anticoagulants with INR goal of 2.5-3.5 Z79.01 [facility] [address] [place] [address] [place] [id number] 09/13/2024 Lauryn Faulkner remote computer terminal operator current us e of anticoagulants with INR goal of 2.5-3.5 Z79.01 and Mechanical heart valve present Z95.2 [facility] [address] [place] [address] [place] [id number] 11/03/2024 Lauryn Faulkner remote computer terminal operator current us e of anticoagulants with INR goal of 2.5-3.5 Z79.01 ; Mechanical heart valve present Z95.2 ; Type 2 diabetes mellitus without complication, without long-term current use of insulin E11.9 ; BMI 45.0-49.9, adult Z68.42 and Obesity, morbid, BMI 40.0-49.9 E66.01 [facility] [address] [place] [address] [place], [place] [id number] 01/10/2025 Laurynstephen Faulkner remote computer terminal operator current us e of anticoagulants with INR goal of 2.5-3.5 Z79.01 [facility] [address] [place], [place] [id number] 02/21/2025 Lauryn Faulkner skilled nursing current us e of anticoagulants with INR goal of 2.5-3.5 Z79.01 ; Type 2 diabetes mellitus without complication, without long-term current use of insulin E11.9 and Pain in right ankle and joints of right foot M25.571 [facility] [address] [place], [place] [id number] 03/23/2024 R Nirmal Misa [facility] [address] [place], [place] [id number] 03/23/2024 R Nirmal Misa [facility] [address] [place] [id number] 04/24/2024 Lauryn Crowdy [facility] [address] [place] [id number] 06/28/2024 Lauryn Crowdy [facility] [address] [place], [place] [id number] 07/07/2024 Lauryn Crowdy [facility] [address] [place], [place] [id number] 07/11/2024 Lauryn Crowdy [facility] [address] [place] [id number] 08/14/2024 R Nirmal Misa [facility] [address] [place] [id number] 09/13/2024 Lauryn Crowdy [facility] [address] [place], [place] [id number] 01/12/2025 R Nirmal Bynum Assessments Encounter Date Diagnosis (ICD Code) Assessment Notes Treatment Notes Treatment Clinical Notes Section Notes 03/02/2024 remote computer terminal 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 of anticoagulants with INR goal of 2.5-3.5 (ICD-10 - Z79.01) 03/09/2024 skilled nursing current use of anticoagulants with INR goal of 2.5-3.5 (ICD-10 - Z79.01) 03/23/2024 skilled nursing current use of anticoagulants with INR goal of 2.5-3.5 (ICD-10 - Z79.01) 04/06/2024 remote computer terminal 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 of anticoagulants with INR goal of 2.5-3.5 (ICD-10 - Z79.01) 04/06/2024 Lumbar back pain with radiculopathy affecting right lower extremity (ICD-10 - M54.16) 04/13/2024 skilled nursing current use of anticoagulants with INR goal of 2.5-3.5 (ICD-10 - Z79.01) 04/27/2024 skilled nursing current use of anticoagulants with INR goal of 2.5-3.5 (ICD-10 - Z79.01) 04/27/2024 Anterolisthesis of lumbar spine (ICD-10 - M43.16) 05/04/2024 skilled nursing current use of anticoagulants with INR goal of 2.5-3.5 (ICD-10 - Z79.01) 05/04/2024 Non-recurrent acute serous otitis media of right ear (ICD-10 - H65.01) 05/11/2024 remote computer terminal 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 of anticoagulants with INR goal of 2.5-3.5 (ICD-10 - Z79.01) 05/11/2024 Acute right ankle pain (ICD-10 - M25.571) 05/25/2024 remote computer terminal 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 of anticoagulants with INR goal of 2.5-3.5 (ICD-10 - Z79.01) 06/22/2024 remote computer terminal 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 of anticoagulants with INR goal of 2.5-3.5 (ICD-10 - Z79.01) 07/06/2024 Acute right ankle pain (ICD-10 - M25.571) 07/06/2024 Adult general medical examination (ICD-10 - Z00.00) Patient instructed to return to office Annually for Annual Wellness Visits to include annual screenings of Pain assessment, Functional Ability assessment, Cognitive Ability assessment, Fall Risk assessment, Depression screening and Bladder control screening. 07/20/2024 skilled nursing current use of anticoagulants with INR goal of 2.5-3.5 (ICD-10 - Z79.01) 08/16/2024 remote computer terminal 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 of anticoagulants with INR goal of 2.5-3.5 (ICD-10 - Z79.01) 09/13/2024 remote computer terminal 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 of anticoagulants with INR goal of 2.5-3.5 (ICD-10 - Z79.01) 09/13/2024 Mechanical heart valve present (ICD-10 - Z95.2) 11/03/2024 remote computer terminal 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 of anticoagulants with INR goal of 2.5-3.5 (ICD-10 - Z79.01) 11/03/2024 Mechanical heart valve present (ICD-10 - Z95.2) 01/10/2025 skilled nursing current use of anticoagulants with INR goal of 2.5-3.5 (ICD-10 - Z79.01) 02/21/2025 skilled nursing current use of anticoagulants with INR goal of 2.5-3.5 (ICD-10 - Z79.01) 02/21/2025 Type 2 diabetes mellitus without complication, without long-term current use of insulin (ICD-10 - E11.9) 02/21/2025 Pain in right ankle and joints of right foot (ICD-10 - M25.571) A referral was made to podiatry from [facility]. Patient will call about appt. 11/03/2024 Type 2 diabetes mellitus without complication, without long-term current use of insulin (ICD-10 - E11.9) 07/06/2024 skilled nursing current use of anticoagulants with INR goal of 2.5-3.5 (ICD-10 - Z79.01) 05/11/2024 Tendinitis of right knee (ICD-10 - M76.891) 04/27/2024 Degeneration of intervertebral disc of lumbar region with discogenic back pain and lower extremity pain (ICD-10 - M51.362) 04/06/2024 Right leg weakness (ICD-10 - R29.898) 04/27/2024 Spinal stenosis of lumbar region, unspecified whether neurogenic claudication present (ICD-10 - M48.061) 11/03/2024 BMI 45.0-49.9, adult (ICD-10 - Z68.42) 07/06/2024 Essential hypertension (ICD-10 - I10) 07/06/2024 Type 2 diabetes mellitus without complication, without long-term current use of insulin (ICD-10 - E11.9) 11/03/2024 Obesity, morbid, BMI 40.0-49.9 (ICD-10 - E66.01) 07/06/2024 Mechanical heart valve present (ICD-10 - Z95.2) 07/06/2024 Anemia, unspecified type (ICD-10 - D64.9) 07/06/2024 Dyslipidemia (ICD-10 - E78.5) 07/06/2024 Right sided sciatica (ICD-10 - M54.31) 07/06/2024 Screening PSA (prostate specific antigen) (ICD-10 - Z12.5) 07/06/2024 Status post heart valve replacement with mechanical valve (ICD-10 - Z95.2) 07/06/2024 Tobacco use disorder (ICD-10 - F17.200) 07/06/2024 BMI 45.0-49.9, adult (ICD-10 - Z68.42) Plan Of Treatment Pending Test Test Name Order Date PT/INR 02/28/2025 H-INR 02/21/2025 Next Appt Details Provider Name:Lauryn salmeron, 02/28/2025 01:30:00 PM, [address] [facility], [address], [place], [place], [id number], Insurance Providers Payer Name Payer Address Payer Phone Subscriber Number Group Number Insured Name Patient Relationship to Insured Coverage Start Date Coverage End Date [employer] [address] [address] [place], [place] [id number] BRIANNA NUNN Self - patient is the insured Medications Administered Medication Instructions Date of Administration Dosage Notes Depo- Medrol 40 mg/ml 07/07/2011 Depo- Medrol 40 mg/ml 09/09/2011 Depo- Medrol 40 mg/ml 10/21/2011 Depo- Medrol 40 mg/ml 05/05/2016 2 mL Depo- Medrol 40 mg/ml 12/29/2019 1.5 mL Depo- Medrol 40 mg/ml 05/26/2023 1.5 mL Depo- Medrol 40 mg/ml 02/03/2024 1.5 mL Lovenox 04/16/2008 120 mg Lovenox 04/17/2008 120 mg Lovenox 04/17/2008 Lovenox 04/20/2008 120MG Lovenox 04/20/2008 60 mg Medical (General) History Medical History History ICD Code Aortic mechanical valve replacement Hypertension Spinal stenosis of lumbar spine Lumbar Disc Disease Hyperlipidemia positive covid 05/2020 GERD Restless leg syndrome Surgical History Surgery Date(Month/Year) left arm- carpel tunnel heart surgery - aortic valve replacement teeth extractions ( 3) 04/19/08 fissurectomy/lateral sphinterotomy - Dr. Begum 2007 C-scope/ normal/ Kel 06/2014 abdominal hernia repair/ Dr. Mckeon 07/2022 Hospitalization History Reason Date(Month/[place]) [facility] [place] 2020 [facility]Anemia 01/18/2020 [facility]-[place], Anemia 09/07/18
--- OUTSIDE RECORDS SUMMARY | 2025-02-28 11:58 | XMS_ITS | Encounter Summary ---
Author Organization Healthcare Address [address] [place] [address] Care Team Providers Care Test Grader Name Role Phone Modesto Bynum MD Primary Care Provider [phone] Encounter Details Date Type Department Care Team ([facility] st Contact Info) Description 07/13/2023 Orders Only External Location [address] [place] [address] Provider, External Social History Tobacco Use Types [...] on filedocumented in this encounter Care Teams Test Grader Relationship Specialty Start Date End Date Modesto Bynum MD [address] [place] [id number] PCP - General 11/01/20 documented as of this encounter
[2025-02-28 12:36] LABS: INR 1.87 (0.9-1.1); Prothrombin Time 19.8 seconds (10.1-12.5)
== END 2025-02-28 23:59 | disposition home or self-care (01) ==
LOC: LAB 11:54
PROVIDERS: PCP Family Medicine; Visit Provider Physician Assistant
DX: Z79.01 Long term (current) use of anticoagulants (principal)
CPT/HCPCS: 36415; 85610

== ENCOUNTER 2025-04-11 11:43 | Outpatient (CLI) | payer MEDICARE, SELFPAY ==
--- NOTE | 2025-04-11 11:48 | XR_ITS ---
FINAL REPORT CLINICAL HISTORY: Evaluation of Right Ankle Pain COMPARISON: None FINDINGS: RIGHT ANKLE 3 views of the right ankle were obtained. There is no acute fracture or dislocation. The mortise is intact. Moderate degenerative changes are present along with osteopenia. A small calcaneal spur is noted. Soft tissues are unremarkable. IMPRESSION: Moderate degenerative changes, with no acute bony abnormality. Reviewed, Interpreted and Dictated by Jeni Dial MD Transcribed by Samantha Collins Authenticated and . [facility]
== END 2025-04-11 23:59 | disposition home or self-care (01) ==
LOC: RAD 11:44
PROVIDERS: PCP Family Medicine; Visit Provider Podiatrist
DX: M19.071 Primary osteoarthritis, right ankle and foot (principal); M85.871 Other specified disorders of bone density and structure, right ankle and foot; M77.31 Calcaneal spur, right foot
CPT/HCPCS: 73610

== ENCOUNTER 2025-04-20 13:20 | Outpatient (CLI) | payer MEDICARE, SELFPAY ==
--- OUTSIDE RECORDS SUMMARY | 2024-09-13 09:15 | XMS_ITS ---
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 anticoagulants with INR goal of 2.5-3.5 Z79.01 and Mechanical heart valve present Z95.2 Assessments Encounter Date Diagnosis (ICD Code) Assessment Notes Treatment Notes Treatment Clinical Notes Section Notes 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 with INR goal of 2.5-3.5 (ICD-10 - Z79.01) 09/13/2024 Mechanical heart valve present (ICD-10 - Z95.2) Plan Of Treatment Next Appt Details Follow Up: 4 weeks, Reason: Provider Name:Lauryn salmeron, 07/18/2025 01:15:00 PM, [address] [facility], [address], [place], [id number], Progress Notes * RICKI NUNN:1965 (59 yo M)Acc No.[id number]:09/13/2024 Patient: BRIANNA RUST Provider: SUSAN Arroyo :1965 A ge:58 Y S ex:Male Date:09/13/2024 Address:[address] [place] [address] [address] [place], [id number] Pcp:Geetha Bynum Subjective: * Chief Complaints: * [...] G 2211 Complex e/[place], [address] PROTHROMBIN TIME, Modifiers: QW , 39588 CAPILLARY BLOOD DRAW, 3077F SYST BP = 140 MM HG6 IT, 3079F DIAST BP 80-89 MM HG * Follow Up: 4 weeks * Images: Billing Information: * Visit Code: 69731 Office Visit, Est Pt., Level 2. * Procedure Codes: G2211 Complex e/[place]. [address] PROTHROMBIN TIME. Modifiers: QW 91600 CAPILLARY BLOOD DRAW. 3077F SYST BP = 140 MM HG6 IT. 3079F DIAST BP 80-89 MM HG. * Electronic signature of SUSAN Allan on 04/20/2025 at 01:21 PM EDT Sign off status: Pending * Provider: SUSAN Arroyo Date: 0 09/13/2024 Generated for Thao zambrano/Caryl/eTransmitting on: 1 01:21 PM EDT History and Physical Notes * HPI (History [...]
--- OUTSIDE RECORDS SUMMARY | 2024-11-03 10:30 | XMS_ITS ---
Author Organization [facility] Address [address] [facility] [address] [place] [id number] Care Team Providers Care Take Up Operator Name Role Phone Geetha Bynum Primary Care Provider [phone] Maritza Benson Unavailable [phone] Lauryn Faulkner Unavailable [phone] Allergies No Known Allergies Results Component Value [...] W/U Status Risk Notes Problem Morbid obesity (350049647) Obesity, morbid, BMI 40.0-49.9 (E66.01) Active confirmed Vital Signs Blood pressure systolic 120 mm Hg 11/04/19 25 Blood pressure diastolic 76 mm Hg 025 Heart Rate 102 /min 11/03/2024 Height 69 in 11/03/2024 Weight 314 lbs 11/03/2024 BMI 46.36 kg/m2 11/03/2024 Encounters Encounter Location Date Provider [facility] [address] [id number] 11/03/2024 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 with INR goal of 2.5-3.5 Z79.01 ; Mechanical heart valve present Z95.2 ; Type 2 diabetes mellitus without complication, without long-term current use of insulin E11.9 ; BMI 45.0-49.9, adult Z68.42 and Obesity, morbid, BMI 40.0-49.9 E66.01 Assessments Encounter Date Diagnosis (ICD Code) Assessment Notes Treatment Notes Treatment Clinical Notes Section Notes 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 * [...] G 2211 Complex e/[place], [address] PROTHROMBIN TIME, Modifiers: QW , 82157 CAPILLARY BLOOD DRAW, G8752 MOST RECENT SYSTOLIC BP < 140MM HG, G8754 MOST RECENT DIASTOLIC BP < 90MM HG * Follow Up: 6 Weeks * Images: Billing Information: * Visit Code: 95833 Office Visit, Est Pt., Level 2. * Procedure Codes: G2211 Complex e/[place]. [address] PROTHROMBIN TIME. Modifiers: QW 22320 CAPILLARY BLOOD DRAW. G8752 MOST RECENT SYSTOLIC BP < 140MM HG. G8754 MOST RECENT DIASTOLIC BP < 90MM HG. * Electronic signature of SUSAN Allan on 04/20/2025 at 01:23 PM EDT Sign off status: Pending * Provider: SUSAN Arroyo Date: 0 11/03/2024 Generated for Printi ng/Faxing/eTransmitting on: 1 01:23 PM EDT History and Physical Notes * HPI (History of Present Illness) Category Sub-Category Detail Notes Category Not es Hematology PT/INR due for PT/INR Examination Category Sub-Category Detail Notes Category Not es General Examination General Appearance: NAD, anoop ears healthy, Color good
--- OUTSIDE RECORDS SUMMARY | 2024-12-15 09:15 | XMS_ITS ---
Author Organization [facility] Address [address] [facility] 36 [facility] [address] [place] [phone] Care Team Providers Care Superintendent Commissary Name Role Phone Geetha Bynum Primary Care Provider Maritza Benson Unavailable [phone] Lauryn Faulkner Unavailable [phone] Allergies No Known Allergies REASON FOR VISIT PT/INR Encounters Encounter Location Date Provider Diagnosis [place] [address] [facility] 36 [facility] [address] [place] [id number] 12/15/2024 Lauryn Faulkner Plan Of Treatment Next Appt Details Provider Name:Lauryn Chu y, 07/18/2025 01:15:00 PM, [address] [facility] 36 [facility], [address], [place], [phone], Progress Notes * TIFFANI NUNNADOB:1965 (59 yo M)Acc No.[id number]:12/15/2024 Patient: Von SABINOTIFFANIA Provider: SUSAN Arroyo :1965 A ge:59 Y S ex:Male Date:12/15/2024 Address:[address] [id number] Pcp:Geetha Bynum Subjective: * Chief Complaints: * [...] signature of SUSAN Allan on 04/20/2025 at 01:22 PM EDT Sign off status: Pending * Provider: SUSAN Arroyo Date: 0 12/15/2024 Generated for Thao zambrano/Caryl/Marvinitting on: 1 01:22 PM EDT History and Physical Notes * HPI (History of Present Illness) Category Sub-Category Detail Notes Category Not es Hematology PT/INR due for PT/INR
--- OUTSIDE RECORDS SUMMARY | 2025-01-10 07:30 | XMS_ITS ---
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 with INR goal of 2.5-3.5 Z79.01 Assessments Encounter Date Diagnosis (ICD Code) Assessment Notes Treatment Notes Treatment Clinical Notes Section Notes 01/10/2025 alf current use of anticoagulants with INR goal of 2.5-3.5 (ICD-10 - Z79.01) Plan Of Treatment Next Appt Details Follow Up: 6 Weeks, Reason: Provider Name:Lauryn Chu y, 07/18/2025 01:15:00 PM, [address], [address], [place], [place], [phone], Progress Notes * JOSE NUNNB:1965 (59 yo M)Acc No.[id number]:01/10/2025 Progress Notes Patient: BRIANNA RUST Provider: SUSAN Arroyo :1965 A ge:59 Y S ex:Male Date:01/10/2025 Address:[address] [place] [address] [place], [id number] Pcp:Geetha Bynum Subjective: * Chief Complaints: * [...] Diagno stic Procedure: H -Melena, Anemia 09/07/18, [facility]-Anemia 01/18/2020, [facility] - covid Early May 2020. * Family [...] G 2211 Complex e/[place], [address] PROTHROMBIN TIME, Modifiers: QW , 97163 CAPILLARY BLOOD DRAW * Follow Up: 6 Weeks * Images: Billing Information: * Visit Code: 19642 Office Visit, Est Pt., Level 2. * Procedure Codes: G2211 Complex e/[place]. [address] PROTHROMBIN TIME. Modifiers: QW 45758 CAPILLARY BLOOD DRAW. * Electronic signature of SUSAN Allan on 04/20/2025 at 01:21 PM EDT Sign off status: Pending * Provider: SUSAN Arroyo Date: 0 01/10/2025 Generated for Thao ng/Fayuriyg/eTransmitting on: 1 01:21 PM EDT History and Physical Notes * HPI (History of Present Illness) Category Sub-Category Detail Notes Category Not es Hematology PT/INR due for PT/INR Examination Category Sub-Category Detail Notes Category Not es General Examination General Appearance: NAD, anoop ears healthy, Color good
--- OUTSIDE RECORDS SUMMARY | 2025-02-21 09:15 | XMS_ITS ---
[facility] Address [address] [facility] [address] [place] [id number] Care Team Providers Care Seam Checker Name Role Phone Geetha Bynum Primary Care Provider [phone] Maritza Benson Unavailable [phone] Lauryn Faulkner Unavailable [phone] Allergies No Known Allergies REASON FOR VISIT [...] day; Duration: 30 day(s) Active Vital Signs Blood pressure systolic 122 mm Hg 02/22/20 25 Blood pressure diastolic 70 mm Hg 025 Heart Rate 82 /min 02/21/2025 Height 69 in 02/21/2025 Weight 314.4 lbs 02/21/2025 BMI 46.42 kg/m2 02/21/2025 Encounters Encounter Location Date Provider Diagnosis [facility] [address] [facility] [address] [place], [place] [id number] 02/21/2025 Lauryn Faulkner director long term care current us e of anticoagulants with INR goal of 2.5-3.5 Z79.01 ; Type 2 diabetes mellitus without complication, without long-term current use of insulin E11.9 and Pain in right ankle and joints of right foot M25.571 Assessments Encounter Date Diagnosis (ICD Code) Assessment Notes Treatment Notes Treatment Clinical Notes Section Notes 02/21/2025 intermediate current use of anticoagulants with INR goal [address], [place], [id number], Progress Notes * RUSS JOSEB:1965 (59 yo M)Acc No.[id number]:02/21/2025 Patient: BRIANNA RUST Provider: SUSAN Arroyo :1965 A ge:59 Y S ex:Male Date:02/21/2025 Address:[address] [place] [address] [address]REMA[address]NE [address], [id number] Pcp:Geetha Bynum Subjective: * Chief Complaints: * [...] * Images: Billing Information: * Visit Code: 42385 Office Visit, Est Pt., Level 4. * Procedure Codes: G2211 Complex e/m visit add on. * Electronic signature of SUSAN Allan on 04/20/2025 at 01:23 PM EDT Sign off status: Pending * Provider: SUSAN Arroyo Date: 0 02/21/2025 Generated for Thao zambrano/Caryl/Marvinitting on: 01:23 PM EDT History and Physical Notes [...]
--- OUTSIDE RECORDS SUMMARY | 2025-02-28 09:30 | XMS_ITS ---
Author Organization [facility] Address [address] [facility] [address] [facility] [address] [place] [id number] Care Team Providers Care Advertiser Name Role Phone Geetha Bynum Primary Care Provider [phone] Maritza Benson Unavailable [phone] Lauryn Faulkner Unavailable [phone] Allergies No Known Allergies REASON FOR VISIT PT/INR Vital Signs Height 69 in 02/28/2025 Encounters Encounter Location Date Provider Diagnosis Bridget [address] [facility] [address] [facility] [address] [place] [id number] 02/28/2025 Lauryn Faulkner Plan Of Treatment Next Appt Details Provider Name:Lauryn Chu y, 07/18/2025 01:15:00 PM, [address] [facility], [address], [place], [id number], Progress Notes * TIFFANI NUNNADOB:1965 (59 yo M)Acc No.[id number]:02/28/2025 Patient: Von SABINOBRIANNA Provider: SUSAN Arroyo :1965 A ge:59 Y S ex:Male Date:02/28/2025 Address:[address] [id number] Pcp:Geetha Bynum Subjective: * Chief Complaints: * [...] 02/28/2025 Generated for Thao zambrano/Caryl/eThaseebsmitting on: 1 01:22 PM EDT
--- OUTSIDE RECORDS SUMMARY | 2025-03-08 09:15 | XMS_ITS ---
Author Organization [facility] Address [address] [place] [id number] Care Team Providers Care Photographer'S Assistant Name Role Phone Geetha Bynum Primary Care Provider Maritza Benson Unavailable [phone] Lauryn Faulkner Unavailable [phone] Allergies No Known Allergies Results Component Value [...] day(s) Active Vital Signs Blood pressure systolic 132 mm Hg 03/08/20 25 Blood pressure diastolic 76 mm Hg 025 Heart Rate 89 /min 03/08/2025 Height 69 in 03/08/2025 Weight 312 lbs 03/08/2025 BMI 46.07 kg/m2 03/08/2025 Encounters Encounter Location Date Provider Diagnosis [facility] [address] [facility] [address] [facility] [address] [place] [id number] 03/08/2025 Lauryn Faulkner 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 of anticoagulants with INR goal of 2.5-3.5 Z79.01 Assessments Encounter Date Diagnosis (ICD Code) Assessment Notes Treatment Notes Treatment Clinical Notes Section Notes 03/08/2025 shelter current use of anticoagulants with INR goal of 2.5-3.5 (ICD-10 - Z79.01) Plan Of Treatment Next Appt Details Follow Up: 2 Weeks, Reason: Provider Name:Lauryn salmeron, 07/18/2025 01:15:00 PM, [address], [address], [place], [id number], Progress Notes * JOSE NUNNB:1965 (59 yo M)Acc No.[id number]:03/08/2025 Patient: BRIANNA RUST Provider: SUSAN Arroyo :1965 A ge:59 Y S ex:Male Date:03/08/2025 Address:[address] [place] [address] [place], [id number] Pcp:Geetha Bynum Subjective: * Chief Complaints: * [...] Color good. Assessment: * Assessment: 1. L rkistian term current use of anticoagulants with INR [...] G 2211 Complex e/[place], [address] PROTHROMBIN TIME, Modifiers: QW , 56774 CAPILLARY BLOOD DRAW, 3075F SYST BP GE 130 - 139MM HG, 3078F DIAST BP < 80 MM HG * Follow Up: 2 Weeks * Images: Billing Information: * Visit Code: 00652 Office Visit, Est Pt., Level 2. * Procedure Codes: G2211 Complex e/[place]. [address] PROTHROMBIN TIME. Modifiers: QW 14677 CAPILLARY BLOOD DRAW. 3075F SYST BP GE 130 - 139MM HG. 3078F DIAST BP < 80 MM HG. * Electronic signature of SUSAN Allan on 04/20/2025 at 01:23 PM EDT Sign off status: Pending * Provider: SUSAN Arroyo Date: 0 03/08/2025 Generated for Printi ng/Fayuriyg/eTransmitting on: 1 01:23 PM EDT History and Physical Notes * HPI (History of Present Illness) Category Sub-Category Detail Notes Category Not es Hematology PT/INR Examination Category Sub-Category Detail Notes Category Not es General Examination General Appearance: NAD, anoop ears healthy, Color good
--- OUTSIDE RECORDS SUMMARY | 2025-03-22 09:15 | XMS_ITS ---
Author Organization [facility] Address [address] [facility] [address] [facility] [address] [place] [phone] Care Team Providers Care Box Coverer Hand Name Role Phone Geetha Bynum Primary Care Provider [phone] Maritza Benson Unavailable [phone] Lauryn Faulkner Unavailable [phone] Allergies No Known Allergies REASON FOR VISIT 2 week PT/INR, Due for Diabetic Eye Exam Vital Signs Height 69 in 03/22/2025 Encounters Encounter Location Date Provider Diagnosis [facility] [address] [place] [phone] 03/22/2025 Lauryn Faulkner Plan Of Treatment Next Appt Details Provider Name:Lauryn Chu y, 07/18/2025 01:15:00 PM, [address], [address], [place], [phone], Progress Notes * JOSE NUNNB:1965 (59 yo M)Acc No.[id number]:03/22/2025 Patient: [place] Provider: SUSAN Arroyo :1965 A ge:59 Y S ex:Male Date:03/22/2025 Address:[address] [id number] Pcp:Geetha Bynum Subjective: * Chief Complaints: * [...] Provider: SUSAN Arroyo Date: Generated for Thao ng/Caryl/eTransmitting on: 01:23 PM EDT History and Physical Notes * HPI (History of Present Illness) Category Sub-Category Detail Notes Category Not es Hematology PT/INR due for PT/INR
--- OUTSIDE RECORDS SUMMARY | 2025-04-04 06:30 | XMS_ITS ---
Author Organization [facility] Address [address] [place] [id number] Care Team Providers Care Punch Card Operator Name Role Phone Geetha Bynum Primary Care Provider Maritza Benson Unavailable [phone] Lauryn Faulkner Unavailable [phone] Allergies No Known Allergies Results Component Value Reference Range Notes PT/INR (in house) Reviewed date:04/05/2025 02:36:14 PM Interpretation: Performing Lab: Notes/Report: INR 3.0 current dose 7.5mg W and 10mg AOD new dose 7.5mg W and 10mg AOD next check 4 weeks ideal INR 2.5-3.5 REASON FOR VISIT ckup & pt/inr, Needs [...] once daily; Duration: 90 Active Vital Signs Blood pressure systolic 124 mm Hg 04/04/20 25 Blood pressure diastolic 70 mm Hg 025 Heart Rate 89 /min 04/04/2025 Height 69 in 04/04/2025 Weight 312.4 lbs 04/04/2025 BMI 46.13 kg/m2 04/04/2025 Encounters Encounter Location Date Provider Diagnosis [facility] 12[address] [facility] [address] [id number] 04/04/2025 Lauryn Faulkner Type 2 diabetes virgen itus without complication, without long-term current use of insulin E11.9 ; Essential hypertension I10 ; Swelling of left parotid gland R60.0 ; 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 [...] left parotid gland (ICD-10 - R60.0) 04/04/2025 long-term current use of anticoagulants with INR goal [...] Name:Lauryn salmeron, 07/18/2025 01:15:00 PM, [address] [facility] 36 [facility], [address], [place], [place], [id number], Progress Notes * JOSE NUNNB:1965 (59 yo M)Acc No.[id number]:04/04/2025 Progress Notes Patient: Tiffany SABINOBRIANNA Provider: SUSAN Arroyo :1965 A ge:59 Y S ex:Male Date:04/04/2025 Address:[address] [place] [address] [place], [id number] Pcp:Geetha Bynum Subjective: * Chief Complaints: * [...] Diagno stic Procedure: H [facility]-Melena, Anemia 09/07/18, [facility]-Anemia 01/18/2020, [facility] UTC - covid Early May 2020. 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 * Procedure Codes: G2211 Complex e/[place]. [address] PROTHROMBIN TIME. Modifiers: QW 66018 CAPILLARY BLOOD DRAW. 1036F TOBACCO NON-USER. G8950 [...] Provider: SUSAN Arroyo Date: Generated for Thao zambrano/Caryl/Marvinitting on: 01:23 PM [...]
--- OUTSIDE RECORDS SUMMARY | 2025-04-06 06:05 | XMS_ITS ---
Author [facility] Address [address] [place] [id number] Care Team Providers Care Leadership Development Consultant Name Role Phone Geetha Bynum Primary Care Provider Maritza Benson Unavailable [phone] Lauryn Faulkner Unavailable [phone] Results Component Value Reference Range Notes CBC [...] 164 Performing Lab: Notes/Report: Test performed by [facility] [address] [place] [address] , [address], [place] [address] Renny Phillips MD, Head Coach CLIA: [id number] Sodium 137 135-145 mmol/L Potassium 4.6 3.5-5.3 [...] 4.03 Performing Lab: Notes/Report: Test performed by [facility] [address] [place] [address] , [address], [place] [address] Renny Phillips MD, Head Coach CLIA: [id number] Lipid Panel Footnote See Below *Based on optimal reference values. Please refer to the DOS for additional information regarding diagnostic lipid reference ranges, patient management based on the recently updated lipid guidelines ([place] College [employer] Cardiology/[place] Heart Association Task Force on Clinical Practice [...] Interpretation:Normal Performing Lab: Notes/Report: Test performed by [facility] [address] [place] [address] , [facility] [address], [place] [address] Renny Phillips MD, Head Coach CLIA: [id number] TSH reflex to FT4 3.98 0.43-5.25 mU/L [...] Encounter Location Date Provider Diagnosis [facility] 1210 [facility] [address] [id number] 04/06/2025 Lauryn Faulkner Anemia, unspecified type D64.9 [address], [place], [id number], Progress Notes * TIFFANI NUNNADOB:1965 (59 yo M)Acc No.[id number]:04/06/2025 Patient: BRIANNA RUST Provider: SUSAN Arroyo :1965 A ge:59 Y S ex:Male Date:04/06/2025 Address:[address] [place] [address] [address], [place], [id number] Pcp:Geetha Bynum Subjective: * Chief Complaints: * [...] Codes: 8 5025 CBC WITH AUTO DIFF, 82044 GLYCATED HEMOGLOBIN TEST, Modifiers: QW , 3051F HG A1C>EQUAL 7.0%<8.0% * Images: Billing Information: * Visit Code: * Procedure Codes: 16785 CBC WITH AUTO DIFF. 81669 GLYCATED HEMOGLOBIN TEST. Modifiers: QW 3051F HG A1C>EQUAL 7.0%<8.0%. * Electronic signature of SUSAN Allan on 04/20/2025 at 01:22 PM EDT Sign off status: Pending * Provider: SUSAN Arroyo Date: 1 Generated for Thao zambrano/Caryl/Shaysmitting on: 01:22 PM EDT
--- NOTE | 2025-04-20 13:21 | CT_ITS ---
FINAL REPORT TECHNIQUE: Thin section axial CT images with coronal and sagittal reformats were performed through the neck. This study was performed with techniques to keep radiation doses as low as reasonably achievable (ALARA). Individualized dose reduction techniques using automated exposure control or adjustment of mA and/or kV according to the patient''s size were employed. CLINICAL HISTORY: SWELLING LT PAROTID GLAND COMPARISON: None FINDINGS: Nasopharynx, oropharynx, epiglottis, and larynx are unremarkable. There is a small hypodense left thyroid nodule. Salivary glands are without acute abnormality. No parotid mass identified. No evidence of edema surrounding either parotid gland. There are mildly prominent bilateral cervical lymph nodes which are abnormal in number or more than size. These are slightly asymmetric to the left. Paranasal sinuses and mastoid air cells are clear. Limited evaluation of the lung apices is without acute abnormality. No acute osseous findings. IMPRESSION: No discrete parotid abnormality or asymmetry. Mildly prominent bilateral cervical lymph nodes left greater than right, abnormal in number more than size, favor reactive. Consider follow-up if indicated. Reviewed, Interpreted and Dictated by Constanza Garcia MD Transcribed by Patricia Brewer Authenticated and [facility]
--- OUTSIDE RECORDS SUMMARY | 2025-04-20 13:22 | XMS_ITS | Encounter Summary ---
Author Organization Healthcare Address [address] [place] [address] Care Team Providers Care Radiator Specialist Name Role Phone Modesto Bynum MD Primary Care Provider [phone]- [phone] Encounter Details Date Type Department Care Team ([facility] st Contact Info) Description 08/13/2023 Orders Only External Location [address] [place] [address] Julisa Gutiérrez MD [address] [place] [address] Social History Tobacco Use Types [...] on filedocumented in this encounter Care Teams Radiator Specialist Relationship Specialty Start Date End Date Modesto Bynum MD [address] [place] [address] PCP - General 11/01/20 documented as of this encounter
--- OUTSIDE RECORDS SUMMARY | 2025-04-20 13:23 | XMS_ITS | Clinical Summary ---
Author Organization [facility] Address [address] [place] [address] Care Team Providers Care Condominium Property Manager Name Role Phone Modesto Bynum MD Primary Care Provider +1- [phone] Allergies No known active allergies Medications simvastatin [...] Date Smoking Tobacco: Every Day Cigarettes 1 17.8 Started: 2007 Smokeless Tobacco: Current Chew Alcohol [...] SDOH Screenings 11/11/1981 [facility]-Adult SDOH Screenings 11/11/1981 CT Colonography 11/11/2008 Colonoscopy 11/11/2008 FIT-DNA 11/11/2008 FIT 11/11/2008 FOBT 11/11/2008 Sigmoidoscopy 11/11/2008 [facility]-Colorectal Cancer Screening 11/11/2008 [facility]-Pneumococcal Vaccine: 50 + Years (1 of 1 - PCV) 11/11/2013 [facility]-Zoster Vaccines (1 of 2) 11/11/2013 [facility]-RSV Vaccine: 60+ Years o r (1 - Risk 60-74 years 1-dose series) 2023 [id number] Vaccine (2 - 2024- season) 2025 09/21/2020 [facility]-Influenza Vaccine (#1) 2025 [facility]-DTaP,Tdap,and Td Vaccine s (3 - Td or Tdap) 01/16/2032 01/15/2022, 05/27/2018 [facility]-Obesity Intervention Completed 024, 10/28/2023 HPV Vaccines Aged Out No longer eligi ble based on patient's age to complete this topic [facility]-HIB Vaccines Aged Out No longer e ligible based on patient's age to complete this topic [facility]-Hepatitis A Vaccines Aged Out No longer eligible based on patient's age to complete this topic [facility]-IPV Vaccines Aged Out No longer e ligible based on patient's age to complete this topic [facility]-Rotavirus Vaccines Aged Out No lo nger eligible based on patient's age to complete this topic Insurance [employer]IC[employer] Care Teams Condominium Property Manager Relationship Specialty Start Date End Date Modesto Bynum MD [address] [place] [id number] PCP - General 11/01/20
--- OUTSIDE RECORDS SUMMARY | 2025-04-20 13:23 | XMS_ITS | Encounter Summary ---
Author Organization Healthcare Address [address] [place] [address] Care Team Providers Care Occupational Therapy Technician Name Role Phone Modesto Bynum MD Primary Care Provider +1- [phone] Encounter Details Date Type Department Care Team (Late st Contact Info) Description 09/28/2022 Orders Only External Location [address] [place] [address] Ambrose Boss MD [address] [facility] [address] [place] [address] Social History Tobacco Use Types [...] on filedocumented in this encounter Care Teams Occupational Therapy Technician Relationship Specialty Start Date End Date Modesto Bynum MD [address] [place] [address] PCP - General 5/14/21 documented as of this encounter
--- OUTSIDE RECORDS SUMMARY | 2025-04-20 13:23 | XMS_ITS | Encounter Summary ---
Author Organization Healthcare Address [address] [place] [address] Care Team Providers Care Well Logging Operator Mud Analysis Name Role Phone Modesto Bynum MD Primary Care Provider +1- [phone] Encounter Details Date Type Department Care Team ([facility] st Contact Info) Description 07/13/2023 Orders Only External Location [address] [place] [address] Provider, External Social History Tobacco Use Types [...] on filedocumented in this encounter Care Teams Well Logging Operator Mud Analysis Relationship Specialty Start Date End Date Modesto Bynum MD [address] [place] [id number] PCP - General 11/01/20 documented as of this encounter
--- OUTSIDE RECORDS SUMMARY | 2025-04-20 13:23 | XMS_ITS | Patient Health Record ---
Author Organization [facility] Address [address] [facility] [address] [place] [id number] Care Team Providers Care Proofer Apprentice Name Role Phone Geetha Bynum Primary Care Provider Maritza Benson Unavailable [phone] Lauryn Faulkner Unavailable [phone] Allergies No Known Allergies Results Component Value Reference Range Notes PT/INR (in house) Reviewed date:09/13/2024 01:39:36 PM Interpretation:2.5 Performing Lab: Notes/Report: 2.5 PT 30.2 INR 2.5 current dose 7.5mgT,Th-10mg AOD new dose same next check 4 weeks Warfarin indication AVR ideal INR 2.5-3.5 PT/INR (in house) Reviewed date:01/10/2025 04:29:29 PM Interpretation: Performing Lab: Notes/Report: PT 41.8 INR 3.5 current dose 7.5 T,TH and 10mg all other days new dose same next check 6 weeks PT/INR (in house) Reviewed date:03/08/2025 03:37:05 PM Interpretation:3.4 Performing Lab: Notes/Report: 3.4 PT 40.4 INR 3.4 current dose 10mg daily new dose 7.5mg W and 10mg AOD next check 2 weeks ideal INR 2.5-3.5 PT/INR (in house) Reviewed date:11/05/2024 11:08:09 PM Interpretation:3.0 Performing Lab: Notes/Report: 3.0 PT 35.4 INR 3.0 current dose 7.5mg T,TH and 5mg AOD new dose same next check 6 weeks Warfarin indication AVR ideal INR 2.5-3.5 X ray : Ankle, right Reviewed date:06/28/2024 11:13:05 AM Interpretation:Negative Performing Lab: Notes/Report: Negative PT/INR (in house) Reviewed date:05/11/2024 03:01:05 PM [...] week Warfarin indication AVR ideal INR 2.5-3.5 P-TSH reflex to FT4 Reviewed date:04/11/2025 10:06:02 AM Interpretation:Normal Performing Lab: Notes/Report: CLIA: [id number] Renny Phillips MD, Office Nurse [address] [place] [address] , [place] [address] Test performed by [facility] TSH reflex to FT4 3.98 0.43-5.25 mU/L P-Lipid Panel Reviewed date:04/11/2025 10:06:02 AM Interpretation:TC 221, Trigs 175, HDL 37, TC/HDL 5.97, Non-HDL 184, LDL 149, LDL/HDL 4.03 Performing Lab: Notes/Report: Test performed by [facility] [address] [place] [address] [address], [address], [place] [address] Renny Phillips MD, Office Nurse CLIA: [id number] Lipid Panel Footnote See Below *Based on optimal reference values. Please refer to the DOS for additional information regarding diagnostic lipid reference ranges, patient management based on the recently updated lipid guidelines ([place] [employer]/[place] [employer] Task Force on Clinical Practice Guidelines (2018), and pediatric diagnostic lipid reference values (<18 years old). Total Cholesterol 221 <200 mg/dL Triglycerides 175 <150 mg/dL HDL Cholesterol 37 >40 mg/dL Total Cholesterol / HDL Ratio* 5.97 <4.99 Ratio Non-HDL Cholesterol 184 <130 mg/dL LDL Cholesterol (Calculation) 149 <100 mg/dL LDL / HDL Ratio* 4.03 <2.49 Ratio ____ LDL Cholesterol Patient History ____ Test Date: 10/02/2021 LDL Results: 124 Units: mg/dL % Change: - ---- Test Date: 07/06/2024 LDL Results: 79 Units: mg/dL % Change: -36% ---- Test Date: 04/06/2025 LDL Results: 149 Units: mg/dL % Change: +88% ____ P-Comprehensive Metabolic Pa tanesha (CMP) Reviewed date:04/11/2025 10:06:02 AM Interpretation:Glu 164 Performing Lab: Notes/Report: Test performed by [facility], [address] , [address], [place] [address] Renny Phillips MD, Office Nurse CLIA: [id number] Sodium 137 135-145 mmol/L Potassium 4.6 3.5-5.3 [...] 0.2 <0.2-1.2 mg/dL A/G Ratio 1.6 1.1-2.5 Glycohemoglobin A1c (in hous e) Reviewed date:04/11/2025 10:06:02 AM Interpretation:7.2% Performing Lab: Notes/Report: 7.2% glycohemoglobin 7.2% 5 - 6.5 % CBC Fingerstick (in house) Reviewed date:04/06/2025 04:39:57 [...] - 38 plat 376 100 - 400 PT/INR (in house) Reviewed date:08/16/2024 05:15:59 PM [...] ideal INR 2.5-3.5 PT/INR (in house) Reviewed date:05/25/2024 01:38:13 PM [...] Prevention of Sytemic Emolism secondary to AMI. PT/INR (in house) Reviewed date:07/21/2024 10:03:05 AM Interpretation:2.2 Performing Lab: Notes/Report: 2.2 PT 26.5 INR 2.2 current dose 7.5mg T,TH, and Sat and 10mg AOD new dose 7.5mg T,TH and 10mg AOD next check 2 weeks Warfarin indication AVR ideal INR 2.5-3.5 PT/INR (in house) Reviewed date:04/05/2025 02:36:14 PM Interpretation: Performing Lab: Notes/Report: INR 3.0 current dose 7.5mg W and 10mg AOD new dose 7.5mg W and 10mg AOD next check 4 weeks ideal INR 2.5-3.5 PT/INR (in house) Reviewed date:07/07/2024 10:55:15 AM Interpretation:3.5 Performing Lab: Notes/Report: 3.5 PT 42.3 INR 3.5 current dose 7.5 mg T,TH,Sat new dose same next check 2 weeks Warfarin indication AVR ideal INR 2.5-3.5 CBC Venipuncture (in house) Reviewed date:07/07/2024 01:04:28 [...] - 38 platlet 393 100 - 400 Glycohemoglobin A1c (in hous e) Reviewed date:07/07/2024 01:04:28 PM Interpretation:6.9% Performing Lab: Notes/Report: 6.9% glycohemoglobin 6.9% 5 - 6.5 % P-Comprehensive Metabolic Pa tanesha (CMP) Reviewed date:07/07/2024 01:04:28 PM Interpretation:gluc 177 Performing Lab: Notes/Report: CLIA: [id number] Renny Phillips MD, Office Nurse [facility] , [address], [place] [address] Test performed by [facility], [place] Sodium 142 135-145 mmol/L Potassium 4.6 3.5-5.3 [...] <0.2 <0.2-1.2 mg/dL A/G Ratio 1.6 1.1-2.5 P-Lipid Panel Reviewed date:07/07/2024 01:04:28 PM Interpretation:trig 331, non-hdl 145 Performing Lab: Notes/Report: Test performed by [facility], Ta[place] [address] [place] [address] , [address] , [place] [address] Renny Phillips MD, Office Nurse CLIA: [id number] Cholesterol 186 <200 mg/dL Triglycerides 331 <150 [...] 79 Units: mg/dL % Change: -36% ____ P-PSA Reviewed date:07/07/2024 01:04:28 PM Interpretation:Normal Performing Lab: Notes/Report: Test performed by [facility] [address] [place] [address] , [address], [place] [address] Renny Phillips MD, Office Nurse CLIA: [id number] PSA 1.96 <4.00 ng/mL Please note this is an ultrasensitive PSA assay with a lower limit of detection of 0.014 ng/mL. This test is performed by the [employer] ECLIA methodology. Values obtained with different assay methods or kits cannot be directly compared. P-Microalbumin/Creatinine, R andom Urine Sample Reviewed date:07/07/2024 01:04:28 PM Interpretation:alb/creat 46 Performing Lab: Notes/Report: Test performed by [facility] [address] [place] [address] , [address], [place] [address] Renny Phillips MD, Office Nurse CLIA: [id number] Albumin/Creatinine Ratio, Urine 46 0-30 ug/mg Microalbumin, Urine, Random 7.1 Creatinine, Urine 153.0 CT Scan : Chest, low dose Reviewed date:07/26/2024 02:58:57 PM Interpretation: Performing Lab: Notes/Report: PT/INR Reviewed date:03/06/2025 11:20:04 AM Interpretation:see duplicate order Performing Lab: Notes/Report: see duplicate order H-PT/INR Reviewed date:03/01/2025 04:03:20 PM Interpretation: Performing Lab: Notes/Report: PT 19.8 10.1-12.5 seconds INR 1.87 0.9-1.1 INDICATION INR RANGE Therapy for DVT, PE, Atrial Fib, 2.0-3.0 Prophylaxis for VTE. Therapy for Mechanical Heart Valve, 2.5-3.5 Prevention of Sytemic Emolism secondary to AMI. Medications Medication SIG (Take, Route, Frequency, Duration) Notes Start Date End Date Status metFORMIN HCl ER 500 MG 1 tablet Orally twice a day; Duration: 90 days Active Rosuvastatin Calcium 10 MG 1 tablet Oral ly Once a day; Duration: 30 day(s) 04/13/2025 Active Methocarbamol 500 MG 1 tab Orally three times a day as needed 02/03/2024 Active Flonase Allergy Relief 50 MCG/ACT 1 spray in each nostril Nasally once daily 05/04/2024 Active EQ All Day Allergy Relief 10 MG Take 1 t ablet by mouth once daily; Duration: 30 Active Sildenafil Citrate 20 MG 2-5 tabs [...] day; Duration: 30 day(s) Active Warfarin Sodium 10 MG Take 1 [...] daily for 90 days; Duration: 90 Active Immunizations Vaccine Route Administration Date Status Comme [facility] xFlu shot-36 months and older IM Intramuscular 03/05/2009 Administered Tetanus Tdap-Adacel (over 7yrs) IM Intramuscular 05/27/2018 Administered Tetanus Tdap-Adacel (over 7yrs) Unknown 05/27/2018 Administered Tetanus Tdap-Adacel (over 7yrs) Unknown 01/15/2022 Administered COVID 19 Janett Unknown 09/21/2020 Administered Problems Problem Type SNOMED Code ICD Code Onset Dates Problem Status W/U Status Risk Notes Problem Spinal stenosis of lumbar region (99928859) Spinal stenosis of lumbar region (724.02) Active confirmed Problem Heart valve replacement (06586365) HEART VALVE REPLAC NEC (V43.3) Active confirmed Problem Essential hypertension (62086439) Essential hypertension (I10) Active confirmed Problem Sciatic nerve lesion (617883132) Piriformis syndrome of right side (G57.01) Active confirmed Problem Mixed anxiety and depressive disorder (719951533) Depression with anxiety (F41.8) Active confirmed Problem Restless legs syndrome (11996106) Restless leg syndrome (G25.81) Active confirmed Problem Restless legs (06632486) Restless legs (G25.81) Active confirmed Problem Body mass index 40+ - severely obese (792235257) BMI 45.0-49.9, adult (Z68.42) Active confirmed Problem Impaired fasting glucose (774578528) Impaired fasting glucose (R73.01) Active confirmed Problem Sciatica (63241489) Lumbago with sciatica, right side (M54.41) Active confirmed Problem Headache disorder (498343720) Other headache syndrome (G44.89) Active confirmed Problem Chronic pain (13120977) Other chronic pain (G89.29) Active confirmed Problem Long-term current use of anticoagulant (071007986) skilled nursing (current) use of anticoagulants (Z79.01) Active confirmed Problem Long-term current use of anticoagulant (470225086) 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 with INR goal of 2.5-3.5 (Z79.01) Active confirmed Problem Depression (511174121) Depression (F32.9) Active confirmed Problem Iron deficiency anemia due to chronic blood loss (743839723) Iron deficiency anemia due to chronic blood loss (D50.0) Active confirmed Problem Anemia (876382433) Anemia, unspecified type (D64.9) Active confirmed Problem Kidney stone (62817026) Kidney stone on right side (N20.0) Active confirmed Problem Difficulty sleeping (531613788) Sleep difficulties (G47.9) Active confirmed Problem Sciatica (12064865) Right sided sciatica (M54.31) Active confirmed Problem Morbid obesity (510599150) Obesity, morbid, BMI 40.0-49.9 (E66.01) Active confirmed Problem Mechanical heart valve prosthesis (314997156) Mechanical heart valve present (Z95.2) Active confirmed Problem Dyslipidemia (414174986) Dyslipidemia (E78.5) Active confirmed Problem Type II diabetes mellitus without complication (213993796) Type 2 diabetes mellitus without complication, without long-term current use of insulin (E11.9) Active confirmed Problem Sciatic nerve lesion (769685811) Piriformis syndrome, right (G57.01) Active confirmed Problem Tobacco use (582940296) Tobacco use disorder (F17.200) Active confirmed Problem Sciatica (24906982) Right sciati c nerve pain (M54.31) Active confirmed Problem History of mechanical aortic valve replacement (362476439393882) History of mechanical aortic valve replacement (Z95.2) Active confirmed Problem Spinal stenosis of lumbar region (30223110) Spinal stenosis of lumbar region, unspecified whether neurogenic claudication present (M48.061) Active confirmed Problem Degenerative lumbar spinal stenosis (094973846) Degenerative lumbar spinal stenosis (M48.061) Active confirmed Problem Lumbar radiculopathy (581193145) Lumbar back pain with radiculopathy affecting right lower extremity (M54.16) Active confirmed Problem COVID-19 (891709646) COVID-19 (U07.1) Active co nfirmed Problem Acquired spondylolisthesis (101746255) Anterolisthesis of lumbar spine (M43.16) Active confirmed Vital Signs Heart Rate 89 /min 04/04/2025 Blood pressure diastolic 70 mm Hg 04/04/2025 Height 69 in 04/04/2025 Blood pressure systolic 124 mm Hg 04/04/2025 Weight 312.4 lbs 04/04/2025 BMI 46.13 kg/m2 04/04/2025 Encounters Encounter Location Date [facility] [address] [place] [address] [place] [id number] 04/27/2024 Lauryn Faulkner [employer] current us e of anticoagulants with INR goal of 2.5-3.5 Z79.01 ; Anterolisthesis of lumbar spine M43.16 ; Degeneration of intervertebral disc of lumbar region with discogenic back pain and lower extremity pain M51.362 and Spinal stenosis of lumbar region, unspecified whether neurogenic claudication present M48.061 [facility] [address] [place] [address] [place] [id number] 05/04/2024 Laurny Faulkner Non-recurrent acute serous otitis media of right ear H65.01 and skilled nursing current use of anticoagulants with INR goal of 2.5-3.5 Z79.01 [facility] [address] [facility] [address] [place] [id number] 05/11/2024 Lauryn Faulkner [employer] current us e of anticoagulants with INR goal of 2.5-3.5 Z79.01 ; Acute right ankle pain M25.571 and Tendinitis of right knee M76.891 [facility] [address] [facility] [address] [place] [id number] 05/25/2024 Lauryn Faulkner skilled nursing current us e of anticoagulants with INR goal of 2.5-3.5 Z79.01 [facility] [address] [facility] [facility] [address] [place] [id number] 06/22/2024 Lauryn Faulkner [employer] current us e of anticoagulants with INR goal of 2.5-3.5 Z79.01 [facility] [address] [facility] [facility] [address] [place] [id number] 07/06/2024 Lauryn Faulkner Adult general medica l [...] disorder F17.200 and BMI 45.0-49.9, adult Z68.42 [facility] [address] [facility] [address] [place] [id number] 07/20/2024 Lauryn Faulkner skilled nursing current us e of anticoagulants with INR goal of 2.5-3.5 Z79.01 [facility] [address] [facility] [facility] [address] [place] [id number] 08/16/2024 Lauryn Faulkner skilled nursing current us e of anticoagulants with INR goal of 2.5-3.5 Z79.01 [facility] [address] [facility] [facility] [address] [place] [id number] 09/13/2024 Lauryn Lucie [employer] current us e of anticoagulants with INR goal of 2.5-3.5 Z79.01 and Mechanical heart valve present Z95.2 [facility] [address] [facility] [facility] [facility] [address] [place] [id number] 11/03/2024 Lauryn Lucie skilled nursing current us e of anticoagulants with INR goal of 2.5-3.5 Z79.01 ; Mechanical heart valve present Z95.2 ; Type 2 diabetes mellitus without complication, without long-term current use of insulin E11.9 ; BMI 45.0-49.9, adult Z68.42 and Obesity, morbid, BMI 40.0-49.9 E66.01 [facility] [address] [place] [id number] 01/10/2025 Lauryn Lucie [employer] current us e of anticoagulants with INR goal of 2.5-3.5 Z79.01 [facility] [address] [place] [id number] 02/21/2025 Lauryn Lucie [employer] current us e of anticoagulants with INR goal of 2.5-3.5 Z79.01 ; Type 2 diabetes mellitus without complication, without long-term current use of insulin E11.9 and Pain in right ankle and joints of right foot M25.571 [facility] [address] [place] [id number] 02/28/2025 Lauryn Lucie [place] [address] [place] [id number] 03/08/2025 Lauryn Lucie [employer] current us e of anticoagulants with INR goal of 2.5-3.5 Z79.01 [facility] [address] [place], [place] [id number] 03/22/2025 Lauryn Lucie [facility] [address] [place], [place] [id number] 04/04/2025 Lauryn Lucie Type 2 diabetes virgen itus without complication, without long-term current use of insulin E11.9 ; Essential hypertension I10 ; Swelling of left parotid gland R60.0 ; 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 with INR goal of 2.5-3.5 Z79.01 ; Pain in right ankle and joints of right foot M25.571 ; Mechanical heart valve present Z95.2 and Dyslipidemia E78.5 [facility] [address] [place], [place] [id number] 04/06/2025 Lauryn Lucie Anemia, unspecified type D64.9 ; Type 2 diabetes mellitus without complication, without long-term current use of insulin E11.9 ; Essential hypertension I10 ; Encounter for screening for other suspected endocrine disorder Z13.29 and Dyslipidemia E78.5 [facility] [address] [place], [place] [id number] 04/24/2024 Lauryn Crowdy [facility] [address] [place], [place] [id number] 06/28/2024 Lauryn Crowdy [facility] [address] [place], [place] [id number] 07/07/2024 Lauryn Crowdy [facility] [address] [place], [place] [id number] 07/11/2024 Lauryn Crowdy [facility] [address] [place], [place] [id number] 08/14/2024 R Nirmal Misa [facility] [address] [place], [place] [id number] 09/13/2024 Lauryn Crowdy [facility] [address] [place], [place] [id number] 01/12/2025 R Nirmal Misa [facility] [address] [place], [place] [id number] 03/01/2025 Lauryn Crowdy [facility] [address] [place], [place] [id number] 04/11/2025 Laurynstephen Faulkner Assessments Encounter Date Diagnosis (ICD Code) Assessment Notes Treatment Notes Treatment Clinical Notes Section Notes 04/27/2024 skilled nursing current use of anticoagulants with INR goal of 2.5-3.5 (ICD-10 - Z79.01) 04/27/2024 Anterolisthesis of lumbar spine (ICD-10 - M43.16) 05/04/2024 skilled nursing current use of anticoagulants with INR goal of 2.5-3.5 (ICD-10 - Z79.01) 05/04/2024 Non-recurrent acute serous otitis media of right ear (ICD-10 - H65.01) 05/11/2024 skilled nursing current use of anticoagulants with INR goal of 2.5-3.5 (ICD-10 - Z79.01) 05/11/2024 Acute right ankle pain (ICD-10 - M25.571) 05/25/2024 skilled nursing current use of anticoagulants with INR goal of 2.5-3.5 (ICD-10 - Z79.01) 06/22/2024 skilled nursing current use of anticoagulants with [...] goal of 2.5-3.5 (ICD-10 - Z79.01) 08/16/2024 skilled nursing current use of anticoagulants with INR goal of 2.5-3.5 (ICD-10 - Z79.01) 09/13/2024 skilled nursing current use of anticoagulants with INR goal of 2.5-3.5 (ICD-10 - Z79.01) 09/13/2024 Mechanical heart valve present (ICD-10 - Z95.2) 11/03/2024 skilled nursing current use of anticoagulants with INR goal of 2.5-3.5 (ICD-10 - Z79.01) 11/03/2024 Mechanical heart valve present (ICD-10 - Z95.2) 02/21/2025 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 with INR goal of 2.5-3.5 (ICD-10 - Z79.01) 02/21/2025 Type 2 diabetes mellitus without complication, without long-term current use of insulin (ICD-10 - E11.9) 03/08/2025 skilled nursing current use of anticoagulants with INR goal of 2.5-3.5 (ICD-10 - Z79.01) 04/04/2025 Essential hypertension (ICD-10 - I10) 01/10/2025 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 with INR goal of 2.5-3.5 (ICD-10 - Z79.01) 04/04/2025 Type 2 diabetes mellitus without complication, without long-term current use of insulin (ICD-10 - E11.9) Will come back tomorrow for fasting labs : CBC, CMP, Lipid, TSH with reflex to Free T4, A1C 04/06/2025 Anemia, unspecified type (ICD-10 - D64.9) 07/06/2024 skilled nursing current use of anticoagulants with INR goal of 2.5-3.5 (ICD-10 - Z79.01) 04/06/2025 Type 2 diabetes mellitus without complication, without long-term current use of insulin (ICD-10 - E11.9) 04/04/2025 Swelling of left parotid gland (ICD-10 - R60.0) 02/21/2025 Pain in right ankle and joints of right foot (ICD-10 - M25.571) A referral was made to podiatry from [facility]. Patient will call about appt. 11/03/2024 Type 2 diabetes mellitus without complication, without long-term current use of insulin (ICD-10 - E11.9) 05/11/2024 Tendinitis of right knee (ICD-10 - M76.891) 04/27/2024 Degeneration of intervertebral disc of lumbar region with discogenic back pain and lower extremity pain (ICD-10 - M51.362) 04/27/2024 Spinal stenosis of lumbar region, unspecified whether neurogenic claudication present (ICD-10 - M48.061) 04/04/2025 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 with INR goal of 2.5-3.5 (ICD-10 - Z79.01) 04/06/2025 Essential hypertension (ICD-10 - I10) 11/03/2024 BMI 45.0-49.9, adult (ICD-10 - Z68.42) 07/06/2024 Essential hypertension (ICD-10 - I10) 07/06/2024 Type 2 diabetes mellitus without complication, without long-term current use of insulin (ICD-10 - E11.9) 04/06/2025 Encounter for screening for other suspected endocrine disorder (ICD-10 - Z13.29) 11/03/2024 Obesity, morbid, BMI 40.0-49.9 (ICD-10 - E66.01) 04/04/2025 Pain in right ankle and joints of right foot (ICD-10 - M25.571) A referral was made to podiatry from ortho. Patient will call about appt. 04/04/2025 Mechanical heart valve present (ICD-10 - Z95.2) 07/06/2024 Mechanical heart valve present (ICD-10 - Z95.2) 04/06/2025 Dyslipidemia (ICD-10 - E78.5) 07/06/2024 Anemia, unspecified type (ICD-10 - D64.9) 04/04/2025 Dyslipidemia (ICD-10 - E78.5) 07/06/2024 Dyslipidemia (ICD-10 - E78.5) 07/06/2024 Right sided sciatica (ICD-10 - M54.31) 07/06/2024 Screening PSA (prostate specific antigen) (ICD-10 - Z12.5) 07/06/2024 Status post heart valve replacement with mechanical valve (ICD-10 - Z95.2) 07/06/2024 Tobacco use disorder (ICD-10 - F17.200) 07/06/2024 BMI 45.0-49.9, adult (ICD-10 - Z68.42) Plan Of Treatment Pending Test Test Name Order Date CT Scan : Neck, soft tissue, without con trast 04/04/2025 H-INR 02/21/2025 Next Appt Details Provider Name:aLuryn salmeron, 07/18/2025 01:15:00 PM, [address], [place], [place], [id number], Insurance Providers Payer Name Payer Address Payer Phone Subscriber Number Group Number Insured Name Patient Relationship to Insured Coverage Start Date Coverage End Date [employer] [address] [address] [place], [place] [id number] BRIANNA NUNN Self - patient is the [...] Dr. Mckeon 07/2022 Hospitalization History Reason Date(Month/Year) [facility] - covid Early May 2020 [facility], Anemia 09/07/18 [facility] 01/18/2020
== END 2025-04-20 23:59 | disposition home or self-care (01) ==
LOC: RAD 13:20
PROVIDERS: PCP Family Medicine; Visit Provider Physician Assistant
DX: R59.0 Localized enlarged lymph nodes (principal); R60.0 Localized edema
CPT/HCPCS: 70490

== ENCOUNTER 2025-04-24 12:39 | Outpatient (CLI) | payer MEDICARE, SELFPAY ==
--- OUTSIDE RECORDS SUMMARY | 2024-09-13 08:15 | XMS_ITS ---
Author Organization [facility] Address [address] [place] [id number] Care Team Providers Care Pigment Making Supervisor Name Role Phone Geetha Bynum Primary Care Provider Maritza Benson Unavailable [phone] Lauryn Faulkner Unavailable [phone] Allergies No Known Allergies Results Component Value Reference Range Notes PT/INR (in house) Reviewed date:09/13/2024 01:39:36 PM Interpretation:2.5 Performing Lab: Notes/Report: 2.5 PT 30.2 INR 2.5 current dose 7.5mgT,Th-10mg AOD new dose same next check 4 weeks Warfarin indication AVR ideal INR 2.5-3.5 REASON FOR VISIT INR Medications Medication SIG (Take, Route, Frequency, Duration) Notes Start Date End Date Status Methocarbamol 500 MG 1 tab Orally three times a day as needed 02/03/2024 Active Loratadine 10 MG 1 tablet Orally Once a day; Duration: 30 days Active Warfarin Sodium 10 MG 1 tablet Orally On ce a day; Duration: 90 days 03/23/2024 Active Warfarin Sodium 7.5 MG take 1 or 2 table t by mouth twice daily Orally as directed Active Flonase Allergy Relief 50 MCG/ACT 1 spray in each nostril Nasally once daily 05/04/2024 Active Sildenafil Citrate 20 MG 2-5 tabs orally 30 mins prior to intercourse; Duration: 30 days 05/28/2021 Active Pramipexole Dihydrochloride 0.125 MG 1 tab(s) orally 3 times a day; Duration: 30 day(s) Active Lovenox 150 MG/ML 150 mg Injection cornelia ry 12 hrs; Duration: 8 days 08/19/2023 Active metFORMIN HCl ER 500 MG take 1 tablet Or ally Once a day; Duration: 90 days Active Gabapentin 300 MG 1 capsule Orally Two times a day; Duration: 30 day(s) 02/03/2024 Active Norvasc 2.5 MG 1 tab(s) orally once a day; Duration: 30 days Active DULoxetine HCl 60 MG Take 2 capsules by mouth once daily; Duration: 90 Active Lisinopril 10 MG Take 1 tablet by jon th once daily for 90 days; Duration: 90 Active Rosuvastatin Calcium 10 MG 1 tablet Oral ly Once a day; Duration: 90 days 07/07/2024 Active Vital Signs Blood pressure systolic 142 mm Hg 09/14/19 25 Blood pressure diastolic 82 mm Hg 025 Heart Rate 90 /min 09/13/2024 Height 69 in 09/13/2024 Weight 321.8 lbs 09/13/2024 BMI 47.52 kg/m2 09/13/2024 Encounters Encounter Location Date Provider Diagnosis [facility] [address] [facility] [address] [place] [id number] 09/13/2024 Lauryn [facility]ulkner [facility] current us e of anticoagulants with INR goal of 2.5-3.5 Z79.01 and Mechanical heart valve present Z95.2 Assessments Encounter Date Diagnosis (ICD Code) Assessment Notes Treatment Notes Treatment Clinical Notes Section Notes 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 INR. * HPI: H ematology: 58 year old male presents with c/o PT/INR T he pt states he is taking Warfarin 7.5 mg on Wednesday and and 10 mg all other days. Denies : Bruising. D enies : Bleeding. D enies : hematuria. D enies : epistaxis. * Medical History: A ortic mechanical valve replacement, Hypertension, Spinal stenosis of lumbar spine, Lumbar Disc Disease, Hyperlipidemia, Positive covid 05/2020, GERD, Restless leg syndrome. * Medications: T aking Sildenafil Citrate 20 MG Tablet 2-5 tabs orally 30 mins prior to intercourse , Taking Pramipexole Dihydrochloride 0.125 MG Tablet 1 tab(s) orally 3 times a day , Taking Lovenox 150 MG/ML Solution Prefilled Syringe 150 mg Injection every 12 hrs , Taking Gabapentin 300 MG Capsule 1 capsule Orally Two times a day , Taking Warfarin Sodium 10 MG Tablet 1 tablet Orally Once a day , Taking Warfarin Sodium 7.5 MG Tablet take 1 or 2 tablet by mouth twice daily Orally as directed , Taking Flonase Allergy Relief 50 MCG/ACT Suspension 1 spray in each nostril Nasally once daily , Taking Methocarbamol 500 MG Tablet 1 tab Orally three times a day as needed , Taking Loratadine 10 MG Tablet 1 tablet Orally Once a day , Taking Lisinopril 10 MG Tablet Take 1 tablet by mouth once daily for 90 days , Taking Rosuvastatin Calcium 10 MG Tablet 1 tablet Orally Once a day , Taking Norvasc 2.5 MG Tablet 1 tab(s) orally once a day , Taking DULoxetine HCl 60 MG Capsule Delayed Release Particles Take 2 capsules by mouth once daily , Taking metFORMIN HCl ER 500 MG Tablet Extended Release 24 Hour take 1 tablet Orally Once a day , Medication List reviewed and reconciled with the patient * Allergies: N .K.D.A. Objective: * Vitals: W t:321.8, Temp:97.5, BP:142/82, HR:90, Nurse:ENRIQUE, Ht: 69, BMI:47.52. * Examination: G eneral Examination: General Appearance: N AD. C hest: n ormal shape and expansion. H eart: R SR. L ungs: c lear to auscultation. Assessment: * Assessment: 1. L kristian term current use of anticoagulants with INR goal of 2.5-3.5 - Z79.01 (Primary) ? 2 . M echanical heart valve present - Z95.2 Plan: * Treatment: Value Reference Range P T 30.2 * I NR 2.5 * c urrent dose 7.5mgT,Th-10mg AOD * n ew dose same * n ext check 4 weeks * W arfarin indication AVR * i deal INR 2.5-3.5 * Chantale Ramírez 09/13/2024 1:0 9:10 PM > Provider reviewed results while patient in office.Lauryn Faulkner 09/13/2024 1:39:32 PM > * Procedure Codes: G 2211 Complex e/[place], [address] PROTHROMBIN TIME, Modifiers: QW , 10157 CAPILLARY BLOOD DRAW, 3077F SYST BP = 140 MM HG6 IT, 3079F DIAST BP 80-89 MM HG * Follow Up: 4 weeks * Images: Billing Information: * Visit Code: 86057 Office Visit, Est Pt., Level 2. * Procedure Codes: G2211 Complex e/[place]. [address] PROTHROMBIN TIME. Modifiers: QW 01726 CAPILLARY BLOOD DRAW. 3077F SYST BP = 140 MM HG6 IT. 3079F DIAST BP 80-89 MM HG. * Electronic signature of SUSAN Allan on 04/24/2025 at 12:43 PM EST Sign off status: Pending * Provider: SUSAN Arroyo Date: 0 09/13/2024 Generated for Thao zambrano/Caryl/eTransmitting on: 1 06/24/2024 12:43 PM EST History and Physical Notes * HPI (History of Present Illness) Category Sub-Category Detail Notes Category Not es Hematology epistaxis hematuria Bruising Bleeding PT/INR The pt states he is taking Warfarin 7.5 mg on Wednesday and and 10 mg all other days Examination Category Sub-Category Detail Notes Category Not es General Examination Heart: RSR Lungs: clear to auscultatio n General Appearance: NAD Chest: normal shape and exp ansion
--- OUTSIDE RECORDS SUMMARY | 2024-11-03 09:30 | XMS_ITS ---
Author Organization [facility] Address [address] [facility] [address] [place] [id number] Care Team Providers Care Hat Conditioner Name Role Phone Geetha Bynum Primary Care Provider Maritza Benson Unavailable [phone] Lauryn Faulkner Unavailable [phone] Allergies No Known Allergies Results Component Value Reference Range Notes PT/INR (in house) Reviewed date:11/05/2024 11:08:09 PM Interpretation:3.0 Performing Lab: Notes/Report: 3.0 PT 35.4 INR 3.0 current dose 7.5mg T,TH and 5mg AOD new dose same next check 6 weeks Warfarin indication AVR ideal INR 2.5-3.5 REASON FOR VISIT follow up Medications Medication SIG (Take, Route, Frequency, Duration) Notes Start Date End Date Status Sildenafil Citrate 20 MG 2-5 tabs orally 30 mins prior to intercourse; Duration: 30 days 05/28/2021 Active Pramipexole Dihydrochloride 0.125 MG 1 tab(s) orally 3 times a day; Duration: 30 day(s) Active EQ All Day Allergy Relief 10 MG Take 1 tablet by mouth once daily; Duration: 30 Active amLODIPine Besylate 2.5 MG Take 1 tablet by mouth once daily; Duration: 30 Active Rosuvastatin Calcium 10 MG Take 1 tablet by mouth once daily; Duration: 90 Active Methocarbamol 500 MG 1 tab Orally three times a day as needed 02/03/2024 Active Lisinopril 10 MG Take 1 tablet by jon th once daily for 90 days; Duration: 90 Active DULoxetine HCl 60 MG Take 2 capsules by mouth once daily; Duration: 90 Active metFORMIN HCl ER 500 MG take 1 tablet Or ally Once a day; Duration: 90 days Active Ozempic (0.25 or 0.5 MG/DOSE) 2 MG/3ML 0.25 mg Subcutaneous once a week 09/18/2024 Active Warfarin Sodium 10 MG 1 tablet Orally On ce a day; Duration: 90 days 03/23/2024 Active Warfarin Sodium 7.5 MG take 1 or 2 table t by mouth twice daily Orally as directed Active Flonase Allergy Relief 50 MCG/ACT 1 spray in each nostril Nasally once daily 05/04/2024 Active Lovenox 150 MG/ML 150 mg Injection cornelia ry 12 hrs; Duration: 8 days 08/19/2023 Active Gabapentin 300 MG 1 capsule Orally Two times a day; Duration: 30 day(s) 02/03/2024 Active Problems Problem Type SNOMED Code ICD Code Onset Dates Problem Status W/U Status Risk Notes Problem Morbid obesity (264453606) Obesity, morbid, BMI 40.0-49.9 (E66.01) Active confirmed Vital Signs Weight 314 lbs 11/03/2024 Blood pressure systolic 120 mm Hg 11/04/19 25 Blood pressure diastolic 76 mm Hg 025 Heart Rate 102 /min 11/03/2024 Height 69 in 11/03/2024 BMI 46.36 kg/m2 11/03/2024 Encounters Encounter Location Date Provider Diagnosis [facility] [address] [id number] 11/03/2024 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 with INR goal of 2.5-3.5 Z79.01 ; Mechanical heart valve present Z95.2 ; Type 2 diabetes mellitus without complication, without long-term current use of insulin E11.9 ; BMI 45.0-49.9, adult Z68.42 and Obesity, morbid, BMI 40.0-49.9 E66.01 Assessments Encounter Date Diagnosis (ICD Code) Assessment Notes Treatment Notes Treatment Clinical Notes Section Notes 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 with INR goal of 2.5-3.5 (ICD-10 - Z79.01) 11/03/2024 Mechanical heart valve present (ICD-10 - Z95.2) 11/03/2024 Type 2 diabetes mellitus without complication, without long-term current use of insulin (ICD-10 - E11.9) 11/03/2024 BMI 45.0-49.9, adult (ICD-10 - Z68.42) 11/03/2024 Obesity, morbid, BMI 40.0-49.9 (ICD-10 - E66.01) Plan Of Treatment Next Appt Details Follow Up: 6 Weeks, Reason: Provider Name:Lauryn salmeron, 07/18/2025 01:15:00 PM, [address], [address], [place], [place], [phone], Progress Notes * TIFFANI NUNNADOB:1965 (59 yo M)Acc No.[id number]:11/03/2024 Progress Notes Patient: BRIANNA RUST Provider: SUSAN Arroyo :1965 A ge:58 Y S ex:Male Date:11/03/2024 Address:[address] [place], [place] [address], [id number] Pcp:Geetha Bynum Subjective: * Chief Complaints: * 1 . Follow up. * HPI: H ematology: 58 year old male presents with c/o PT/INR d ue for PT/INR.? * ROS: D ERMATOLOGY: no R nahid. n o H frankie. G ASTROENTEROLOGY: no N ausea. n o V omiting. n o D iarrhea.? U ROLOGY: no D ifficulty urinating. n o B lood in urine. * Medical History: A ortic mechanical valve replacement, Hypertension, Spinal stenosis of lumbar spine, Lumbar Disc Disease, Hyperlipidemia, Positive covid 05/2020, GERD, Restless leg syndrome. * Surgical History: l eft arm- carpel tunnel , heart surgery - aortic valve replacement , teeth extractions ( 3) 04/19/08, fissurectomy/lateral sphinterotomy - Dr. Begum 2007, C-scope/ normal/ Kel 06/2014, abdominal hernia repair/ Dr. Mckeon 07/2022. * Hospitalization/Major Diagno stic Procedure: H [facility]-Melena, Anemia 09/07/18, [facility]-Anemia 01/18/2020, [facility] UTC - covid Early May 2020. * Family History: F ather: , colon cancer. M other: , diabetes. P aternal Grand Father: colon cancer. 2 brother(s) , 2 sister(s) - healthy. 1 son(s) , 1 daughter(s) - healthy. . * Social History: C URRENT TOBACCO USE S moking Status: Patient does NOT smoke, Former Smoker: Yes, Quit smokin. C affeine: yes, frequency:. Marital Status: Single. Past smoking status: yes, PPD: 1 ppd, years:since age of 15 yr ,determination:. Alcohol: Yes, Type: , Frequency: ,Years: , Determination:. * Medications: T aking Sildenafil Citrate 20 [...] times a day as needed , Taking Lisinopril 10 MG Tablet Take 1 tablet by mouth once daily for 90 days , Taking DULoxetine HCl 60 MG Capsule Delayed Release Particles Take 2 capsules by mouth once daily , Taking metFORMIN HCl ER 500 MG Tablet Extended Release 24 Hour take 1 tablet Orally Once a day , Taking Ozempic (0.25 or 0.5 MG/DOSE) 2 MG/3ML Solution Pen-injector 0.25 mg Subcutaneous once a week , Taking EQ All Day Allergy Relief 10 MG Tablet Take 1 tablet by mouth once daily , Taking amLODIPine Besylate 2.5 MG Tablet Take 1 tablet by mouth once daily , Taking Rosuvastatin Calcium 10 MG Tablet Take 1 tablet by mouth once daily , Medication List reviewed and reconciled with the patient * Allergies: N .K.D.A. Objective: * Vitals: W t: 314, Temp: 97.9, BP: 120/76, HR: 102, Nurse: nalini, Ht: 69, BMI:46.36. * Examination: G eneral Examination: General Appearance: NAD, appears healthy, Color good.? Assessment: * Assessment: 1. L kristian term current use of anticoagulants with INR goal of 2.5-3.5 - Z79.01 (Primary) ? 2 . M echanical heart valve present - Z95.2 3 . T ype 2 diabetes mellitus without complication, without long-term current use of insulin - E11.9 4 . BMI 45.0-49.9, adult - Z68.42 5 . O besity, morbid, BMI 40.0-49.9 - E66.01? Plan: * Treatment: Value Reference Range P T 35.4 * I NR 3.0 * c urrent dose 7.5mg T,TH and 5mg AOD * n ew dose same * n ext check 6 weeks * W arfarin indication AVR * i deal INR 2.5-3.5 * Kristie Rizvi 11/03/2024 02:4 1:48 PM > Provider reviewed results while patient in office.Lauryn Faulkner 11/05/2024 11:08:06 PM > * Procedure Codes: G 2211 Complex e/[place], [address] PROTHROMBIN TIME, Modifiers: QW , 75611 CAPILLARY BLOOD DRAW, G8752 MOST RECENT SYSTOLIC BP < 140MM HG, G8754 MOST RECENT DIASTOLIC BP < 90MM HG * Follow Up: 6 Weeks * Images: Billing Information: * Visit Code: 66802 Office Visit, Est Pt., Level 2. * Procedure Codes: G2211 Complex e/[place]. [address] PROTHROMBIN TIME. Modifiers: QW 60172 CAPILLARY BLOOD DRAW. G8752 MOST RECENT SYSTOLIC BP < 140MM HG. G8754 MOST RECENT DIASTOLIC BP < 90MM HG. * Electronic signature of SUSAN Allan on 04/24/2025 at 12:45 PM EST Sign off status: Pending * Provider: SUSAN Arroyo Date: 0 11/03/2024 Generated for Printi ng/Faxing/eTransmitting on: 1 06/24/2024 12:45 PM EST History and Physical Notes * HPI (History of Present Illness) Category Sub-Category Detail Notes Category Not es Hematology PT/INR due for PT/INR Examination Category Sub-Category Detail Notes Category Not es General Examination General Appearance: NAD, anoop ears healthy, Color good
--- OUTSIDE RECORDS SUMMARY | 2024-12-15 08:15 | XMS_ITS ---
Author Organization [facility] Address [address] [facility] 36 [facility] [address] [place] [phone] Care Team Providers Care Legal Mediator Name Role Phone Geetha Bynum Primary Care Provider Maritza Benson Unavailable [phone] Lauryn Faulkner Unavailable [phone] Allergies No Known Allergies REASON FOR VISIT PT/INR Encounters Encounter Location Date Provider Diagnosis [place] [address] [facility] 36 [facility] [address] [place] [phone] 12/15/2024 Lauryn Faulkner Plan Of Treatment Next Appt Details Provider Name:Lauryn Chu y, 07/18/2025 01:15:00 PM, [address] [facility] 36 [facility], [address], [place], [phone], Progress Notes * TIFFANI NUNNADOB:1965 (59 yo M)Acc No.[id number]:12/15/2024 Patient: Von SABINOTIFFANIA Provider: SUSAN Arroyo :1965 A ge:59 Y S ex:Male Date:12/15/2024 Address[address] [id number] Pcp:Geetha Bynum Subjective: * Chief Complaints: * 1 . PT/INR. * HPI: H ematology: 59 year old male presents with c/o PT/INR [...] covid 05/2020, GERD, Restless leg syndrome. * Allergies: N .K.D.A. Objective: * Vitals: Assessment: Plan: * Treatment: * Images: Billing Information: * Visit Code: * Procedure Codes: * Electronic signature of SUSAN Allan on 04/24/2025 at 12:43 PM EST Sign off status: Pending * Provider: SUSAN Arroyo Date: 0 12/15/2024 Generated for Thao zambrano/Caryl/Marvinitting on: 06/24/2024 12:43 PM EST History and Physical Notes * HPI (History of Present Illness) Category Sub-Category Detail Notes Category Not es Hematology PT/INR due for PT/INR
--- OUTSIDE RECORDS SUMMARY | 2025-01-10 06:30 | XMS_ITS ---
Author Organization [facility] Address [address] [place] [phone] Care Team Providers Care Coater Associate Name Role Phone Geetha Bynum Primary Care Provider Maritza Benson Unavailable [phone] Lauryn Faulkner Unavailable [phone] Allergies No Known Allergies Results Component Value Reference Range Notes PT/INR (in house) Reviewed date:01/10/2025 04:29:29 PM Interpretation: Performing Lab: Notes/Report: PT 41.8 INR 3.5 current dose 7.5 T,TH and 10mg al l other days new dose same next check 6 weeks REASON FOR VISIT INR check up Medications Medication SIG (Take, Route, Frequency, Duration) Notes Start Date End Date Status metFORMIN HCl ER 500 MG take 1 tablet Or ally Once a day; Duration: 90 days Active Ozempic (0.25 or 0.5 MG/DOSE) 2 MG/3ML 0.25 mg Subcutaneous once a week 09/18/2024 Active EQ All Day Allergy Relief 10 MG Take 1 tablet by mouth once daily; Duration: 30 Active Rosuvastatin Calcium 10 MG Take 1 tablet by mouth once daily; Duration: 90 Active DULoxetine HCl 60 MG Take 2 capsules by mouth once daily; Duration: 90 Active Warfarin Sodium 10 MG 1 tablet Orally On ce a day; Duration: 90 days 03/23/2024 Active Warfarin Sodium 7.5 MG take 1 or 2 table t by mouth twice daily Orally as directed Active Gabapentin 300 MG 1 capsule Orally Two times a day; Duration: 30 day(s) 02/03/2024 Active Flonase Allergy Relief 50 MCG/ACT 1 spray in each nostril Nasally once daily 05/04/2024 Active Methocarbamol 500 MG 1 tab Orally three times a day as needed 02/03/2024 Active Lovenox 150 MG/ML 150 mg Injection cornelia ry 12 hrs; Duration: 8 days 08/19/2023 Active Lisinopril 10 MG Take 1 tablet by jon th once daily for 90 days; Duration: 90 days Active amLODIPine Besylate 2.5 MG 1 tablet Oral ly Once a day; Duration: 90 days Active Pramipexole Dihydrochloride 0.125 MG 1 tab(s) orally 3 times a day; Duration: 30 day(s) Active Sildenafil Citrate 20 MG 2-5 tabs orally 30 mins prior to intercourse; Duration: 30 days 05/28/2021 Active Vital Signs Blood pressure systolic 130 mm Hg 01/11/20 25 Blood pressure diastolic 70 mm Hg 025 Heart Rate 61 /min 01/10/2025 Height 69 in 01/10/2025 Weight 317.6 lbs 01/10/2025 BMI 46.9 kg/m2 01/10/2025 Encounters Encounter Location Date Provider Diagnosis [facility] [address] [facility] [address] [place] [id number] 01/10/2025 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 with INR goal of 2.5-3.5 Z79.01 Assessments Encounter Date Diagnosis (ICD Code) Assessment Notes Treatment Notes Treatment Clinical Notes Section Notes 01/10/2025 custodial current use of anticoagulants with INR goal of 2.5-3.5 (ICD-10 - Z79.01) Plan Of Treatment Next Appt Details Follow Up: 6 Weeks, Reason: Provider Name:Lauryn Chu y, 07/18/2025 01:15:00 PM, [address], [address], [place], [place], [phone], Progress Notes * JOSE NUNNB:1965 (59 yo M)Acc No.[id number]:01/10/2025 Progress Notes Patient: BRIANNA RUST Provider: SUSAN Arroyo :1965 A ge:59 Y S ex:Male Date:01/10/2025 Address:[address] [place] [address] [place], [id number] Pcp:Geetha Bynum Subjective: * Chief Complaints: * 1 . INR check up. * HPI: H ematology: PT/INR d ue for PT/INR. * ROS: D ERMATOLOGY: no R nahid. [...] 07/2022. * Hospitalization/Major Diagno stic Procedure: H -Melena, Anemia 09/07/18, [facility]18[facility]2020, [facility]. * Family [...] times a day as needed , Taking metFORMIN HCl ER 500 MG [...] tablet by mouth once daily , Taking DULoxetine HCl 60 MG Capsule Delayed Release Particles Take 2 capsules by mouth once daily , Taking Lisinopril 10 MG Tablet Take 1 tablet by mouth once daily for 90 days , Taking amLODIPine Besylate 2.5 MG Tablet 1 tablet Orally Once a day , Medication List reviewed and reconciled with the patient * Allergies: N .K.D.A. Objective: * Vitals: W t: 317.6, Temp: 97.8, BP: 130/70, HR: 61, Nurse: pe, Ht: 69, BMI:46.9. * Examination: G eneral Examination: General Appearance: N AD, appears healthy, Color good. Assessment: * Assessment: 1. L kristian term current use of anticoagulants with INR goal of 2.5-3.5 - Z79.01 (Primary) ? Plan: * Treatment: Value Reference Range P T 41.8 * I NR 3.5 * c urrent dose 7.5 T,TH and 10mg all other days * n ew dose same * n ext check 6 weeks * Lauryn Faulkner 01/10/2025 0 1:25:35 PM EDT > please let patient know to f/u in 6 weeksGuerda Partida 01/10/2025 04:29:15 PM EDT > appt scheduled * Procedure Codes: G 2211 Complex e/[place], [address] PROTHROMBIN TIME, Modifiers: QW , 41189 CAPILLARY BLOOD DRAW * Follow Up: 6 Weeks * Images: Billing Information: * Visit Code: 83648 Office Visit, Est Pt., Level 2. * Procedure Codes: G2211 Complex e/[place]. [address] PROTHROMBIN TIME. Modifiers: QW 36755 CAPILLARY BLOOD DRAW. * Electronic signature of SUSAN Allan on 04/24/2025 at 12:43 PM EST Sign off status: Pending * Provider: SUSAN Arroyo Date: 0 01/10/2025 Generated for Thao ng/Fayuriyg/eTransmitting on: 1 06/24/2024 12:43 PM EST History and Physical Notes * HPI (History of Present Illness) Category Sub-Category Detail Notes Category Not es Hematology PT/INR due for PT/INR Examination Category Sub-Category Detail Notes Category Not es General Examination General Appearance: NAD, anoop ears healthy, Color good
--- OUTSIDE RECORDS SUMMARY | 2025-02-21 08:15 | XMS_ITS ---
[facility] [address] [facility] [address] [id number] Care Team Providers Care Chemical Compounder Name Role Phone Geetha Bynum Primary Care Provider Maritza Benson Unavailable [phone] Lauryn Faulkner Unavailable [phone] Allergies No Known Allergies REASON FOR VISIT 6 Week PT/INR Medications Medication SIG (Take, Route, Frequency, Duration) Notes Start Date End Date Status Sildenafil Citrate 20 MG 2-5 tabs orally 30 mins prior to intercourse; Duration: 30 days 05/28/2021 Active Mounjaro 2.5 MG/0.5ML 2.5 mg Subcutaneou s once a week 02/21/2025 Active hydroCHLOROthiazide 12.5 MG Take 1 capsu le by mouth once daily for 90 days; Duration: 90 Active Rosuvastatin Calcium 10 MG 1 tablet Oral ly Once a day; Duration: 90 days Active amLODIPine Besylate 2.5 MG 1 tablet Oral ly Once a day; Duration: 90 days Active DULoxetine HCl 60 MG Take 2 capsules by mouth once daily; Duration: 90 Active EQ All Day Allergy Relief 10 MG Take 1 tablet by mouth once daily; Duration: 30 Active Ozempic (0.25 or 0.5 MG/DOSE ) 2 MG/3ML 0.25 mg Subcutaneous once a week 09/18/2024 Active metFORMIN HCl ER 500 MG take 1 tablet Or ally Once a day; Duration: 90 days Active Lisinopril 10 MG Take 1 tablet by jon th once daily for 90 days; Duration: 90 days Active Flonase Allergy Relief 50 MCG/ACT 1 spray in each nostril Nasally once daily 05/04/2024 Active Warfarin Sodium 7.5 MG take 1 or 2 table t by mouth twice daily Orally as directed Active Methocarbamol 500 MG 1 tab Orally three times a day as needed 02/03/2024 Active Warfarin Sodium 10 MG 1 tablet Orally On ce a day; Duration: 90 days 03/23/2024 Active Gabapentin 300 MG 1 capsule Orally Two times a day; Duration: 30 day(s) 02/03/2024 Active Lovenox 150 MG/ML 150 mg Injection cornelia ry 12 hrs; Duration: 8 days 08/19/2023 Active Pramipexole Dihydrochloride 0.125 MG 1 tab(s) orally 3 times a day; Duration: 30 day(s) Active Vital Signs Weight 314.4 lbs 02/21/2025 Blood pressure systolic 122 mm Hg 02/22/20 25 Blood pressure diastolic 70 mm Hg 025 Heart Rate 82 /min 02/21/2025 Height 69 in 02/21/2025 BMI 46.42 kg/m2 02/21/2025 Encounters Encounter Location Date Provider Diagnosis [facility] [address] [facility] [address] [place], [place] [id number] 02/21/2025 Lauryn Faulkner contact center associate current us e of anticoagulants with INR goal of 2.5-3.5 Z79.01 ; Type 2 diabetes mellitus without complication, without long-term current use of insulin E11.9 and Pain in right ankle and joints of right foot M25.571 Assessments Encounter Date Diagnosis (ICD Code) Assessment Notes Treatment Notes Treatment Clinical Notes Section Notes 02/21/2025 [facility]iary current use of anticoagulants with INR goal of 2.5-3.5 (ICD-10 - Z79.01) 02/21/2025 Type 2 diabetes mellitus without complication, without long-term current use of insulin (ICD-10 - E11.9) 02/21/2025 Pain in right ankle and joints of right foot (ICD-10 - M25.571) A referral was made to podiatry from ortho. Patient will call about appt. Plan Of Treatment Medication Medication Name Sig Start Date Stop Date Notes Mounjaro 2.5 MG/0.5ML 2.5 mg Subcutaneous once a week 08/2024 Treatment Notes Assessment Notes Pain in right ankle and joints of right foot A referral was made to podiatry from ortho. Patient will call about appt. Pending Test Test Name Order Date H-INR 02/21/2025 Next Appt Details Follow Up: via phone to repo rt test results, Reason: Provider Name:Lauryn salmeron, 07/18/2025 01:15:00 PM, [address], [address], [place], [id number], Progress Notes * RUSS JOSEB:1965 (59 yo M)Acc No.[id number]:02/21/2025 Patient: BRIANNA RUST Provider: SUSAN Arroyo :1965 A ge:59 Y S ex:Male Date:02/21/2025 Address:[address] [place] [address] [address] TREMA[address]NE [address], [id number] Pcp:Geetha Bynum Subjective: * Chief Complaints: * 1 . 6 Week PT/INR. * HPI: H ematology: 59 year old male presents with c/o PT/INR d ue for PT/INR.? L eg: c/o Leg pain P t states he is having right leg and ankle pain. Pt states he was sent to see ortho and they told him he had a bruised bone. E ndocrinology: Patient would like to start mounjaro. He had ozempic in the past and it made him constipated. He saw GI and they said it was okay for him to be on this medication. He will have another pancreatic MRI in May. * ROS: D ERMATOLOGY: no R nahid. [...] tablet Orally Once a day , Taking Rosuvastatin Calcium 10 MG Tablet 1 tablet Orally Once a day , Taking hydroCHLOROthiazide 12.5 MG Capsule Take 1 capsule by mouth once daily for 90 days , Medication List reviewed and reconciled with the patient * Allergies: N .K.D.A. Objective: * Vitals: W t:314.4, Temp:98.0, BP: 122/70, HR: 82, O2 Sat: 96% on RA, Nurse:omid, Ht: 69, BMI:46.42. * Examination: G eneral Examination: General Appearance: N AD. H EENT: u nremarkable.?Oral cavity: n o lesions, mucosa moist and WNL, no erythema. N kate: s upple, no lymphadenopathy. C hest: n ormal shape and expansion. H eart: R SR. L ungs: c lear to auscultation. A bdomen: b owel sounds present, soft and nontender. N eurologic Exam: I ntact, gait normal. S kin: n ormal, no rash. P eripheral pulses: n ormal (2+) bilaterally. E xtremities: n o leg edema. Assessment: * Assessment: 1. L kristian term current use of anticoagulants with INR goal of 2.5-3.5 - Z79.01 (Primary) ? 2 . T ype 2 diabetes mellitus without complication, without long-term current use of insulin - E11.9 3 . P ain in right ankle and joints of right foot - M25.571 ? Plan: * Treatment: 2. T ype 2 diabetes mellitus without complication, without long-term current use of insulin Start Mounjaro Solution Auto-injector, 2.5 MG/0.5ML, 2.5 mg, Subcutaneous, once a week, 4, Refills 0. 3. P ain in right ankle and joints of right foot Notes: A referral was made to podiatry from ortho. Patient will call about appt. * Procedure Codes: G 2211 Complex e/m visit add on * Follow Up: v ia phone to report test results * Images: Billing Information: * Visit Code: 86117 Office Visit, Est Pt., Level 4. * Procedure Codes: G2211 Complex e/m visit add on. * Electronic signature of SUSAN Allan on 04/24/2025 at 12:44 PM EST Sign off status: Pending * Provider: SUSAN Arroyo Date: 0 02/21/2025 Generated for Thao zambrano/Caryl/Marvinitting on: 06/24/2024 12:44 PM EST History and Physical Notes * HPI (History of Present Illness) Category Sub-Category Detail Notes Category Not es Hematology PT/INR due for PT/INR Leg Leg pain Pt states he is having right leg and ankle pain. Pt states he was sent to see ortho and they told him he had a bruised bone Examination Category Sub-Category Detail Notes Category Not es General Examination HEENT: unremarkable Heart: RSR Lungs: clear to auscultatio n Abdomen: bowel sounds present , soft and nontender Extremities: no leg edema General Appearance: NAD Skin: normal, no rash Neurologic Exam: Intact, gait normal Neck: supple, no lymphaden opathy Oral cavity: no lesions, mucosa m oist and WNL, no erythema Peripheral pulses: normal (2+) bilatera lly Chest: normal shape and exp ansion
--- OUTSIDE RECORDS SUMMARY | 2025-02-28 08:30 | XMS_ITS ---
Author Organization [facility] Address [address] [facility] [address] [facility] [address] [place] [id number] Care Team Providers Care Note Specialist Name Role Phone Geetha Bynum Primary Care Provider Maritza Benson Unavailable [phone] Lauryn Faulkner Unavailable [phone] Allergies No Known Allergies REASON FOR VISIT PT/INR Vital Signs Height 69 in 02/28/2025 Encounters Encounter Location Date Provider Diagnosis [facility] [address] [facility] [address] [facility] [address] [place] [id number] 02/28/2025 Lauryn Faulkner Plan Of Treatment Next Appt Details Provider Name:Lauryn Chu y, 07/18/2025 01:15:00 PM, [address] [facility], [address], [place], [phone], Progress Notes * TIFFANI NUNNADOB:1965 (59 yo M)Acc No.[id number]:02/28/2025 Patient: Von SABINOBRIANNA Provider: SUSAN Arroyo :1965 A ge:59 Y S ex:Male Date:02/28/2025 Address[address] [id number] Pcp:Geetha Bynum Subjective: * Chief Complaints: * 1 . PT/INR. * Medical History: A ortic mechanical valve replacement, Hypertension, Spinal stenosis of lumbar spine, Lumbar Disc Disease, Hyperlipidemia, Positive covid 05/2020, GERD, Restless leg syndrome. * Allergies: N .K.D.A. Objective: * Vitals: W t: Not Taken - No Medical Need, Temp: Not Taken - No Medical Need, BP: Not Taken - No Medical Need, HR: Not Taken - No Medical Need, Nurse: Not Taken - No Medical Need, Ht: 69. Assessment: Plan: * Treatment: * Images: Billing Information: * Visit Code: * Procedure Codes: * Electronic signature of SUSAN Allan on 04/24/2025 at 12:43 PM EST Sign off status: Pending * Provider: SUSAN Arroyo Date: 0 02/28/2025 Generated for Thao zambrano/Caryl/eThaseebsmitting on: 1 06/24/2024 12:43 PM EST
--- OUTSIDE RECORDS SUMMARY | 2025-03-08 08:15 | XMS_ITS ---
[facility] Organization [facility] Address [address] [place] [id number] Care Team Providers Care Animal Stunner Name Role Phone Geetha Bynum Primary Care Provider Maritza Benson Unavailable [phone] Lauryn Faulkner Unavailable [phone] Allergies No Known Allergies Results Component Value Reference Range Notes PT/INR (in house) Reviewed date:03/08/2025 03:37:05 PM Interpretation:3.4 Performing Lab: Notes/Report: 3.4 PT 40.4 INR 3.4 current dose 10mg daily new dose 7.5mg W and 10mg AOD next check 2 weeks ideal INR 2.5-3.5 REASON FOR VISIT 1 Week PT/INR Medications Medication SIG (Take, Route, Frequency, Duration) Notes Start Date End Date Status Sildenafil Citrate 20 MG 2-5 tabs orally 30 mins prior to intercourse; Duration: 30 days 05/28/2021 Active amLODIPine Besylate 2.5 MG 1 tablet Oral ly Once a day; Duration: 90 days Active Rosuvastatin Calcium 10 MG 1 tablet Oral ly Once a day; Duration: 90 days Active hydroCHLOROthiazide 12.5 MG Take 1 capsu le by mouth once daily for 90 days; Duration: 90 Active DULoxetine HCl 60 MG Take 2 capsules by mouth once daily; Duration: 90 Active EQ All Day Allergy Relief 10 MG Take 1 tablet by mouth once daily; Duration: 30 Active Lisinopril 10 MG Take 1 tablet by jon th once daily for 90 days; Duration: 90 days Active Ozempic (0.25 or 0.5 MG/DOSE ) 2 MG/3ML 0.25 mg Subcutaneous once a week 09/18/2024 Active metFORMIN HCl ER 500 MG take 1 tablet Or ally Once a day; Duration: 90 days Active Gabapentin 300 MG 1 capsule Orally Two times a day; Duration: 30 day(s) 02/03/2024 Active Warfarin Sodium 7.5 MG take 1 or 2 table t by mouth twice daily Orally as directed Active Warfarin Sodium 10 MG 1 tablet Orally On ce a day; Duration: 90 days 03/23/2024 Active Methocarbamol 500 MG 1 tab Orally three times a day as needed 02/03/2024 Active Flonase Allergy Relief 50 MCG/ACT 1 spray in each nostril Nasally once daily 05/04/2024 Active Lovenox 150 MG/ML 150 mg Injection cornelia ry 12 hrs; Duration: 8 days 08/19/2023 Active Pramipexole Dihydrochloride 0.125 MG 1 tab(s) orally 3 times a day; Duration: 30 day(s) Active Vital Signs Weight 312 lbs 03/08/2025 Blood pressure systolic 132 mm Hg 03/08/20 25 Blood pressure diastolic 76 mm Hg 025 Heart Rate 89 /min 03/08/2025 Height 69 in 03/08/2025 BMI 46.07 kg/m2 03/08/2025 Encounters Encounter Location Date Provider Diagnosis [facility] [address] [facility] [address] [facility] [address] [place] [id number] 03/08/2025 Lauryn Faulkner meterman current us e of anticoagulants with INR goal of 2.5-3.5 Z79.01 Assessments Encounter Date Diagnosis (ICD Code) Assessment Notes Treatment Notes Treatment Clinical Notes Section Notes 03/08/2025 [facility] current use of anticoagulants with INR goal of 2.5-3.5 (ICD-10 - Z79.01) Plan Of Treatment Next Appt Details Follow Up: 2 Weeks, Reason: Provider Name:Lauryn salmeron, 07/18/2025 01:15:00 PM, [address], [place], [id number], Progress Notes * JOSE NUNNB:1965 (59 yo M)Acc No.[id number]:03/08/2025 Patient: BRIANNA RUST Provider: SUSAN Arroyo :1965 A ge:59 Y S ex:Male Date:03/08/2025 Address:[address] [place] [address] [place], [id number] Pcp:Geetha Bynum Subjective: * Chief Complaints: * 1 . 1 Week PT/INR. * HPI: H ematology: 59 year old male presents with c/o PT/INR. * ROS: D ERMATOLOGY: no R [...] mouth once daily for 90 days , Discontinued Mounjaro 2.5 MG/0.5ML Solution Auto-injector 2.5 mg Subcutaneous once a week , Medication List reviewed and reconciled with the patient * Allergies: N .K.D.A. Objective: * Vitals: W t: 312, Temp: 000, BP: 132/76, HR: 89, Nurse: pe, Ht: 69, BMI:46.07. * Examination: G eneral Examination: General Appearance: N AD, appears healthy, Color good. Assessment: * Assessment: 1. L kristian term current use of anticoagulants with INR goal of 2.5-3.5 - Z79.01 (Primary) ? Plan: * Treatment: Value Reference Range P T 40.4 * I NR 3.4 * c urrent dose 10mg daily * n ew dose 7.5mg W and 10mg AOD * n ext check 2 weeks * i deal INR 2.5-3.5 * Sana Frey 03/08/2025 0 1:32:46 PM EDT > Provider reviewed results while patient in office.Lauryn Faulkner 03/08/2025 03:37:01 PM EDT > * Procedure Codes: G 2211 Complex e/[place], [address] PROTHROMBIN TIME, Modifiers: QW , 73980 CAPILLARY BLOOD DRAW, 3075F SYST BP GE 130 - 139MM HG, 3078F DIAST BP < 80 MM HG * Follow Up: 2 Weeks * Images: Billing Information: * Visit Code: 72794 Office Visit, Est Pt., Level 2. * Procedure Codes: G2211 Complex e/[place]. [address] PROTHROMBIN TIME. Modifiers: QW 04308 CAPILLARY BLOOD DRAW. 3075F SYST BP GE 130 - 139MM HG. 3078F DIAST BP < 80 MM HG. * Electronic signature of SUSAN Allan on 04/24/2025 at 12:44 PM EST Sign off status: Pending * Provider: SUSAN Arroyo Date: 0 03/08/2025 Generated for Printi ng/Fayuriyg/eTransmitting on: 1 06/24/2024 12:44 PM EST History and Physical Notes * HPI (History of Present Illness) Category Sub-Category Detail Notes Category Not es Hematology PT/INR Examination Category Sub-Category Detail Notes Category Not es General Examination General Appearance: NAD, anoop ears healthy, Color good
--- OUTSIDE RECORDS SUMMARY | 2025-03-22 08:15 | XMS_ITS ---
Author Organization [facility] Address [address] [facility] [address] [facility] [address] [place] [id number] Care Team Providers Care Fire Engine Operator Name Role Phone Geetha Bynum Primary Care Provider Maritza Benson Unavailable [phone] Lauryn Faulkner Unavailable [phone] Allergies No Known Allergies REASON FOR VISIT 2 week PT/INR, Due for Diabetic Eye Exam Vital Signs Height 69 in 03/22/2025 Encounters Encounter Location Date Provider Diagnosis [facility] [address] [place] [phone] 03/22/2025 Lauryn Faulkner Plan Of Treatment Next Appt Details Provider Name:Lauryn Chu y, 07/18/2025 01:15:00 PM, [address], [address], [place], [phone], Progress Notes * JOSE NUNNB:1965 (59 yo M)Acc No.[id number]:03/22/2025 Patient: [place] Provider: SUSAN Arroyo :1965 A ge:59 Y S ex:Male Date:03/22/2025 Address:[address] [id number] Pcp:Geetha Bynum Subjective: * Chief Complaints: * 1 . 2 week PT/INR. 2. Due for Diabetic Eye Exam. * HPI: H ematology: 59 year old male presents with c/o PT/INR d ue for PT/INR.? * Medical History: A ortic mechanical valve replacement, Hypertension, Spinal stenosis of lumbar spine, Lumbar Disc Disease, Hyperlipidemia, Positive covid 05/2020, GERD, Restless leg syndrome. * Allergies: N .K.D.A. Objective: * Vitals: W t: Not Taken - No Medical Need, Temp: Not Taken - No Medical Need, BP: Not Taken - No Medical Need, HR: Not Taken - No Medical Need, O2 Sat: Not Taken - No Medical Need, Nurse:omid, Ht: 69. Assessment: Plan: * Treatment: * Images: Billing Information: * Visit Code: * Procedure Codes: * Electronic signature of SUSAN Allan on 04/24/2025 at 12:45 PM EST Sign off status: Pending * Provider: SUSAN Arroyo Date: Generated for Thao zambrano/Caryl/eTransmitting on: 06/24/2024 12:45 PM EST History and Physical Notes * HPI (History of Present Illness) Category Sub-Category Detail Notes Category Not es Hematology PT/INR due for PT/INR
--- OUTSIDE RECORDS SUMMARY | 2025-04-04 05:30 | XMS_ITS ---
Author Organization [facility] Address [address] [place] [phone] Care Team Providers Care Clinical Dietetic Technician Name Role Phone Geetha Bynum Primary Care Provider Maritza Benson Unavailable [phone] Lauryn Faulkner Unavailable [phone] Allergies No Known Allergies Results Component Value Reference Range Notes PT/INR (in house) Reviewed date:04/05/2025 02:36:14 PM Interpretation: Performing Lab: Notes/Report: INR 3.0 current dose 7.5mg W and 10mg AOD new dose 7.5mg W and 10mg AOD next check 4 weeks ideal INR 2.5-3.5 CT Scan : Neck, soft tissue, without contrast (Not yet reviewed by provider) Interpretation: Performing Lab: Notes/Report: REASON FOR VISIT ckup & pt/inr, Needs Diabetic Eye Exam to close 2024 Quality Gap Medications Medication SIG (Take, Route, Frequency, Duration) Notes Start Date End Date Status metFORMIN HCl ER 500 MG take 1 tablet Or ally Once a day; Duration: 90 days Active hydroCHLOROthiazide 12.5 MG Take 1 capsu le by mouth once daily for 90 days; Duration: 90 Active DULoxetine HCl 60 MG Take 2 capsules by mouth once daily; Duration: 90 Active Rosuvastatin Calcium 10 MG 1 tablet Oral ly Once a day; Duration: 90 days Active EQ All Day Allergy Relief 10 MG Take 1 t ablet by mouth once daily; Duration: 30 Active Gabapentin 300 MG 1 capsule Orally Two times a day; Duration: 30 day(s) 02/03/2024 Active Flonase Allergy Relief 50 MCG/ACT 1 spray in each nostril Nasally once daily 05/04/2024 Active Methocarbamol 500 MG 1 tab Orally three times a day as needed 02/03/2024 Active Sildenafil Citrate 20 MG 2-5 tabs orally 30 mins prior to intercourse; Duration: 30 days 05/28/2021 Active Pramipexole Dihydrochloride 0.125 MG 1 tab(s) orally 3 times a day; Duration: 30 day(s) Active Warfarin Sodium 7.5 MG take 1 or 2 table t by mouth twice daily Orally as directed Active Lisinopril 10 MG Take 1 tablet by mouth once daily for 90 days; Duration: 90 days Active amLODIPine Besylate 2.5 MG Take 1 tablet by mouth once daily; Duration: 90 Active Warfarin Sodium 10 MG Take 1 tablet by mouth once daily; Duration: 90 Active Vital Signs Weight 312.4 lbs 04/04/2025 Blood pressure systolic 124 mm Hg 04/04/20 25 Blood pressure diastolic 70 mm Hg 025 Heart Rate 89 /min 04/04/2025 Height 69 in 04/04/2025 BMI 46.13 kg/m2 04/04/2025 Encounters Encounter Location Date Provider Diagnosis [facility] [address], [place] [id number] 04/04/2025 Lauryn Faulkner Type 2 diabetes virgen itus without complication, without long-term current use of insulin E11.9 ; Essential hypertension I10 ; Swelling of left parotid gland R60.0 ; 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 with 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 goal of 2.5-3.5 Z79.01 ; Pain in right ankle and joints of right foot M25.571 ; Mechanical heart valve present Z95.2 and Dyslipidemia E78.5 Assessments Encounter Date Diagnosis (ICD Code) Assessment Notes Treatment Notes Treatment Clinical Notes Section Notes 04/04/2025 Type 2 diabetes mellitus without complication, without long-term current use of insulin (ICD-10 - E11.9) Will come back tomorrow for fasting labs : CBC, CMP, Lipid, TSH with reflex to Free T4, A1C 04/04/2025 Essential hypertension (ICD-10 - I10) 04/04/2025 Swelling of left parotid gland (ICD-10 - R60.0) 04/04/2025 halfway current use of anticoagulants with INR goal of 2.5-3.5 (ICD-10 - Z79.01) 04/04/2025 Pain in right ankle and joints of right foot (ICD-10 - M25.571) A referral was made to podiatry from ortho. Patient will call about appt. 04/04/2025 Mechanical heart valve present (ICD-10 - Z95.2) 04/04/2025 Dyslipidemia (ICD-10 - E78.5) Plan Of Treatment Treatment Notes Assessment Notes Type 2 diabetes mellitus wit hout complication, without long-term current use of insulin Will come back tomorrow for fasting labs : CBC, CMP, Lipid, TSH with reflex to Free T4, A1C Pain in right ankle and joints of right foot A referral was made to podiatry from ortho. Patient will call about appt. Pending Test Test Name Order Date CT Scan : Neck, soft tissue, without con trast 04/04/2025 Next Appt Details Follow Up: tomorrow for labs , Reason: Provider Name:Lauryn salmeron, 07/18/2025 01:15:00 PM, [address] [facility] [address] [facility], [address], [place], [phone], Progress Notes * RUSS TIFFANIADOB:1965 (59 yo M)Acc No.[id number]:04/04/2025 Progress Notes Patient: BRIANNA RUST Provider: SUSAN Arroyo :1965 A ge:59 Y S ex:Male Date:04/04/2025 Address:[address] [place] [address] [id number] Pcp:Geetha Bynum Subjective: * Chief Complaints: * 1 . Ckup & pt/inr. 2. Needs Diabetic Eye Exam to close 2024 Quality Gap. * HPI: H PI: Patient is here today for tiffany arroyo. Pt is not fasting. Pt states he has no new concerns today othere than some swelling on the left side of his face/neck. H ematology: c/o PT/INR d ue for PT/INR. * ROS: [...] sphinterotomy - Dr. Begum 2007, C-scope/ normal/ [place] 06/2014, abdominal hernia repair/ Dr. Mckeon 07/2022. * Hospitalization/Major Diagno stic Procedure: H -Melena, Anemia 09/07/18, [facility] 01/18/2020, [facility] [place] Early May [...] orally 3 times a day , Taking Gabapentin 300 MG Capsule 1 capsule Orally Two times a day , Taking Flonase Allergy Relief 50 MCG/ACT Suspension 1 spray in each nostril Nasally once daily , Taking Methocarbamol 500 MG Tablet 1 tab Orally three times a day as needed , Taking metFORMIN HCl ER 500 MG Tablet Extended Release 24 Hour take 1 tablet Orally Once a day , Taking EQ All Day Allergy Relief 10 MG Tablet Take 1 tablet by mouth once daily , Taking DULoxetine HCl 60 MG Capsule Delayed Release Particles Take 2 capsules by mouth once daily , Taking Rosuvastatin Calcium 10 MG Tablet 1 tablet Orally Once a day , Taking hydroCHLOROthiazide 12.5 MG Capsule Take 1 capsule by mouth once daily for 90 days , Taking Lisinopril 10 MG Tablet Take 1 tablet by mouth once daily for 90 days , Taking amLODIPine Besylate 2.5 MG Tablet Take 1 tablet by mouth once daily , Taking Warfarin Sodium 10 MG Tablet Take 1 tablet by mouth once daily , Taking Warfarin Sodium 7.5 MG Tablet take 1 or 2 tablet by mouth twice daily Orally as directed , Medication List reviewed and reconciled with the patient * Allergies: N .K.D.A. Objective: * Vitals: W t: 312.4, Temp: 97.9, BP: 124/70, HR: 89, Nurse: pe, Ht: 69, BMI:46.13. * Examination: G eneral Examination: General Appearance: N AD. H EENT: s clera and conjunctiva clear, PERRLA, TM's normal, translucent, there is some swelling in the left parotid gland and there is tenderness. O ral cavity: n o lesions, mucosa moist and WNL, no erythema. N kate: s upple, some enlargement of the left parotid gland, mildly tender. C hest: n ormal shape and expansion. H eart: R SR. L ungs: c lear to auscultation. A bdomen:?bowel sounds present, soft and nontender. N eurologic Exam: I ntact, gait normal. S kin: n ormal, no rash. P eripheral pulses: n ormal (2+) bilaterally. E xtremities:?trace leg edema bilaterally. Assessment: * Assessment: 1. T ype 2 diabetes mellitus without complication, without long-term current use of insulin - E11.9 (Primary) 2 . E ssential hypertension - I10 3 . S welling of left parotid gland - R60.0 4 . L kristian term current use of anticoagulants with INR goal of 2.5-3.5 - Z79.01 5 . P ain in right ankle and joints of right foot - M25.571 6 . M echanical heart valve present - Z95.2 7 . D yslipidemia - E78.5 Plan: * Treatment: 2. 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 4.?Pain in right ankle and joints of right foot? Notes: A referral was made to podiatry from ortho. Patient will call about appt.?? * Procedure Codes: G 2211 Complex e/[place], [address] PROTHROMBIN TIME, Modifiers: QW , 37721 CAPILLARY BLOOD DRAW, 1036F TOBACCO NON-USER, G8950 PREHTN/HTN BP DOC INDCD F/U DOC, G8752 MOST RECENT SYSTOLIC BP < 140MM HG, G8754 MOST RECENT DIASTOLIC BP < 90MM HG, 3074F SYST BP LT 130 MM HG, 3078F DIAST BP < 80 MM HG * Follow Up: t omorrow for labs * Images: Billing Information: * Visit Code: 41026 Office Visit, Est Pt., Level 4. * Procedure Codes: G2211 Complex e/[place]. [address] PROTHROMBIN TIME. Modifiers: QW 68762 CAPILLARY BLOOD DRAW. 1036F TOBACCO NON-USER. G8950 PREHTN/HTN BP DOC INDCD F/U DOC. G8752 MOST RECENT SYSTOLIC BP < 140MM HG. G8754 MOST RECENT DIASTOLIC BP < 90MM HG. 3074F SYST BP LT 130 MM HG. 3078F DIAST BP < 80 MM HG. * Electronic signature of SUSAN Allan on 04/24/2025 at 12:44 PM EST Sign off status: Pending * Provider: SUSAN Arroyo Date: Generated for Layi ng/Faxing/eTransmitting on: 06/24/2024 12:44 PM EST History and Physical Notes * HPI (History of Present Illness) Category Sub-Category Detail Notes Category Not es HPI Patient is here today for checku p. Pt is not fasting. Pt states he has no new concerns today othere than some swelling on the left side of his face/neck Hematology PT/INR due for PT/INR Examination Category Sub-Category Detail Notes Category Not es General Examination HEENT: sclera and c onjunctiva clear, PERRLA, TM's normal, translucent, there is some swelling in the left parotid gland and there is tenderness Heart: RSR Lungs: clear to auscultatio n Abdomen: bowel sounds present , soft and nontender Extremities: trace leg edema bila terally General Appearance: NAD Skin: normal, no rash Neurologic Exam: Intact, gait normal Neck: supple, some enlarge ment of the left parotid gland, mildly tender Oral cavity: no lesions, mucosa m oist and WNL, no erythema Peripheral pulses: normal (2+) bilatera lly Chest: normal shape and exp ansion
--- OUTSIDE RECORDS SUMMARY | 2025-04-06 05:05 | XMS_ITS ---
Author Organization [facility] Address [address] [place] [id number] Care Team Providers Care Cad Design Engineer Name Role Phone Geetha Bynum Primary Care Provider Maritza Benson Unavailable [phone] Lauryn Faulkner Unavailable [phone] Results Component Value Reference Range Notes CBC Fingerstick (in house) Reviewed date:04/06/2025 04:39:57 PM Interpretation: Performing Lab: Notes/Report: wbc 6.2 3.5 - 10 lym 28.4 15 - 50 mid 7.8 2 - 15 gran 63.8 35 - 80 rbc 5.10 3.5 - 5.5 hgb 14.7 11.5 - 16.5 hct 44.1 35 - 55 mcv 86.5 75 - 100 mch 28.8 25 - 35 mchc 33.3 31 - 38 plat 376 100 - 400 Glycohemoglobin A1c (in hous e) Reviewed date:04/11/2025 10:06:02 AM Interpretation:7.2% Performing Lab: Notes/Report: 7.2% glycohemoglobin 7.2% 5 - 6.5 % P-Comprehensive Metabolic Pa tanesha (CMP) Reviewed date:04/11/2025 10:06:02 AM Interpretation:Glu 164 Performing Lab: Notes/Report: Test performed by [email or web address] [address] [place] [address] , [address], [place] [address] Renny Phillips MD, Rn Birthing CLIA: [id number] Sodium 137 135-145 mmol/L Potassium 4.6 3.5-5.3 mmol/L Chloride 104 97-108 mmol/L CO2 22 20-32 mmol/L Glucose 164 65-99 mg/dL BUN 15 8-23 mg/dL Creatinine 1.21 0.70-1.30 mg/dL Calcium 9.1 8.6-10.4 mg/dL eGFR by Creatinine 68 >59 mL/min/1.73m2 Protein 6.3 6.0-8.3 g/dL Albumin 3.9 3.5-5.3 g/dL Alkaline Phosphatase 75 40-129 IU/L ALT (SGPT) 25 <5-55 IU/L AST (SGOT) 22 <5-46 IU/L Bilirubin, Total 0.2 <0.2-1.2 mg/dL A/G Ratio 1.6 1.1-2.5 P-Lipid Panel Reviewed date:04/11/2025 10:06:02 AM Interpretation:TC 221, Trigs 175, HDL 37, TC/HDL 5.97, Non-HDL 184, LDL 149, LDL/HDL 4.03 Performing Lab: Notes/Report: Test performed by [email or web address] [address] [place] [address] , [address], [place] [address] Renny Phillips MD, Rn Birthing CLIA: [id number] Lipid Panel Footnote See Below *Based on optimal reference values. Please refer to the DOS for additional information regarding diagnostic lipid reference ranges, patient management based on the recently updated lipid guidelines ([place] [employer]/[place] Heart Association Task Force on Clinical Practice Guidelines (2018), and pediatric diagnostic lipid reference values (<18 years old). Total Cholesterol 221 <200 mg/dL Triglycerides 175 <150 mg/dL HDL Cholesterol 37 >40 mg/dL Total Cholesterol / HDL Ratio* 5.97 <4.99 Rati o Non-HDL Cholesterol 184 <130 mg/dL LDL Cholesterol (Calculation) 149 <100 mg/dL LDL / HDL Ratio* 4.03 <2.49 Ratio LDL Cholesterol Patient History Test Date: 10/02/2021 LDL Results: 124 Units: mg/dL % Change: - Test Date: 07/06/2024 LDL Results: 79 Units: mg/dL % Change: -36% Test Date: 04/06/2025 LDL Results: 149 Units: mg/dL % Change: +88% P-TSH reflex to FT4 Reviewed date:04/11/2025 10:06:02 AM Interpretation:Normal Performing Lab: Notes/Report: Test performed by [email or web address] [address] [place] [address] , [facility], [place] [address] Renny Phillips MD, Rn Birthing CLIA: [id number] TSH reflex to FT4 3.98 0.43-5.25 mU/L REASON FOR VISIT blood work Medications Medication SIG (Take, Route, Frequency, Duration) Notes Start Date End Date Status Warfarin Sodium 10 MG Take 1 tablet by mouth once daily; Duration: 90 Active amLODIPine Besylate 2.5 MG Take 1 tablet by mouth once daily; Duration: 90 Active Rosuvastatin Calcium 10 MG 1 tablet Oral ly Once a day; Duration: 90 days Active Lisinopril 10 MG Take 1 tablet by mouth once daily for 90 days; Duration: 90 days Active hydroCHLOROthiazide 12.5 MG Take 1 capsu le by mouth once daily for 90 days; Duration: 90 Active Methocarbamol 500 MG 1 tab Orally three times a day as needed 02/03/2024 Active Flonase Allergy Relief 50 MCG/ACT 1 spray in each nostril Nasally once daily 05/04/2024 Active EQ All Day Allergy Relief 10 MG Take 1 t ablet by mouth once daily; Duration: 30 Active metFORMIN HCl ER 500 MG take 1 tablet Or ally Once a day; Duration: 90 days Active DULoxetine HCl 60 MG Take 2 capsules by mouth once daily; Duration: 90 Active Sildenafil Citrate 20 MG 2-5 tabs orally 30 mins prior to intercourse; Duration: 30 days 05/28/2021 Active Gabapentin 300 MG 1 capsule Orally Two times a day; Duration: 30 day(s) 02/03/2024 Active Warfarin Sodium 7.5 MG take 1 or 2 table t by mouth twice daily Orally as directed Active Pramipexole Dihydrochloride 0.125 MG 1 tab(s) orally 3 times a day; Duration: 30 day(s) Active Encounters Encounter Location Date Provider Diagnosis [place] [facility] [facility] [address] [id number] 04/06/2025 Lauryn Faulkner Anemia, unspecified type D64.9 ; Type 2 diabetes mellitus without complication, without long-term current use of insulin E11.9 ; Essential hypertension I10 ; Encounter for screening for other suspected endocrine disorder Z13.29 and Dyslipidemia E78.5 Assessments Encounter Date Diagnosis (ICD Code) Assessment Notes Treatment Notes Treatment Clinical Notes Section Notes 04/06/2025 Anemia, unspecified type (ICD-10 - D64.9) 04/06/2025 Type 2 diabetes mellitus without complication, without long-term current use of insulin (ICD-10 - E11.9) 04/06/2025 Essential hypertension (ICD-10 - I10) 04/06/2025 Encounter for screening for other suspected endocrine disorder (ICD-10 - Z13.29) 04/06/2025 Dyslipidemia (ICD-10 - E78.5) Plan Of Treatment Next Appt Details Provider Name:Lauryn salmeron, 07/18/2025 01:15:00 PM, [address], [address], [place], [id number], Progress Notes * TIFFANI NUNNADOB:1965 (59 yo M)Acc No.[id number]:04/06/2025 Patient: BRIANNA RUST Provider: SUSAN Arroyo :1965 A ge:59 Y S ex:Male Date:04/06/2025 Address:[address] [place] [address] [address], [place], [id number] Pcp:Geetha Bynum Subjective: * Chief Complaints: * 1 . Blood work. * Medical History: * Medications: T aking Sildenafil Citrate 20 [...] List reviewed and reconciled with the patient Objective: * Vitals: Assessment: * Assessment: 1. A nemia, unspecified type - D64.9 2 . T ype 2 diabetes mellitus without complication, without long-term current use of insulin - E11.9 3 . E ssential hypertension - I10 4 . E ncounter for screening for other suspected endocrine disorder - Z13.29 5 . D yslipidemia - E78.5 Plan: * Treatment: Value Reference Range g lycohemoglobin 7.2% 5 - 6.5 % * DmitriKristie 04/06/2025 11: 44:53 AM EDT > Guerda Partida 04/11/2025 10:05:55 AM EDT > See phone encounter 2.?Essential hypertension?LAB: P-Comprehensive Metabolic Panel (CMP) (Collection Date & Time - 04/06/2025 09:34 AM)?Glu 164* Value Reference Range A /G Ratio 1.6 1.1-2.5 - * A lbumin 3.9 3.5-5.3 - g/dL * A lkaline Phosphatase 75 40-129 - IU/L * A LT (SGPT) 25 <5-55 - IU/L * A ST (SGOT) 22 <5-46 - IU/L * B ilirubin, Total 0.2 <0.2-1.2 - mg/dL * B UN 15 8-23 - mg/dL * C alcium 9.1 8.6-10.4 - mg/dL * C hloride 104 97-108 - mmol/L * C O2 22 20-32 - mmol/L * C reatinine 1.21 0.70-1.30 - mg/dL * G lucose 164 H 65-99 - mg/dL * P otassium 4.6 3.5-5.3 - mmol/L * S odium 137 135-145 - mmol/L * P rotein 6.3 6.0-8.3 - g/dL * e GFR by Creatinine 68 >59 - mL/min/1.73m2 * Guerda Partida 04/11/2025 10 :05:55 AM EDT > See phone encounter ?LAB: P-TSH reflex to FT4 (Collection Date & Time - 04/06/2025 09:34 AM)? Normal* Value Reference Range T SH reflex to FT4 3.98 0.43-5.25 - mU/L * Guerda Partida 04/11/2025 10 :05:55 AM EDT > See phone encounter ?LAB: CBC Fingerstick (in house) (Collection Date & Time - 04/06/2025)* Value Reference Range w bc 6.2 3.5 - 10 * l ym 28.4 15 - 50 * m id 7.8 2 - 15 * g ran 63.8 35 - 80 * r bc 5.10 3.5 - 5.5 * h gb 14.7 11.5 - 16.5 * h ct 44.1 35 - 55 * m cv 86.5 75 - 100 * m ch 28.8 25 - 35 * m chc 33.3 31 - 38 * p lat 376 100 - 400 * Kristie Rizvi 04/06/2025 11: 44:12 AM EDT > 3.?Encounter for screening for other suspected endocrine disorder?LAB: P-TSH reflex to FT4 (Collection Date & Time - 04/06/2025 09:34 AM)? Normal* Value Reference Range T SH reflex to FT4 3.98 0.43-5.25 - mU/L * Guerda Partida 04/11/2025 10 :05:55 AM EDT > See phone encounter 4.?Dyslipidemia?LAB: P-Lipid Panel (Collection Date & Time - 04/06/2025 09:34 AM)?TC 221, Trigs 175, HDL 37, TC/HDL 5.97, Non-HDL 184, LDL 149, LDL/HDL 4.03* Value Reference Range C holesterol / HDL Ratio 5.97 H <4.99 - Ratio * C holesterol 221 H <200 - mg/dL * H DL Cholesterol 37 L >40 - mg/dL * L DL Cholesterol (Calculation) 149 H <100 - mg/d L * L DL/HDL Ratio 4.03 H <2.49 - Ratio * N on-HDL Cholesterol 184 H <130 - mg/dL * T riglycerides 175 H <150 - mg/dL * L ipid Panel Footnote See Below - * Guerda Partida 04/11/2025 10 :05:55 AM EDT > See phone encounter * Procedure Codes: 8 5025 CBC WITH AUTO DIFF, [address] GLYCATED HEMOGLOBIN TEST, Modifiers: QW , 3051F HG A1C>EQUAL 7.0%<8.0% * Images: Billing Information: * Visit Code: * Procedure Codes: 84989 CBC WITH AUTO DIFF. 24846 GLYCATED HEMOGLOBIN TEST. Modifiers: QW 3051F HG A1C>EQUAL 7.0%<8.0%. * Electronic signature of SUSAN Allan on 04/24/2025 at 12:44 PM EST Sign off status: Pending * Provider: SUSAN Arroyo Date: Generated for Thao zambrano/Caryl/Shaysmitting on: 06/24/2024 12:44 PM EST
--- OUTSIDE RECORDS SUMMARY | 2025-04-24 12:43 | XMS_ITS | Encounter Summary ---
Author Organization Healthcare Address [address] [place] [address] Care Team Providers Care Squirrel Worker Name Role Phone Modesto Bynum MD Primary Care Provider [phone] Encounter Details Date Type Department Care Team ([facility] st Contact Info) Description 08/13/2023 Orders Only External Location [address] [place] [address] Julisa Gutiérrez MD [address] [place] [address] Social History Tobacco Use Types [...] on filedocumented in this encounter Care Teams Squirrel Worker Relationship Specialty Start Date End Date Modesto Bynum MD [address] [place] [address] PCP - General 11/01/20 documented as of this encounter
--- OUTSIDE RECORDS SUMMARY | 2025-04-24 12:44 | XMS_ITS | Patient Health Record ---
[facility] Address [address] [facility] [address] [place] [id number] Care Team Providers Care Store Hand Name Role Phone Geetha Bynum Primary Care Provider [phone] Maritza Benson Unavailable [phone] Lauryn Faulkner Unavailable [phone] Allergies No Known Allergies Results Component Value Reference Range Notes PT/INR (in house) Reviewed date:05/25/2024 01:38:13 PM [...] check 6 weeks PT/INR (in house) Reviewed date:08/16/2024 05:15:59 PM Interpretation:3.1 Performing Lab: Notes/Report: 3.1 PT 37.0 INR 3.1 current dose 7.5mg T,TH,10 mg aod new dose same next check 4 weeks Warfarin indication AVR ideal INR 2.5-3.5 CT Scan : Chest, low dose Reviewed date:07/26/2024 02:58:57 PM Interpretation: Performing Lab: Notes/Report: P-Microalbumin/Creatinine, R andom Urine Sample Reviewed date:07/07/2024 01:04:28 PM Interpretation:alb/creat 46 Performing Lab: Notes/Report: CLIA: [id number] Renny Phillips MD, Supervisor Pleating [address] [place] [address] , [place] [address] Test performed by [facility] Albumin/Creatinine Ratio, Urine 46 0-30 ug/mg Microalbumin, Urine, Random 7.1 Creatinine, Urine 153.0 P-PSA Reviewed date:07/07/2024 01:04:28 PM Interpretation:Normal Performing Lab: Notes/Report: Test performed by [facility] [address] [place] [address] , [address], [place] [address] Renny Phillips MD, Supervisor Pleating CLIA: [id number] PSA 1.96 <4.00 ng/mL Please note this is an ultrasensitive PSA assay with a lower limit of detection of 0.014 ng/mL. This test is performed by the Sam ECLIA methodology. Values obtained with different assay methods or kits cannot be directly compared. P-Lipid Panel Reviewed date:07/07/2024 01:04:28 PM Interpretation:trig 331, non-hdl 145 Performing Lab: Notes/Report: Test performed by [facility] [address] [place] [address] , [address], [place] [address] Renny Phillips MD, Supervisor Pleating CLIA: [id number] Cholesterol 186 <200 mg/dL Triglycerides 331 <150 [...] 177 Performing Lab: Notes/Report: Test performed by [facility] , [address], [place] [address] Renny Phillips MD, Supervisor Pleating CLIA: [id number] Sodium 142 135-145 mmol/L Potassium 4.6 3.5-5.3 [...] ideal INR 2.5-3.5 PT/INR (in house) Reviewed date:03/08/2025 03:37:05 PM [...] weeks Warfarin indication AVR ideal INR 2.5-3.5 CT Scan : Neck, soft tissue, without contrast (Not yet reviewed by provider) Interpretation: Performing Lab: Notes/Report: H-PT/INR Reviewed date:03/01/2025 04:03:20 PM Interpretation: Performing Lab: Notes/Report: PT 19.8 10.1-12.5 seconds INR 1.87 0.9-1.1 INDICATION INR RANGE Therapy for DVT, PE, Atrial Fib, 2.0-3.0 Prophylaxis for VTE. Therapy for Mechanical Heart Valve, 2.5-3.5 Prevention of Sytemic Emolism secondary to AMI. PT/INR Reviewed date:03/06/2025 11:20:04 AM Interpretation:see duplicate order Performing Lab: Notes/Report: see duplicate order PT/INR (in house) Reviewed date:05/11/2024 03:01:05 PM Interpretation: Performing Lab: Notes/Report: PT 30.7 INR 2.6 current dose alt 7.5 and 10mg new dose same next check 2 weeks Warfarin indication AVR ideal INR 2.5-3.5 X ray : Ankle, right Reviewed date:06/28/2024 11:13:05 AM Interpretation:Negative Performing Lab: Notes/Report: Negative PT/INR (in house) Reviewed date:07/21/2024 10:03:05 AM [...] next check 4 weeks ideal INR 2.5-3.5 H-PT/INR Reviewed date:02/22/2025 02:24:02 PM Interpretation:1.9 Performing Lab: Notes/Report: PT 20.1 10.1-12.5 seconds INR 1.90 0.9-1.1 INDICATION INR RANGE Therapy for DVT, PE, Atrial Fib, 2.0-3.0 Prophylaxis for VTE. Therapy for Mechanical Heart Valve, 2.5-3.5 Prevention of Sytemic Emolism secondary to AMI. CBC Fingerstick (in house) Reviewed date:04/06/2025 04:39:57 [...] 164 Performing Lab: Notes/Report: Test performed by [facility] [address] [place] [address] , [address], [place] [address] Renny Phillips MD, Supervisor Pleating CLIA: [id number] Sodium 137 135-145 mmol/L Potassium 4.6 3.5-5.3 [...] 4.03 Performing Lab: Notes/Report: Test performed by [facility] [address] [place] [address] , [address], [place] [address] Renny Phillips MD, Supervisor Pleating CLIA: [id number] Lipid Panel Footnote See Below *Based on optimal reference values. Please refer to the DOS for additional information regarding diagnostic lipid reference ranges, patient management based on the recently updated lipid guidelines ([place] [employer]/[place] [employer] Task Force on Clinical Practice [...] 149 Units: mg/dL % Change: +88% ____ P-TSH reflex to FT4 Reviewed date:04/11/2025 10:06:02 AM Interpretation:Normal Performing Lab: Notes/Report: Test performed by [facility], [address] , [place] [address] Renny Phillips MD, Supervisor Pleating CLIA: [id number] TSH reflex to FT4 3.98 0.43-5.25 mU/L Medications Medication SIG (Take, Route, Frequency, Duration) [...] Notes Problem Spinal stenosis of lumbar region (73349727) Spinal stenosis of lumbar region (724.02) Active confirmed Problem Heart valve replacement (59129017) HEART VALVE REPLAC NEC (V43.3) Active confirmed Problem Essential hypertension (16818441) Essential hypertension (I10) Active confirmed Problem Sciatic nerve lesion (874559516) Piriformis syndrome of right side (G57.01) Active confirmed Problem Mixed anxiety and depressive disorder (551830056) Depression with anxiety (F41.8) Active confirmed Problem Restless legs syndrome (49010611) Restless leg syndrome (G25.81) Active confirmed Problem Restless legs (74899845) Restless legs (G25.81) Active confirmed Problem Body mass index 40+ - severely obese (377412725) BMI 45.0-49.9, adult (Z68.42) Active confirmed Problem Impaired fasting glucose (378832038) Impaired fasting glucose (R73.01) Active confirmed Problem Sciatica (36644259) Lumbago with sciatica, right side (M54.41) Active confirmed Problem Headache disorder (833844070) Other headache syndrome (G44.89) Active confirmed Problem Chronic pain (11631892) Other chronic pain (G89.29) Active confirmed Problem Long-term current use of anticoagulant (968507995) residential (current) use of anticoagulants (Z79.01) Active confirmed Problem Long-term current use of anticoagulant (832719232) jack tamp 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 of anticoagulants with INR goal of 2.5-3.5 (Z79.01) Active confirmed Problem Depression (650488013) Depression (F32.9) Active confirmed Problem Iron deficiency anemia due to chronic blood loss (963341213) Iron deficiency anemia due to chronic blood loss (D50.0) Active confirmed Problem Anemia (692607567) Anemia, unspecified type (D64.9) Active confirmed Problem Kidney stone (71583358) Kidney stone on right side (N20.0) Active confirmed Problem Difficulty sleeping (150346503) Sleep difficulties (G47.9) Active confirmed Problem Sciatica (72999050) Right sided sciatica (M54.31) Active confirmed Problem Morbid obesity (055750633) Obesity, morbid, BMI 40.0-49.9 (E66.01) Active confirmed Problem Mechanical heart valve prosthesis (118888847) Mechanical heart valve present (Z95.2) Active confirmed Problem Dyslipidemia (508232901) Dyslipidemia (E78.5) Active confirmed Problem Type II diabetes mellitus without complication (969667532) Type 2 diabetes mellitus without complication, without long-term current use of insulin (E11.9) Active confirmed Problem Sciatic nerve lesion (727407730) Piriformis syndrome, right (G57.01) Active confirmed Problem Tobacco use (205096762) Tobacco use disorder (F17.200) Active confirmed Problem Sciatica (71255440) Right sciati c nerve pain (M54.31) Active confirmed Problem History of mechanical aortic valve replacement (520398556883032) History of mechanical aortic valve replacement (Z95.2) Active confirmed Problem Spinal stenosis of lumbar region (07308262) Spinal stenosis of lumbar region, unspecified whether neurogenic claudication present (M48.061) Active confirmed Problem Degenerative lumbar spinal stenosis (655554847) Degenerative lumbar spinal stenosis (M48.061) Active confirmed Problem Lumbar radiculopathy (335424289) Lumbar back pain with radiculopathy affecting right lower extremity (M54.16) Active confirmed Problem COVID-19 (545066369) COVID-19 (U07.1) Active co nfirmed Problem Acquired spondylolisthesis (283780422) Anterolisthesis of lumbar spine (M43.16) Active confirmed Vital Signs Heart Rate 89 /min 04/04/2025 Blood pressure diastolic 70 mm Hg 04/04/2025 Height 69 in 04/04/2025 Blood pressure systolic 124 mm Hg 04/04/2025 Weight 312.4 lbs 04/04/2025 BMI 46.13 kg/m2 04/04/2025 Encounters Encounter Location Date Provider Diagnosis Bridget 1209 [facility] [address] [place] [id number] 04/27/2024 Lauryn Faulkner residential current us e of anticoagulants with INR goal of 2.5-3.5 Z79.01 ; Anterolisthesis of lumbar spine M43.16 ; Degeneration of intervertebral disc of lumbar region with discogenic back pain and lower extremity pain M51.362 and Spinal stenosis of lumbar region, unspecified whether neurogenic claudication present M48.061 [place] [address] [place] [facility] [address] [place] [id number] 05/04/2024 Lauryn Faulkner Non-recurrent acute serous otitis media of right ear H65.01 and residential current use of anticoagulants with INR goal of 2.5-3.5 Z79.01 [facility] [address] [facility] [address] [place] [id number] 05/11/2024 Lauryn Faulkner residential current us e of anticoagulants with INR goal of 2.5-3.5 Z79.01 ; Acute right ankle pain M25.571 and Tendinitis of right knee M76.891 [facility] 12[address] [facility] [address] [place] [id number] 05/25/2024 Lauryn Faulkner residential current us e of anticoagulants with INR goal of 2.5-3.5 Z79.01 [facility] [address] [address] [place] [id number] 06/22/2024 Lauryn Faulkner jack tamp operator current us e of anticoagulants with INR goal of 2.5-3.5 Z79.01 [facility] [address] [place] [id number] 07/06/2024 Lauryn Faulkner Adult general medica l examination Z00.00 ; Acute right ankle pain M25.571 ; jack tamp 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 of anticoagulants with INR [...] disorder F17.200 and BMI 45.0-49.9, adult Z68.42 [facility] [address] [facility] [address] [place] [id number] 07/20/2024 Lauryn Faulkner jack tamp operator current us e of anticoagulants with INR goal of 2.5-3.5 Z79.01 [facility] [place] [facility] [address] [place] [id number] 08/16/2024 Lauryn Faulkner jack tamp operator current us e of anticoagulants with INR goal of 2.5-3.5 Z79.01 [facility] [address] [place] [id number] 09/13/2024 Lauryn Lucie residential current us e of anticoagulants with INR goal of 2.5-3.5 Z79.01 and Mechanical heart valve present Z95.2 [facility] [address] [place], [place] [id number] 11/03/2024 Lauryn Crowmai residential current us e of anticoagulants with INR goal of 2.5-3.5 Z79.01 ; Mechanical heart valve present Z95.2 ; Type 2 diabetes mellitus without complication, without long-term current use of insulin E11.9 ; BMI 45.0-49.9, adult Z68.42 and Obesity, morbid, BMI 40.0-49.9 E66.01 [facility] [address] [facility] [address] [place], [place] [id number] 01/10/2025 Lauryn Crowmai residential current us e of anticoagulants with INR goal of 2.5-3.5 Z79.01 [facility] [facility] [address] [place], [place] [id number] 02/21/2025 Lauryn Crowmai residential current us e of anticoagulants with INR goal of 2.5-3.5 Z79.01 ; Type 2 diabetes mellitus without complication, without long-term current use of insulin E11.9 and Pain in right ankle and joints of right foot M25.571 [facility] [address] [place] [id number] 02/28/2025 Lauryn Lucie [facility] [address] [place] [facility] 36 [facility] [place] [id number] 03/08/2025 Lauryn Crowmai jack tamp operator current us e of anticoagulants with INR goal of 2.5-3.5 Z79.01 [facility] [address] [facility] [address] [place] [id number] 03/22/2025 Lauryn Crowdy [facility] [address] [place] [facility] [address] [place], [place] [id number] 04/04/2025 Lauryn Lucie Type 2 diabetes virgen itus without complication, without long-term current use of insulin E11.9 ; Essential hypertension I10 ; Swelling of left parotid gland R60.0 ; residential current use of anticoagulants with INR goal of 2.5-3.5 Z79.01 ; Pain in right ankle and joints of right foot M25.571 ; Mechanical heart valve present Z95.2 and Dyslipidemia E78.5 [facility] [address] [place], [place] [id number] 04/06/2025 Lauryn Crowdy Anemia, unspecified type D64.9 ; Type 2 diabetes mellitus without complication, without long-term current use of insulin E11.9 ; Essential hypertension I10 ; Encounter for screening for other suspected endocrine disorder Z13.29 and Dyslipidemia E78.5 [facility] [address] [place], [place] [id number] 04/23/2025 R Nirmal Misa [facility] [address] [place] [id number] 04/24/2024 Lauryn Crowdy [facility] [address] [place] [id number] 06/28/2024 Lauryn Crowdy [facility] [address] [place] [id number] 07/07/2024 Lauryn Crowdy [facility] [address] [place], [place] [id number] 07/11/2024 Lauryn Crowdy [facility] [address] [place] [id number] 08/14/2024 R Nirmal Misa [facility] [address] [place] [id number] 09/13/2024 Lauryn Crowdy [facility] [address] [place], [place] [id number] 01/12/2025 R Nirmal Misa [facility] [address] [place], [place] [id number] 03/01/2025 Lauryn Crowdy [facility] [address] [place], [place] [id number] 04/11/2025 Lauryn Faulkner Assessments Encounter Date Diagnosis (ICD Code) Assessment Notes Treatment Notes Treatment Clinical Notes Section Notes 04/27/2024 residential current use of anticoagulants with INR goal of 2.5-3.5 (ICD-10 - Z79.01) 04/27/2024 Anterolisthesis of lumbar spine (ICD-10 - M43.16) 05/04/2024 residential current use of anticoagulants with INR goal of 2.5-3.5 (ICD-10 - Z79.01) 05/04/2024 Non-recurrent acute serous otitis media of right ear (ICD-10 - H65.01) 05/11/2024 jack tamp 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 of anticoagulants with INR goal of 2.5-3.5 (ICD-10 - Z79.01) 05/11/2024 Acute right ankle pain (ICD-10 - M25.571) 05/25/2024 jack tamp 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 of anticoagulants with INR goal of 2.5-3.5 (ICD-10 - Z79.01) 06/22/2024 jack tamp 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 of anticoagulants with INR goal of 2.5-3.5 (ICD-10 - Z79.01) 07/06/2024 Acute right ankle pain (ICD-10 - M25.571) 08/16/2024 residential current use of anticoagulants with INR goal of 2.5-3.5 (ICD-10 - Z79.01) 09/13/2024 residential current use of anticoagulants with INR goal of 2.5-3.5 (ICD-10 - Z79.01) 09/13/2024 Mechanical heart valve present (ICD-10 - Z95.2) 07/06/2024 Adult general medical examination (ICD-10 - Z00.00) Patient instructed to return to office Annually for Annual Wellness Visits to include annual screenings of Pain assessment, Functional Ability assessment, Cognitive Ability assessment, Fall Risk assessment, Depression screening and Bladder control screening. 11/03/2024 jack tamp 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 of anticoagulants with INR goal of 2.5-3.5 (ICD-10 - Z79.01) 01/10/2025 jack tamp 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 of anticoagulants with INR goal of 2.5-3.5 (ICD-10 - Z79.01) 03/08/2025 jack tamp 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 of anticoagulants with INR goal of 2.5-3.5 (ICD-10 - Z79.01) 04/04/2025 Essential hypertension (ICD-10 - I10) 11/03/2024 Mechanical heart valve present (ICD-10 - Z95.2) 04/04/2025 Type 2 diabetes mellitus without complication, without long-term current use of insulin (ICD-10 - E11.9) Will come back tomorrow for fasting labs : CBC, CMP, Lipid, TSH with reflex to Free T4, A1C 04/06/2025 Anemia, unspecified type (ICD-10 - D64.9) 02/21/2025 residential current use of anticoagulants with INR goal of 2.5-3.5 (ICD-10 - Z79.01) 02/21/2025 Type 2 diabetes mellitus without complication, without long-term current use of insulin (ICD-10 - E11.9) 07/20/2024 jack tamp 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 of anticoagulants with INR goal of 2.5-3.5 (ICD-10 - Z79.01) 04/06/2025 Type 2 diabetes mellitus without complication, without long-term current use of insulin (ICD-10 - E11.9) 02/21/2025 Pain in right ankle and joints of right foot (ICD-10 - M25.571) A referral was made to podiatry from [facility]. Patient will call about appt. 04/04/2025 Swelling of left parotid gland (ICD-10 - R60.0) 11/03/2024 Type 2 diabetes mellitus without complication, without long-term current use of insulin (ICD-10 - E11.9) 07/06/2024 jack tamp 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 of anticoagulants with INR goal of 2.5-3.5 (ICD-10 - Z79.01) 05/11/2024 Tendinitis of right knee (ICD-10 - M76.891) 04/27/2024 Degeneration of intervertebral disc of lumbar region with discogenic back pain and lower extremity pain (ICD-10 - M51.362) 04/27/2024 Spinal stenosis of lumbar region, unspecified whether neurogenic claudication present (ICD-10 - M48.061) 07/06/2024 Essential hypertension (ICD-10 - I10) 04/04/2025 residential current use of anticoagulants with INR goal of 2.5-3.5 (ICD-10 - Z79.01) 11/03/2024 BMI 45.0-49.9, adult (ICD-10 - Z68.42) 04/06/2025 Essential hypertension (ICD-10 - I10) 04/06/2025 Encounter for screening for other suspected endocrine disorder (ICD-10 - Z13.29) 11/03/2024 Obesity, morbid, BMI 40.0-49.9 (ICD-10 - E66.01) 07/06/2024 Type 2 diabetes mellitus without complication, without long-term current use of insulin (ICD-10 - E11.9) 04/04/2025 Pain in right ankle and joints of right foot (ICD-10 - M25.571) A referral was made to podiatry from [facility]. Patient will call about appt. 04/04/2025 Mechanical heart valve present (ICD-10 - Z95.2) 04/06/2025 Dyslipidemia (ICD-10 - E78.5) 07/06/2024 Mechanical heart valve present (ICD-10 - [...] 04/04/2025 H-INR 02/21/2025 Next Appt Details Provider Name:Lauryn salmeron, 07/18/2025 01:15:00 PM, [address], [place], [id number], Insurance Providers Payer Name Payer Address Payer Phone Subscriber Number Group Number Insured Name Patient Relationship to Insured Coverage Start Date Coverage End Date [employer] [address] [address] [place], [place] [id number] ARLINE BRIANNA Self - patient is the insured Medications [...] Dr. Mckeon 07/2022 Hospitalization History Reason Date(Month/Year) [facility] [place] Early May 2020 [facility], Anemia 09/07/18 [facility]-Anemia 01/18/2020
--- OUTSIDE RECORDS SUMMARY | 2025-04-24 12:45 | XMS_ITS | Encounter Summary ---
Author Organization Healthcare Address [address] [place] [address] Care Team Providers Care Felt Hat Steamer Name Role Phone Modesto Bynum MD Primary Care Provider [phone]- [phone] Encounter Details Date Type Department Care Team ([facility] st Contact Info) Description 07/13/2023 Orders Only External Location [address] [place] [address] Provider, External Social History Tobacco Use Types [...] on filedocumented in this encounter Care Teams Felt Hat Steamer Relationship Specialty Start Date End Date Modesto Bynum MD [address] [place] [address] [place] [id number] PCP - General 11/01/20 documented as of this encounter
--- OUTSIDE RECORDS SUMMARY | 2025-04-24 12:45 | XMS_ITS | Clinical Summary ---
Author Organization [facility] Address [address] [place] [address] Care Team Providers Care Weight Recorder Name Role Phone Modesto Bynum MD Primary Care Provider +1- [phone] Allergies No known active allergies Medications simvastatin [...] - Risk 60-74 years 1-dose series) 2023 [id number] Vaccine (2 - 2024- season) 2025 09/21/2020 [...] this topic Insurance [employer]IC[employer] Care Teams Weight Recorder Relationship Specialty Start Date End Date Modesto Bynum MD [address] [place] [address] [place] [id number] PCP - General 11/01/20
--- OUTSIDE RECORDS SUMMARY | 2025-04-24 12:45 | XMS_ITS | Encounter Summary ---
Author Organization Healthcare Address [address] [place] [address] Care Team Providers Care Boat Rental Clerk Name Role Phone Modesto Bynum MD Primary Care Provider +1- [phone] Encounter Details Date Type Department Care Team (Late st Contact Info) Description 09/28/2022 Orders Only External Location [address] [place] [address] Ambrose Boss MD [address] [facility] [address] [place] [address] Social History Tobacco Use Types [...] on filedocumented in this encounter Care Teams Boat Rental Clerk Relationship Specialty Start Date End Date Modesto Bynum MD [address] [place] [address] [place] [id number] PCP - General 5/14/21 documented as of this encounter
--- NOTE | 2025-04-24 13:00 | US_ITS ---
FINAL REPORT CLINICAL HISTORY: Evaluation of Decreased Pedal Pulses, obesity, smoker, HTN, DM, HLD, CAD, MT, Claudication FINDINGS: ANKLE-BRACHIAL PRESSURE INDICES Pressure indices are as follows: RIGHT LOWER EXTREMITY: Ankle-brachial pressure index: 1.23 Comments: Normal LEFT LOWER EXTREMITY: Ankle-brachial pressure index: 1.19 Comments: Normal IMPRESSION: No evidence of significant obstructive peripheral vascular disease of the lower extremities Reviewed, Interpreted and Dictated by Constanza Garcia MD Transcribed by Patricia Brewer Authenticated and [facility]
== END 2025-04-24 23:59 | disposition home or self-care (01) ==
LOC: RT 12:40
PROVIDERS: PCP Family Medicine; Visit Provider Nurse Practitioner
DX: R09.89 Other specified symptoms and signs involving the circulatory and respiratory systems (principal); E66.9 Obesity, unspecified; F17.200 Nicotine dependence, unspecified, uncomplicated; I10 Essential (primary) hypertension; E11.9 Type 2 diabetes mellitus without complications; E78.5 Hyperlipidemia, unspecified; I25.10 Atherosclerotic heart disease of native coronary artery without angina pectoris; I21.9 Acute myocardial infarction, unspecified; I73.9 Peripheral vascular disease, unspecified
CPT/HCPCS: 93923